=== PATIENT | male | born 1935 | race Caucasian/White ===

== ENCOUNTER 2018-08-19 01:35 | Inpatient (IN) | END 2018-08-30 15:48 | DRG 871 ==

== ENCOUNTER 2019-02-22 22:42 | Inpatient (IN) | payer MEDICARE, OTHER ==
[~2019-02-22] VITALS: Ht 177.8 cm; Wt 73.2 kg
[~2019-02-22 22:42] MED LIST: ACET-2047 ORAL; ALBU2.5V3 NEB; ASPI-903 ORAL; ATOR10TA65 ORAL; CARB1TAB34 ORAL; CHOL100062 ORAL; CITA10TA5 ORAL; DIVA125C16 ORAL; FERR220S13 ORAL; FINA5TAB4 ORAL; LACT1CAP33 ORAL; LACT1CAP52 PO; MULT-105 ORAL; OMEP20CA16 GTB; TAMS0.4C2 ORAL
--- NOTE | 2019-02-22 22:57 | CONS ---
Consultation Date/Type/Reason Admit Date/Time Date/Time of Note DATE: 02/22/19 TIME: 22:57 Past Medical History Home Meds Reported Medications Cranberry Ext/C/L. Sporogenes (Cranberry Tablet) 1 Each Tablet, 1 EACH G-TUBE DAILY PRN for UTI PPX, TAB 02/23/19 Diltiazem Hcl* (Cardizem*) 60 Mg Tablet, 60 MG GTB Q8, #90 TAB 02/23/19 Calcium Carbonate (Calcium Carbonate) 500 Mg/5 Ml Oral.susp, 500 MG GTB DAILY 02/23/19 Hydroxyzine Hcl* (Hydroxyzine Hcl*) 10 Mg Tablet, 10 MG GTB Q6H PRN for ITCHING, #30 TAB 02/23/19 Enoxaparin Sodium* (Lovenox*) 30 Mg/0.3 Ml Disp.syrin, 30 MG SQ DAILY for DVT PPX, SYR 02/23/19 Ipratropium-Albuterol (Ipratropium-Albuterol) 0.5-3 Mg/3 Ml Ampul.neb, 3 ML INHALATION Q6 for SOB, #30 VIAL 02/23/19 Clotrimazole-Betamethasone Diprop (Clotrimazole-Betamethasone Diprop) 15 Gm Cream.gm., 1 APPLIC TOP BID, TUB 02/23/19 Multivitamin with Minerals (Multivitamins with Minerals) 1 Each Tablet, 1 EACH GTB QAM for SUPPLEMENT, TAB 11/02/18 Ferrous Sulfate* (Ferrous Sulfate*) 220 Mg/5 Ml Solution, 220 MG GTB DAILY for ANEMIA, ML 11/02/18 Albuterol Sulfate* (Albuterol Sulfate* Neb) 0.083%-3 Ml Neb, 1.25 MG NEB Q4H PRN for SHORTNESS OF BREATH, #30 VIAL 11/02/18 Lactobacillus Acidophilus (Acidophilus Lactobacillus) 1 Each Capsule, 1 EACH GTB TID for GI PPX, CAP 11/02/18 Divalproex Sodium* (Depakote* Sprinkle) 125 Mg Cap.sprink, 125 MG GTB TID, #90 CAP 08/27/18 Carbidopa/Levodopa (Carbidopa-Levodopa 25-100 Tab) 1 Each Tablet, 1 EACH GTB for PARALYSIS AGITANS, TAB 08/27/18 Cholecalciferol* (Vitamin D3*) 1,000 Unit Tablet, 1000 UNIT GTB DAILY for SUPPLEMENT, TAB 08/27/18 Tamsulosin Hcl* (Tamsulosin Hcl*) 0.4 Mg Cap.er.24h, 0.4 MG GTB HS for HYPERTROPHY PROSTATE, CAP 08/27/18 Omeprazole* (Omeprazole*) 20 Mg Capsule.dr, 20 MG GTB QAM for GERD, #30 CAP 08/27/18 Atorvastatin Calcium (Atorvastatin Calcium) 10 Mg Tablet, 10 MG GTB QHS for HYPERCHOLESTEROLEMIA, #30 TAB 08/27/18 Aspirin* (Aspirin* Chew) 81 Mg Tab.chew, 81 MG GTB DAILY for CVA PPX, TAB.CHEW 08/27/18 Acetaminophen* (Acetaminophen*) 650 Mg Tablet, 650 MG GTB Q4 PRN for FEVER, #30 TAB 08/27/18 Finasteride* (Finasteride*) 5 Mg Tablet, 5 MG GTB DAILY for HYPERTROPHY PROSTATE, TAB 08/27/18 Citalopram Hydrobromide* (Citalopram Hydrobromide*) 10 Mg Tablet, 10 MG GTB QHS for DEPRESSIVE DISORDER, #30 TAB 08/27/18 Discontinued Reported Medications Lactobacillus Combo No.10 (Probiotic) 1 Each Capsule, 1 CAP PO BID, CAP 08/27/18 Allergies: Coded Allergies: Penicillins (Unverified Allergy, Unknown, 02/23/19) FELI MARCIAL MD February 22, 2019 22:57 ZOIE VERDUGO MD February 22, 2019 23:12
[2019-02-22] MEDS ORDERED: SODIUM CHLORIDE 0.9% 1L BAG IV* STA (23:22)
[2019-02-23] MEDS ORDERED: IPRA3AMP29 INHALATION (02:20)
[2019-02-23] MEDS ORDERED: CALC500O ORAL (02:20)
[2019-02-23] MEDS ORDERED: CLOT15CR6 TOP (02:20)
[2019-02-23] MEDS ORDERED: DILT60TA29 GTB (02:20)
[2019-02-23] MEDS ORDERED: ENOX30DI10 SQ (02:20)
[2019-02-23] MEDS ORDERED: CRAN1TAB6 G-TUBE (02:20)
[2019-02-23] MEDS ORDERED: HYDR-3029 GTB (02:20)
[2019-02-23] MEDS ORDERED: MEROPENEM 1 GM/50ML(PMX) 50 ML IVPB STA (02:22)
--- NOTE | 2019-02-23 03:35 | ERD ---
ER Documentation Chief Complaint Chief Complaint GERTRUDE from [place] HR,fever & cough HPI The patient is a 83-year-old male, presenting to the ER because of fever and cough. 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 Sporogenes (Cranberry Tablet) 1 Each Tablet, 1 EACH G-TUBE DAILY PRN for UTI PPX, TAB 02/23/19 Diltiazem Hcl* (Cardizem*) 60 Mg Tablet, 60 MG GTB Q8, #90 TAB 02/23/19 Calcium Carbonate (Calcium Carbonate) 500 Mg/5 Ml Oral.susp, 500 MG GTB DAILY 02/23/19 Hydroxyzine Hcl* (Hydroxyzine Hcl*) 10 Mg Tablet, 10 MG GTB Q6H PRN for ITCHING, #30 TAB 02/23/19 Enoxaparin Sodium* (Lovenox*) 30 Mg/0.3 Ml Disp.syrin, 30 MG SQ DAILY for DVT PPX, SYR 02/23/19 Ipratropium-Albuterol (Ipratropium-Albuterol) 0.5-3 Mg/3 Ml Ampul.neb, 3 ML INHALATION Q6 for SOB, #30 VIAL 02/23/19 Clotrimazole-Betamethasone Diprop (Clotrimazole-Betamethasone Diprop) 15 Gm Cream.gm., 1 APPLIC TOP BID, TUB 02/23/19 Multivitamin with Minerals (Multivitamins with Minerals) 1 Each Tablet, 1 EACH GTB QAM for SUPPLEMENT, TAB 11/02/18 Ferrous Sulfate* (Ferrous Sulfate*) 220 Mg/5 Ml Solution, 220 MG GTB DAILY for ANEMIA, ML 11/02/18 Albuterol Sulfate* (Albuterol Sulfate* Neb) 0.083%-3 Ml Neb, 1.25 MG NEB Q4H PRN for SHORTNESS OF BREATH, #30 VIAL 11/02/18 Lactobacillus Acidophilus (Acidophilus Lactobacillus) 1 Each Capsule, 1 EACH GTB TID for GI PPX, CAP 11/02/18 Divalproex Sodium* (Depakote* Sprinkle) 125 Mg Cap.sprink, 125 MG GTB TID, #90 CAP 08/27/18 Carbidopa/Levodopa (Carbidopa-Levodopa 25-100 Tab) 1 Each Tablet, 1 EACH GTB for PARALYSIS AGITANS, TAB 08/27/18 Cholecalciferol* (Vitamin D3*) 1,000 Unit Tablet, 1000 UNIT GTB DAILY for SUPPLEMENT, TAB 08/27/18 Tamsulosin Hcl* (Tamsulosin Hcl*) 0.4 Mg Cap.er.24h, 0.4 MG GTB HS for HYPERTROPHY PROSTATE, CAP 08/27/18 Omeprazole* (Omeprazole*) 20 Mg Capsule.dr, 20 MG GTB QAM for GERD, #30 CAP 08/27/18 Atorvastatin Calcium (Atorvastatin Calcium) 10 Mg Tablet, 10 MG GTB QHS for HYPERCHOLESTEROLEMIA, #30 TAB 08/27/18 Aspirin* (Aspirin* Chew) 81 Mg Tab.chew, 81 MG GTB DAILY for CVA PPX, TAB.CHEW 08/27/18 Acetaminophen* (Acetaminophen*) 650 Mg Tablet, 650 MG GTB Q4 PRN for FEVER, #30 TAB 08/27/18 Finasteride* (Finasteride*) 5 Mg Tablet, 5 MG GTB DAILY for HYPERTROPHY PROSTATE, TAB 08/27/18 Citalopram Hydrobromide* (Citalopram Hydrobromide*) 10 Mg Tablet, 10 MG GTB QHS for DEPRESSIVE DISORDER, #30 TAB 08/27/18 Discontinued Reported Medications Lactobacillus Combo No.10 (Probiotic) 1 Each Capsule, 1 CAP PO BID, CAP 08/27/18 Allergies Allergies: Coded Allergies: Penicillins (Unverified Allergy, Unknown, 02/23/19) PMhx/Soc History of Surgery: No (Cholecystectomy ) Anesthesia Reaction: No Hx Neurological Disorder: Yes (Dementia, Parkinson's disease, Stroke ) Hx Respiratory Disorders: Yes (Pneumonia, acute resp failure) Hx Cardiac Disorders: No Hx Psychiatric Problems: No (Confused, Parkinson's Dementia, delusional disorder) Hx Miscellaneous Medical Probl: Yes Hx Alcohol Use: No Hx Substance Use: No Hx Tobacco Use: No Smoking Status: Unknown if ever smoked Physical Exam Vitals Vital Signs Date Temp Pulse Resp B/P (MAP) Pulse Ox O2 O2 Flow FiO2 Time Delivery Rate 02/23/19 58 16 112/80 99 Nasal 2.0 01:29 (91) Cannula 02/23/19 Nasal 2 00:35 Cannula 02/22/19 62 20 111/46 99 Room Air 23:54 (67) 02/22/19 97.8 72 19 91/58 (69) 98 22:58 Physical Exam Const: No acute distress. Dehydrated Head: Atraumatic. Eyes: Normal Conjunctiva. ENT: Normal External Ears, Nose and Mouth. Neck: Full range of motion. No meningismus. Resp: Clear to auscultation bilaterally. Cardio: Regular rate and rhythm. Abd: Soft, non distended, normal bowel sounds, non tender. Skin: No petechiae or rashes. Back: No midline or flank tenderness. Ext: No cyanosis, or edema. Neur: Awake. No focal deficit Psych: Demented Result Diagram: 02/22/19 2340 02/22/19 2340 Results 24 hrs Laboratory Tests Test 02/22/19 23:40 02/22/19 23:41 02/23/19 00:11 White Blood Count 19.8 10^3/ul Red Blood Count 4.44 10^6/ul Hemoglobin 13.5 g/dl Hematocrit 40.7 % Mean Corpuscular Volume 91.7 fl Mean Corpuscular Hemoglobin 30.4 pg Mean Corpuscular 33.2 g/dl Hemoglobin Concent Red Cell Distribution Width 13.1 % Platelet Count 231 10^3/UL Mean Platelet Volume 9.7 fl Immature Granulocytes % 0.600 % Neutrophils % 85.2 % Lymphocytes % 7.8 % Monocytes % 5.2 % Eosinophils % 0.9 % Basophils % 0.3 % Nucleated Red Blood Cells % 0.0 /100WBC Immature Granulocytes # 0.110 10^3/ul Neutrophils # 16.9 10^3/ul Lymphocytes # 1.6 10^3/ul Monocytes # 1.0 10^3/ul Eosinophils # 0.2 10^3/ul Basophils # 0.1 10^3/ul Nucleated Red Blood Cells # 0.0 10^3/ul Prothrombin Time 13.2 Sec Prothrombin Time Ratio 1.0 INR International 0.99 Normalized Ratio Activated Partial Thromboplast 61.7 Sec Time Sodium Level 142 mmol/L Potassium Level 5.4 mmol/L Chloride Level 106 mmol/L Carbon Dioxide Level 29 mmol/L Anion Gap 7 Blood Urea Nitrogen 33 mg/dl Creatinine 1.07 mg/dl Est Glomerular Filtrat mL/min Rate mL/min Glucose Level 121 mg/dl Calcium Level 8.9 mg/dl Total Bilirubin 0.6 mg/dl Direct Bilirubin 0.00 mg/dl Indirect Bilirubin 0.6 mg/dl Aspartate Amino 29 IU/L Transf (AST/SGOT) Alanine 9 IU/L Aminotransferase (ALT/SGPT) Alkaline Phosphatase 71 IU/L Troponin I < 0.012 ng/ml Total Protein 7.6 g/dl Albumin 3.9 g/dl Globulin 3.70 g/dl Albumin/Globulin Ratio 1.05 Valproic Acid (Depakene) Level 19 ug/ml POC Venous Lactate 0.9 mmol/L Urine Color YELLOW Urine Clarity TURBID Urine pH 5.0 Urine Specific [place] 1.017 Urine Ketones TRACE mg/dL Urine Nitrite NEGATIVE mg/dL Urine Bilirubin NEGATIVE mg/dL Urine Urobilinogen NEGATIVE mg/dL Urine Leukocyte Esterase 3+ [place]/ul Urine Microscopic RBC 147 /HPF Urine Microscopic WBC > 182 /HPF Urine Amorphous Crystals FEW /HPF Urine Bacteria FEW /HPF Urine Hemoglobin 1+ mg/dL Urine Glucose NEGATIVE mg/dL Urine Total Protein 1+ mg/dl Current Medications Medications Dose Sig/Teresa Start Time Status Last (Trade) Ordered Route PRN Stop Time Admin Dose Reason Admin Sodium 2,090 ml BOLUS OVER 2 02/22/19 DC 02/22/19 Chloride HOURS STAT 23:22 23:50 (NS) IV* 02/22/19 23:23 50 ml @ ONCE STAT 02/23/19 DC 02/23/19 Meropenem/Sod 100 mls/hr IVPB 02:22 02:41 ium Chloride 02/23/19 02:51 Procedures/MDM [place] [id number] Radiology Main Line: [phone] DIAGNOSTIC IMAGING REPORT Patient: LILO DÍAZ : 1935 Age: 83 Sex: M MR #: [id number] DOS: 02/22/19 2320 Ordering MD: ZOIE VERDUGO MD Location: E/R Room/Bed: PROCEDURE: XR chest. CLINICAL INDICATION: Sepsis TECHNIQUE: Portable AP view of the chest was obtained. COMPARISON: 11/05/2018 FINDINGS: Lung volumes are small. Heart size is normal. Aorta is mild tortuous. There is no pneumothorax or pleural effusion. There is mild subsegmental bibasilar atelectasis. IMPRESSION: 1. Poor inspiration with mild bibasilar subsegmental atelectasis. RPTAT:HAJM Physician Negrita Date Time Electronically viewed and signed by Berenice Zepeda Physician on 02/23/2019 00:46 RM/ CC: ZOIE VERDUGO MD [id number] EKG: Read by emergency physician Rate/Rhythm: Normal Sinus Rhythm 63 beats/min QRS, ST, T-waves: No ST elevation, no T inversion, low voltage QRS Impression: Abnormal EKG MEDICAL MAKING DECISION: The patient is 83-year-old male, presenting with acute cystitis, acute dehydration, acute hyperkalemia most likely due to acute dehydration. He was treated with normal saline 30 mm/kg IV for acute dehydration, meropenem IV for acute cystitis The differential diagnoses considered include but are not limited to pneumonia, cystitis, pyelonephritis, aspiration pneumonia Departure Diagnosis: Primary Impression: UTI (urinary tract infection) Additional Impressions: Dehydration Hyperkalemia Anemia Condition: Stable Comments I discussed the findings with the patient. I discussed the patient with Dr Granda at 2:55am , who was made aware of the lab, the treatment, the patient condition. The patient is admitted to [facility] Disclaimer: Inadvertent spelling and grammatical errors are likely due to EHR/dictation software use and do not reflect on the overall quality of patient care. Also, please note that the electronic time recorded on this note does not necessarily reflect the actual time of the patient encounter. ZOIE VERDUGO MD February 23, 2019 03:35
[2019-02-23 08:00] VITALS: BP 97/46; PULSE 56; RESP 18
[2019-02-23 08:15] VITALS: BP 97/46; PULSE 56; RESP 18
[2019-02-23 09:44] VITALS: Ht 177.8 cm; Wt 73.2 kg
[2019-02-23] MEDS ORDERED: morphine 2 MG INJ IV PRN (10:30)
[2019-02-23] MEDS ORDERED: ONDANSETRON 4 MG INJ IV PRN (10:30)
--- NOTE | 2019-02-23 12:31 | HP ---
Date/Time of Note Date/Time of Note DATE: 02/23/19 TIME: 12:29 Assessment/Plan VTE Prophylaxis Pharmacological prophylaxis: LMWH Lines/Catheters IV Catheter Type (from Nrs): Peripheral IV Urinary Cath still in place: No Assessment/Plan Hospital Course 1) UTI - IV antibiotics - ID consult - monitor clinically 2) BPH - continue medicaitons 3) dementia - appears to be stable Result Diagram: 02/22/19 2340 02/22/19 2340 Results 24hrs Laboratory Tests Test 02/22/19 23:40 02/22/19 23:41 02/23/19 00:11 02/23/19 03:30 White Blood Count 19.8 #H Red Blood Count 4.44 L Hemoglobin 13.5 L Hematocrit 40.7 L Mean Corpuscular 91.7 Volume Mean Corpuscular 30.4 Hemoglobin Mean Corpuscular 33.2 Hemoglobin Concent Red Cell 13.1 Distribution Width Platelet Count 231 Mean Platelet Volume 9.7 Immature 0.600 H Granulocytes % Neutrophils % 85.2 H Lymphocytes % 7.8 L Monocytes % 5.2 Eosinophils % 0.9 Basophils % 0.3 Nucleated Red Blood 0.0 Cells % Immature 0.110 H Granulocytes # Neutrophils # 16.9 H Lymphocytes # 1.6 Monocytes # 1.0 H Eosinophils # 0.2 Basophils # 0.1 Nucleated Red Blood 0.0 Cells # Prothrombin Time 13.2 Prothrombin Time 1.0 Ratio INR International 0.99 Normalized Ratio Activated 61.7 H Partial Thromboplast Time Sodium Level 142 Potassium Level 5.4 H Chloride Level 106 Carbon Dioxide Level 29 Anion Gap 7 Blood Urea Nitrogen 33 H Creatinine 1.07 Est Glomerular Filtrat Rate mL/min Glucose Level 121 Calcium Level 8.9 Total Bilirubin 0.6 Direct Bilirubin 0.00 Indirect Bilirubin 0.6 Aspartate Amino 29 Transf (AST/SGOT) Alanine 9 L Aminotransferase (AL T/SGPT) Alkaline Phosphatase 71 Troponin I < 0.012 Total Protein 7.6 Albumin 3.9 Globulin 3.70 H Albumin/Globulin 1.05 Ratio Valproic Acid 19 L (Depakene) Level POC Venous Lactate 0.9 Urine Color YELLOW Urine Clarity TURBID A Urine pH 5.0 Urine Specific 1.017 [place] Urine Ketones TRACE A Urine Nitrite NEGATIVE Urine Bilirubin NEGATIVE Urine Urobilinogen NEGATIVE Urine Leukocyte 3+ H Esterase Urine Microscopic 147 H RBC Urine Microscopic > 182 H WBC Urine Amorphous FEW A Crystals Urine Bacteria FEW A Urine Hemoglobin 1+ H Urine Glucose NEGATIVE Urine Total Protein 1+ H Lactic Acid Level 1.0 HPI/ROS Admit Date/Time Admit Date/Time 02/23/19 Hx of Present Illness Patient with history of dementia, CVA, BPH, delusional disorder comes from [facility] with fever and cough. Patient was evaluated in the emergency room and found to have an urinary tract infeciton and so is admitted for treatment. PMH/Family/Social Past Medical History dementia BPH Medications Current Medications Morphine Sulfate (morphine) 2 mg Q4H PRN IV pain; Start 02/23/19 at 10:30 Ondansetron HCl (Zofran Inj) 4 mg Q6H PRN IV NAUSEA AND/OR VOMITING; Start 02/23/19 at 10:30 Meropenem/Sodium Chloride 50 ml @ 100 mls/hr Q8 IVPB ; Start 02/23/19 at 14:00 IV Flush (NS 10 ml) 10 ml Q8 IV ; Start 02/23/19 at 14:00 Coded Allergies: Penicillins (Unverified Allergy, Unknown, 02/23/19) Social History Smoking Status: Unknown if ever smoked Exam/Review of Systems Vital Signs Vitals Vital Signs Date Temp Pulse Resp B/P (MAP) Pulse Ox O2 O2 Flow FiO2 Time Delivery Rate 02/23/19 97.8 56 18 97/46 (63) 99 Room Air 08:15 02/23/19 3.0 03:38 Exam Constitutional: well developed Head: normocephalic, atraumatic Neck: supple Respiratory: diminished breath sounds Cardiovascular: regular rate and rhythm Gastrointestinal: soft, non-tender Extremities: normal pulses ERNST BARAKAT February 23, 2019 12:31
[2019-02-23] MEDS ORDERED: ACETAMINOPHEN 325 MG TAB PO PRN (13:00)
[2019-02-23] MEDS ORDERED: ALBUTEROL 0.083% (NEB) 2.5 MG/3 ML AMP NEB PRN (13:00)
[2019-02-23] MEDS: FERROUS SULFATE 60 MG/ML 5ML CUP PO SCH (13:28)
[2019-02-23] MEDS: CHOLECALCIFEROL 1,000 UNIT TAB PO SCH (13:28)
[2019-02-23] MEDS: FINASTERIDE 5 MG TAB PO SCH (13:28)
[2019-02-23] MEDS: DILTIAZEM 60 MG TAB GTB SCH ×2 (13:29→22:00)
[2019-02-23] MEDS: CALCIUM CARBONATE 1.25 GM TAB PO SCH (13:29)
[2019-02-23] MEDS: MEROPENEM 500MG/50 ML (PMX) 50 ML IVPB SCH ×2 (13:29→22:47)
[2019-02-23 13:30] VITALS: BP 119/46; PULSE 57; RESP 16
[2019-02-23] MEDS: ALBUTEROL/IPRATROPIUM (NEB) 3 ML AMP HHN SCH ×2 (13:45→20:17)
[2019-02-23] MEDS: DIVALPROEX SPRINKLE 125 MG CAP PO SCH ×2 (17:30→20:37)
--- NOTE | 2019-02-23 18:04 | CONS ---
Assessment/Plan Assessment/Plan Hospital Course (Demo Recall) -ANEMIA COMPLEX, MONITOR - LEUKOCYTOSIS REACTIVE, IMPROVED - fever, cough CXR, IV ATB , ID, CULTURES - HX urinary tract infection. IV ATB - BPH, continue Flomax and Proscar - Dysphagia. swallow evaluation by ST. - History of cerebrovascular accident. Continue aspirin - Dyslipidemia. Continue statin - Parkinsonism. Continue carbidopa - Dementia with agitation. Continue Depakote. - Depression. Continue Celexa. VK LE Consultation Date/Type/Reason Admit Date/Time February 23, 2019 at 08:00 Date of Consultation: February 22, 2019 Type of Consult HEMEONC Reason for Consultation LEUKOCYTOSIS ANEMIA Requesting Provider: JACOBO EATON MD Date/Time of Note DATE: 02/23/19 TIME: 18:03 Hx of Present Illness The patient is a 83-year-old male, presenting to the ER because of fever and cough. He is unable to provide any history, the history is obtained from therapy technician and EMS Past medical history: Anemia Parkinson disease, BPH, dyslipidemia, depression, dementia, history of CVA Past surgical history/social history/review of system: Unable to obtain due to his condition Medications Home Meds Reported Medications Cranberry Ext/C/L. Sporogenes (Cranberry Tablet) 1 Each Tablet, 1 EACH G-TUBE DAILY PRN for UTI PPX, TAB 02/23/19 Diltiazem Hcl* (Cardizem*) 60 Mg Tablet, 60 MG GTB Q8, #90 TAB 02/23/19 Calcium Carbonate (Calcium Carbonate) 500 Mg/5 Ml Oral.susp, 500 MG GTB DAILY 02/23/19 Hydroxyzine Hcl* (Hydroxyzine Hcl*) 10 Mg Tablet, 10 MG GTB Q6H PRN for ITCHING, #30 TAB 02/23/19 Enoxaparin Sodium* (Lovenox*) 30 Mg/0.3 Ml Disp.syrin, 30 MG SQ DAILY for DVT PPX, SYR 02/23/19 Ipratropium-Albuterol (Ipratropium-Albuterol) 0.5-3 Mg/3 Ml Ampul.neb, 3 ML INHALATION Q6 for SOB, #30 VIAL 02/23/19 Clotrimazole-Betamethasone Diprop (Clotrimazole-Betamethasone Diprop) 15 Gm Cream.gm., 1 APPLIC TOP BID, TUB 02/23/19 Multivitamin with Minerals (Multivitamins with Minerals) 1 Each Tablet, 1 EACH GTB QAM for SUPPLEMENT, TAB 11/02/18 Ferrous Sulfate* (Ferrous Sulfate*) 220 Mg/5 Ml Solution, 220 MG GTB DAILY for ANEMIA, ML 11/02/18 Albuterol Sulfate* (Albuterol Sulfate* Neb) 0.083%-3 Ml Neb, 1.25 MG NEB Q4H PRN for SHORTNESS OF BREATH, #30 VIAL 11/02/18 Lactobacillus Acidophilus (Acidophilus Lactobacillus) 1 Each Capsule, 1 EACH GTB TID for GI PPX, CAP 11/02/18 Divalproex Sodium* (Depakote* Sprinkle) 125 Mg Cap.sprink, 125 MG GTB TID, #90 CAP 08/27/18 Carbidopa/Levodopa (Carbidopa-Levodopa 25-100 Tab) 1 Each Tablet, 1 EACH GTB for PARALYSIS AGITANS, TAB 08/27/18 Cholecalciferol* (Vitamin D3*) 1,000 Unit Tablet, 1000 UNIT GTB DAILY for SUPPLEMENT, TAB 08/27/18 Tamsulosin Hcl* (Tamsulosin Hcl*) 0.4 Mg Cap.er.24h, 0.4 MG GTB HS for H YPERTROPHY PROSTATE, CAP 08/27/18 Omeprazole* (Omeprazole*) 20 Mg Capsule.dr, 20 MG GTB QAM for GERD, #30 CAP 08/27/18 Atorvastatin Calcium (Atorvastatin Calcium) 10 Mg Tablet, 10 MG GTB QHS for HYPERCHOLESTEROLEMIA, #30 TAB 08/27/18 Aspirin* (Aspirin* Chew) 81 Mg Tab.chew, 81 MG GTB DAILY for CVA PPX, TAB.CHEW 08/27/18 Acetaminophen* (Acetaminophen*) 650 Mg Tablet, 650 MG GTB Q4 PRN for FEVER, #30 TAB 08/27/18 Finasteride* (Finasteride*) 5 Mg Tablet, 5 MG GTB DAILY for HYPERTROPHY PRO STATE, TAB 08/27/18 Citalopram Hydrobromide* (Citalopram Hydrobromide*) 10 Mg Tablet, 10 MG GTB QHS for DEPRESSIVE DISORDER, #30 TAB 08/27/18 Discontinued Reported Medications Lactobacillus Combo No.10 (Probiotic) 1 Each Capsule, 1 CAP PO BID, CAP 08/27/18 Allergies Allergies: Coded Allergies: Penicillins (Unverified Allergy, Unknown, 02/23/19) PMhx/Soc History of Surgery: No (Cholecystectomy ) Anesthesia Reaction: No Hx Neurological Disorder: Yes (Dementia, Parkinson's disease, Stroke ) Hx Respiratory Disorders: Yes (Pneumonia, acute resp failure) Hx Cardiac Disorders: No Hx Psychiatric Problems: No (Confused, Parkinson's Dementia, delusional disorder) Hx Miscellaneous Medical Probl: Yes Hx Alcohol Use: No Hx Substance Use: No Hx Tobacco Use: No Smoking Status: Unknown if ever smoked Past Medical History Home Meds Reported Medications Cranberry Ext/C/L. Sporogenes (Cranberry Tablet) 1 Each Tablet, 1 EACH G-TUBE DAILY PRN for UTI PPX, TAB 02/23/19 Diltiazem Hcl* (Cardizem*) 60 Mg Tablet, 60 MG GTB Q8, #90 TAB 02/23/19 Calcium Carbonate (Calcium Carbonate) 500 Mg/5 Ml Oral.susp, 500 MG ORAL DAILY 02/23/19 Hydroxyzine Hcl* (Hydroxyzine Hcl*) 10 Mg Tablet, 10 MG GTB Q6H PRN for ITCHING, #30 TAB 02/23/19 Enoxaparin Sodium* (Lovenox*) 30 Mg/0.3 Ml Disp.syrin, 30 MG SQ DAILY for DVT PPX, SYR 02/23/19 Ipratropium-Albuterol (Ipratropium-Albuterol) 0.5-3 Mg/3 Ml Ampul.neb, 3 ML INHALATION Q6 for SOB, #30 VIAL 02/23/19 Clotrimazole-Betamethasone Diprop (Clotrimazole-Betamethasone Diprop) 15 Gm Cream.gm., 1 APPLIC TOP BID, TUB 02/23/19 Multivitamin with Minerals (Multivitamins with Minerals) 1 Each Tablet, 1 EACH ORAL QAM for SUPPLEMENT, TAB 11/02/18 Ferrous Sulfate* (Ferrous Sulfate*) 220 Mg/5 Ml Solution, 220 MG ORAL DAILY for ANEMIA, ML 11/02/18 Albuterol Sulfate* (Albuterol Sulfate* Neb) 0.083%-3 Ml Neb, 1.25 MG NEB Q4H PRN for SHORTNESS OF BREATH, #30 VIAL 11/02/18 Lactobacillus Acidophilus (Acidophilus Lactobacillus) 1 Each Capsule, 1 EACH ORAL TID for GI PPX, CAP 11/02/18 Divalproex Sodium* (Depakote* Sprinkle) 125 Mg Cap.sprink, 125 MG ORAL TID, #90 CAP 08/27/18 Carbidopa/Levodopa (Carbidopa-Levodopa 25-100 Tab) 1 Each Tablet, 1 EACH ORAL BID for PARALYSIS AGITANS, TAB 08/27/18 Cholecalciferol* (Vitamin D3*) 1,000 Unit Tablet, 1000 UNIT ORAL DAILY for SUPPLEMENT, TAB 08/27/18 Tamsulosin Hcl* (Tamsulosin Hcl*) 0.4 Mg Cap.er.24h, 0.4 MG ORAL HS for HYPERTROPHY PROSTATE, CAP 08/27/18 Omeprazole* (Omeprazole*) 20 Mg Capsule.dr, 20 MG GTB QAM for GERD, #30 CAP 08/27/18 Atorvastatin Calcium (Atorvastatin Calcium) 10 Mg Tablet, 10 MG ORAL QHS for HY PERCHOLESTEROLEMIA, #30 TAB 08/27/18 Aspirin* (Aspirin* Chew) 81 Mg Tab.chew, 81 MG ORAL DAILY for CVA PPX, TAB.CHEW 08/27/18 Acetaminophen* (Acetaminophen*) 650 Mg Tablet, 650 MG ORAL Q4 PRN for FEVER, #30 TAB 08/27/18 Finasteride* (Finasteride*) 5 Mg Tablet, 5 MG ORAL DAILY for HYPERTROPHY PROSTATE, TAB 08/27/18 Citalopram Hydrobromide* (Citalopram Hydrobromide*) 10 Mg Tablet, 10 MG ORAL QHS for DEPRESSIVE DISORDER, #30 TAB 08/27/18 Discontinued Reported Medications Lactobacillus Combo No.10 (Probiotic) 1 Each Capsule, 1 CAP PO BID, CAP 08/27/18 Medications Current Medications Morphine Sulfate (morphine) 2 mg Q4H PRN IV pain; Start 02/23/19 at 10:30 Ondansetron HCl (Zofran Inj) 4 mg Q6H PRN IV NAUSEA AND/OR VOMITING; Start 02/23/19 at 10:30 Meropenem/Sodium Chloride 50 ml @ 100 mls/hr Q8 IVPB Last administered on 02/23/19at 13:29; Admin Dose 100 MLS/HR; Start 02/23/19 at 14:00 IV Flush (NS 10 ml) 10 ml Q8 IV Last administered on 02/23/19 13:30; Admin Dose 10 ML; Start 02/23/19 at 14:00 Enoxaparin Sodium (Lovenox) 30 mg DAILY SC ; Start 02/24/19 at 09:00 Acetaminophen (Tylenol Tab) 650 mg Q4H PRN PO FEVER; Start 02/23/19 at 13:00 Albuterol (Proventil 0.083% (Neb)) 1.25 mg Q4H RESP THERAPY PRN NEB SHORTNESS OF BREATH; Start 02/23/19 at 13:00 Aspirin (Aspirin) 81 mg DAILY PO ; Start 02/24/19 at 09:00 Atorvastatin Calcium (Lipitor) 10 mg QHS PO ; Start 02/23/19 at 21:00 Calcium Carbonate (Oyster Shell Calcium) 1.25 gm DAILY PO Last administered on 02/23/19 13:29; Admin Dose 1.25 GM; Start 02/23/19 at 13:00 Carbidopa/Levodopa (Sinemet (25/ 100)) 1 tab BID PO ; Start 02/23/19 at 21:00 Cholecalciferol (Vitamin D) 1,000 unit DAILY PO Last administered on 02/23/19 13:28; Admin Dose 1,000 UNIT; Start 02/23/19 at 13:00 Citalopram Hydrobromide (Celexa) 10 mg QHS PO ; Start 02/23/19 at 21:00 Betamethasone/ Clotrimazole (Lotrisone Cr) 1 applic BID TOP ; Start 02/23/19 at 21:00 Diltiazem HCl (Cardizem) 60 mg Q8 GTB ; Start 02/23/19 at 14:00 Divalproex Sodium (Depakote Sprinkle) 125 mg TID PO Last administered on 02/23/19 17:30; Admin Dose 125 MG; Start 02/23/19 at 14:00 Ferrous Sulfate (Feosol Liquid Cup) 300 mg DAILY PO Last administered on 02/23/19 13:28; Admin Dose 300 MG; Start 02/23/19 at 13:00 Finasteride (Proscar) 5 mg DAILY PO Last administered on 02/23/19 13:28; Admin Dose 5 MG; Start 02/23/19 at 13:00 Hydroxyzine HCl (Atarax) 10 mg Q6H PRN GTB ITCHING; Start 02/23/19 at 13:00 Albuterol/ Ipratropium (Duoneb) 3 ml Q6H RESP THERAPY HHN Last administered on 02/23/19at 13:45; Admin Dose 3 ML; Start 02/23/19 at 14:00 Tamsulosin HCl (Flomax) 0.4 mg HS PO ; Start 02/23/19 at 21:00 Allergies: Coded Allergies: Penicillins (Unverified Allergy, Unknown, 02/23/19) Social History Smoking Status: Unknown if ever smoked Exam/Review of Systems Exam Vitals Vital Signs Date Temp Pulse Resp B/P (MAP) Pulse Ox O2 O2 Flow FiO2 Time Delivery Rate 02/23/19 98.0 57 16 119/46 94 Room Air 13:30 (70) 02/23/19 3.0 03:38 Exam Constitutional: alert, frail Head: normocephalic Neck: supple Respiratory: clear to auscultation Cardiovascular: nl pulses Gastrointestinal: soft, non-tender Extremities: normal pulses Neurological: confused Results Result Diagram: 02/22/19 2340 02/22/19 2340 Results 24hrs Laboratory Tests Test 02/22/19 23:40 02/22/19 23:41 02/23/19 00:11 02/23/19 03:30 White Blood Count 19.8 #H Red Blood Count 4.44 L Hemoglobin 13.5 L Hematocrit 40.7 L Mean Corpuscular 91.7 Volume Mean Corpuscular 30.4 Hemoglobin Mean Corpuscular 33.2 Hemoglobin Concent Red Cell 13.1 Distribution Width Platelet Count 231 Mean Platelet Volume 9.7 Immature 0.600 H Granulocytes % Neutrophils % 85.2 H Lymphocytes % 7.8 L Monocytes % 5.2 Eosinophils % 0.9 Basophils % 0.3 Nucleated Red Blood 0.0 Cells % Immature 0.110 H Granulocytes # Neutrophils # 16.9 H Lymphocytes # 1.6 Monocytes # 1.0 H Eosinophils # 0.2 Basophils # 0.1 Nucleated Red Blood 0.0 Cells # Prothrombin Time 13.2 Prothrombin Time 1.0 Ratio INR International 0.99 Normalized Ratio Activated 61.7 H Partial Thromboplast Time Sodium Level 142 Potassium Level 5.4 H Chloride Level 106 Carbon Dioxide Level 29 Anion Gap 7 Blood Urea Nitrogen 33 H Creatinine 1.07 Est Glomerular Filtrat Rate mL/min Glucose Level 121 Calcium Level 8.9 Total Bilirubin 0.6 Direct Bilirubin 0.00 Indirect Bilirubin 0.6 Aspartate Amino 29 Transf (AST/SGOT) Alanine 9 L Aminotransferase (AL T/SGPT) Alkaline Phosphatase 71 Troponin I < 0.012 Total Protein 7.6 Albumin 3.9 Globulin 3.70 H Albumin/Globulin 1.05 Ratio Valproic Acid 19 L (Depakene) Level POC Venous Lactate 0.9 Urine Color YELLOW Urine Clarity TURBID A Urine pH 5.0 Urine Specific 1.017 [place] Urine Ketones TRACE A Urine Nitrite NEGATIVE Urine Bilirubin NEGATIVE Urine Urobilinogen NEGATIVE Urine Leukocyte 3+ H Esterase Urine Microscopic 147 H RBC Urine Microscopic > 182 H WBC Urine Amorphous FEW A Crystals Urine Bacteria FEW A Urine Hemoglobin 1+ H Urine Glucose NEGATIVE Urine Total Protein 1+ H Lactic Acid Level 1.0 Medications Medication Current Medications Morphine Sulfate (morphine) 2 mg Q4H PRN IV pain; Start 02/23/19 at 10:30 Ondansetron HCl (Zofran Inj) 4 mg Q6H PRN IV NAUSEA AND/OR VOMITING; Start 02/23/19 at 10:30 Meropenem/Sodium Chloride 50 ml @ 100 mls/hr Q8 IVPB Last administered on 02/23/19at 13:29; Admin Dose 100 MLS/HR; Start 02/23/19 at 14:00 IV Flush (NS 10 ml) 10 ml Q8 IV Last administered on 02/23/19at 13:30; Admin Dose 10 ML; Start 02/23/19 at 14:00 Enoxaparin Sodium (Lovenox) 30 mg DAILY SC ; Start 02/24/19 at 09:00 Acetaminophen (Tylenol Tab) 650 mg Q4H PRN PO FEVER; Start 02/23/19 at 13:00 Albuterol (Proventil 0.083% (Neb)) 1.25 mg Q4H RESP THERAPY PRN NEB SHORTNESS OF BREATH; Start 02/23/19 at 13:00 Aspirin (Aspirin) 81 mg DAILY PO ; Start 02/24/19 at 09:00 Atorvastatin Calcium (Lipitor) 10 mg QHS PO ; Start 02/23/19 at 21:00 Calcium Carbonate (Oyster Shell Calcium) 1.25 gm DAILY PO Last administered on 02/23/19 13:29; Admin Dose 1.25 GM; Start 02/23/19 at 13:00 Carbidopa/Levodopa (Sinemet (25/ 100)) 1 tab BID PO ; Start 02/23/19 at 21:00 Cholecalciferol (Vitamin D) 1,000 unit DAILY PO Last administered on 02/23/19 13:28; Admin Dose 1,000 UNIT; Start 02/23/19 at 13:00 Citalopram Hydrobromide (Celexa) 10 mg QHS PO ; Start 02/23/19 at 21:00 Betamethasone/ Clotrimazole (Lotrisone Cr) 1 applic BID TOP ; Start 02/23/19 at 21:00 Diltiazem HCl (Cardizem) 60 mg Q8 GTB ; Start 02/23/19 at 14:00 Divalproex Sodium (Depakote Sprinkle) 125 mg TID PO Last administered on 02/23/19 17:30; Admin Dose 125 MG; Start 02/23/19 at 14:00 Ferrous Sulfate (Feosol Liquid Cup) 300 mg DAILY PO Last administered on 02/23/19 13:28; Admin Dose 300 MG; Start 02/23/19 at 13:00 Finasteride (Proscar) 5 mg DAILY PO Last administered on 02/23/19 13:28; Admin Dose 5 MG; Start 02/23/19 at 13:00 Hydroxyzine HCl (Atarax) 10 mg Q6H PRN GTB ITCHING; Start 02/23/19 at 13:00 Albuterol/ Ipratropium (Duoneb) 3 ml Q6H RESP THERAPY HHN Last administered on 02/23/19 13:45; Admin Dose 3 ML; Start 02/23/19 at 14:00 Tamsulosin HCl (Flomax) 0.4 mg HS PO ; Start 02/23/19 at 21:00 FELI MARCIAL MD February 23, 2019 18:04
[2019-02-23 19:34] VITALS: BP 91/43; PULSE 58; RESP 18
[2019-02-23] MEDS: BETAMETHASONE/CLOTRIMAZOLE 15 GM CR TOP SCH (20:38)
[2019-02-23] MEDS: CARBIDOPA/LEVODOPA (25/100) TAB PO SCH (20:38)
[2019-02-23] MEDS: TAMSULOSIN (SR) 0.4 MG CAP PO SCH (20:38)
[2019-02-23] MEDS: ATORVASTATIN 10 MG TAB PO SCH (20:38)
[2019-02-23] MEDS: CITALOPRAM 20 MG TAB PO SCH (20:38)
[2019-02-23 21:00] VITALS: BP 104/44; PULSE 56; RESP 18
[2019-02-23 22:00] VITALS: BP 103/53; PULSE 60; RESP 19
[2019-02-23] MEDS ORDERED: LORAZEPAM 2 MG INJ IV PRN (22:00)
[2019-02-23] MEDS ORDERED: PENDING SANTYL ORDER FOR WOUND CARE XX PRN (22:30)
[2019-02-24] MEDS: ALBUTEROL/IPRATROPIUM (NEB) 3 ML AMP HHN SCH ×4 (01:39→19:40)
[2019-02-24 02:00] VITALS: BP 101/50; PULSE 59; RESP 20
[2019-02-24] MEDS: MEROPENEM 500MG/50 ML (PMX) 50 ML IVPB SCH ×3 (05:33→20:37)
[2019-02-24] MEDS: DILTIAZEM 60 MG TAB GTB SCH ×3 (06:00→22:00)
[2019-02-24 07:45] VITALS: BP 92/64; PULSE 60; RESP 18
[2019-02-24] MEDS: CARBIDOPA/LEVODOPA (25/100) TAB PO SCH ×2 (08:41→20:36)
[2019-02-24] MEDS: FERROUS SULFATE 60 MG/ML 5ML CUP PO SCH (08:41)
[2019-02-24] MEDS: DIVALPROEX SPRINKLE 125 MG CAP PO SCH ×3 (08:41→20:34)
[2019-02-24] MEDS: CHOLECALCIFEROL 1,000 UNIT TAB PO SCH (08:41)
[2019-02-24] MEDS: CALCIUM CARBONATE 1.25 GM TAB PO SCH (08:41)
[2019-02-24] MEDS: BETAMETHASONE/CLOTRIMAZOLE 15 GM CR TOP SCH ×2 (08:41→20:38)
[2019-02-24] MEDS: FINASTERIDE 5 MG TAB PO SCH (08:41)
[2019-02-24] MEDS: ASPIRIN 81 MG TAB PO SCH (08:41)
[2019-02-24] MEDS: ENOXAPARIN 30 MG/0.3 ML SYG SC SCH (08:42)
--- NOTE | 2019-02-24 11:57 | RADRPT ---
Vent Rate: 63 bpm RR Interval: 0 msec AR Interval: 168 msec QRS Duration: 72 msec QT Interval: 434 msec QTC Interval: 444 msec P-R-T [place]: 74 - -21 - 34 degrees Normal sinus rhythm Low voltage QRS Borderline ECG Electronically Signed By: *[facility]
--- NOTE | 2019-02-24 12:31 | PN ---
Date/Time of Note Date/Time of Note DATE: 02/24/19 TIME: 12:30 Assessment/Plan VTE Prophylaxis Risk score (from [facility])>0 risk: 4 SCD applied (from [facility]): No SCD contraindicated: other Pharmacological prophylaxis: LMWH Lines/Catheters IV Catheter Type ([facility] [place] Urinary Cath still in place: No Assessment/Plan Hospital Course 1) UTI - IV antibiotics - ID consult - monitor clinically 2) BPH - continue medicaitons 3) dementia - appears to be stable Result Diagram: 02/24/19 0501 02/24/19 0501 Results 24hrs Laboratory Tests Test 02/24/19 05:01 White Blood Count 9.5 # Red Blood Count 3.77 L Hemoglobin 11.2 L Hematocrit 34.9 L Mean Corpuscular Volume 92.6 Mean Corpuscular Hemoglobin 29.7 Mean Corpuscular Hemoglobin Concent 32.1 Red Cell Distribution Width 13.2 Platelet Count 211 Mean Platelet Volume 9.8 Immature Granulocytes % 0.400 Neutrophils % 76.3 Lymphocytes % 12.6 L Monocytes % 6.2 Eosinophils % 4.1 Basophils % 0.4 Nucleated Red Blood Cells % 0.0 Immature Granulocytes # 0.040 H Neutrophils # 7.2 Lymphocytes # 1.2 Monocytes # 0.6 Eosinophils # 0.4 Basophils # 0.0 Nucleated Red Blood Cells # 0.0 Sodium Level 147 H Potassium Level 3.9 Chloride Level 112 H Carbon Dioxide Level 28 Anion Gap 7 Blood Urea Nitrogen 26 H Creatinine 0.97 Est Glomerular Filtrat Rate mL/min Glucose Level 92 Calcium Level 8.3 L Subjective 24 Hr Interval Summary Free Text/Dictation Patient is resting, comfortable but has sitter, apparently was agitated overnight Exam/Review of Systems Exam Vitals Vital Signs Date Temp Pulse Resp B/P (MAP) Pulse Ox O2 O2 Flow FiO2 Time Delivery Rate 02/24/19 60 18 98 21 08:10 02/24/19 98.4 92/64 (73) 07:45 02/23/19 Room Air 13:30 02/23/19 3.0 03:38 Intake and Output 02/23/19 02/23/19 02/24/19 1515:00 23:00 07:00 IntakeIntake Total 200 ml 50 ml 220 ml OutputOutput Total 1 ml BalanceBalance 199 ml 50 ml 220 ml Constitutional: well developed Head: normocephalic, atraumatic Neck: supple Respiratory: diminished breath sounds Cardiovascular: regular rate and rhythm Gastrointestinal: soft, non-tender Extremities: normal pulses Results Results 24hrs Laboratory Tests Test 02/24/19 05:01 White Blood Count 9.5 # Red Blood Count 3.77 L Hemoglobin 11.2 L Hematocrit 34.9 L Mean Corpuscular Volume 92.6 Mean Corpuscular Hemoglobin 29.7 Mean Corpuscular Hemoglobin Concent 32.1 Red Cell Distribution Width 13.2 Platelet Count 211 Mean Platelet Volume 9.8 Immature Granulocytes % 0.400 Neutrophils % 76.3 Lymphocytes % 12.6 L Monocytes % 6.2 Eosinophils % 4.1 Basophils % 0.4 Nucleated Red Blood Cells % 0.0 Immature Granulocytes # 0.040 H Neutrophils # 7.2 Lymphocytes # 1.2 Monocytes # 0.6 Eosinophils # 0.4 Basophils # 0.0 Nucleated Red Blood Cells # 0.0 Sodium Level 147 H Potassium Level 3.9 Chloride Level 112 H Carbon Dioxide Level 28 Anion Gap 7 Blood Urea Nitrogen 26 H Creatinine 0.97 Est Glomerular Filtrat Rate mL/min Glucose Level 92 Calcium Level 8.3 L Medications Medication Current Medications Morphine Sulfate (morphine) 2 mg Q4H PRN IV pain; Start 02/23/19 at 10:30 Ondansetron HCl (Zofran Inj) 4 mg Q6H PRN IV NAUSEA AND/OR VOMITING; Start 02/23/19 at 10:30 Meropenem/Sodium Chloride 50 ml @ 100 mls/hr Q8 IVPB Last administered on 02/24/19at 05:33; Admin Dose 100 MLS/HR; Start 02/23/19 at 14:00 IV Flush (NS 10 ml) 10 ml Q8 IV Last administered on 02/23/19at 13:30; Admin Dose 10 ML; Start 02/23/19 at 14:00 Enoxaparin Sodium (Lovenox) 30 mg DAILY SC Last administered on 02/24/19at 08:42; Admin Dose 30 MG; Start 02/24/19 at 09:00 Acetaminophen (Tylenol Tab) 650 mg Q4H PRN PO FEVER; Start 02/23/19 at 13:00 Albuterol (Proventil 0.083% (Neb)) 1.25 mg Q4H RESP THERAPY PRN NEB SHORTNESS OF BREATH; Start 02/23/19 at 13:00 Aspirin (Aspirin) 81 mg DAILY PO Last administered on 02/24/19 08:41; Admin Dose 81 MG; Start 02/24/19 at 09:00 Atorvastatin Calcium (Lipitor) 10 mg QHS PO Last administered on 02/23/19 20:38; Admin Dose 10 MG; Start 02/23/19 at 21:00 Calcium Carbonate (Oyster Shell Calcium) 1.25 gm DAILY PO Last administered on 02/24/19 08:41; Admin Dose 1.25 GM; Start 02/23/19 at 13:00 Carbidopa/Levodopa (Sinemet (25/ 100)) 1 tab BID PO Last administered on 02/24/19 08:41; Admin Dose 1 TAB; Start 02/23/19 at 21:00 Cholecalciferol (Vitamin D) 1,000 unit DAILY PO Last administered on 02/24/19 08:41; Admin Dose 1,000 UNIT; Start 02/23/19 at 13:00 Citalopram Hydrobromide (Celexa) 10 mg QHS PO Last administered on 02/23/19 20:38; Admin Dose 10 MG; Start 02/23/19 at 21:00 Betamethasone/ Clotrimazole (Lotrisone Cr) 1 applic BID TOP Last administered on 02/24/19 08:41; Admin Dose 1 APPLIC; Start 02/23/19 at 21:00 Diltiazem HCl (Cardizem) 60 mg Q8 GTB ; Start 02/23/19 at 14:00 Divalproex Sodium (Depakote Sprinkle) 125 mg TID PO Last administered on 02/24/19 08:41; Admin Dose 125 MG; Start 02/23/19 at 14:00 Ferrous Sulfate (Feosol Liquid Cup) 300 mg DAILY PO Last administered on 02/24/19 08:41; Admin Dose 300 MG; Start 02/23/19 at 13:00 Finasteride (Proscar) 5 mg DAILY PO Last administered on 02/24/19 08:41; Admin Dose 5 MG; Start 02/23/19 at 13:00 Hydroxyzine HCl (Atarax) 10 mg Q6H PRN GTB ITCHING; Start 02/23/19 at 13:00 Albuterol/ Ipratropium (Duoneb) 3 ml Q6H RESP THERAPY HHN Last administered on 02/24/19 08:10; Admin Dose 3 ML; Start 02/23/19 at 14:00 Tamsulosin HCl (Flomax) 0.4 mg HS PO Last administered on 02/23/19at 20:38; Admin Dose 0.4 MG; Start 02/23/19 at 21:00 Lorazepam (Ativan) 1 mg Q4H PRN IV ANXIETY Last administered on 02/23/19at 22:20; Admin Dose 1 MG; Start 02/23/19 at 22:00 [facility]isc[facility] This patient peck... PRN PRN XX WOUND CARE; Start 02/23/19 at 22:30 ERNST BARAKAT February 24, 2019 12:31
[2019-02-24 14:11] VITALS: BP 91/47; PULSE 68; RESP 19
[2019-02-24 19:14] VITALS: BP 114/60; PULSE 66; RESP 18
[2019-02-24] MEDS: TAMSULOSIN (SR) 0.4 MG CAP PO SCH (20:35)
[2019-02-24] MEDS: CITALOPRAM 20 MG TAB PO SCH (20:36)
[2019-02-24] MEDS: ATORVASTATIN 10 MG TAB PO SCH (20:38)
[2019-02-24] MEDS: hydrOXYzine HCL 10 MG TAB GTB PRN (20:42)
--- NOTE | 2019-02-24 22:57 | CONS ---
Assessment/Plan Assessment/Plan Hospital Course (Demo Recall) -ANEMIA COMPLEX, MONITOR - LEUKOCYTOSIS REACTIVE, IMPROVED - Enterococcus urinary tract infection. IV ATB - BPH, continue Flomax and Proscar - Dysphagia. swallow evaluation by ST. - History of cerebrovascular accident. Continue aspirin - Dyslipidemia. Continue statin - Parkinsonism. Continue carbidopa - Dementia with agitation. Continue Depakote. - Depression. Continue Celexa. Consultation Date/Type/Reason Admit Date/Time February 23, 2019 at 08:00 Initial Consult Date Date/Time of Note DATE: 02/24/19 TIME: 22:57 24 HR Interval Summary Free Text/Dictation NAD CONFUSED Exam/Review of Systems Exam Vitals Vital Signs Date Temp Pulse Resp B/P (MAP) Pulse Ox O2 O2 Flow FiO2 Time Delivery Rate 02/24/19 59 20 94 21 19:40 02/24/19 98.4 114/60 19:14 (78) 02/23/19 Room Air 13:30 02/23/19 3.0 03:38 Intake and Output 02/23/19 02/23/19 02/24/19 1515:00 23:00 07:00 IntakeIntake Total 200 ml 50 ml 220 ml OutputOutput Total 1 ml BalanceBalance 199 ml 50 ml 220 ml Exam Constitutional: alert, frail Head: normocephalic Neck: supple Respiratory: clear to auscultation Cardiovascular: nl pulses Gastrointestinal: soft, non-tender Extremities: normal pulses Neurological: confused Results Result Diagram: 02/24/19 0501 02/24/19 0501 Results 24hrs Laboratory Tests Test 02/24/19 05:01 White Blood Count 9.5 # Red Blood Count 3.77 L Hemoglobin 11.2 L Hematocrit 34.9 L Mean Corpuscular Volume 92.6 Mean Corpuscular Hemoglobin 29.7 Mean Corpuscular Hemoglobin Concent 32.1 Red Cell Distribution Width 13.2 Platelet Count 211 Mean Platelet Volume 9.8 Immature Granulocytes % 0.400 Neutrophils % 76.3 Lymphocytes % 12.6 L Monocytes % 6.2 Eosinophils % 4.1 Basophils % 0.4 Nucleated Red Blood Cells % 0.0 Immature Granulocytes # 0.040 H Neutrophils # 7.2 Lymphocytes # 1.2 Monocytes # 0.6 Eosinophils # 0.4 Basophils # 0.0 Nucleated Red Blood Cells # 0.0 Sodium Level 147 H Potassium Level 3.9 Chloride Level 112 H Carbon Dioxide Level 28 Anion Gap 7 Blood Urea Nitrogen 26 H Creatinine 0.97 Est Glomerular Filtrat Rate mL/min Glucose Level 92 Calcium Level 8.3 L Medications Medication Current Medications Morphine Sulfate (morphine) 2 mg Q4H PRN IV pain; Start 02/23/19 at 10:30 Ondansetron HCl (Zofran Inj) 4 mg Q6H PRN IV NAUSEA AND/OR VOMITING; Start 02/23/19 at 10:30 Meropenem/Sodium Chloride 50 ml @ 100 mls/hr Q8 IVPB Last administered on 02/24/19 20:37; Admin Dose 100 MLS/HR; Start 02/23/19 at 14:00 IV Flush (NS 10 ml) 10 ml Q8 IV Last administered on 02/24/19 22:29; Admin Dose 10 ML; Start 02/23/19 at 14:00 Enoxaparin Sodium (Lovenox) 30 mg DAILY SC Last administered on 02/24/19 08 :42; Admin Dose 30 MG; Start 02/24/19 at 09:00 Acetaminophen (Tylenol Tab) 650 mg Q4H PRN PO FEVER; Start 02/23/19 at 13:00 Albuterol (Proventil 0.083% (Neb)) 1.25 mg Q4H RESP THERAPY PRN NEB SHORTNESS OF BREATH; Start 02/23/19 at 13:00 Aspirin (Aspirin) 81 mg DAILY PO Last administered on 02/24/19 08:41; Admin Dose 81 MG; Start 02/24/19 at 09:00 Atorvastatin Calcium (Lipitor) 10 mg QHS PO Last administered on 02/24/19 20:38; Admin Dose 10 MG; Start 02/23/19 at 21:00 Calcium Carbonate (Oyster Shell Calcium) 1.25 gm DAILY PO Last administered on 02/24/19 08:41; Admin Dose 1.25 GM; Start 02/23/19 at 13:00 Carbidopa/Levodopa (Sinemet (25/ 100)) 1 tab BID PO Last administered on 02/24/19 20:36; Admin Dose 1 TAB; Start 02/23/19 at 21:00 Cholecalciferol (Vitamin D) 1,000 unit DAILY PO Last administered on 02/24/19 08:41; Admin Dose 1,000 UNIT; Start 02/23/19 at 13:00 Citalopram Hydrobromide (Celexa) 10 mg QHS PO Last administered on 02/24/19 20:36; Admin Dose 10 MG; Start 02/23/19 at 21:00 Betamethasone/ Clotrimazole (Lotrisone Cr) 1 applic BID TOP Last administered on 02/24/19 20:38; Admin Dose 1 APPLIC; Start 02/23/19 at 21:00 Diltiazem HCl (Cardizem) 60 mg Q8 GTB ; Start 02/23/19 at 14:00 Divalproex Sodium (Depakote Sprinkle) 125 mg TID PO Last administered on 20:34; Admin Dose 125 MG; Start 02/23/19 at 14:00 Ferrous Sulfate (Feosol Liquid Cup) 300 mg DAILY PO Last administered on 02/24/19 08:41; Admin Dose 300 MG; Start 02/23/19 at 13:00 Finasteride (Proscar) 5 mg DAILY PO Last administered on 02/24/19 08:41; Admin Dose 5 MG; Start 02/23/19 at 13:00 Hydroxyzine HCl (Atarax) 10 mg Q6H PRN GTB ITCHING Last administered on 02/24/19 20:42; Admin Dose 10 MG; Start 02/23/19 at 13:00 Albuterol/ Ipratropium (Duoneb) 3 ml Q6H RESP THERAPY HHN Last administered on 02/24/19 19:40; Admin Dose 3 ML; Start 02/23/19 at 14:00 Tamsulosin HCl (Flomax) 0.4 mg HS PO Last administered on 02/24/19 20:35; Admin Dose 0.4 MG; Start 02/23/19 at 21:00 Lorazepam (Ativan) 1 mg Q4H PRN IV ANXIETY Last administered on 02/23/19 22:20; Admin Dose 1 MG; Start 02/23/19 at 22:00 Miscellaneous Information (Pending Santyl Order For Wound Care) This patient peck... PRN PRN XX WOUND CARE; Start 02/23/19 at 22:30 FELI MARCIAL MD February 24, 2019 22:57
[2019-02-25] MEDS: ALBUTEROL/IPRATROPIUM (NEB) 3 ML AMP HHN SCH ×4 (01:22→19:47)
[2019-02-25 02:11] VITALS: BP 102/59; PULSE 57; RESP 18
[2019-02-25] MEDS: MEROPENEM 500MG/50 ML (PMX) 50 ML IVPB SCH ×3 (05:55→22:07)
[2019-02-25] MEDS: DILTIAZEM 60 MG TAB GTB SCH ×3 (05:58→21:57)
[2019-02-25] MEDS: ENOXAPARIN 30 MG/0.3 ML SYG SC SCH (08:54)
[2019-02-25] MEDS: CALCIUM CARBONATE 1.25 GM TAB PO SCH (08:55)
[2019-02-25] MEDS: FERROUS SULFATE 60 MG/ML 5ML CUP PO SCH (08:55)
[2019-02-25] MEDS: DIVALPROEX SPRINKLE 125 MG CAP PO SCH ×3 (08:55→21:52)
[2019-02-25] MEDS: FINASTERIDE 5 MG TAB PO SCH (08:55)
[2019-02-25] MEDS: CARBIDOPA/LEVODOPA (25/100) TAB PO SCH ×2 (08:55→21:51)
[2019-02-25] MEDS: ASPIRIN 81 MG TAB PO SCH (08:55)
[2019-02-25] MEDS: CHOLECALCIFEROL 1,000 UNIT TAB PO SCH (08:55)
[2019-02-25] MEDS: BETAMETHASONE/CLOTRIMAZOLE 15 GM CR TOP SCH ×2 (08:57→21:54)
[2019-02-25] MEDS: DOCUSATE SODIUM 10 MG/ML (10ML CUP) PO SCH ×2 (08:57→21:54)
[2019-02-25 09:09] VITALS: BP 111/57; PULSE 72; RESP 18
--- NOTE | 2019-02-25 18:08 | PN ---
Date/Time of Note Date/Time of Note DATE: 02/25/19 TIME: 18:08 Assessment/Plan VTE Prophylaxis Risk score (from Ns)>0 risk: 5 SCD applied (from Ns): Yes Pharmacological prophylaxis: LMWH Lines/Catheters IV Catheter Type (from Nrsg): Peripheral IV Urinary Cath still in place: No Assessment/Plan Hospital Course Patient is awake, confused, remains hemodynamically stable, will obtain swallow evaluation. Assessment/Plan - Enterococcus urinary tract infection. Continue antibiotics per ID. Dr. Saldivar is following in infection disease consultation. - BPH, continue Flomax and Proscar - Dysphagia. swallow evaluation by ST. - History of cerebrovascular accident. Continue aspirin - Dyslipidemia. Continue statin - Parkinsonism. Continue carbidopa - Dementia with agitation. Continue Depakote. - Depression. Continue Celexa. Further recommendations based on clinical course. Plan of care discussed with Dr. Rivera. Assessment/Plan Result Diagram: 02/24/19 0501 02/24/19 0501 Exam/Review of Systems Exam Vitals Vital Signs Date Temp Pulse Resp B/P (MAP) Pulse Ox O2 O2 Flow FiO2 Time Delivery Rate 02/25/19 68 16 96 21 13:24 02/25/19 98.0 111/57 Room Air 09:09 (75) 02/23/19 3.0 03:38 Intake and Output 02/24/19 02/24/19 02/25/19 1515:00 23:00 07:00 IntakeIntake Total 360 ml 340 ml 50 ml BalanceBalance 360 ml 340 ml 50 ml Constitutional: alert, frail Head: normocephalic Neck: supple Respiratory: clear to auscultation Cardiovascular: nl pulses Gastrointestinal: soft, non-tender Extremities: normal pulses Neurological: confused Medications Medication Current Medications Morphine Sulfate (morphine) 2 mg Q4H PRN IV pain; Start 02/23/19 at 10:30 Ondansetron HCl (Zofran Inj) 4 mg Q6H PRN IV NAUSEA AND/OR VOMITING; Start 02/23/19 at 10:30 Meropenem/Sodium Chloride 50 ml @ 100 mls/hr Q8 IVPB Last administered on 02/25/19at 14:08; Admin Dose 100 MLS/HR; Start 02/23/19 at 14:00 IV Flush (NS 10 ml) 10 ml Q8 IV Last administered on 02/25/19 14:05; Admin Dose 10 ML; Start 02/23/19 at 14:00 Enoxaparin Sodium (Lovenox) 30 mg DAILY SC Last administered on 02/25/19 08:54; Admin Dose 30 MG; Start 02/24/19 at 09:00 Acetaminophen (Tylenol Tab) 650 mg Q4H PRN PO FEVER; Start 02/23/19 at 13:00 Albuterol (Proventil 0.083% (Neb)) 1.25 mg Q4H RESP THERAPY PRN NEB SHORTNESS O F BREATH; Start 02/23/19 at 13:00 Aspirin (Aspirin) 81 mg DAILY PO Last administered on 02/25/19 08:55; Admin Dose 81 MG; Start 02/24/19 at 09:00 Atorvastatin Calcium (Lipitor) 10 mg QHS PO Last administered on 02/24/19 20:38; Admin Dose 10 MG; Start 02/23/19 at 21:00 Calcium Carbonate (Oyster Shell Calcium) 1.25 gm DAILY PO Last administered on 02/25/19 08:55; Admin Dose 1.25 GM; Start 02/23/19 at 13:00 Carbidopa/Levodopa (Sinemet (25/ 100)) 1 tab BID PO Last administered on 02/25/19 08:55; Admin Dose 1 TAB; Start 02/23/19 at 21:00 Cholecalciferol (Vitamin D) 1,000 unit DAILY PO Last administered on 02/25/19 08:55; Admin Dose 1,000 UNIT; Start 02/23/19 at 13:00 Citalopram Hydrobromide (Celexa) 10 mg QHS PO Last administered on 02/24/19 20:36; Admin Dose 10 MG; Start 02/23/19 at 21:00 Betamethasone/ Clotrimazole (Lotrisone Cr) 1 applic BID TOP Last administered on 02/25/19 08:57; Admin Dose 1 APPLIC; Start 02/23/19 at 21:00 Diltiazem HCl (Cardizem) 60 mg Q8 GTB Last administered on 02/25/19 14:07; Admin Dose 60 MG; Start 02/23/19 at 14:00 Divalproex Sodium (Depakote Sprinkle) 125 mg TID PO Last administered on 02/25/19 14:05; Admin Dose 125 MG; Start 02/23/19 at 14:00 Ferrous Sulfate (Feosol Liquid Cup) 300 mg DAILY PO Last administered on 02/25/19 08:55; Admin Dose 300 MG; Start 02/23/19 at 13:00 Finasteride (Proscar) 5 mg DAILY PO Last administered on 02/25/19 08:55; Admin Dose 5 MG; Start 02/23/19 at 13:00 Hydroxyzine HCl (Atarax) 10 mg Q6H PRN GTB ITCHING Last administered on 02/24/19 20:42; Admin Dose 10 MG; Start 02/23/19 at 13:00 Albuterol/ Ipratropium (Duoneb) 3 ml Q6H RESP THERAPY HHN Last administered on 02/25/19 13:22; Admin Dose 3 ML; Start 02/23/19 at 14:00 Tamsulosin HCl (Flomax) 0.4 mg HS PO Last administered on 02/24/19 20:35; Admin Dose 0.4 MG; Start 02/23/19 at 21:00 Lorazepam (Ativan) 1 mg Q4H PRN IV ANXIETY Last administered on 02/23/19 22:20; Admin Dose 1 MG; Start 02/23/19 at 22:00 Miscellaneous Information (Pending [facility] Order For Wound Care) This patient peck... PRN PRN XX WOUND CARE; Start 02/23/19 at 22:30 Docusate Sodium (Colace Liquid Cup) 100 mg BID PO Last administered on 02/25/19 08:57; Admin Dose 100 MG; Start 02/25/19 at 09:00 ROLANDO SANFORD February 25, 2019 18:08
[2019-02-25 20:00] VITALS: BP 125/58; PULSE 64; RESP 18
[2019-02-25] MEDS: ATORVASTATIN 10 MG TAB PO SCH (21:52)
[2019-02-25] MEDS: CITALOPRAM 20 MG TAB PO SCH (21:52)
[2019-02-25] MEDS: TAMSULOSIN (SR) 0.4 MG CAP PO SCH (21:52)
--- NOTE | 2019-02-25 23:21 | CONS ---
Assessment/Plan Assessment/Plan Hospital Course (Demo Recall) -ANEMIA COMPLEX, MONITOR - LEUKOCYTOSIS REACTIVE, IMPROVED - Enterococcus urinary tract infection. Dr. Saldivar- infection disease consultation. - BPH, continue Flomax and Proscar - Dysphagia. swallow evaluation by ST. - History of cerebrovascular accident. Continue aspirin - Dyslipidemia. Continue statin - Parkinsonism. Continue carbidopa - Dementia with agitation. Continue Depakote. - Depression. Continue Celexa. Consultation Date/Type/Reason Admit Date/Time February 23, 2019 at 08:00 Initial Consult Date Date/Time of Note DATE: 02/25/19 TIME: 23:21 24 HR Interval Summary Free Text/Dictation ALL NOTED COUNT IMPROVED Exam/Review of Systems Exam Vitals Vital Signs Date Temp Pulse Resp B/P (MAP) Pulse Ox O2 O2 Flow FiO2 Time Delivery Rate 02/25/19 98.6 64 18 125/58 97 20:00 (80) 02/25/19 21 13:24 02/25/19 Room Air 09:09 02/23/19 3.0 03:38 Intake and Output 02/24/19 02/24/19 02/25/19 1515:00 23:00 07:00 IntakeIntake Total 360 ml 340 ml 50 ml BalanceBalance 360 ml 340 ml 50 ml Exam Constitutional: alert, frail Head: normocephalic Neck: supple Respiratory: clear to auscultation Cardiovascular: nl pulses Gastrointestinal: soft, non-tender Extremities: normal pulses Neurological: confused Results Result Diagram: 02/24/19 0501 02/24/19 0501 Medications Medication Current Medications Morphine Sulfate (morphine) 2 mg Q4H PRN IV pain; Start 02/23/19 at 10:30 Ondansetron HCl (Zofran Inj) 4 mg Q6H PRN IV NAUSEA AND/OR VOMITING; Start 02/23/19 at 10:30 Meropenem/Sodium Chloride 50 ml @ 100 mls/hr Q8 IVPB Last administered on 02/25/19at 22:07; Admin Dose 100 MLS/HR; Start 02/23/19 at 14:00 IV Flush (NS 10 ml) 10 ml Q8 IV Last administered on 02/25/19at 14:05; Admin Dose 10 ML; Start 02/23/19 at 14:00 Enoxaparin Sodium (Lovenox) 30 mg DAILY SC Last administered on 02/25/19 08:54; Admin Dose 30 MG; Start 02/24/19 at 09:00 Acetaminophen (Tylenol Tab) 650 mg Q4H PRN PO FEVER; Start 02/23/19 at 13:00 Albuterol (Proventil 0.083% (Neb)) 1.25 mg Q4H RESP THERAPY PRN NEB SHORTNESS OF BREATH; Start 02/23/19 at 13:00 Aspirin (Aspirin) 81 mg DAILY PO Last administered on 02/25/19 08:55; Admin Dose 81 MG; Start 02/24/19 at 09:00 Atorvastatin Calcium (Lipitor) 10 mg QHS PO Last administered on 02/25/19 21:52; Admin Dose 10 MG; Start 02/23/19 at 21:00 Calcium Carbonate (Oyster Shell Calcium) 1.25 gm DAILY PO Last administered on 02/25/19 08:55; Admin Dose 1.25 GM; Start 02/23/19 at 13:00 Carbidopa/Levodopa (Sinemet (25/ 100)) 1 tab BID PO Last administered on 02/25/19 21:51; Admin Dose 1 TAB; Start 02/23/19 at 21:00 Cholecalciferol (Vitamin D) 1,000 unit DAILY PO Last administered on 02/25/19 08:55; Admin Dose 1,000 UNIT; Start 02/23/19 at 13:00 Citalopram Hydrobromide (Celexa) 10 mg QHS PO Last administered on 02/25/19 21:52; Admin Dose 10 MG; Start 02/23/19 at 21:00 Betamethasone/ Clotrimazole (Lotrisone Cr) 1 applic BID TOP Last administered on 02/25/19 21:54; Admin Dose 1 APPLIC; Start 02/23/19 at 21:00 Diltiazem HCl (Cardizem) 60 mg Q8 GTB Last administered on 02/25/19 21:57; Admin Dose 60 MG; Start 02/23/19 at 14:00 Divalproex Sodium (Depakote Sprinkle) 125 mg TID PO Last administered on 02/25/19 21:52; Admin Dose 125 MG; Start 02/23/19 at 14:00 Ferrous Sulfate (Feosol Liquid Cup) 300 mg DAILY PO Last administered on 02/25/19 08:55; Admin Dose 300 MG; Start 02/23/19 at 13:00 Finasteride (Proscar) 5 mg DAILY PO Last administered on 02/25/19 08:55; Admin Dose 5 MG; Start 02/23/19 at 13:00 Hydroxyzine HCl (Atarax) 10 mg Q6H PRN GTB ITCHING Last administered on 02/24/19 20:42; Admin Dose 10 MG; Start 02/23/19 at 13:00 Albuterol/ Ipratropium (Duoneb) 3 ml Q6H RESP THERAPY HHN Last administered on 02/25/19 19:47; Admin Dose 3 ML; Start 02/23/19 at 14:00 Tamsulosin HCl (Flomax) 0.4 mg HS PO Last administered on 02/25/19 21:52; Admin Dose 0.4 MG; Start 02/23/19 at 21:00 Lorazepam (Ativan) 1 mg Q4H PRN IV ANXIETY Last administered on 02/23/19 22:20; Admin Dose 1 MG; Start 02/23/19 at 22:00 Miscellaneous Information (Pending [facility] Order For Wound Care) This patient peck... PRN PRN XX WOUND CARE; Start 02/23/19 at 22:30 Docusate Sodium (Colace Liquid Cup) 100 mg BID PO Last administered on 02/25/19 21:54; Admin Dose 100 MG; Start 02/25/19 at 09:00 FELI MARCIAL MD February 25, 2019 23:21
[2019-02-26] MEDS: hydrOXYzine HCL 10 MG TAB GTB PRN (01:00)
[2019-02-26] MEDS: ALBUTEROL/IPRATROPIUM (NEB) 3 ML AMP HHN SCH ×4 (02:00→21:20)
[2019-02-26] MEDS: MEROPENEM 500MG/50 ML (PMX) 50 ML IVPB SCH ×3 (05:40→23:24)
[2019-02-26] MEDS: DILTIAZEM 60 MG TAB GTB SCH ×3 (06:14→21:28)
[2019-02-26] MEDS: ENOXAPARIN 30 MG/0.3 ML SYG SC SCH (08:41)
[2019-02-26] MEDS: DOCUSATE SODIUM 10 MG/ML (10ML CUP) PO SCH ×2 (08:42→21:13)
[2019-02-26] MEDS: FERROUS SULFATE 60 MG/ML 5ML CUP PO SCH (08:42)
[2019-02-26] MEDS: CHOLECALCIFEROL 1,000 UNIT TAB PO SCH (08:42)
[2019-02-26] MEDS: FINASTERIDE 5 MG TAB PO SCH (08:42)
[2019-02-26] MEDS: CARBIDOPA/LEVODOPA (25/100) TAB PO SCH ×2 (08:42→21:13)
[2019-02-26] MEDS: DIVALPROEX SPRINKLE 125 MG CAP PO SCH ×3 (08:42→21:13)
[2019-02-26] MEDS: ASPIRIN 81 MG TAB PO SCH (08:42)
[2019-02-26] MEDS: CALCIUM CARBONATE 1.25 GM TAB PO SCH (08:42)
[2019-02-26] MEDS: BETAMETHASONE/CLOTRIMAZOLE 15 GM CR TOP SCH ×2 (08:42→21:30)
[2019-02-26 14:00] VITALS: BP 122/67; PULSE 67; RESP 18
[2019-02-26] MEDS ORDERED: VANCOMYCIN IV PER PHARMACY XX SCH (15:30)
--- NOTE | 2019-02-26 16:28 | CONS ---
DATE OF ADMISSION: 02/23/2019 DATE OF CONSULTATION: 02/26/2019 TYPE OF CONSULTATION: Infectious disease. REQUESTING PHYSICIAN: Mayda Brennan MD and Elle Chao NP Thank you for this consultation. HISTORY OF PRESENT ILLNESS: This is a chronically ill-appearing 83-year-old man, well known to our service from previous admission. 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 Urine culture grew Enterococcus species. Blood cultures had been negative. VITAL SIGNS: The patient had been afebrile since admission. Today's vitals: Temperature 98, pulse 67, respirations 18, blood pressure 122/67, saturation 95 on room air. LABORATORY DATA: WBC on admission 19.8 with neutrophils 85.2. No labs today. BUN 33, creatinine 1.07 on admission. Normal bilirubin and LFT. DIAGNOSTICS: Chest x-ray on admission revealed poor inspiration with bibasilar subsegmental atelectasis. ANTIMICROBIALS: The patient is on meropenem. ALLERGIES: HE IS ALLERGIC TO PENICILLIN. PAST MEDICAL HISTORY: Also significant for CVA. SOCIAL HISTORY: The patient came from [facility]. REVIEW OF SYSTEMS: As per history of present illness. The patient is demented, unable to provide information. PHYSICAL EXAMINATION: GENERAL: This is a chronically ill-appearing, wasted elderly man who is awake, confused, in no distress. HEENT: Head is atraumatic, normocephalic. Sclerae are anicteric. Buccal mucosa is dry. NECK: Supple. CHEST: Rise symmetrical. Breath sounds diminished to bases. HEART: S1, S2. ABDOMEN: Soft. Bowel tones are present. EXTREMITIES: With trace edema. DIAGNOSTIC IMPRESSION: This is an 83-year-old man with numerous medical problems admitted with urinary tract infection with urine culture grew Enterococcus. The patient is on meropenem. We are going to start him also on IV vancomycin as Merrem usually does not cover Enterococcus and he is allergic to PCN. We follow repeat chest x-ray in a.m. and labs and adjust antibiotics as needed. Continue anti-aspiration precautions. Discussed with Dr. Sanchez who is covering Dr. Ceja. Dictated By: HERMINIO WILLAMS EDITORIAL SPECIALIST for JAMESON CEJA MD NI/EUGENIA Conf#: [id number] DID#: [id number] CC: JACOBO EATON MD;*EndCC* MTDD
[2019-02-26] MEDS ORDERED: VANCOMYCIN HCL 1.5 GM in SOD CHLORIDE 0.9% 250 ML IVPB SCH (18:30)
--- NOTE | 2019-02-26 19:17 | PN ---
Date/Time of Note Date/Time of Note DATE: 02/26/19 TIME: 19:15 Assessment/Plan VTE Prophylaxis Risk score (from Ns)>0 risk: 5 SCD applied (from Nsg): Yes Pharmacological prophylaxis: LMWH Lines/Catheters IV Catheter Type (from Nrsg): Saline Lock Urinary Cath still in place: No Assessment/Plan Hospital Course Patient is awake, confused tolerate p.o. diet when being fed,most of his meals, remains afebrile. Assessment/Plan - Enterococcus urinary tract infection. Continue antibiotics per ID. Dr. Saldivar is following in infection disease consultation. - BPH, continue Flomax and Proscar - Dysphagia. swallow evaluation by ST. - History of cerebrovascular accident. Continue aspirin - Dyslipidemia. Continue statin - Parkinsonism. Continue carbidopa - Dementia with agitation. Continue Depakote. - Depression. Continue Celexa. Further recommendations based on clinical course. Plan of care discussed with Dr. Rivera. Result Diagram: 02/24/19 0501 02/24/19 0501 Exam/Review of Systems Exam Vitals Vital Signs Date Temp Pulse Resp B/P (MAP) Pulse Ox O2 O2 Flow FiO2 Time Delivery Rate 02/26/19 98.0 67 18 122/67 95 Room Air 14:00 (85) 02/26/19 21 13:30 02/23/19 3.0 03:38 Intake and Output 02/25/19 02/25/19 02/26/19 1515:00 23:00 07:00 IntakeIntake Total 410 ml 50 ml 50 ml BalanceBalance 410 ml 50 ml 50 ml Exam Constitutional: alert, frail Head: normocephalic Neck: supple Respiratory: clear to auscultation Cardiovascular: nl pulses Gastrointestinal: soft, non-tender Extremities: normal pulses Neurological: confused Medications Medication Current Medications Morphine Sulfate (morphine) 2 mg Q4H PRN IV pain; Start 02/23/19 at 10:30 Ondansetron HCl (Zofran Inj) 4 mg Q6H PRN IV NAUSEA AND/OR VOMITING; Start 02/23/19 at 10:30 Meropenem/Sodium Chloride 50 ml @ 100 mls/hr Q8 IVPB Last administered on 02/26/19at 13:47; Admin Dose 100 MLS/HR; Start 02/23/19 at 14:00 IV Flush (NS 10 ml) 10 ml Q8 IV Last administered on 02/26/19 13:47; Admin Dose 10 ML; Start 02/23/19 at 14:00 Enoxaparin Sodium (Lovenox) 30 mg DAILY SC Last administered on 02/26/19 08:41; Admin Dose 30 MG; Start 02/24/19 at 09:00 Acetaminophen (Tylenol Tab) 650 mg Q4H PRN PO FEVER; Start 02/23/19 at 13:00 Albuterol (Proventil 0.083% (Neb)) 1.25 mg Q4H RESP THERAPY PRN NEB SHORTNESS OF BREATH; Start 02/23/19 at 13:00 Aspirin (Aspirin) 81 mg DAILY PO Last administered on 02/26/19 08:42; Admin Dose 81 MG; Start 02/24/19 at 09:00 Atorvastatin Calcium (Lipitor) 10 mg QHS PO Last administered on 02/25/19 21:52; Admin Dose 10 MG; Start 02/23/19 at 21:00 Calcium Carbonate (Oyster Shell Calcium) 1.25 gm DAILY PO Last administered on 02/26/19 08:42; Admin Dose 1.25 GM; Start 02/23/19 at 13:00 Carbidopa/Levodopa (Sinemet (25/ 100)) 1 tab BID PO Last administered on 02/26/19 08:42; Admin Dose 1 TAB; Start 02/23/19 at 21:00 Cholecalciferol (Vitamin D) 1,000 unit DAILY PO Last administered on 02/26/19 08:42; Admin Dose 1,000 UNIT; Start 02/23/19 at 13:00 Citalopram Hydrobromide (Celexa) 10 mg QHS PO Last administered on 02/25/19 21:52; Admin Dose 10 MG; Start 02/23/19 at 21:00 Betamethasone/ Clotrimazole (Lotrisone Cr) 1 applic BID TOP Last administered on 02/26/19 08:42; Admin Dose 1 APPLIC; Start 02/23/19 at 21:00 Diltiazem HCl (Cardizem) 60 mg Q8 GTB Last administered on 02/26/19 13:47; Admin Dose 60 MG; Start 02/23/19 at 14:00 Divalproex Sodium (Depakote Sprinkle) 125 mg TID PO Last administered on 02/26/19 13:47; Admin Dose 125 MG; Start 02/23/19 at 14:00 Ferrous Sulfate (Feosol Liquid Cup) 300 mg DAILY PO Last administered on 02/26/19 08:42; Admin Dose 300 MG; Start 02/23/19 at 13:00 Finasteride (Proscar) 5 mg DAILY PO Last administered on 02/26/19 08:42; Admin Dose 5 MG; Start 02/23/19 at 13:00 Hydroxyzine HCl (Atarax) 10 mg Q6H PRN GTB ITCHING Last administered on 01:00; Admin Dose 10 MG; Start 02/23/19 at 13:00 Albuterol/ Ipratropium (Duoneb) 3 ml Q6H RESP THERAPY HHN Last administered on 02/26/19 13:46; Admin Dose 3 ML; Start 02/23/19 at 14:00 Tamsulosin HCl (Flomax) 0.4 mg HS PO Last administered on 02/25/19 21:52; Admin Dose 0.4 MG; Start 02/23/19 at 21:00 Lorazepam (Ativan) 1 mg Q4H PRN IV ANXIETY Last administered on 02/23/19 22:20; Admin Dose 1 MG; Start 02/23/19 at 22:00 Miscellaneous Information (Pending [facility] Order For Wound Care) This patient peck... PRN PRN XX WOUND CARE; Start 02/23/19 at 22:30 Docusate Sodium (Colace Liquid Cup) 100 mg BID PO Last administered on 02/26/19 08:42; Admin Dose 100 MG; Start 02/25/19 at 09:00 Vancomycin HCl (Vanco Iv Per Pharmacy) VANCOMYCIN PER PHARMACY PER PROTOCOL XX ; Start 02/26/19 at 15:30 Vancomycin HCl 1.5 gm/Sodium Chloride 250 ml @ 83.333 mls/ hr ONCE IVPB ; Start 02/26/19 at 18:30; Stop 02/27/19 at 03:00 Vancomycin HCl 250 ml @ 125 mls/hr Q24H IVPB ; Start 02/27/19 at 20:00 ROLANDO SANFORD February 26, 2019 19:17
[2019-02-26 20:00] VITALS: BP 113/55; PULSE 75; RESP 18
[2019-02-26] MEDS: ATORVASTATIN 10 MG TAB PO SCH (21:13)
[2019-02-26] MEDS: TAMSULOSIN (SR) 0.4 MG CAP PO SCH (21:14)
[2019-02-26] MEDS: CITALOPRAM 20 MG TAB PO SCH (21:26)
--- NOTE | 2019-02-26 22:40 | CONS ---
Assessment/Plan Assessment/Plan Hospital Course (Demo Recall) -ANEMIA COMPLEX, MONITOR - LEUKOCYTOSIS REACTIVE, IMPROVED - Enterococcus urinary tract infection. Continue antibiotics per ID. Dr. Saldivar is following in infection disease consultation. - BPH, continue Flomax and Proscar - Dysphagia. swallow evaluation by ST. - History of cerebrovascular accident. Continue aspirin - Dyslipidemia. Continue statin - Parkinsonism. Continue carbidopa - Dementia with agitation. Continue Depakote. - Depression. Continue Celexa. Consultation Date/Type/Reason Admit Date/Time February 23, 2019 at 08:00 Initial Consult Date Type of Consult HEMEONC Reason for Consultation ANEMIA LEUKOCYTOSIS Requesting Provider: JACOBO EATON MD Date/Time of Note DATE: 02/26/19 TIME: 22:37 24 HR Interval Summary Free Text/Dictation ALL NOTED NO BLEEDING NO HEMOLYSIS Exam/Review of Systems Exam Vitals Vital Signs Date Temp Pulse Resp B/P (MAP) Pulse Ox O2 O2 Flow FiO2 Time Delivery Rate 02/26/19 97.3 75 18 113/55 95 20:00 (74) 02/26/19 Room Air 14:00 02/26/19 21 13:30 02/23/19 3.0 03:38 Intake and Output 02/25/19 02/25/19 02/26/19 1515:00 23:00 07:00 IntakeIntake Total 410 ml 50 ml 50 ml BalanceBalance 410 ml 50 ml 50 ml Exam Constitutional: alert, frail Head: normocephalic Neck: supple Respiratory: clear to auscultation Cardiovascular: nl pulses Gastrointestinal: soft, non-tender Extremities: normal pulses Neurological: confused Results Result Diagram: 02/24/19 0501 02/24/19 0501 Medications Medication Current Medications Morphine Sulfate (morphine) 2 mg Q4H PRN IV pain; Start 02/23/19 at 10:30 Ondansetron HCl (Zofran Inj) 4 mg Q6H PRN IV NAUSEA AND/OR VOMITING; Start 02/23/19 at 10:30 Meropenem/Sodium Chloride 50 ml @ 100 mls/hr Q8 IVPB Last administered on 02/07 10/27at 13:47; Admin Dose 100 MLS/HR; Start 02/23/19 at 14:00 IV Flush (NS 10 ml) 10 ml Q8 IV Last administered on 02/26/19at 13:47; Admin Dose 10 ML; Start 02/23/19 at 14:00 Enoxaparin Sodium (Lovenox) 30 mg DAILY SC Last administered on 02/26/19 08:41; Admin Dose 30 MG; Start 02/24/19 at 09:00 Acetaminophen (Tylenol Tab) 650 mg Q4H PRN PO FEVER; Start 02/23/19 at 13:00 Albuterol (Proventil 0.083% (Neb)) 1.25 mg Q4H RESP THERAPY PRN NEB SHORTNESS OF BREATH; Start 02/23/19 at 13:00 Aspirin (Aspirin) 81 mg DAILY PO Last administered on 02/26/19 08:42; Admin Dose 81 MG; Start 02/24/19 at 09:00 Atorvastatin Calcium (Lipitor) 10 mg QHS PO Last administered on 02/26/19 21:13; Admin Dose 10 MG; Start 02/23/19 at 21:00 Calcium Carbonate (Oyster Shell Calcium) 1.25 gm DAILY PO Last administered on 02/26/19 08:42; Admin Dose 1.25 GM; Start 02/23/19 at 13:00 Carbidopa/Levodopa (Sinemet (25/ 100)) 1 tab BID PO Last administered on 02/26/19 21:13; Admin Dose 1 TAB; Start 02/23/19 at 21:00 Cholecalciferol (Vitamin D) 1,000 unit DAILY PO Last administered on 02/26/19 08:42; Admin Dose 1,000 UNIT; Start 02/23/19 at 13:00 Citalopram Hydrobromide (Celexa) 10 mg QHS PO Last administered on 02/26/19 21:26; Admin Dose 10 MG; Start 02/23/19 at 21:00 Betamethasone/ Clotrimazole (Lotrisone Cr) 1 applic BID TOP Last administered on 02/26/19 21:30; Admin Dose 1 APPLIC; Start 02/23/19 at 21:00 Diltiazem HCl (Cardizem) 60 mg Q8 GTB Last administered on 02/26/19 21:28; Admin Dose 60 MG; Start 02/23/19 at 14:00 Divalproex Sodium (Depakote Sprinkle) 125 mg TID PO Last administered on 02/26/19 21:13; Admin Dose 125 MG; Start 02/23/19 at 14:00 Ferrous Sulfate (Feosol Liquid Cup) 300 mg DAILY PO Last administered on 02/26/19 08:42; Admin Dose 300 MG; Start 02/23/19 at 13:00 Finasteride (Proscar) 5 mg DAILY PO Last administered on 02/26/19 08:42; Admin Dose 5 MG; Start 02/23/19 at 13:00 Hydroxyzine HCl (Atarax) 10 mg Q6H PRN GTB ITCHING Last administered on 02/26/19 01:00; Admin Dose 10 MG; Start 02/23/19 at 13:00 Albuterol/ Ipratropium (Duoneb) 3 ml Q6H RESP THERAPY HHN Last administered on 02/26/19 13:46; Admin Dose 3 ML; Start 02/23/19 at 14:00 Tamsulosin HCl (Flomax) 0.4 mg HS PO Last administered on 02/26/19 21:14; Admin Dose 0.4 MG; Start 02/23/19 at 21:00 Lorazepam (Ativan) 1 mg Q4H PRN IV ANXIETY Last administered on 02/23/19 22:20; Admin Dose 1 MG; Start 02/23/19 at 22:00 Miscellaneous Information (Pending [facility] Order For Wound Care) This patient peck... PRN PRN XX WOUND CARE; Start 02/23/19 at 22:30 Docusate Sodium (Colace Liquid Cup) 100 mg BID PO Last administered on 02/26/19 21:13; Admin Dose 100 MG; Start 02/25/19 at 09:00 Vancomycin HCl (Vanco Iv Per Pharmacy) VANCOMYCIN PER PHARMACY PER PROTOCOL XX ; Start 02/26/19 at 15:30 Vancomycin HCl 1.5 gm/Sodium Chloride 250 ml @ 83.333 mls/ hr ONCE IVPB Last administered on 02/26/19 19:46; Admin Dose 83.333 MLS/HR; Start 02/26/19 at 18:30; Stop 02/27/19 at 03:00 Vancomycin HCl 250 ml @ 125 mls/hr Q24H IVPB ; Start 02/27/19 at 20:00 FELI MARCIAL MD February 26, 2019 22:40
[2019-02-27] MEDS: ALBUTEROL/IPRATROPIUM (NEB) 3 ML AMP HHN SCH ×4 (01:28→19:46)
[2019-02-27 02:00] VITALS: BP 120/58; PULSE 69; RESP 18
[2019-02-27] MEDS: MEROPENEM 500MG/50 ML (PMX) 50 ML IVPB SCH ×2 (05:51→14:36)
[2019-02-27] MEDS: DILTIAZEM 60 MG TAB GTB SCH ×3 (06:10→22:09)
[2019-02-27] MEDS ORDERED: VANCOMYCIN 1 GM 250 ML IVPB SCH (06:30)
[2019-02-27 07:15] VITALS: BP 146/64; PULSE 59; RESP 16
[2019-02-27] MEDS: DIVALPROEX SPRINKLE 125 MG CAP PO SCH ×3 (09:04→20:44)
[2019-02-27] MEDS: FINASTERIDE 5 MG TAB PO SCH (09:04)
[2019-02-27] MEDS: FERROUS SULFATE 60 MG/ML 5ML CUP PO SCH (09:04)
[2019-02-27] MEDS: BETAMETHASONE/CLOTRIMAZOLE 15 GM CR TOP SCH ×2 (09:04→21:00)
[2019-02-27] MEDS: ASPIRIN 81 MG TAB PO SCH (09:04)
[2019-02-27] MEDS: CALCIUM CARBONATE 1.25 GM TAB PO SCH (09:04)
[2019-02-27] MEDS: DOCUSATE SODIUM 10 MG/ML (10ML CUP) PO SCH ×2 (09:04→20:44)
[2019-02-27] MEDS: CHOLECALCIFEROL 1,000 UNIT TAB PO SCH (09:04)
[2019-02-27] MEDS: CARBIDOPA/LEVODOPA (25/100) TAB PO SCH ×2 (09:04→20:44)
[2019-02-27] MEDS: ENOXAPARIN 30 MG/0.3 ML SYG SC SCH (09:05)
[2019-02-27 14:28] VITALS: BP 133/61; PULSE 84; RESP 18
--- NOTE | 2019-02-27 15:21 | CONS ---
Assessment/Plan Assessment/Plan Hospital Course (Demo Recall) Patient is lethargic in no distress no fevers overnight WBC 9.7 platelets 244 neutrophils 76.6 BUN 19 creatinine 0.92 Chest x-ray this morning revealed no definite interval change. PHYSICAL EXAMINATION: GENERAL: This is a chronically ill-appearing, wasted elderly man who is awake, confused, in no distress. HEENT: Head is atraumatic, normocephalic. Sclerae are anicteric. Buccal mucosa is dry. NECK: Supple. CHEST: Rise symmetrical. Breath sounds diminished to bases. HEART: S1, S2. ABDOMEN: Soft. Bowel tones are present. EXTREMITIES: With trace edema. Assessment: 1. Status post sepsis on admission 2. Enterococcal UTI 3. Dementia 4. History of CVA 5. BPH Plan: Patient is stable we will discontinue meropenem, continue vancomycin for couple more days, continue aspiration precautions Consultation Date/Type/Reason Admit Date/Time February 23, 2019 at 08:00 Initial Consult Date 02/22/19 Type of Consult id Requesting Provider: JACOBO EATON MD Date/Time of Note DATE: 02/27/19 TIME: 15:18 Exam/Review of Systems Exam Vitals Vital Signs Date Temp Pulse Resp B/P (MAP) Pulse Ox O2 O2 Flow FiO2 Time Delivery Rate 02/27/19 97.8 84 18 133/61 91 Room Air 14:28 (85) 02/27/19 21 13:47 Intake and Output 02/26/19 02/26/19 02/27/19 1515:00 23:00 07:00 IntakeIntake Total 50 ml 850 ml 150 ml BalanceBalance 50 ml 850 ml 150 ml Results Result Diagram: 02/27/19 0710 02/27/19 0710 Results 24hrs Laboratory Tests Test 02/27/19 07:10 White Blood Count 9.7 Red Blood Count 4.30 L Hemoglobin 12.8 L Hematocrit 38.8 L Mean Corpuscular Volume 90.2 Mean Corpuscular Hemoglobin 29.8 Mean Corpuscular Hemoglobin Concent 33.0 Red Cell Distribution Width 13.0 Platelet Count 244 Mean Platelet Volume 9.1 Immature Granulocytes % 0.300 Neutrophils % 76.6 Lymphocytes % 11.3 L Monocytes % 6.2 Eosinophils % 4.9 Basophils % 0.7 Nucleated Red Blood Cells % 0.0 Immature Granulocytes # 0.030 Neutrophils # 7.4 Lymphocytes # 1.1 Monocytes # 0.6 Eosinophils # 0.5 Basophils # 0.1 Nucleated Red Blood Cells # 0.0 Sodium Level 143 Potassium Level 4.0 Chloride Level 110 Carbon Dioxide Level 26 Anion Gap 7 Blood Urea Nitrogen 19 Creatinine 0.92 Est Glomerular Filtrat Rate mL/min Glucose Level 96 Calcium Level 8.5 Medications Medication Current Medications Morphine Sulfate (morphine) 2 mg Q4H PRN IV pain; Start 02/23/19 at 10:30 Ondansetron HCl (Zofran Inj) 4 mg Q6H PRN IV NAUSEA AND/OR VOMITING; Start 02/23/19 at 10:30 Meropenem/Sodium Chloride 50 ml @ 100 mls/hr Q8 IVPB Last administered on 02/27/19 14:36; Admin Dose 100 MLS/HR; Start 02/23/19 at 14:00 IV Flush (NS 10 ml) 10 ml Q8 IV Last administered on 02/27/19 14:36; Admin Dose 10 ML; Start 02/23/19 at 14:00 Enoxaparin Sodium (Lovenox) 30 mg DAILY SC Last administered on 02/27/19 09:05; Admin Dose 30 MG; Start 02/24/19 at 09:00 Acetaminophen (Tylenol Tab) 650 mg Q4H PRN PO FEVER; Start 02/23/19 at 13:00 Albuterol (Proventil 0.083% (Neb)) 1.25 mg Q4H RESP THERAPY PRN NEB SHORTNESS OF BREATH; Start 02/23/19 at 13:00 Aspirin (Aspirin) 81 mg DAILY PO Last administered on 02/27/19 09:04; Admin Dose 81 MG; Start 02/24/19 at 09:00 Atorvastatin Calcium (Lipitor) 10 mg QHS PO Last administered on 02/26/19 21:13; Admin Dose 10 MG; Start 02/23/19 at 21:00 Calcium Carbonate (Oyster Shell Calcium) 1.25 gm DAILY PO Last administered on 02/27/19 09:04; Admin Dose 1.25 GM; Start 02/23/19 at 13:00 Carbidopa/Levodopa (Sinemet (25/ 100)) 1 tab BID PO Last administered on 02/27/19 09:04; Admin Dose 1 TAB; Start 02/23/19 at 21:00 Cholecalciferol (Vitamin D) 1,000 unit DAILY PO Last administered on 02/27/19 09:04; Admin Dose 1,000 UNIT; Start 02/23/19 at 13:00 Citalopram Hydrobromide (Celexa) 10 mg QHS PO Last administered on 02/26/19 21:26; Admin Dose 10 MG; Start 02/23/19 at 21:00 Betamethasone/ Clotrimazole (Lotrisone Cr) 1 applic BID TOP Last administered on 02/27/19 09:04; Admin Dose 1 APPLIC; Start 02/23/19 at 21:00 Diltiazem HCl (Cardizem) 60 mg Q8 GTB Last administered on 02/27/19 14:36; Admin Dose 60 MG; Start 02/23/19 at 14:00 Divalproex Sodium (Depakote Sprinkle) 125 mg TID PO Last administered on 02/27/19 12:54; Admin Dose 125 MG; Start 02/23/19 at 14:00 Ferrous Sulfate (Feosol Liquid Cup) 300 mg DAILY PO Last administered on 02/27/19 09:04; Admin Dose 300 MG; Start 02/23/19 at 13:00 Finasteride (Proscar) 5 mg DAILY PO Last administered on 02/27/19 09:04; Admin Dose 5 MG; Start 02/23/19 at 13:00 Hydroxyzine HCl (Atarax) 10 mg Q6H PRN GTB ITCHING Last administered on 02/26/19 01:00; Admin Dose 10 MG; Start 02/23/19 at 13:00 Albuterol/ Ipratropium (Duoneb) 3 ml Q6H RESP THERAPY HHN Last administered on 02/27/19 13:46; Admin Dose 3 ML; Start 02/23/19 at 14:00 Tamsulosin HCl (Flomax) 0.4 mg HS PO Last administered on 02/26/19 21:14; Admin Dose 0.4 MG; Start 02/23/19 at 21:00 Lorazepam (Ativan) 1 mg Q4H PRN IV ANXIETY Last administered on 02/23/19 22:20; Admin Dose 1 MG; Start 02/23/19 at 22:00 Miscellaneous Information (Pending [facility]) This patient peck... PRN PRN XX WOUND CARE; Start 02/23/19 at 22:30 Docusate Sodium (Colace Liquid Cup) 100 mg BID PO Last administered on 02/27/19at 09:04; Admin Dose 100 MG; Start 02/25/19 at 09:00 Vancomycin HCl (Vanco Iv Per Pharmacy) VANCOMYCIN PER PHARMACY PER PROTOCOL XX ; Start 02/26/19 at 15:30 Vancomycin HCl 250 ml @ 125 mls/hr Q24H IVPB ; Start 02/27/19 at 20:00 HERMINIO WILLAMS NP February 27, 2019 15:21
--- NOTE | 2019-02-27 16:57 | PN ---
Date/Time of Note Date/Time of Note DATE: 02/27/19 TIME: 16:56 Assessment/Plan VTE Prophylaxis Risk score (from Ns)>0 risk: 3 [place] [facility] [place] contraindicated: patient refusal Pharmacological prophylaxis: LMWH Lines/Catheters [facility] Urinary Cath still in place: No Assessment/Plan Hospital Course Patient continues on vancomycin for enterococcus UTI. Occasional cough, chest x-ray noted no infiltrates. Patient is confused however remains hemodynamically stable, continue current care. Assessment/Plan - Enterococcus urinary tract infection. Continue antibiotics per ID. Dr. Saldivar is following in infection disease consultation. - BPH, continue Flomax and Proscar - Dysphagia. swallow evaluation by ST. - History of cerebrovascular accident. Continue aspirin - Dyslipidemia. Continue statin - Parkinsonism. Continue carbidopa - Dementia with agitation. Continue Depakote. - Depression. Continue Celexa. Further recommendations based on clinical course. Plan of care discussed with Dr. Rivera. Result Diagram: 02/27/19 0710 02/27/19 0710 Results 24hrs Laboratory Tests Test 02/27/19 07:10 White Blood Count 9.7 Red Blood Count 4.30 L Hemoglobin 12.8 L Hematocrit 38.8 L Mean Corpuscular Volume 90.2 Mean Corpuscular Hemoglobin 29.8 Mean Corpuscular Hemoglobin Concent 33.0 Red Cell Distribution Width 13.0 Platelet Count 244 Mean Platelet Volume 9.1 Immature Granulocytes % 0.300 Neutrophils % 76.6 Lymphocytes % 11.3 L Monocytes % 6.2 Eosinophils % 4.9 Basophils % 0.7 Nucleated Red Blood Cells % 0.0 Immature Granulocytes # 0.030 Neutrophils # 7.4 Lymphocytes # 1.1 Monocytes # 0.6 Eosinophils # 0.5 Basophils # 0.1 Nucleated Red Blood Cells # 0.0 Sodium Level 143 Potassium Level 4.0 Chloride Level 110 Carbon Dioxide Level 26 Anion Gap 7 Blood Urea Nitrogen 19 Creatinine 0.92 Est Glomerular Filtrat Rate mL/min Glucose Level 96 Calcium Level 8.5 Exam/Review of Systems Exam Vitals Vital Signs Date Temp Pulse Resp B/P (MAP) Pulse Ox O2 O2 Flow FiO2 Time Delivery Rate 02/27/19 97.8 84 18 133/61 91 Room Air 14:28 (85) 02/27/19 21 13:47 Intake and Output 02/26/19 02/26/19 02/27/19 1515:00 23:00 07:00 IntakeIntake Total 50 ml 850 ml 150 ml BalanceBalance 50 ml 850 ml 150 ml Exam Constitutional: alert, frail Respiratory: clear to auscultation Cardiovascular: nl pulses Gastrointestinal: soft, non-tender Extremities: normal pulses Neurological: confused Results Results 24hrs Laboratory Tests Test 02/27/19 07:10 White Blood Count 9.7 Red Blood Count 4.30 L Hemoglobin 12.8 L Hematocrit 38.8 L Mean Corpuscular Volume 90.2 Mean Corpuscular Hemoglobin 29.8 Mean Corpuscular Hemoglobin Concent 33.0 Red Cell Distribution Width 13.0 Platelet Count 244 Mean Platelet Volume 9.1 Immature Granulocytes % 0.300 Neutrophils % 76.6 Lymphocytes % 11.3 L Monocytes % 6.2 Eosinophils % 4.9 Basophils % 0.7 Nucleated Red Blood Cells % 0.0 Immature Granulocytes # 0.030 Neutrophils # 7.4 Lymphocytes # 1.1 Monocytes # 0.6 Eosinophils # 0.5 Basophils # 0.1 Nucleated Red Blood Cells # 0.0 Sodium Level 143 Potassium Level 4.0 Chloride Level 110 Carbon Dioxide Level 26 Anion Gap 7 Blood Urea Nitrogen 19 Creatinine 0.92 Est Glomerular Filtrat Rate mL/min Glucose Level 96 Calcium Level 8.5 Medications Medication Current Medications Morphine Sulfate (morphine) 2 mg Q4H PRN IV pain; Start 02/23/19 at 10:30 Ondansetron HCl (Zofran Inj) 4 mg Q6H PRN IV NAUSEA AND/OR VOMITING; Start 02/23/19 at 10:30 IV Flush (NS 10 ml) 10 ml Q8 IV Last administered on 02/27/19at 14:36; Admin Dose 10 ML; Start 02/23/19 at 14:00 Enoxaparin Sodium (Lovenox) 30 mg DAILY SC Last administered on 02/27/19at 09:05; Admin Dose 30 MG; Start 02/24/19 at 09:00 Acetaminophen (Tylenol Tab) 650 mg Q4H PRN PO FEVER; Start 02/23/19 at 13:00 Albuterol (Proventil 0.083% (Neb)) 1.25 mg Q4H RESP THERAPY PRN NEB SHORTNESS OF BREATH; Start 02/23/19 at 13:00 Aspirin (Aspirin) 81 mg DAILY PO Last administered on 02/27/19 09:04; Admin Dose 81 MG; Start 02/24/19 at 09:00 Atorvastatin Calcium (Lipitor) 10 mg QHS PO Last administered on 02/26/19 21:13; Admin Dose 10 MG; Start 02/23/19 at 21:00 Calcium Carbonate (Oyster Shell Calcium) 1.25 gm DAILY PO Last administered on 02/27/19 09:04; Admin Dose 1.25 GM; Start 02/23/19 at 13:00 Carbidopa/Levodopa (Sinemet (25/ 100)) 1 tab BID PO Last administered on 02/27/19 09:04; Admin Dose 1 TAB; Start 02/23/19 at 21:00 Cholecalciferol (Vitamin D) 1,000 unit DAILY PO Last administered on 02/27/19 09:04; Admin Dose 1,000 UNIT; Start 02/23/19 at 13:00 Citalopram Hydrobromide (Celexa) 10 mg QHS PO Last administered on 02/26/19 21:26; Admin Dose 10 MG; Start 02/23/19 at 21:00 Betamethasone/ Clotrimazole (Lotrisone Cr) 1 applic BID TOP Last administered on 02/27/19 09:04; Admin Dose 1 APPLIC; Start 02/23/19 at 21:00 Diltiazem HCl (Cardizem) 60 mg Q8 GTB Last administered on 02/27/19 14:36; Admin Dose 60 MG; Start 02/23/19 at 14:00 Divalproex Sodium (Depakote Sprinkle) 125 mg TID PO Last administered on 02/27/19 12:54; Admin Dose 125 MG; Start 02/23/19 at 14:00 Ferrous Sulfate (Feosol Liquid Cup) 300 mg DAILY PO Last administered on 02/27/19 09:04; Admin Dose 300 MG; Start 02/23/19 at 13:00 Finasteride (Proscar) 5 mg DAILY PO Last administered on 02/27/19 09:04; Admin Dose 5 MG; Start 02/23/19 at 13:00 Hydroxyzine HCl (Atarax) 10 mg Q6H PRN GTB ITCHING Last administered on 02/26/19 01:00; Admin Dose 10 MG; Start 02/23/19 at 13:00 Albuterol/ Ipratropium (Duoneb) 3 ml Q6H RESP THERAPY HHN Last administered on 02/27/19at 13:46; Admin Dose 3 ML; Start 02/23/19 at 14:00 Tamsulosin HCl (Flomax) 0.4 mg HS PO Last administered on 02/26/19at 21:14; Admin Dose 0.4 MG; Start 02/23/19 at 21:00 Lorazepam (Ativan) 1 mg Q4H PRN IV ANXIETY Last administered on 02/23/19at 22:20; Admin Dose 1 MG; Start 02/23/19 at 22:00 Miscellaneous Information (Pending [facility] Order For Wound Care) This patient peck... PRN PRN XX WOUND CARE; Start 02/23/19 at 22:30 Docusate Sodium (Colace Liquid Cup) 100 mg BID PO Last administered on 02/27/19at 09:04; Admin Dose 100 MG; Start 02/25/19 at 09:00 Vancomycin HCl (Vanco Iv Per Pharmacy) VANCOMYCIN PER PHARMACY PER PROTOCOL XX ; Start 02/26/19 at 15:30 Vancomycin HCl 250 ml @ 125 mls/hr Q24H IVPB ; Start 02/27/19 at 20:00 ROLANDO SANFORD February 27, 2019 16:57
[2019-02-27 20:00] VITALS: BP 145/86; PULSE 73; RESP 18
[2019-02-27] MEDS: VANCOMYCIN 1 GM 250 ML IVPB SCH (20:27)
[2019-02-27] MEDS: CITALOPRAM 20 MG TAB PO SCH (20:44)
[2019-02-27] MEDS: ATORVASTATIN 10 MG TAB PO SCH (20:44)
[2019-02-27] MEDS: TAMSULOSIN (SR) 0.4 MG CAP PO SCH (20:44)
--- NOTE | 2019-02-27 22:05 | CONS ---
Assessment/Plan Assessment/Plan Hospital Course (Demo Recall) -ANEMIA COMPLEX, MONITOR - LEUKOCYTOSIS REACTIVE, IMPROVED - fever, cough CXR, IV ATB , ID, MONITOR CULTURES - HX urinary tract infection. IV ATB - BPH, continue Flomax and Proscar - Dysphagia. swallow evaluation by ST. - History of cerebrovascular accident. Continue aspirin - Dyslipidemia. Continue statin - Parkinsonism. Continue carbidopa - Dementia with agitation. Continue Depakote. - Depression. Continue Celexa. Consultation Date/Type/Reason Admit Date/Time February 23, 2019 at 08:00 Initial Consult Date Type of Consult [id number] Requesting Provider: JACOBO EATON MD Date/Time of Note DATE: 02/27/19 TIME: 22:04 24 HR Interval Summary Free Text/Dictation ALL NOTED MORE ALERT D/W IM Exam/Review of Systems Exam Vitals Vital Signs Date Temp Pulse Resp B/P (MAP) Pulse Ox O2 O2 Flow FiO2 Time Delivery Rate 02/27/19 97.8 73 18 145/86 95 20:00 (105) 02/27/19 21 19:46 02/27/19 Room Air 16:00 Intake and Output 02/26/19 02/26/19 02/27/19 1515:00 23:00 07:00 IntakeIntake Total 50 ml 850 ml 150 ml BalanceBalance 50 ml 850 ml 150 ml Exam Constitutional: alert, frail Head: normocephalic Neck: supple Respiratory: clear to auscultation Cardiovascular: nl pulses Gastrointestinal: soft, non-tender Extremities: normal pulses Neurological: confused Results Result Diagram: 02/27/19 0710 02/27/19 0710 Results 24hrs Laboratory Tests Test 02/27/19 07:10 White Blood Count 9.7 Red Blood Count 4.30 L Hemoglobin 12.8 L Hematocrit 38.8 L Mean Corpuscular Volume 90.2 Mean Corpuscular Hemoglobin 29.8 Mean Corpuscular Hemoglobin Concent 33.0 Red Cell Distribution Width 13.0 Platelet Count 244 Mean Platelet Volume 9.1 Immature Granulocytes % 0.300 Neutrophils % 76.6 Lymphocytes % 11.3 L Monocytes % 6.2 Eosinophils % 4.9 Basophils % 0.7 Nucleated Red Blood Cells % 0.0 Immature Granulocytes # 0.030 Neutrophils # 7.4 Lymphocytes # 1.1 Monocytes # 0.6 Eosinophils # 0.5 Basophils # 0.1 Nucleated Red Blood Cells # 0.0 Sodium Level 143 Potassium Level 4.0 Chloride Level 110 Carbon Dioxide Level 26 Anion Gap 7 Blood Urea Nitrogen 19 Creatinine 0.92 Est Glomerular Filtrat Rate mL/min Glucose Level 96 Calcium Level 8.5 Medications Medication Current Medications Morphine Sulfate (morphine) 2 mg Q4H PRN IV pain; Start 02/23/19 at 10:30 Ondansetron HCl (Zofran Inj) 4 mg Q6H PRN IV NAUSEA AND/OR VOMITING; Start 02/23/19 at 10:30 IV Flush (NS 10 ml) 10 ml Q8 IV Last administered on 02/27/19 14:36; Admin Dose 10 ML; Start 02/23/19 at 14:00 Enoxaparin Sodium (Lovenox) 30 mg DAILY SC Last administered on 02/27/19 09:05; Admin Dose 30 MG; Start 02/24/19 at 09:00 Acetaminophen (Tylenol Tab) 650 mg Q4H PRN PO FEVER; Start 02/23/19 at 13:00 Albuterol (Proventil 0.083% (Neb)) 1.25 mg Q4H RESP THERAPY PRN NEB SHORTNESS OF BREATH; Start 02/23/19 at 13:00 Aspirin (Aspirin) 81 mg DAILY PO Last administered on 02/27/19 09:04; Admin Dose 81 MG; Start 02/24/19 at 09:00 Atorvastatin Calcium (Lipitor) 10 mg QHS PO Last administered on 02/27/19 20:44; Admin Dose 10 MG; Start 02/23/19 at 21:00 Calcium Carbonate (Oyster Shell Calcium) 1.25 gm DAILY PO Last administered on 02/27/19 09:04; Admin Dose 1.25 GM; Start 02/23/19 at 13:00 Carbidopa/Levodopa (Sinemet (25/ 100)) 1 tab BID PO Last administered on 02/27/19 20:44; Admin Dose 1 TAB; Start 02/23/19 at 21:00 Cholecalciferol (Vitamin D) 1,000 unit DAILY PO Last administered on 02/27/19 09:04; Admin Dose 1,000 UNIT; Start 02/23/19 at 13:00 Citalopram Hydrobromide (Celexa) 10 mg QHS PO Last administered on 02/27/19 20:44; Admin Dose 10 MG; Start 02/23/19 at 21:00 Betamethasone/ Clotrimazole (Lotrisone Cr) 1 applic BID TOP Last administered on 02/27/19 09:04; Admin Dose 1 APPLIC; Start 02/23/19 at 21:00 Diltiazem HCl (Cardizem) 60 mg Q8 GTB Last administered on 02/27/19 14:36; Admin Dose 60 MG; Start 02/23/19 at 14:00 Divalproex Sodium (Depakote Sprinkle) 125 mg TID PO Last administered on 02/27/19 20:44; Admin Dose 125 MG; Start 02/23/19 at 14:00 Ferrous Sulfate (Feosol Liquid Cup) 300 mg DAILY PO Last administered on 02/27/19 09:04; Admin Dose 300 MG; Start 02/23/19 at 13:00 Finasteride (Proscar) 5 mg DAILY PO Last administered on 02/27/19 09:04; Admin Dose 5 MG; Start 02/23/19 at 13:00 Hydroxyzine HCl (Atarax) 10 mg Q6H PRN GTB ITCHING Last administered on 02/26/19 01:00; Admin Dose 10 MG; Start 02/23/19 at 13:00 Albuterol/ Ipratropium (Duoneb) 3 ml Q6H RESP THERAPY HHN Last administered on 02/27/19 19:46; Admin Dose 3 ML; Start 02/23/19 at 14:00 Tamsulosin HCl (Flomax) 0.4 mg HS PO Last administered on 02/27/19 20:44; Admin Dose 0.4 MG; Start 02/23/19 at 21:00 Lorazepam (Ativan) 1 mg Q4H PRN IV ANXIETY Last administered on 02/23/19 22:20; Admin Dose 1 MG; Start 02/23/19 at 22:00 Miscellaneous Information (Pending [facility] Order For Wound Care) This patient peck... PRN PRN XX WOUND CARE; Start 02/23/19 at 22:30 Docusate Sodium (Colace Liquid Cup) 100 mg BID PO Last administered on 02/27/19 20:44; Admin Dose 100 MG; Start 02/25/19 at 09:00 Vancomycin HCl (Vanco Iv Per Pharmacy) VANCOMYCIN PER PHARMACY PER PROTOCOL XX ; Start 02/26/19 at 15:30 Vancomycin HCl 250 ml @ 125 mls/hr Q24H IVPB Last administered on 02/27/19at 20:27; Admin Dose 125 MLS/HR; Start 02/27/19 at 20:00 FELI MARCIAL MD February 27, 2019 22:05
[2019-02-28] MEDS: ALBUTEROL/IPRATROPIUM (NEB) 3 ML AMP HHN SCH ×3 (01:20→14:00)
[2019-02-28 01:52] VITALS: BP 120/57; PULSE 66; RESP 18
[2019-02-28] MEDS: DILTIAZEM 60 MG TAB GTB SCH ×3 (06:00→21:33)
[2019-02-28 08:00] VITALS: BP 128/58; PULSE 60; RESP 17
[2019-02-28] MEDS: CHOLECALCIFEROL 1,000 UNIT TAB PO SCH (09:13)
[2019-02-28] MEDS: DIVALPROEX SPRINKLE 125 MG CAP PO SCH ×3 (09:13→20:21)
[2019-02-28] MEDS: CARBIDOPA/LEVODOPA (25/100) TAB PO SCH ×2 (09:14→20:21)
[2019-02-28] MEDS: DOCUSATE SODIUM 10 MG/ML (10ML CUP) PO SCH ×2 (09:14→20:21)
[2019-02-28] MEDS: CALCIUM CARBONATE 1.25 GM TAB PO SCH (09:14)
[2019-02-28] MEDS: FINASTERIDE 5 MG TAB PO SCH (09:14)
[2019-02-28] MEDS: FERROUS SULFATE 60 MG/ML 5ML CUP PO SCH (09:14)
[2019-02-28] MEDS: ASPIRIN 81 MG TAB PO SCH (09:15)
[2019-02-28] MEDS: ENOXAPARIN 30 MG/0.3 ML SYG SC SCH (09:16)
[2019-02-28 14:00] VITALS: BP 123/57; PULSE 62; RESP 18
--- NOTE | 2019-02-28 16:15 | CONS ---
Assessment/Plan Assessment/Plan Hospital Course (Demo Recall) No acute events overnight, patient is sleeping, looks comfortable, no fevers Antimicrobials: Vancomycin PHYSICAL EXAMINATION: GENERAL: This is a chronically ill-appearing, wasted elderly man who is awake, confused, in no distress. HEENT: Head is atraumatic, normocephalic. Sclerae are anicteric. Buccal mucosa is dry. NECK: Supple. CHEST: Rise symmetrical. Breath sounds diminished to bases. HEART: S1, S2. ABDOMEN: Soft. Bowel tones are present. EXTREMITIES: With trace edema. Assessment: 1. Status post sepsis on admission 2. Enterococcal UTI 3. Dementia 4. History of CVA 5. BPH Plan: Remains unchanged, stable, continue vancomycin for couple more days, continue aspiration precautions Consultation Date/Type/Reason Admit Date/Time February 23, 2019 at 08:00 Initial Consult Date 02/22/19 Type of Consult id Requesting Provider: JACOBO EATON MD Date/Time of Note DATE: 02/28/19 TIME: 16:14 Exam/Review of Systems Exam Vitals Vital Signs Date Temp Pulse Resp B/P (MAP) Pulse Ox O2 O2 Flow FiO2 Time Delivery Rate 02/28/19 97.7 62 18 123/57 94 Room Air 14:00 (79) 02/28/19 21 08:54 Intake and Output 02/27/19 02/27/19 02/28/19 1515:00 23:00 07:00 IntakeIntake Total 120 ml 450 ml 200 ml BalanceBalance 120 ml 450 ml 200 ml Results Result Diagram: 02/27/19 0710 02/27/19 0710 Medications Medication Current Medications Morphine Sulfate (morphine) 2 mg Q4H PRN IV pain; Start 02/23/19 at 10:30 Ondansetron HCl (Zofran Inj) 4 mg Q6H PRN IV NAUSEA AND/OR VOMITING; Start 02/06 05/27 at 10:30 IV Flush (NS 10 ml) 10 ml Q8 IV Last administered on 02/27/19at 22:09; Admin Dose 10 ML; Start 02/23/19 at 14:00 Enoxaparin Sodium (Lovenox) 30 mg DAILY SC Last administered on 02/28/19at 09:16; Admin Dose 30 MG; Start 02/24/19 at 09:00 Acetaminophen (Tylenol Tab) 650 mg Q4H PRN PO FEVER; Start 02/23/19 at 13:00 Albuterol (Proventil 0.083% (Neb)) 1.25 mg Q4H RESP THERAPY PRN NEB SHORTNESS OF BREATH; Start 02/23/19 at 13:00 Aspirin (Aspirin) 81 mg DAILY PO Last administered on 02/28/19 09:15; Admin Dose 81 MG; Start 02/24/19 at 09:00 Atorvastatin Calcium (Lipitor) 10 mg QHS PO Last administered on 02/27/19 20:44; Admin Dose 10 MG; Start 02/23/19 at 21:00 Calcium Carbonate (Oyster Shell Calcium) 1.25 gm DAILY PO Last administered on 02/28/19 09:14; Admin Dose 1.25 GM; Start 02/23/19 at 13:00 Carbidopa/Levodopa (Sinemet (25/ 100)) 1 tab BID PO Last administered on 02/07 09:14; Admin Dose 1 TAB; Start 02/23/19 at 21:00 Cholecalciferol (Vitamin D) 1,000 unit DAILY PO Last administered on 02/28/19 09:13; Admin Dose 1,000 UNIT; Start 02/23/19 at 13:00 Citalopram Hydrobromide (Celexa) 10 mg QHS PO Last administered on 02/27/19 20:44; Admin Dose 10 MG; Start 02/23/19 at 21:00 Betamethasone/ Clotrimazole (Lotrisone Cr) 1 applic BID TOP Last administered on 02/27/19 09:04; Admin Dose 1 APPLIC; Start 02/23/19 at 21:00 Diltiazem HCl (Cardizem) 60 mg Q8 GTB Last administered on 02/28/19 13:45; Admin Dose 60 MG; Start 02/23/19 at 14:00 Divalproex Sodium (Depakote Sprinkle) 125 mg TID PO Last administered on 02/28/19 13:45; Admin Dose 125 MG; Start 02/23/19 at 14:00 Ferrous Sulfate (Feosol Liquid Cup) 300 mg DAILY PO Last administered on 02/28/19 09:14; Admin Dose 300 MG; Start 02/23/19 at 13:00 Finasteride (Proscar) 5 mg DAILY PO Last administered on 02/28/19 09:14; Admin Dose 5 MG; Start 02/23/19 at 13:00 Hydroxyzine HCl (Atarax) 10 mg Q6H PRN GTB ITCHING Last administered on 02/26/19 01:00; Admin Dose 10 MG; Start 02/23/19 at 13:00 Albuterol/ Ipratropium (Duoneb) 3 ml Q6H RESP THERAPY HHN Last administered on 02/28/19 08:53; Admin Dose 3 ML; Start 02/23/19 at 14:00 Tamsulosin HCl (Flomax) 0.4 mg HS PO Last administered on 02/27/19 20:44; Admin Dose 0.4 MG; Start 02/23/19 at 21:00 Lorazepam (Ativan) 1 mg Q4H PRN IV ANXIETY Last administered on 02/23/19 22:20; Admin Dose 1 MG; Start 02/23/19 at 22:00 Miscellaneous Information (Pending [facility] Order For Wound Care) This patient peck... PRN PRN XX WOUND CARE; Start 02/23/19 at 22:30 Docusate Sodium (Colace Liquid Cup) 100 mg BID PO Last administered on 02/28/19 09:14; Admin Dose 100 MG; Start 02/25/19 at 09:00 Vancomycin HCl (Vanco Iv Per Pharmacy) VANCOMYCIN PER PHARMACY PER PROTOCOL XX ; Start 02/26/19 at 15:30 Vancomycin HCl 250 ml @ 125 mls/hr Q24H IVPB Last administered on 02/27/19 20:27; Admin Dose 125 MLS/HR; Start 02/27/19 at 20:00 HERMINIO WILLAMS NP February 28, 2019 16:15
[2019-02-28] MEDS: BETAMETHASONE/CLOTRIMAZOLE 15 GM CR TOP SCH ×2 (16:40→20:22)
--- NOTE | 2019-02-28 17:24 | PN ---
Date/Time of Note Date/Time of Note DATE: 02/28/19 TIME: 17:22 Assessment/Plan VTE Prophylaxis Risk score (from Ns)>0 risk: 8 SCD applied (from [facility]): No SCD contraindicated: patient refusal Pharmacological prophylaxis: LMWH Lines/Catheters IV Catheter Type (from [facility]): [place] [facility] Urinary Cath still in place: No Assessment/Plan Hospital Course Patient continues on vancomycin for enterococcus UTI. D/monty IV, refusing IV, talked to pt, agreed to starting IV. Assessment/Plan - Enterococcus urinary tract infection. Continue antibiotics per ID. Dr. Saldivar is following in infection disease consultation. - BPH, continue Flomax and Proscar - Dysphagia, s/p swallow eval, continue PO diet. - History of cerebrovascular accident. Continue aspirin - Dyslipidemia. Continue statin - Parkinsonism. Continue carbidopa - Dementia with agitation. Continue Depakote. - Depression. Continue Celexa. Further recommendations based on clinical course. Plan of care discussed with Dr. Rivera. Result Diagram: 02/27/19 0710 02/27/19 0710 Exam/Review of Systems Exam Vitals Vital Signs Date Temp Pulse Resp B/P (MAP) Pulse Ox O2 O2 Flow FiO2 Time Delivery Rate 02/28/19 97.7 62 18 123/57 94 Room Air 14:00 (79) 02/28/19 21 08:54 Intake and Output 02/27/19 02/27/19 02/28/19 1515:00 23:00 07:00 IntakeIntake Total 120 ml 450 ml 200 ml BalanceBalance 120 ml 450 ml 200 ml Exam Constitutional: alert, frail Respiratory: clear to auscultation Cardiovascular: nl pulses Gastrointestinal: soft, non-tender Extremities: normal pulses Neurological: confused Medications Medication Current Medications Morphine Sulfate (morphine) 2 mg Q4H PRN IV pain; Start 02/23/19 at 10:30 Ondansetron HCl (Zofran Inj) 4 mg Q6H PRN IV NAUSEA AND/OR VOMITING; Start at 10:30 IV Flush (NS 10 ml) 10 ml Q8 IV Last administered on 02/27/19at 22:09; Admin Dose 10 ML; Start 02/23/19 at 14:00 Enoxaparin Sodium (Lovenox) 30 mg DAILY SC Last administered on 02/28/19at 09:16; Admin Dose 30 MG; Start 02/24/19 at 09:00 Acetaminophen (Tylenol Tab) 650 mg Q4H PRN PO FEVER; Start 02/23/19 at 13:00 Albuterol (Proventil 0.083% (Neb)) 1.25 mg Q4H RESP THERAPY PRN NEB SHORTNESS OF BREATH; Start 02/23/19 at 13:00 Aspirin (Aspirin) 81 mg DAILY PO Last administered on 02/28/19 09:15; Admin Dose 81 MG; Start 02/24/19 at 09:00 Atorvastatin Calcium (Lipitor) 10 mg QHS PO Last administered on 02/27/19 20:44; Admin Dose 10 MG; Start 02/23/19 at 21:00 Calcium Carbonate (Oyster Shell Calcium) 1.25 gm DAILY PO Last administered on 02/28/19 09:14; Admin Dose 1.25 GM; Start 02/23/19 at 13:00 Carbidopa/Levodopa (Sinemet (25/ 100)) 1 tab BID PO Last administered on 09:14; Admin Dose 1 TAB; Start 02/23/19 at 21:00 Cholecalciferol (Vitamin D) 1,000 unit DAILY PO Last administered on 02/28/19 09:13; Admin Dose 1,000 UNIT; Start 02/23/19 at 13:00 Citalopram Hydrobromide (Celexa) 10 mg QHS PO Last administered on 02/27/19 20:44; Admin Dose 10 MG; Start 02/23/19 at 21:00 Betamethasone/ Clotrimazole (Lotrisone Cr) 1 applic BID TOP Last administered on 02/28/19 16:40; Admin Dose 1 APPLIC; Start 02/23/19 at 21:00 Diltiazem HCl (Cardizem) 60 mg Q8 GTB Last administered on 02/28/19 13:45; Admin Dose 60 MG; Start 02/23/19 at 14:00 Divalproex Sodium (Depakote Sprinkle) 125 mg TID PO Last administered on 02/28/19 13:45; Admin Dose 125 MG; Start 02/23/19 at 14:00 Ferrous Sulfate (Feosol Liquid Cup) 300 mg DAILY PO Last administered on 02/28/19 09:14; Admin Dose 300 MG; Start 02/23/19 at 13:00 Finasteride (Proscar) 5 mg DAILY PO Last administered on 02/28/19 09:14; Admin Dose 5 MG; Start 02/23/19 at 13:00 Hydroxyzine HCl (Atarax) 10 mg Q6H PRN GTB ITCHING Last administered on 02/26/19 01:00; Admin Dose 10 MG; Start 02/23/19 at 13:00 Albuterol/ Ipratropium (Duoneb) 3 ml Q6H RESP THERAPY HHN Last administered on 02/28/19 08:53; Admin Dose 3 ML; Start 02/23/19 at 14:00 Tamsulosin HCl (Flomax) 0.4 mg HS PO Last administered on 02/27/19 20:44; Admin Dose 0.4 MG; Start 02/23/19 at 21:00 Lorazepam (Ativan) 1 mg Q4H PRN IV ANXIETY Last administered on 02/23/19 22:20; Admin Dose 1 MG; Start 02/23/19 at 22:00 Miscellaneous Information (Pending [facility] Order For Wound Care) This patient peck... PRN PRN XX WOUND CARE; Start 02/23/19 at 22:30 Docusate Sodium (Colace Liquid Cup) 100 mg BID PO Last administered on 02/28/19 09:14; Admin Dose 100 MG; Start 02/25/19 at 09:00 Vancomycin HCl (Vanco Iv Per Pharmacy) VANCOMYCIN PER PHARMACY PER PROTOCOL XX ; Start 02/26/19 at 15:30 Vancomycin HCl 250 ml @ 125 mls/hr Q24H IVPB Last administered on 02/27/19 20:27; Admin Dose 125 MLS/HR; Start 02/27/19 at 20:00 ROLANDO SANFORD February 28, 2019 17:24
[2019-02-28 20:00] VITALS: BP 140/78; PULSE 62; RESP 18
[2019-02-28] MEDS: VANCOMYCIN 1 GM 250 ML IVPB SCH (20:20)
[2019-02-28] MEDS: CITALOPRAM 20 MG TAB PO SCH (20:21)
[2019-02-28] MEDS: TAMSULOSIN (SR) 0.4 MG CAP PO SCH (20:21)
[2019-02-28] MEDS: ATORVASTATIN 10 MG TAB PO SCH (20:21)
[2019-02-28 21:32] VITALS: BP 114/55; PULSE 60
--- NOTE | 2019-02-28 23:05 | CONS ---
Assessment/Plan Assessment/Plan Hospital Course (Demo Recall) -ANEMIA COMPLEX, MONITOR - LEUKOCYTOSIS REACTIVE, IMPROVED - fever, cough CXR, IV ATB , ID, MONITOR CULTURES - HX urinary tract infection. IV ATB - BPH, continue Flomax and Proscar - Dysphagia. swallow evaluation by ST. - History of cerebrovascular accident. Continue aspirin - Dyslipidemia. Continue statin - Parkinsonism. Continue carbidopa - Dementia with agitation. Continue Depakote. - Depression. Continue Celexa. Consultation Date/Type/Reason Admit Date/Time February 23, 2019 at 08:00 Initial Consult Date Type of Consult HEMEON Requesting Provider: JACOBO EATON MD Date/Time of Note DATE: 02/28/19 TIME: 23:04 24 HR Interval Summary Free Text/Dictation all noted nad no bleeding Exam/Review of Systems Exam Vitals Vital Signs Date Temp Pulse Resp B/P (MAP) Pulse Ox O2 O2 Flow FiO2 Time Delivery Rate 02/28/19 60 114/55 21:32 (74) 02/28/19 97.4 18 91 Room Air 20:00 02/28/19 21 08:54 Intake and Output 02/27/19 02/27/19 02/28/19 1515:00 23:00 07:00 IntakeIntake Total 120 ml 450 ml 200 ml BalanceBalance 120 ml 450 ml 200 ml Exam Constitutional: alert, frail Head: normocephalic Neck: supple Respiratory: clear to auscultation Cardiovascular: nl pulses Gastrointestinal: soft, non-tender Extremities: normal pulses Neurological: confused Results Result Diagram: 02/27/19 0710 02/27/19 0710 Medications Medication Current Medications Morphine Sulfate (morphine) 2 mg Q4H PRN IV pain; Start 02/23/19 at 10:30 Ondansetron HCl (Zofran Inj) 4 mg Q6H PRN IV NAUSEA AND/OR VOMITING; Start 02/23/19 at 10:30 IV Flush (NS 10 ml) 10 ml Q8 IV Last administered on 02/27/19at 22:09; Admin Dose 10 ML; Start 02/23/19 at 14:00 Enoxaparin Sodium (Lovenox) 30 mg DAILY SC Last administered on 02/28/19at 09:16; Admin Dose 30 MG; Start 02/24/19 at 09:00 Acetaminophen (Tylenol Tab) 650 mg Q4H PRN PO FEVER; Start 02/23/19 at 13:00 Albuterol (Proventil 0.083% (Neb)) 1.25 mg Q4H RESP THERAPY PRN NEB SHORTNESS OF BREATH; Start 02/23/19 at 13:00 Aspirin (Aspirin) 81 mg DAILY PO Last administered on 02/28/19 09:15; Admin Dose 81 MG; Start 02/24/19 at 09:00 Atorvastatin Calcium (Lipitor) 10 mg QHS PO Last administered on 02/28/19 20:21; Admin Dose 10 MG; Start 02/23/19 at 21:00 Calcium Carbonate (Oyster Shell Calcium) 1.25 gm DAILY PO Last administered on 02/28/19 09:14; Admin Dose 1.25 GM; Start 02/23/19 at 13:00 Carbidopa/Levodopa (Sinemet (25/ 100)) 1 tab BID PO Last administered on 02/28/19 20:21; Admin Dose 1 TAB; Start 02/23/19 at 21:00 Cholecalciferol (Vitamin D) 1,000 unit DAILY PO Last administered on 02/28/19 09:13; Admin Dose 1,000 UNIT; Start 02/23/19 at 13:00 Citalopram Hydrobromide (Celexa) 10 mg QHS PO Last administered on 02/28/19 20:21; Admin Dose 10 MG; Start 02/23/19 at 21:00 Betamethasone/ Clotrimazole (Lotrisone Cr) 1 applic BID TOP Last administered on 02/28/19 20:22; Admin Dose 1 APPLIC; Start 02/23/19 at 21:00 Diltiazem HCl (Cardizem) 60 mg Q8 GTB Last administered on 02/28/19 21:33; Admin Dose 60 MG; Start 02/23/19 at 14:00 Divalproex Sodium (Depakote Sprinkle) 125 mg TID PO Last administered on 02/28/19 20:21; Admin Dose 125 MG; Start 02/23/19 at 14:00 Ferrous Sulfate (Feosol Liquid Cup) 300 mg DAILY PO Last administered on 02/28/19 09:14; Admin Dose 300 MG; Start 02/23/19 at 13:00 Finasteride (Proscar) 5 mg DAILY PO Last administered on 02/28/19 09:14; Admin Dose 5 MG; Start 02/23/19 at 13:00 Hydroxyzine HCl (Atarax) 10 mg Q6H PRN GTB ITCHING Last administered on 02/26/19 01:00; Admin Dose 10 MG; Start 02/23/19 at 13:00 Albuterol/ Ipratropium (Duoneb) 3 ml Q6H RESP THERAPY HHN Last administered on 02/28/19 08:53; Admin Dose 3 ML; Start 02/23/19 at 14:00 Tamsulosin HCl (Flomax) 0.4 mg HS PO Last administered on 02/28/19 20:21; A dmin Dose 0.4 MG; Start 02/23/19 at 21:00 Lorazepam (Ativan) 1 mg Q4H PRN IV ANXIETY Last administered on 02/23/19 22:20; Admin Dose 1 MG; Start 02/23/19 at 22:00 Miscellaneous Information (Pending [facility] Order For Wound Care) This patient peck... PRN PRN XX WOUND CARE; Start 02/23/19 at 22:30 Docusate Sodium (Colace Liquid Cup) 100 mg BID PO Last administered on 02/28/19 20:21; Admin Dose 100 MG; Start 02/25/19 at 09:00 Vancomycin HCl (Vanco Iv Per Pharmacy) VANCOMYCIN PER PHARMACY PER PROTOCOL XX ; Start 02/26/19 at 15:30 Vancomycin HCl 250 ml @ 125 mls/hr Q24H IVPB Last administered on 02/28/19 20:20; Admin Dose 125 MLS/HR; Start 02/27/19 at 20:00 FELI MARCIAL MD February 28, 2019 23:05
[2019-03-01 02:00] VITALS: BP 107/69; PULSE 65; RESP 18
[2019-03-01] MEDS: DILTIAZEM 60 MG TAB GTB SCH ×3 (06:06→22:23)
[2019-03-01 08:00] VITALS: PULSE 65
[2019-03-01] MEDS: DIVALPROEX SPRINKLE 125 MG CAP PO SCH ×3 (08:47→20:25)
[2019-03-01] MEDS: CALCIUM CARBONATE 1.25 GM TAB PO SCH (08:47)
[2019-03-01] MEDS: FINASTERIDE 5 MG TAB PO SCH (08:47)
[2019-03-01] MEDS: CARBIDOPA/LEVODOPA (25/100) TAB PO SCH ×2 (08:47→20:25)
[2019-03-01] MEDS: FERROUS SULFATE 60 MG/ML 5ML CUP PO SCH (08:47)
[2019-03-01] MEDS: DOCUSATE SODIUM 10 MG/ML (10ML CUP) PO SCH ×2 (08:47→20:25)
[2019-03-01] MEDS: ENOXAPARIN 30 MG/0.3 ML SYG SC SCH (08:48)
[2019-03-01] MEDS: BETAMETHASONE/CLOTRIMAZOLE 15 GM CR TOP SCH ×2 (08:48→20:29)
[2019-03-01] MEDS: ASPIRIN 81 MG TAB PO SCH (08:48)
[2019-03-01] MEDS: CHOLECALCIFEROL 1,000 UNIT TAB PO SCH (08:48)
[2019-03-01] MEDS: ALBUTEROL/IPRATROPIUM (NEB) 3 ML AMP HHN SCH ×3 (08:50→19:40)
--- NOTE | 2019-03-01 13:28 | PN ---
DATE: 03/01/2019 SUBJECTIVE: Follow up on UTI, dementia, dysphagia, history of CVA, depression. The patient is breat rakan comfortably on room air. No reported fever or chills. No reported chest congestion. No report ed bleeding from any site. No reported vomiting. PHYSICAL EXAMINATION: GENERAL: Revealed the patient to be awake, confused. VITAL SIGNS: Temperature 97.8, pulse 69, respiration 18, blood pressure 107/69, O2 saturation 97% on room air. HEENT: No eye discharge or redness. Nose and ears are normal. Oropharynx is grossly negative. NECK: No mass. CHEST: Fairly clear. CARDIOVASCULAR: S1, S2 normal. No murmur. ABDOMEN: Soft, nondistended, nontender. Bowel sounds plus. EXTREMITIES: No leg edema. NEUROLOGIC: The patient is awake, however, confused. IMPRESSION: 1. Enterococcus urinary tract infection. Continue IV vancomycin as per pharmacy. The patient is be ing seen by Dr. Saldivar. Continue on Lovenox for deep venous thrombosis prophylaxis. 2. Cerebrovascular accident. Continue aspirin. 3. Hypertension. Continue Cardizem. 4. Dementia with behavioral disturbance. Continue Depakote. 5. Dyslipidemia. Continue statin. 6. Parkinson's. Continue Sinemet. DISPOSITION: Discontinue in 1 to 2 days after completion of IV vancomycin if there are no other acut e issues. Dictated By: JACOBO EATON MD AB/NTS Conf#: [id number] DID#: [id number] CC: ERNST BARAKAT MD;*EndCC*
[2019-03-01 14:08] VITALS: BP 115/63; PULSE 69; RESP 16
--- NOTE | 2019-03-01 15:01 | CONS ---
Assessment/Plan Assessment/Plan Hospital Course (Demo Recall) No acute events overnight, patient is sleeping no fevers Antimicrobials: Vancomycin PHYSICAL EXAMINATION: GENERAL: This is a chronically ill-appearing, wasted elderly man who is awake, confused, in no distress. HEENT: Head is atraumatic, normocephalic. Sclerae are anicteric. Buccal muco sa is dry. NECK: Supple. CHEST: Rise symmetrical. Breath sounds diminished to bases. HEART: S1, S2. ABDOMEN: Soft. Bowel tones are present. EXTREMITIES: With trace edema. Assessment: 1. Status post sepsis on admission 2. Enterococcal UTI 3. Dementia 4. History of CVA 5. BPH Plan: Remains unchanged, dc vancomycin, continue aspiration precautions Consultation Date/Type/Reason Admit Date/Time February 23, 2019 at 08:00 Initial Consult Date 02/22/19 Type of Consult id Requesting Provider: JACOBO EATON MD Date/Time of Note DATE: 03/01/19 TIME: 15:00 Exam/Review of Systems Exam Vitals Vital Signs Date Temp Pulse Resp B/P (MAP) Pulse Ox O2 O2 Flow FiO2 Time Delivery Rate 03/01/19 97.6 69 16 115/63 94 Room Air 14:08 (80) 03/01/19 21 13:15 Intake and Output 02/28/19 02/28/19 03/01/19 1515:00 23:00 07:00 IntakeIntake Total 400 ml 200 ml 200 ml BalanceBalance 400 ml 200 ml 200 ml Results Result Diagram: 02/27/19 0710 02/27/19 0710 Medications Medication Current Medications Morphine Sulfate (morphine) 2 mg Q4H PRN IV pain; Start 02/23/19 at 10:30 Ondansetron HCl (Zofran Inj) 4 mg Q6H PRN IV NAUSEA AND/OR VOMITING; Start 02/23/19 at 10:30 IV Flush (NS 10 ml) 10 ml Q8 IV Last administered on 03/01/19at 06:04; Admin Dose 10 ML; Start 02/23/19 at 14:00 Enoxaparin Sodium (Lovenox) 30 mg DAILY SC Last administered on 03/01/19at 08:48; Admin Dose 30 MG; Start 02/24/19 at 09:00 Acetaminophen (Tylenol Tab) 650 mg Q4H PRN PO FEVER; Start 02/23/19 at 13:00 Albuterol (Proventil 0.083% (Neb)) 1.25 mg Q4H RESP THERAPY PRN NEB SHORTNESS OF BREATH; Start 02/23/19 at 13:00 Aspirin (Aspirin) 81 mg DAILY PO Last administered on 03/01/19 08:48; Admin Dose 81 MG; Start 02/24/19 at 09:00 Atorvastatin Calcium (Lipitor) 10 mg QHS PO Last administered on 02/28/19 20:21; Admin Dose 10 MG; Start 02/23/19 at 21:00 Calcium Carbonate (Oyster Shell Calcium) 1.25 gm DAILY PO Last administered on 03/01/19 08:47; Admin Dose 1.25 GM; Start 02/23/19 at 13:00 Carbidopa/Levodopa (Sinemet (25/ 100)) 1 tab BID PO Last administered on 03/01/19 08:47; Admin Dose 1 TAB; Start 02/23/19 at 21:00 Cholecalciferol (Vitamin D) 1,000 unit DAILY PO Last administered on 03/01/19 08:48; Admin Dose 1,000 UNIT; Start 02/23/19 at 13:00 Citalopram Hydrobromide (Celexa) 10 mg QHS PO Last administered on 02/28/19 20:21; Admin Dose 10 MG; Start 02/23/19 at 21:00 Betamethasone/ Clotrimazole (Lotrisone Cr) 1 applic BID TOP Last administered on 03/01/19 08:48; Admin Dose 1 APPLIC; Start 02/23/19 at 21:00 Diltiazem HCl (Cardizem) 60 mg Q8 GTB Last administered on 03/01/19 13:00; Admin Dose 60 MG; Start 02/23/19 at 14:00 Divalproex Sodium (Depakote Sprinkle) 125 mg TID PO Last administered on 12:44; Admin Dose 125 MG; Start 02/23/19 at 14:00 Ferrous Sulfate (Feosol Liquid Cup) 300 mg DAILY PO Last administered on 03/01/19 08:47; Admin Dose 300 MG; Start 02/23/19 at 13:00 Finasteride (Proscar) 5 mg DAILY PO Last administered on 03/01/19 08:47; Admin Dose 5 MG; Start 02/23/19 at 13:00 Hydroxyzine HCl (Atarax) 10 mg Q6H PRN GTB ITCHING Last administered on 02/26/19 01:00; Admin Dose 10 MG; Start 02/23/19 at 13:00 Albuterol/ Ipratropium (Duoneb) 3 ml Q6H RESP THERAPY HHN Last administered on 03/01/19 13:15; Admin Dose 3 ML; Start 02/23/19 at 14:00 Tamsulosin HCl (Flomax) 0.4 mg HS PO Last administered on 02/28/19 20:21; Admin Dose 0.4 MG; Start 02/23/19 at 21:00 Lorazepam (Ativan) 1 mg Q4H PRN IV ANXIETY Last administered on 02/23/19 22:20; Admin Dose 1 MG; Start 02/23/19 at 22:00 Miscellaneous Information (Pending [facility] Order For Wound Care) This patient h a... PRN PRN XX WOUND CARE; Start 02/23/19 at 22:30 Docusate Sodium (Colace Liquid Cup) 100 mg BID PO Last administered on 03/01/19 08:47; Admin Dose 100 MG; Start 02/25/19 at 09:00 Vancomycin HCl (Vanco Iv Per Pharmacy) VANCOMYCIN PER PHARMACY PER PROTOCOL XX ; Start 02/26/19 at 15:30 Vancomycin HCl 250 ml @ 125 mls/hr Q24H IVPB Last administered on 02/28/19 20:20; Admin Dose 125 MLS/HR; Start 02/27/19 at 20:00 Miscellaneous Information (*Rx Drug Level Order Reminder*) VANCOMYCN TROUGH AT 1900 1900 ONCE XX ; Start 03/01/19 at 19:00; Stop 03/01/19 at 19:01 HERMINIO WILLAMS NP March 01, 2019 15:01
--- NOTE | 2019-03-01 19:07 | CONS ---
Assessment/Plan Assessment/Plan Hospital Course (Demo Recall) -ANEMIA COMPLEX, MONITOR - LEUKOCYTOSIS REACTIVE, IMPROVED - fever, cough CXR, IV ATB , ID, MONITOR CULTURES - HX urinary tract infection. IV ATB - BPH, continue Flomax and Proscar - Dysphagia. swallow evaluation by ST. - History of cerebrovascular accident. Continue aspirin - Dyslipidemia. Continue statin - Parkinsonism. Continue carbidopa - Dementia with agitation. Continue Depakote. - Depression. Continue Celexa. Consultation Date/Type/Reason Admit Date/Time February 23, 2019 at 08:00 Initial Consult Date Type of Consult HEMEON Requesting Provider: JACOBO EATON MD Date/Time of Note DATE: 03/01/19 TIME: 19:06 24 HR Interval Summary Free Text/Dictation ALL NOTED NAD NO BLEEDING Exam/Review of Systems Exam Vitals Vital Signs Date Temp Pulse Resp B/P (MAP) Pulse Ox O2 O2 Flow FiO2 Time Delivery Rate 03/01/19 97.6 69 16 115/63 94 Room Air 14:08 (80) 03/01/19 21 13:15 Intake and Output 02/28/19 02/28/19 03/01/19 1515:00 23:00 07:00 IntakeIntake Total 400 ml 200 ml 200 ml BalanceBalance 400 ml 200 ml 200 ml Exam Constitutional: alert, frail Head: normocephalic Neck: supple Respiratory: clear to auscultation Cardiovascular: nl pulses Gastrointestinal: soft, non-tender Extremities: normal pulses Neurological: confused Results Result Diagram: 02/27/19 0710 02/27/19 0710 Medications Medication Current Medications Morphine Sulfate (morphine) 2 mg Q4H PRN IV pain; Start 02/23/19 at 10:30 Ondansetron HCl (Zofran Inj) 4 mg Q6H PRN IV NAUSEA AND/OR VOMITING; Start 02/23/19 at 10:30 IV Flush (NS 10 ml) 10 ml Q8 IV Last administered on 03/01/19at 15:33; Admin Dose 10 ML; Start 02/23/19 at 14:00 Enoxaparin Sodium (Lovenox) 30 mg DAILY SC Last administered on 03/01/19at 08:48; Admin Dose 30 MG; Start 02/24/19 at 09:00 Acetaminophen (Tylenol Tab) 650 mg Q4H PRN PO FEVER; Start 02/23/19 at 13:00 Albuterol (Proventil 0.083% (Neb)) 1.25 mg Q4H RESP THERAPY PRN NEB SHORTNESS OF BREATH; Start 02/23/19 at 13:00 Aspirin (Aspirin) 81 mg DAILY PO Last administered on 03/01/19 08:48; Admin Dose 81 MG; Start 02/24/19 at 09:00 Atorvastatin Calcium (Lipitor) 10 mg QHS PO Last administered on 02/28/19 20: 21; Admin Dose 10 MG; Start 02/23/19 at 21:00 Calcium Carbonate (Oyster Shell Calcium) 1.25 gm DAILY PO Last administered on 03/01/19 08:47; Admin Dose 1.25 GM; Start 02/23/19 at 13:00 Carbidopa/Levodopa (Sinemet (25/ 100)) 1 tab BID PO Last administered on 03/01/19 08:47; Admin Dose 1 TAB; Start 02/23/19 at 21:00 Cholecalciferol (Vitamin D) 1,000 unit DAILY PO Last administered on 03/01/19 08:48; Admin Dose 1,000 UNIT; Start 02/23/19 at 13:00 Citalopram Hydrobromide (Celexa) 10 mg QHS PO Last administered on 02/28/19 20:21; Admin Dose 10 MG; Start 02/23/19 at 21:00 Betamethasone/ Clotrimazole (Lotrisone Cr) 1 applic BID TOP Last administered on 03/01/19 08:48; Admin Dose 1 APPLIC; Start 02/23/19 at 21:00 Diltiazem HCl (Cardizem) 60 mg Q8 GTB Last administered on 03/01/19 13:00; Admin Dose 60 MG; Start 02/23/19 at 14:00 Divalproex Sodium (Depakote Sprinkle) 125 mg TID PO Last administered on 03/01/19 12:44; Admin Dose 125 MG; Start 02/23/19 at 14:00 Ferrous Sulfate (Feosol Liquid Cup) 300 mg DAILY PO Last administered on 03/01/19 08:47; Admin Dose 300 MG; Start 02/23/19 at 13:00 Finasteride (Proscar) 5 mg DAILY PO Last administered on 03/01/19 08:47; Admin Dose 5 MG; Start 02/23/19 at 13:00 Hydroxyzine HCl (Atarax) 10 mg Q6H PRN GTB ITCHING Last administered on 02/26/19 01:00; Admin Dose 10 MG; Start 02/23/19 at 13:00 Albuterol/ Ipratropium (Duoneb) 3 ml Q6H RESP THERAPY HHN Last administered on 03/01/19 13:15; Admin Dose 3 ML; Start 02/23/19 at 14:00 Tamsulosin HCl (Flomax) 0.4 mg HS PO Last administered on 02/28/19 20:21; Admin Dose 0.4 MG; Start 02/23/19 at 21:00 Lorazepam (Ativan) 1 mg Q4H PRN IV ANXIETY Last administered on 02/23/19 22:20; Admin Dose 1 MG; Start 02/23/19 at 22:00 Miscellaneous Information (Pending [facility]) This patient peck... PRN PRN XX WOUND CARE; Start 02/23/19 at 22:30 Docusate Sodium (Colace Liquid Cup) 100 mg BID PO Last administered on 03/01/19 08:47; Admin Dose 100 MG; Start 02/25/19 at 09:00 FELI MARCIAL MD March 01, 2019 19:07
[2019-03-01 20:00] VITALS: BP 151/95; PULSE 62; RESP 18
[2019-03-01] MEDS: ATORVASTATIN 10 MG TAB PO SCH (20:25)
[2019-03-01] MEDS: TAMSULOSIN (SR) 0.4 MG CAP PO SCH (20:25)
[2019-03-01] MEDS: CITALOPRAM 20 MG TAB PO SCH (20:26)
[2019-03-02] MEDS: ALBUTEROL/IPRATROPIUM (NEB) 3 ML AMP HHN SCH ×4 (01:14→20:13)
[2019-03-02 02:00] VITALS: BP 132/60; PULSE 62; RESP 17
[2019-03-02] MEDS: DILTIAZEM 60 MG TAB GTB SCH ×3 (05:22→23:02)
[2019-03-02 07:40] VITALS: BP 111/54; PULSE 63; RESP 18
[2019-03-02] MEDS: ENOXAPARIN 30 MG/0.3 ML SYG SC SCH (08:57)
[2019-03-02] MEDS: DOCUSATE SODIUM 10 MG/ML (10ML CUP) PO SCH ×2 (08:58→20:50)
[2019-03-02] MEDS: FERROUS SULFATE 60 MG/ML 5ML CUP PO SCH (08:58)
[2019-03-02] MEDS: CALCIUM CARBONATE 1.25 GM TAB PO SCH (08:59)
[2019-03-02] MEDS: DIVALPROEX SPRINKLE 125 MG CAP PO SCH ×3 (08:59→20:53)
[2019-03-02] MEDS: ASPIRIN 81 MG TAB PO SCH (08:59)
[2019-03-02] MEDS: CHOLECALCIFEROL 1,000 UNIT TAB PO SCH (08:59)
[2019-03-02] MEDS: FINASTERIDE 5 MG TAB PO SCH (08:59)
[2019-03-02] MEDS: CARBIDOPA/LEVODOPA (25/100) TAB PO SCH ×2 (09:02→20:50)
[2019-03-02] MEDS: BETAMETHASONE/CLOTRIMAZOLE 15 GM CR TOP SCH ×2 (09:09→20:54)
--- NOTE | 2019-03-02 14:06 | CONS ---
Assessment/Plan Assessment/Plan Hospital Course (Demo Recall) ID PROGRESS NOTE CURRENT ABX: DAY #=>OFF ABX DAY #1 s/p Vanco IV completed 03/01/19 02/27/19 0710 03/02/19 0620 24H INTERVAL SUMMARY * Awake, calm, in process of bed bath, incontinent urine, no fevers, VSS, NAD * Patient has completed ABX for Enterococcal UTI yesterday was last day -- today stable off ABX 24H IMAGING * 02/27/19 CXR: No definite interval change. Shallow lung volumes with persistent bibasilar opacities favoring subsegmental atelectasis. Calcified aortic atherosclerosis. MICRO/OTHER * 03/05/19 BCX (-) * 02/23/19 Urine Cx (+) URINE CULTURE Final Organism 1 ENTEROCOCCUS SPECIES COLONY COUNT >100,000 CFU/ml ENT SPS M.I.C. RX --------- --- AMPICILLIN <=2 S CIPROFLOXACIN 1 S LEVOFLOXACIN 1 S NITROFURANTOIN <=16 S PENICILLIN-G 2 S VANCOMYCIN <=0.5 S PHYSICAL EXAMINATION: GENERAL: VSS, NAD, HEENT: AT, NC, NECK: WNL CHEST: Equal chest rise bilaterally without dyspnea on observation ABD: Soft, ND EXTREMITIES: Warm, dry SKIN: No rash, no diaphoresis ID ASSESSMENT 83 yo M admit with: 1. Status post sepsis on admission 2. Enterococcal UTI == completed course of ABX 3. Dementia 4. History of CVA 5. BPH (?)MRSA Nares ABX ALLERGIES: NKDA INVASIVES: PIV CURRENT ABX: DAY # =>OFF ABX DAY #1 s/p Vanco IV completed 03/01/19 ID RECOMMENDATIONS/PLAN: 1. Stable day #1 OFF ABX 2. Continue to monitor OFF ABX -- may DC off ABX as long as he remains asym ptomatic for recurrent UTI . Consultation Date/Type/Reason Admit Date/Time February 23, 2019 at 08:00 Initial Consult Date 02/22/19 Requesting Provider: JACOBO EATON MD Date/Time of Note DATE: 03/02/19 TIME: 14:06 Exam/Review of Systems Exam Vitals Vital Signs Date Temp Pulse Resp B/P (MAP) Pulse Ox O2 O2 Flow FiO2 Time Delivery Rate 03/02/19 79 20 95 21 08:51 03/02/19 97.8 111/54 07:40 (73) 03/02/19 Room Air 02:00 Intake and Output 03/01/19 03/01/19 03/02/19 1515:00 23:00 07:00 IntakeIntake Total 270 ml 120 ml BalanceBalance 270 ml 120 ml Results Result Diagram: 02/27/19 0710 03/02/19 0620 Results 24hrs Laboratory Tests Test 03/02/19 06:20 Blood Urea Nitrogen 23 H Creatinine 0.96 Medications Medication Current Medications Morphine Sulfate (morphine) 2 mg Q4H PRN IV pain; Start 02/23/19 at 10:30 Ondansetron HCl (Zofran Inj) 4 mg Q6H PRN IV NAUSEA AND/OR VOMITING; Start 02/23/19 at 10:30 IV Flush (NS 10 ml) 10 ml Q8 IV Last administered on 03/02/19 05:22; Admin Dose 10 ML; Start 02/23/19 at 14:00 Enoxaparin Sodium (Lovenox) 30 mg DAILY SC Last administered on 03/02/19 08:57; Admin Dose 30 MG; Start 02/24/19 at 09:00 Acetaminophen (Tylenol Tab) 650 mg Q4H PRN PO FEVER; Start 02/23/19 at 13:00 Albuterol (Proventil 0.083% (Neb)) 1.25 mg Q4H RESP THERAPY PRN NEB SHORTNESS OF BREATH; Start 02/23/19 at 13:00 Aspirin (Aspirin) 81 mg DAILY PO Last administered on 03/02/19 08:59; Admin Dose 81 MG; Start 02/24/19 at 09:00 Atorvastatin Calcium (Lipitor) 10 mg QHS PO Last administered on 03/01/19 20:25; Admin Dose 10 MG; Start 02/23/19 at 21:00 Calcium Carbonate (Oyster Shell Calcium) 1.25 gm DAILY PO Last administered on 03/02/19 08:59; Admin Dose 1.25 GM; Start 02/23/19 at 13:00 Carbidopa/Levodopa (Sinemet (25/ 100)) 1 tab BID PO Last administered on 03/02/19 09:02; Admin Dose 1 TAB; Start 02/23/19 at 21:00 Cholecalciferol (Vitamin D) 1,000 unit DAILY PO Last administered on 03/02/19 08:59; Admin Dose 1,000 UNIT; Start 02/23/19 at 13:00 Citalopram Hydrobromide (Celexa) 10 mg QHS PO Last administered on 03/01/19 20:26; Admin Dose 10 MG; Start 02/23/19 at 21:00 Betamethasone/ Clotrimazole (Lotrisone Cr) 1 applic BID TOP Last administered on 03/02/19 09:09; Admin Dose 1 APPLIC; Start 02/23/19 at 21:00 Diltiazem HCl (Cardizem) 60 mg Q8 GTB Last administered on 03/02/19 08:59; Admin Dose 60 MG; Start 02/23/19 at 14:00 Divalproex Sodium (Depakote Sprinkle) 125 mg TID PO Last administered on 03/02/19 12:39; Admin Dose 125 MG; Start 02/23/19 at 14:00 Ferrous Sulfate (Feosol Liquid Cup) 300 mg DAILY PO Last administered on 03/02/19 08:58; Admin Dose 300 MG; Start 02/23/19 at 13:00 Finasteride (Proscar) 5 mg DAILY PO Last administered on 03/02/19 08:59; Admin Dose 5 MG; Start 02/23/19 at 13:00 Hydroxyzine HCl (Atarax) 10 mg Q6H PRN GTB ITCHING Last administered on 02/26/19 01:00; Admin Dose 10 MG; Start 02/23/19 at 13:00 Albuterol/ Ipratropium (Duoneb) 3 ml Q6H RESP THERAPY HHN Last administered on 03/02/19 08:49; Admin Dose 3 ML; Start 02/23/19 at 14:00 Tamsulosin HCl (Flomax) 0.4 mg HS PO Last administered on 03/01/19 20:25; Admin Dose 0.4 MG; Start 02/23/19 at 21:00 Lorazepam (Ativan) 1 mg Q4H PRN IV ANXIETY Last administered on 02/23/19 22:20; Admin Dose 1 MG; Start 02/23/19 at 22:00 Miscellaneous Information (Pending [facility]yl Order For Wound Care) This patient peck... PRN PRN XX WOUND CARE; Start 02/23/19 at 22:30 Docusate Sodium (Colace Liquid Cup) 100 mg BID PO Last administered on 03/02/19at 08:58; Admin Dose 100 MG; Start 02/25/19 at 09:00 MITUL MCALLISTER NP March 02, 2019 14:06
[2019-03-02 14:14] VITALS: BP 114/56; PULSE 63; RESP 18
[2019-03-02 20:00] VITALS: BP 109/55; PULSE 66; RESP 18
--- NOTE | 2019-03-02 20:32 | PN ---
Date/Time of Note Date/Time of Note DATE: 03/02/19 TIME: 20:31 Assessment/Plan VTE Prophylaxis [place] [facility] [place]: 7 [place]CD applied [place] [facility] [place] No SCD contraindicated: other Pharmacological prophylaxis: other Pharm contraindication: other Lines/Catheters [facility] Saline Lock Urinary Cath still in place: No Assessment/Plan Assessment/Plan 1. Enterococcus urinary tract infection. Continue IV vancomycin as per jewel mcdermott. The patient is being seen by Dr. Saldivar. Continue on Lovenox for deep venous thrombosis prophylaxis. 2. Cerebrovascular accident. Continue aspirin. 3. Hypertension. Continue Cardizem. 4. Dementia with behavioral disturbance. Continue Depakote. 5. Dyslipidemia. Continue statin. 6. Parkinson's. Continue Sinemet. Result Diagram: 02/27/19 0710 03/02/19 0620 Results 24hrs Laboratory Tests Test 03/02/19 06:20 Blood Urea Nitrogen 23 H Creatinine 0.96 Subjective 24 Hr Interval Summary Free Text/Dictation afebrile nad VSS no eents reported overnight Subjective hx not possible: pt non-verbal Constitutional: requiring O2 Exam/Review of Systems Exam Vitals Vital Signs Date Temp Pulse Resp B/P (MAP) Pulse Ox O2 O2 Flow FiO2 Time Delivery Rate 03/02/19 18 20:13 03/02/19 97.6 63 114/56 97 Room Air 14:14 (75) 03/02/19 21 14:12 Intake and Output 03/01/19 03/01/19 03/02/19 1515:00 23:00 07:00 IntakeIntake Total 270 ml 120 ml BalanceBalance 270 ml 120 ml Constitutional: well developed, non-verbal, frail Psych: nl mood/affect Eyes: nl lids, nl sclera ENMT: nl external ears & nose Neck: supple Respiratory: clear to auscultation Cardiovascular: nl pulses, other (s1s2) Gastrointestinal: soft Musculoskeletal: joint tenderness, muscle weakness, range of motion Neurological: confused Results Results 24hrs Laboratory Tests Test 03/02/19 06:20 Blood Urea Nitrogen 23 H Creatinine 0.96 Medications Medication Current Medications Morphine Sulfate (morphine) 2 mg Q4H PRN IV pain; Start 02/23/19 at 10:30 Ondansetron HCl (Zofran Inj) 4 mg Q6H PRN IV NAUSEA AND/OR VOMITING; Start 02/23/19 at 10:30 IV Flush (NS 10 ml) 10 ml Q8 IV Last administered on 03/02/19 18:08; Admin Dos e 10 ML; Start 02/23/19 at 14:00 Enoxaparin Sodium (Lovenox) 30 mg DAILY SC Last administered on 03/02/19 08:57; Admin Dose 30 MG; Start 02/24/19 at 09:00 Acetaminophen (Tylenol Tab) 650 mg Q4H PRN PO FEVER; Start 02/23/19 at 13:00 Albuterol (Proventil 0.083% (Neb)) 1.25 mg Q4H RESP THERAPY PRN NEB SHORTNESS OF BREATH; Start 02/23/19 at 13:00 Aspirin (Aspirin) 81 mg DAILY PO Last administered on 03/02/19 08:59; Admin Dose 81 MG; Start 02/24/19 at 09:00 Atorvastatin Calcium (Lipitor) 10 mg QHS PO Last administered on 03/01/19 20:25; Admin Dose 10 MG; Start 02/23/19 at 21:00 Calcium Carbonate (Oyster Shell Calcium) 1.25 gm DAILY PO Last administered on 03/02/19 08:59; Admin Dose 1.25 GM; Start 02/23/19 at 13:00 Carbidopa/Levodopa (Sinemet (25/ 100)) 1 tab BID PO Last administered on 03/02/19 09:02; Admin Dose 1 TAB; Start 02/23/19 at 21:00 Cholecalciferol (Vitamin D) 1,000 unit DAILY PO Last administered on 03/02/19 08:59; Admin Dose 1,000 UNIT; Start 02/23/19 at 13:00 Citalopram Hydrobromide (Celexa) 10 mg QHS PO Last administered on 03/01/19 20:26; Admin Dose 10 MG; Start 02/23/19 at 21:00 Betamethasone/ Clotrimazole (Lotrisone Cr) 1 applic BID TOP Last administered on 03/02/19 09:09; Admin Dose 1 APPLIC; Start 02/23/19 at 21:00 Diltiazem HCl (Cardizem) 60 mg Q8 GTB Last administered on 5/25/19at 08:59; Admin Dose 60 MG; Start 02/23/19 at 14:00 Divalproex Sodium (Depakote Sprinkle) 125 mg TID PO Last administered on 03/02/19 12:39; Admin Dose 125 MG; Start 02/23/19 at 14:00 Ferrous Sulfate (Feosol Liquid Cup) 300 mg DAILY PO Last administered on 9at 08:58; Admin Dose 300 MG; Start 02/23/19 at 13:00 Finasteride (Proscar) 5 mg DAILY PO Last administered on 03/02/19 08:59; Admin Dose 5 MG; Start 02/23/19 at 13:00 Hydroxyzine HCl (Atarax) 10 mg Q6H PRN GTB ITCHING Last administered on 02/26/19 01:00; Admin Dose 10 MG; Start 02/23/19 at 13:00 Albuterol/ Ipratropium (Duoneb) 3 ml Q6H RESP THERAPY HHN Last administered on 03/02/19 20:13; Admin Dose 3 ML; Start 02/23/19 at 14:00 Tamsulosin HCl (Flomax) 0.4 mg HS PO Last administered on 03/01/19 20:25; Admin Dose 0.4 MG; Start 02/23/19 at 21:00 Lorazepam (Ativan) 1 mg Q4H PRN IV ANXIETY Last administered on 02/23/19 22:20; Admin Dose 1 MG; Start 02/23/19 at 22:00 Miscellaneous Information (Pending [facility] Order For Wound Care) This patient peck... PRN PRN XX WOUND CARE; Start 02/23/19 at 22:30 Docusate Sodium (Colace Liquid Cup) 100 mg BID PO Last administered on 03/02/19 08:58; Admin Dose 100 MG; Start 02/25/19 at 09:00 ABIMBOLA MCKINNEY March 02, 2019 20:32
[2019-03-02] MEDS: ATORVASTATIN 10 MG TAB PO SCH (20:50)
[2019-03-02] MEDS: TAMSULOSIN (SR) 0.4 MG CAP PO SCH (20:50)
[2019-03-02] MEDS: CITALOPRAM 20 MG TAB PO SCH (20:51)
--- NOTE | 2019-03-02 22:55 | CONS ---
Assessment/Plan Assessment/Plan Hospital Course (Demo Recall) -ANEMIA COMPLEX, MONITOR - LEUKOCYTOSIS REACTIVE, IMPROVED - fever, cough CXR, IV ATB , ID, MONITOR CULTURES - HX urinary tract infection. IV ATB - BPH, continue Flomax and Proscar - Dysphagia. swallow evaluation by ST. - History of cerebrovascular accident. Continue aspirin - Dyslipidemia. Continue statin - Parkinsonism. Continue carbidopa - Dementia with agitation. Continue Depakote. - Depression. Continue Celexa. Consultation Date/Type/Reason Admit Date/Time February 23, 2019 at 08:00 Initial Consult Date Type of Consult HEMEON Requesting Provider: JACOBO EATON MD Date/Time of Note DATE: 03/02/19 TIME: 22:54 24 HR Interval Summary Free Text/Dictation nad no bleeding Exam/Review of Systems Exam Vitals Vital Signs Date Temp Pulse Resp B/P (MAP) Pulse Ox O2 O2 Flow FiO2 Time Delivery Rate 03/02/19 18 20:13 03/02/19 97.4 66 109/55 92 20:00 (73) 03/02/19 Room Air 14:14 03/02/19 21 14:12 Intake and Output 03/01/19 03/01/19 03/02/19 1515:00 23:00 07:00 IntakeIntake Total 270 ml 120 ml BalanceBalance 270 ml 120 ml Exam Constitutional: alert, frail Head: normocephalic Neck: supple Respiratory: clear to auscultation Cardiovascular: nl pulses Gastrointestinal: soft, non-tender Extremities: normal pulses Neurological: confused Results Result Diagram: 02/27/19 0710 03/02/19 0620 Results 24hrs Laboratory Tests Test 03/02/19 06:20 Blood Urea Nitrogen 23 H Creatinine 0.96 Medications Medication Current Medications Morphine Sulfate (morphine) 2 mg Q4H PRN IV pain; Start 02/23/19 at 10:30 Ondansetron HCl (Zofran Inj) 4 mg Q6H PRN IV NAUSEA AND/OR VOMITING; Start 02/23/19 at 10:30 IV Flush (NS 10 ml) 10 ml Q8 IV Last administered on 03/02/19at 20:54; Admin Dose 10 ML; Start 02/23/19 at 14:00 Enoxaparin Sodium (Lovenox) 30 mg DAILY SC Last administered on 5/25/19at 08:57; Admin Dose 30 MG; Start 02/24/19 at 09:00 Acetaminophen (Tylenol Tab) 650 mg Q4H PRN PO FEVER; Start 02/23/19 at 13:00 Albuterol (Proventil 0.083% (Neb)) 1.25 mg Q4H RESP THERAPY PRN NEB SHORTNESS OF BREATH; Start 02/23/19 at 13:00 Aspirin (Aspirin) 81 mg DAILY PO Last administered on 03/02/19 08:59; Admin Dose 81 MG; Start 02/24/19 at 09:00 Atorvastatin Calcium (Lipitor) 10 mg QHS PO Last administered on 03/02/19 20:50; Admin Dose 10 MG; Start 02/23/19 at 21:00 Calcium Carbonate (Oyster Shell Calcium) 1.25 gm DAILY PO Last administered on 03/02/19 08:59; Admin Dose 1.25 GM; Start 02/23/19 at 13:00 Carbidopa/Levodopa (Sinemet (25/ 100)) 1 tab BID PO Last administered on 03/02/19 20:50; Admin Dose 1 TAB; Start 02/23/19 at 21:00 Cholecalciferol (Vitamin D) 1,000 unit DAILY PO Last administered on 03/02/19 08:59; Admin Dose 1,000 UNIT; Start 02/23/19 at 13:00 Citalopram Hydrobromide (Celexa) 10 mg QHS PO Last administered on 03/02/19 20:51; Admin Dose 10 MG; Start 02/23/19 at 21:00 Betamethasone/ Clotrimazole (Lotrisone Cr) 1 applic BID TOP Last administered on 03/02/19 20:54; Admin Dose 1 APPLIC; Start 02/23/19 at 21:00 Diltiazem HCl (Cardizem) 60 mg Q8 GTB Last administered on 03/02/19 08:59; Admin Dose 60 MG; Start 02/23/19 at 14:00 Divalproex Sodium (Depakote Sprinkle) 125 mg TID PO Last administered on 03/02/19 20:53; Admin Dose 125 MG; Start 02/23/19 at 14:00 Ferrous Sulfate (Feosol Liquid Cup) 300 mg DAILY PO Last administered on 03/02/19 08:58; Admin Dose 300 MG; Start 02/23/19 at 13:00 Finasteride (Proscar) 5 mg DAILY PO Last administered on 03/02/19 08:59; Admin Dose 5 MG; Start 02/23/19 at 13:00 Hydroxyzine HCl (Atarax) 10 mg Q6H PRN GTB ITCHING Last administered on 02/26/19 01:00; Admin Dose 10 MG; Start 02/23/19 at 13:00 Albuterol/ Ipratropium (Duoneb) 3 ml Q6H RESP THERAPY HHN Last administered on 03/02/19 20:13; Admin Dose 3 ML; Start 02/23/19 at 14:00 Tamsulosin HCl (Flomax) 0.4 mg HS PO Last administered on 03/02/19 20:50; Admin Dose 0.4 MG; Start 02/23/19 at 21:00 Lorazepam (Ativan) 1 mg Q4H PRN IV ANXIETY Last administered on 02/23/19 22:20; Admin Dose 1 MG; Start 02/23/19 at 22:00 Miscellaneous Information (Pending Santyl Order For Wound Care) This patient peck... PRN PRN XX WOUND CARE; Start 02/23/19 at 22:30 Docusate Sodium (Colace Liquid Cup) 100 mg BID PO Last administered on 03/02/19 20:50; Admin Dose 100 MG; Start 02/25/19 at 09:00 FELI MARCIAL MD March 02, 2019 22:55
[2019-03-03] MEDS: ALBUTEROL/IPRATROPIUM (NEB) 3 ML AMP HHN SCH ×4 (02:00→20:17)
[2019-03-03 02:20] VITALS: BP 123/53; PULSE 68; RESP 17
[2019-03-03 06:18] VITALS: BP 139/64; PULSE 61
[2019-03-03] MEDS: DILTIAZEM 60 MG TAB GTB SCH ×3 (06:21→21:31)
--- NOTE | 2019-03-03 07:41 | PN ---
Date/Time of Note Date/Time of Note DATE: 03/03/19 TIME: 07:41 Assessment/Plan VTE Prophylaxis [place] [facility] [place]: 7 [place] [facility] [place] No SCD contraindicated: other Pharmacological prophylaxis: other Pharm contraindication: other Lines/Catheters IV Catheter Type (from [facility]): Saline Lock Urinary Cath still in place: No Assessment/Plan Assessment/Plan 1. Enterococcus urinary tract infection. Continue IV vancomycin as per jewel mcdermott. The patient is being seen by Dr. Saldivar. Continue on Lovenox for deep venous thrombosis prophylaxis. 2. Cerebrovascular accident. Continue aspirin. 3. Hypertension. Continue Cardizem. 4. Dementia with behavioral disturbance. Continue Depakote. 5. Dyslipidemia. Continue statin. 6. Parkinson's. Continue Sinemet. Result Diagram: Result Diagram: 02/27/19 0710 03/02/19 0620 Subjective 24 Hr Interval Summary Free Text/Dictation nad afebrile no new events reported overnight Subjective hx not possible: pt non-verbal Constitutional: requiring O2 Exam/Review of Systems Exam Vitals Vital Signs Date Temp Pulse Resp B/P (MAP) Pulse Ox O2 O2 Flow FiO2 Time Delivery Rate 03/03/19 61 139/64 06:18 (89) 03/03/19 97.6 17 93 02:20 03/02/19 Room Air 14:14 03/02/19 14:12 Intake and Output 03/02/19 03/02/19 03/03/19 1515:00 23:00 07:00 IntakeIntake Total 400 ml 150 ml BalanceBalance 400 ml 150 ml Constitutional: non-verbal, frail Medications Medication Current Medications Morphine Sulfate (morphine) 2 mg Q4H PRN IV pain; Start 02/23/19 at 10:30 Ondansetron HCl (Zofran Inj) 4 mg Q6H PRN IV NAUSEA AND/OR VOMITING; Start 02/23/19 at 10:30 IV Flush (NS 10 ml) 10 ml Q8 IV Last administered on 03/03/19at 06:21; Admin Dose 10 ML; Start 02/23/19 at 14:00 Enoxaparin Sodium (Lovenox) 30 mg DAILY SC Last administered on 03/02/19at 08:57; Admin Dose 30 MG; Start 02/24/19 at 09:00 Acetaminophen (Tylenol Tab) 650 mg Q4H PRN PO FEVER; Start 02/23/19 at 13:00 Albuterol (Proventil 0.083% (Neb)) 1.25 mg Q4H RESP THERAPY PRN NEB SHORTNESS OF BREATH; Start 02/23/19 at 13:00 Aspirin (Aspirin) 81 mg DAILY PO Last administered on 03/02/19 08:59; Admin Dose 81 MG; Start 02/24/19 at 09:00 Atorvastatin Calcium (Lipitor) 10 mg QHS PO Last administered on 03/02/19 20:50; Admin Dose 10 MG; Start 02/23/19 at 21:00 Calcium Carbonate (Oyster Shell Calcium) 1.25 gm DAILY PO Last administered on 03/02/19 08:59; Admin Dose 1.25 GM; Start 02/23/19 at 13:00 Carbidopa/Levodopa (Sinemet (25/ 100)) 1 tab BID PO Last administered on 03/02/19 20:50; Admin Dose 1 TAB; Start 02/23/19 at 21:00 Cholecalciferol (Vitamin D) 1,000 unit DAILY PO Last administered on 03/02/19 08:59; Admin Dose 1,000 UNIT; Start 02/23/19 at 13:00 Citalopram Hydrobromide (Celexa) 10 mg QHS PO Last administered on 03/02/19 20:51; Admin Dose 10 MG; Start 02/23/19 at 21:00 Betamethasone/ Clotrimazole (Lotrisone Cr) 1 applic BID TOP Last administered on 03/02/19 20:54; Admin Dose 1 APPLIC; Start 02/23/19 at 21:00 Diltiazem HCl (Cardizem) 60 mg Q8 GTB Last administered on 03/03/19 06:21; Admin Dose 60 MG; Start 02/23/19 at 14:00 Divalproex Sodium (Depakote Sprinkle) 125 mg TID PO Last administered on 03/02 20:53; Admin Dose 125 MG; Start 02/23/19 at 14:00 Ferrous Sulfate (Feosol Liquid Cup) 300 mg DAILY PO Last administered on 03/02/19 08:58; Admin Dose 300 MG; Start 02/23/19 at 13:00 Finasteride (Proscar) 5 mg DAILY PO Last administered on 03/02/19 08:59; Admin Dose 5 MG; Start 02/23/19 at 13:00 Hydroxyzine HCl (Atarax) 10 mg Q6H PRN GTB ITCHING Last administered on 02/26/19 01:00; Admin Dose 10 MG; Start 02/23/19 at 13:00 Albuterol/ Ipratropium (Duoneb) 3 ml Q6H RESP THERAPY HHN Last administered on 03/02/19 20:13; Admin Dose 3 ML; Start 02/23/19 at 14:00 Tamsulosin HCl (Flomax) 0.4 mg HS PO Last administered on 03/02/19 20:50; Admin Dose 0.4 MG; Start 02/23/19 at 21:00 Lorazepam (Ativan) 1 mg Q4H PRN IV ANXIETY Last administered on 02/23/19 22:20; Admin Dose 1 MG; Start 02/23/19 at 22:00 [facility] This patient peck... PRN PRN XX WOUND CARE; Start 02/23/19 at 22:30 Docusate Sodium (Colace Liquid Cup) 100 mg BID PO Last administered on 03/02/19 20:50; Admin Dose 100 MG; Start 02/25/19 at 09:00 ABIMBOLA MCKINNEY March 03, 2019 07:41
[2019-03-03 07:45] VITALS: BP 103/61; PULSE 60; RESP 18
[2019-03-03] MEDS: FERROUS SULFATE 60 MG/ML 5ML CUP PO SCH (09:43)
[2019-03-03] MEDS: DOCUSATE SODIUM 10 MG/ML (10ML CUP) PO SCH ×2 (09:43→21:27)
[2019-03-03] MEDS: CALCIUM CARBONATE 1.25 GM TAB PO SCH (09:43)
[2019-03-03] MEDS: CHOLECALCIFEROL 1,000 UNIT TAB PO SCH (09:44)
[2019-03-03] MEDS: DIVALPROEX SPRINKLE 125 MG CAP PO SCH ×3 (09:44→21:25)
[2019-03-03] MEDS: ASPIRIN 81 MG TAB PO SCH (09:44)
[2019-03-03] MEDS: FINASTERIDE 5 MG TAB PO SCH (09:44)
[2019-03-03] MEDS: ENOXAPARIN 30 MG/0.3 ML SYG SC SCH (09:44)
[2019-03-03] MEDS: CARBIDOPA/LEVODOPA (25/100) TAB PO SCH ×2 (09:44→21:26)
[2019-03-03] MEDS: BETAMETHASONE/CLOTRIMAZOLE 15 GM CR TOP SCH ×2 (09:45→21:29)
[2019-03-03 14:30] VITALS: BP 123/68; PULSE 54; RESP 16
--- NOTE | 2019-03-03 18:44 | CONS ---
Assessment/Plan Assessment/Plan Hospital Course (Demo Recall) ID PROGRESS NOTE CURRENT ABX: DAY #=>OFF ABX DAY #2 s/p Vanco IV completed 03/01/19 24H INTERVAL SUMMARY * Patient is stable 48H OFF ABX -- Awake, calm, no fevers, VSS, NAD * Patient has completed ABX for Enterococcal UTI IMAGING * 02/27/19 CXR: No definite interval change. Shallow lung volumes with persistent bibasilar opacities favoring subsegmental atelectasis. Calcified aortic atherosclerosis. MICRO/OTHER * 03/05/19 BCX (-) * 02/23/19 Urine Cx (+) URINE CULTURE Final Organism 1 ENTEROCOCCUS SPECIES COLONY COUNT >100,000 CFU/ml ENT SPS M.I.C. RX --------- --- AMPICILLIN <=2 S CIPROFLOXACIN 1 S LEVOFLOXACIN 1 S NITROFURANTOIN <=16 S PENICILLIN-G 2 S VANCOMYCIN <=0.5 S PHYSICAL EXAMINATION: GENERAL: VSS, NAD, HEENT: AT, NC, NECK: WNL CHEST: Equal chest rise bilaterally without dyspnea on observation ABD: Soft, ND EXTREMITIES: Warm, dry SKIN: No rash, no diaphoresis ID ASSESSMENT 83 yo M admit with: 1. Status post sepsis on admission 2. Enterococcal UTI == completed course of ABX 3. Dementia 4. History of CVA 5. BPH (?)MRSA Nares ABX ALLERGIES: NKDA INVASIVES: PIV CURRENT ABX: DAY # =>OFF ABX DAY #1 s/p Vanco IV completed 03/01/19 ID RECOMMENDATIONS/PLAN: 1. Stable 48H OFF ABX 2. May DC off ABX as long as he remains asymptomatic for recurrent UTI . Consultation Date/Type/Reason Admit Date/Time February 23, 2019 at 08:00 Initial Consult Date 02/22/19 Requesting Provider: JACOBO EATON MD Date/Time of Note DATE: 03/03/19 TIME: 18:43 Exam/Review of Systems Exam Vitals Vital Signs Date Temp Pulse Resp B/P (MAP) Pulse Ox O2 O2 Flow FiO2 Time Delivery Rate 03/03/19 97.4 54 16 123/68 93 Room Air 14:30 (86) 03/03/19 21 12:56 Intake and Output 03/02/19 03/02/19 03/03/19 1414:59 22:59 06:59 IntakeIntake Total 400 ml 150 ml BalanceBalance 400 ml 150 ml Results Result Diagram: 02/27/19 0710 03/02/19 0620 Medications Medication Current Medications Morphine Sulfate (morphine) 2 mg Q4H PRN IV pain; Start 02/23/19 at 10:30 Ondansetron HCl (Zofran Inj) 4 mg Q6H PRN IV NAUSEA AND/OR VOMITING; Start 02/23/19 at 10:30 IV Flush (NS 10 ml) 10 ml Q8 IV Last administered on 03/03/19 15:38; Admin Dose 10 ML; Start 02/23/19 at 14:00 Enoxaparin Sodium (Lovenox) 30 mg DAILY SC Last administered on 03/03/19 09:44; Admin Dose 30 MG; Start 02/24/19 at 09:00 Acetaminophen (Tylenol Tab) 650 mg Q4H PRN PO FEVER; Start 02/23/19 at 13:00 Albuterol (Proventil 0.083% (Neb)) 1.25 mg Q4H RESP THERAPY PRN NEB SHORTNESS OF BREATH; Start 02/23/19 at 13:00 Aspirin (Aspirin) 81 mg DAILY PO Last administered on 03/03/19 09:44; Admin Dose 81 MG; Start 02/24/19 at 09:00 Atorvastatin Calcium (Lipitor) 10 mg QHS PO Last administered on 03/02/19 20:50; Admin Dose 10 MG; Start 02/23/19 at 21:00 Calcium Carbonate (Oyster Shell Calcium) 1.25 gm DAILY PO Last administered on 03/03/19 09:43; Admin Dose 1.25 GM; Start 02/23/19 at 13:00 Carbidopa/Levodopa (Sinemet (25/ 100)) 1 tab BID PO Last administered on 03/03/19 09:44; Admin Dose 1 TAB; Start 02/23/19 at 21:00 Cholecalciferol (Vitamin D) 1,000 unit DAILY PO Last administered on 03/03/19 09:44; Admin Dose 1,000 UNIT; Start 02/23/19 at 13:00 Citalopram Hydrobromide (Celexa) 10 mg QHS PO Last administered on 03/02/19 20:51; Admin Dose 10 MG; Start 02/23/19 at 21:00 Betamethasone/ Clotrimazole (Lotrisone Cr) 1 applic BID TOP Last administered on 03/03/19 09:45; Admin Dose 1 APPLIC; Start 02/23/19 at 21:00 Diltiazem HCl (Cardizem) 60 mg Q8 GTB Last administered on 03/03/19 09:43; Admin Dose 60 MG; Start 02/23/19 at 14:00 Divalproex Sodium (Depakote Sprinkle) 125 mg TID PO Last administered on 03/03/19 12:38; Admin Dose 125 MG; Start 02/23/19 at 14:00 Ferrous Sulfate (Feosol Liquid Cup) 300 mg DAILY PO Last administered on 03/03/19 09:43; Admin Dose 300 MG; Start 02/23/19 at 13:00 Finasteride (Proscar) 5 mg DAILY PO Last administered on 03/03/19 09:44; Admin Dose 5 MG; Start 02/23/19 at 13:00 Hydroxyzine HCl (Atarax) 10 mg Q6H PRN GTB ITCHING Last administered on 02/26/19 01:00; Admin Dose 10 MG; Start 02/23/19 at 13:00 Albuterol/ Ipratropium (Duoneb) 3 ml Q6H RESP THERAPY HHN Last administered on 03/03/19 12:55; Admin Dose 3 ML; Start 02/23/19 at 14:00 Tamsulosin HCl (Flomax) 0.4 mg HS PO Last administered on 03/02/19 20:50; Admin Dose 0.4 MG; Start 02/23/19 at 21:00 Lorazepam (Ativan) 1 mg Q4H PRN IV ANXIETY Last administered on 02/23/19 22 :20; Admin Dose 1 MG; Start 02/23/19 at 22:00 Miscellaneous Information (Pending [facility] Order For Wound Care) This patient peck... PRN PRN XX WOUND CARE; Start 02/23/19 at 22:30 Docusate Sodium (Colace Liquid Cup) 100 mg BID PO Last administered on 03/03/19 09:43; Admin Dose 100 MG; Start 02/25/19 at 09:00 MITUL MCALLISTER NP March 03, 2019 18:44
[2019-03-03 20:00] VITALS: BP 139/91; PULSE 64; RESP 18
[2019-03-03] MEDS: ATORVASTATIN 10 MG TAB PO SCH (21:26)
[2019-03-03] MEDS: TAMSULOSIN (SR) 0.4 MG CAP PO SCH (21:26)
[2019-03-03] MEDS: CITALOPRAM 20 MG TAB PO SCH (21:28)
--- NOTE | 2019-03-03 22:04 | CONS ---
Assessment/Plan Assessment/Plan Hospital Course (Demo Recall) -ANEMIA COMPLEX, MONITOR - LEUKOCYTOSIS REACTIVE, IMPROVED - fever, cough CXR, IV ATB , ID, MONITOR CULTURES - HX urinary tract infection. POST IV ATB - BPH, continue Flomax and Proscar - Dysphagia. swallow evaluation by ST. - History of cerebrovascular accident. Continue aspirin - Dyslipidemia. Continue statin - Parkinsonism. Continue carbidopa - Dementia with agitation. Continue Depakote. - Depression. Continue Celexa. DC PLAN PER PRIMARY Consultation Date/Type/Reason Admit Date/Time February 23, 2019 at 08:00 Initial Consult Date Type of Consult HEMEON Requesting Provider: JACOBO EATON MD Date/Time of Note DATE: 03/03/19 TIME: 22:03 24 HR Interval Summary Free Text/Dictation ALL NOTED NAD COMPLETED IV ATB Exam/Review of Systems Exam Vitals Vital Signs Date Temp Pulse Resp B/P (MAP) Pulse Ox O2 O2 Flow FiO2 Time Delivery Rate 03/03/19 72 20 95 21 20:17 03/03/19 98.0 139/91 20:00 (107) 03/03/19 Room Air 14:30 Intake and Output 03/02/19 03/02/19 03/03/19 1414:59 22:59 06:59 IntakeIntake Total 400 ml 150 ml BalanceBalance 400 ml 150 ml Exam Constitutional: alert, frail Head: normocephalic Neck: supple Respiratory: clear to auscultation Cardiovascular: nl pulses Gastrointestinal: soft, non-tender Extremities: normal pulses Neurological: confused Results Result Diagram: 02/27/19 0710 03/02/19 0620 Medications Medication Current Medications Morphine Sulfate (morphine) 2 mg Q4H PRN IV pain; Start 02/23/19 at 10:30 Ondansetron HCl (Zofran Inj) 4 mg Q6H PRN IV NAUSEA AND/OR VOMITING; Start 02/23/19 at 10:30 IV Flush (NS 10 ml) 10 ml Q8 IV Last administered on 03/03/19at 15:38; Admin Dose 10 ML; Start 02/23/19 at 14:00 Enoxaparin Sodium (Lovenox) 30 mg DAILY SC Last administered on 03/03/19at 09:44; Admin Dose 30 MG; Start 02/24/19 at 09:00 Acetaminophen (Tylenol Tab) 650 mg Q4H PRN PO FEVER; Start 02/23/19 at 13:00 Albuterol (Proventil 0.083% (Neb)) 1.25 mg Q4H RESP THERAPY PRN NEB SHORTNESS OF BREATH; Start 02/23/19 at 13:00 Aspirin (Aspirin) 81 mg DAILY PO Last administered on 03/03/19 09:44; Admin Dose 81 MG; Start 02/24/19 at 09:00 Atorvastatin Calcium (Lipitor) 10 mg QHS PO Last administered on 03/03/19 21:26; Admin Dose 10 MG; Start 02/23/19 at 21:00 Calcium Carbonate (Oyster Shell Calcium) 1.25 gm DAILY PO Last administered on 03/03/19 09:43; Admin Dose 1.25 GM; Start 02/23/19 at 13:00 Carbidopa/Levodopa (Sinemet (25/ 100)) 1 tab BID PO Last administered on 03/03/19 21:26; Admin Dose 1 TAB; Start 02/23/19 at 21:00 Cholecalciferol (Vitamin D) 1,000 unit DAILY PO Last administered on 03/03/19 09:44; Admin Dose 1,000 UNIT; Start 02/23/19 at 13:00 Citalopram Hydrobromide (Celexa) 10 mg QHS PO Last administered on 03/03/19 21:28; Admin Dose 10 MG; Start 02/23/19 at 21:00 Betamethasone/ Clotrimazole (Lotrisone Cr) 1 applic BID TOP Last administered on 03/03/19 21:29; Admin Dose 1 APPLIC; Start 02/23/19 at 21:00 Diltiazem HCl (Cardizem) 60 mg Q8 GTB Last administered on 03/03/19 21:31; Admin Dose 60 MG; Start 02/23/19 at 14:00 Divalproex Sodium (Depakote Sprinkle) 125 mg TID PO Last administered on 03/03/19 21:25; Admin Dose 125 MG; Start 02/23/19 at 14:00 Ferrous Sulfate (Feosol Liquid Cup) 300 mg DAILY PO Last administered on 09:43; Admin Dose 300 MG; Start 02/23/19 at 13:00 Finasteride (Proscar) 5 mg DAILY PO Last administered on 03/03/19 09:44; Admin Dose 5 MG; Start 02/23/19 at 13:00 Hydroxyzine HCl (Atarax) 10 mg Q6H PRN GTB ITCHING Last administered on 02/26/19 01:00; Admin Dose 10 MG; Start 02/23/19 at 13:00 Albuterol/ Ipratropium (Duoneb) 3 ml Q6H RESP THERAPY HHN Last administered on 03/03/19 20:17; Admin Dose 3 ML; Start 02/23/19 at 14:00 Tamsulosin HCl (Flomax) 0.4 mg HS PO Last administered on 03/03/19 21:26; Admin Dose 0.4 MG; Start 02/23/19 at 21:00 Lorazepam (Ativan) 1 mg Q4H PRN IV ANXIETY Last administered on 02/23/19 22:20; Admin Dose 1 MG; Start 02/23/19 at 22:00 [facility] This patient peck... PRN PRN XX WOUND CARE; Start 02/23/19 at 22:30 Docusate Sodium (Colace Liquid Cup) 100 mg BID PO Last administered on 03/03/19 21:27; Admin Dose 100 MG; Start 02/25/19 at 09:00 FELI MARCIAL MD March 03, 2019 22:04
[2019-03-04] MEDS: ALBUTEROL/IPRATROPIUM (NEB) 3 ML AMP HHN SCH ×3 (01:43→13:34)
[2019-03-04 02:00] VITALS: BP 134/68; PULSE 60; RESP 18
[2019-03-04] MEDS: DILTIAZEM 60 MG TAB GTB SCH (06:14)
[2019-03-04 08:00] VITALS: BP 109/47; PULSE 66; RESP 17
[2019-03-04] MEDS: FINASTERIDE 5 MG TAB PO SCH (09:10)
[2019-03-04] MEDS: CARBIDOPA/LEVODOPA (25/100) TAB PO SCH (09:10)
[2019-03-04] MEDS: CALCIUM CARBONATE 1.25 GM TAB PO SCH (09:10)
[2019-03-04] MEDS: FERROUS SULFATE 60 MG/ML 5ML CUP PO SCH (09:10)
[2019-03-04] MEDS: ASPIRIN 81 MG TAB PO SCH (09:10)
[2019-03-04] MEDS: DIVALPROEX SPRINKLE 125 MG CAP PO SCH ×2 (09:10→12:31)
[2019-03-04] MEDS: CHOLECALCIFEROL 1,000 UNIT TAB PO SCH (09:10)
[2019-03-04] MEDS: DOCUSATE SODIUM 10 MG/ML (10ML CUP) PO SCH (09:11)
[2019-03-04] MEDS: ENOXAPARIN 30 MG/0.3 ML SYG SC SCH (09:11)
[2019-03-04] MEDS: BETAMETHASONE/CLOTRIMAZOLE 15 GM CR TOP SCH (09:11)
[2019-03-04] MEDS ORDERED: hydrOXYzine HCL 10 MG TAB PO PRN (13:00)
[2019-03-04 14:00] VITALS: BP 137/71; PULSE 71; RESP 18
[2019-03-04] MEDS ORDERED: DILTIAZEM 60 MG TAB PO SCH (14:00)
--- NOTE | 2019-03-04 16:55 | CONS ---
Assessment/Plan Assessment/Plan Hospital Course (Demo Recall) ID PROGRESS NOTE CURRENT ABX: DAY #=>OFF ABX DAY #3 s/p Vanco IV completed 03/01/19 24H INTERVAL SUMMARY * Patient is stable 72H OFF ABX -- CLINICALLY STABLE -- NO NEW ISSUES/NO COMPLAINTS * Awake, calm, no fevers, VSS, NAD * Patient has completed ABX for Enterococcal UTI IMAGING * 02/27/19 CXR: No definite interval change. Shallow lung volumes with persistent bibasilar opacities favoring subsegmental atelectasis. Calcified aortic atherosclerosis. MICRO/OTHER * 03/05/19 BCX (-) * 02/23/19 Urine Cx (+) URINE CULTURE Final Organism 1 ENTEROCOCCUS SPECIES COLONY COUNT >100,000 CFU/ml ENT SPS M.I.C. RX --------- --- AMPICILLIN <=2 S CIPROFLOXACIN 1 S LEVOFLOXACIN 1 S NITROFURANTOIN <=16 S PENICILLIN-G 2 S VANCOMYCIN <=0.5 S PHYSICAL EXAMINATION: GENERAL: VSS, NAD, HEENT: AT, NC, NECK: WNL CHEST: Equal chest rise bilaterally without dyspnea on observation ABD: Soft, ND EXTREMITIES: Warm, dry SKIN: No rash, no diaphoresis ID ASSESSMENT 83 yo M admit with: 1. Status post sepsis on admission 2. Enterococcal UTI == completed course of ABX 3. Dementia 4. History of CVA 5. BPH (?)MRSA Nares ABX ALLERGIES: NKDA INVASIVES: PIV CURRENT ABX: DAY # =>OFF ABX DAY #3 s/p Vanco IV completed 03/01/19 ID RECOMMENDATIONS/PLAN: 1. Stable 72H OFF ABX 2. May DC off ABX as long as he remains asymptomatic for recurrent UTI . Consultation Date/Type/Reason Admit Date/Time February 23, 2019 at 08:00 Initial Consult Date 02/22/19 Requesting Provider: JACOBO EATON MD Date/Time of Note DATE: 03/04/19 TIME: 16:54 Exam/Review of Systems Exam Vitals Vital Signs Date Temp Pulse Resp B/P (MAP) Pulse Ox O2 O2 Flow FiO2 Time Delivery Rate 03/04/19 97.8 71 18 137/71 95 Room Air 14:00 (93) 03/04/19 21 13:34 Intake and Output 03/03/19 03/03/19 03/04/19 1515:00 23:00 07:00 IntakeIntake Total 350 ml 200 ml BalanceBalance 350 ml 200 ml Results Result Diagram: 03/02/19 0620 Medications Medication Current Medications Morphine Sulfate (morphine) 2 mg Q4H PRN IV pain; Start 02/23/19 at 10:30 Ondansetron HCl (Zofran Inj) 4 mg Q6H PRN IV NAUSEA AND/OR VOMITING; Start 02/23/19 at 10:30 IV Flush (NS 10 ml) 10 ml Q8 IV Last administered on 03/04/19 14:06; Admin Dose 10 ML; Start 02/23/19 at 14:00 Enoxaparin Sodium (Lovenox) 30 mg DAILY SC Last administered on 03/04/19 09:11; Admin Dose 30 MG; Start 02/24/19 at 09:00 Acetaminophen (Tylenol Tab) 650 mg Q4H PRN PO FEVER; Start 02/23/19 at 13:00 Albuterol (Proventil 0.083% (Neb)) 1.25 mg Q4H RESP THERAPY PRN NEB SHORTNESS OF BREATH; Start 02/23/19 at 13:00 Aspirin (Aspirin) 81 mg DAILY PO Last administered on 03/04/19 09:10; Admin Dose 81 MG; Start 02/24/19 at 09:00 Atorvastatin Calcium (Lipitor) 10 mg QHS PO Last administered on 03/03/19 21:26; Admin Dose 10 MG; Start 02/23/19 at 21:00 Calcium Carbonate (Oyster Shell Calcium) 1.25 gm DAILY PO Last administered on 03/04/19 09:10; Admin Dose 1.25 GM; Start 02/23/19 at 13:00 Carbidopa/Levodopa (Sinemet (25/ 100)) 1 tab BID PO Last administered on 03/04/19 09:10; Admin Dose 1 TAB; Start 02/23/19 at 21:00 Cholecalciferol (Vitamin D) 1,000 unit DAILY PO Last administered on 03/04/19 09:10; Admin Dose 1,000 UNIT; Start 02/23/19 at 13:00 Citalopram Hydrobromide (Celexa) 10 mg QHS PO Last administered on 03/03/19 21:28; Admin Dose 10 MG; Start 02/23/19 at 21:00 Betamethasone/ Clotrimazole (Lotrisone Cr) 1 applic BID TOP Last administered on 03/04/19 09:11; Admin Dose 1 APPLIC; Start 02/23/19 at 21:00 Divalproex Sodium (Depakote Sprinkle) 125 mg TID PO Last administered on 03/04/19 12:31; Admin Dose 125 MG; Start 02/23/19 at 14:00 Ferrous Sulfate (Feosol Liquid Cup) 300 mg DAILY PO Last administered on 09:10; Admin Dose 300 MG; Start 02/23/19 at 13:00 Finasteride (Proscar) 5 mg DAILY PO Last administered on 03/04/19 09:10; Admin Dose 5 MG; Start 02/23/19 at 13:00 Albuterol/ Ipratropium (Duoneb) 3 ml Q6H RESP THERAPY HHN Last administered on 03/04/19 13:34; Admin Dose 3 ML; Start 02/23/19 at 14:00 Tamsulosin HCl (Flomax) 0.4 mg HS PO Last administered on 03/03/19 21:26; Admin Dose 0.4 MG; Start 02/23/19 at 21:00 Lorazepam (Ativan) 1 mg Q4H PRN IV ANXIETY Last administered on 02/23/19 22:20; Admin Dose 1 MG; Start 02/23/19 at 22:00 Miscellaneous Information (Pending [facility] Order For Wound Care) This patient peck... PRN PRN XX WOUND CARE; Start 02/23/19 at 22:30 Docusate Sodium (Colace Liquid Cup) 100 mg BID PO Last administered on 03/04/19 09:11; Admin Dose 100 MG; Start 02/25/19 at 09:00 Diltiazem HCl (Cardizem) 60 mg Q8 PO Last administered on 03/04/19 14:14; Admin Dose 60 MG; Start 03/04/19 at 14:00 Hydroxyzine HCl (Atarax) 10 mg Q6H PRN PO ITCHING Last administered on 03/04/19 16:26; Admin Dose 10 MG; Start 5/27/19 at 13:00 MITUL MCALLISTER NP March 04, 2019 16:55
[2019-03-04 20:12] VITALS: BP 128/60; PULSE 68; RESP 18
--- NOTE | 2019-03-04 23:33 | CONS ---
Assessment/Plan Assessment/Plan Hospital Course (Demo Recall) -ANEMIA COMPLEX, MONITOR - LEUKOCYTOSIS REACTIVE, IMPROVED - fever, cough CXR, IV ATB , ID, MONITOR CULTURES - HX urinary tract infection. POST IV ATB - BPH, continue Flomax and Proscar - Dysphagia. swallow evaluation by ST. - History of cerebrovascular accident. Continue aspirin - Dyslipidemia. Continue statin - Parkinsonism. Continue carbidopa - Dementia with agitation. Continue Depakote. - Depression. Continue Celexa. DC PLAN PER PRIMARY Consultation Date/Type/Reason Admit Date/Time February 23, 2019 at 08:00 Initial Consult Date Type of Consult HEMEONC Requesting Provider: JACOBO EATON MD Date/Time of Note DATE: 03/04/19 TIME: 23:33 Exam/Review of Systems Exam Vitals Vital Signs Date Temp Pulse Resp B/P (MAP) Pulse Ox O2 O2 Flow FiO2 Time Delivery Rate 03/04/19 97.7 68 18 128/60 97 20:12 (82) 03/04/19 Room Air 14:00 03/04/19 21 13:34 Intake and Output 03/03/19 03/03/19 03/04/19 1515:00 23:00 07:00 IntakeIntake Total 350 ml 200 ml BalanceBalance 350 ml 200 ml Results Result Diagram: 03/02/19 0620 FELI MARCIAL MD March 04, 2019 23:33
--- NOTE | 2019-03-06 00:43 | DS ---
Date/Time of Note Date/Time of Note DATE: 03/06/19 TIME: 00:41 Discharge Summary Admission/Discharge Info Admit Date/Time February 23, 2019 at 08:00 Discharge Date/Time March 04, 2019 at 20:35 Patient Condition: Stable Hx of Present Illness Patient with history of dementia, CVA, BPH, delusional disorder comes from SNF with fever and cough. Patient was evaluated in the emergency room and found to have an urinary tract infeciton and so is admitted for treatment. Hospital Course - Enterococcus urinary tract infection. Completed treatment with vancomycin. Dr. Saldivar is following in infection disease consultation. - BPH, continue Flomax and Proscar - Dysphagia, s/p swallow eval, continue PO diet. - History of cerebrovascular accident. Continue aspirin - Dyslipidemia. Continue statin - Parkinsonism. Continue carbidopa - Dementia with agitation. Continue Depakote. - Depression. Continue Celexa. Plan of care discussed with Dr. Rivera. Home Meds Reported Medications Cranberry Ext/C/L. Sporogenes (Cranberry Tablet) 1 Each Tablet, 1 EACH G-TUBE DAILY PRN for UTI PPX, TAB 02/23/19 Diltiazem Hcl* (Cardizem*) 60 Mg Tablet, 60 MG GTB Q8, #90 TAB 02/23/19 Calcium Carbonate (Calcium Carbonate) 500 Mg/5 Ml Oral.susp, 500 MG ORAL DAILY 02/23/19 Hydroxyzine Hcl* (Hydroxyzine Hcl*) 10 Mg Tablet, 10 MG GTB Q6H PRN for ITCHING, #30 TAB 02/23/19 Enoxaparin Sodium* (Lovenox*) 30 Mg/0.3 Ml Disp.syrin, 30 MG SQ DAILY for DVT PPX, SYR 02/23/19 Ipratropium-Albuterol (Ipratropium-Albuterol) 0.5-3 Mg/3 Ml Ampul.neb, 3 ML INHALATION Q6 for SOB, #30 VIAL 02/23/19 Clotrimazole-Betamethasone Diprop (Clotrimazole-Betamethasone Diprop) 15 Gm Cream.gm., 1 APPLIC TOP BID, TUB 02/23/19 Multivitamin with Minerals (Multivitamins with Minerals) 1 Each Tablet, 1 EACH ORAL QAM for SUPPLEMENT, TAB 11/02/18 Ferrous Sulfate* (Ferrous Sulfate*) 220 Mg/5 Ml Solution, 220 MG ORAL DAILY for ANEMIA, ML 11/02/18 Albuterol Sulfate* (Albuterol Sulfate* Neb) 0.083%-3 Ml Neb, 1.25 MG NEB Q4H PRN for SHORTNESS OF BREATH, #30 VIAL 11/02/18 Lactobacillus Acidophilus (Acidophilus Lactobacillus) 1 Each Capsule, 1 EACH ORAL TID for GI PPX, CAP 11/02/18 Divalproex Sodium* (Depakote* Sprinkle) 125 Mg Cap.sprink, 125 MG ORAL TID, #90 CAP 08/27/18 Carbidopa/Levodopa (Carbidopa-Levodopa 25-100 Tab) 1 Each Tablet, 1 EACH ORAL BID for PARALYSIS AGITANS, TAB 08/27/18 Cholecalciferol* (Vitamin D3*) 1,000 Unit Tablet, 1000 UNIT ORAL DAILY for SUPPLEMENT, TAB 08/27/18 Tamsulosin Hcl* (Tamsulosin Hcl*) 0.4 Mg Cap.er.24h, 0.4 MG ORAL HS for HYPERTROPHY PROSTATE, CAP 08/27/18 Omeprazole* (Omeprazole*) 20 Mg Capsule.dr, 20 MG GTB QAM for GERD, #30 CAP 08/27/18 Atorvastatin Calcium (Atorvastatin Calcium) 10 Mg Tablet, 10 MG ORAL QHS for HYPERCHOLESTEROLEMIA, #30 TAB 08/27/18 Aspirin* (Aspirin* Chew) 81 Mg Tab.chew, 81 MG ORAL DAILY for CVA PPX, TAB.CHEW 08/27/18 Acetaminophen* (Acetaminophen*) 650 Mg Tablet, 650 MG ORAL Q4 PRN for FEVER, #30 TAB 08/27/18 Finasteride* (Finasteride*) 5 Mg Tablet, 5 MG ORAL DAILY for HYPERTROPHY PROSTATE, TAB 08/27/18 Citalopram Hydrobromide* (Citalopram Hydrobromide*) 10 Mg Tablet, 10 MG ORAL QHS for DEPRESSIVE DISORDER, #30 TAB 08/27/18 Follow-up Plan BMP in 1 week. Primary Care Provider Mayda Brennan MD Time spent on discharge: > 30 minutes ROLANDO SANFORD March 06, 2019 00:43
== END 2019-03-04 20:35 | DRG 872 ==
LOC: E/R 22:42 → PP2 02-23 03:04 → EDBEDREQ 02-23 03:45 → OBSVTOIN 02-23 08:00 → PP2 02-27 12:20
PROVIDERS: ADMIT Internal Medicine; ATTEND Internal Medicine
DX: A41.9 Sepsis, unspecified organism (principal); N39.0 Urinary tract infection, site not specified; F02.81 Dementia in other diseases classified elsewhere, unspecified severity, with behavioral disturbance; N40.0 Benign prostatic hyperplasia without lower urinary tract symptoms; E78.5 Hyperlipidemia, unspecified; G20 Parkinson's disease; E86.0 Dehydration; E87.5 Hyperkalemia; R13.10 Dysphagia, unspecified; B95.2 Enterococcus as the cause of diseases classified elsewhere; F32.9 Major depressive disorder, single episode, unspecified; Z86.73 Personal history of transient ischemic attack (TIA), and cerebral infarction without residual deficits; Z79.82 Long term (current) use of aspirin; Z88.0 Allergy status to penicillin; Z90.49 Acquired absence of other specified parts of digestive tract
CPT/HCPCS: 36415; 71045; 80048; 80053; 80164; 81001; 82565; 83605; 84484; 84520; 85025; 85610; 85730; 87045; 87081; 87086; 92610; 93005; 94640; 94664; 96374; G0378; J1650; J2060; J2185; J3370; J7030; J7050

== ENCOUNTER 2019-04-12 16:10 | Inpatient (IN) | payer MEDICARE, OTHER ==
[~2019-04-12] VITALS: Ht 172.7 cm; Wt 70.8 kg
[~2019-04-12 16:10] MED LIST changes: +CALC500O ORAL; +CLOT15CR6 TOP; +CRAN1TAB6 G-TUBE; +DILT60TA29 GTB; +ENOX30DI10 SQ; +HYDR-3029 GTB; +IPRA3AMP29 INHALATION; -LACT1CAP52 PO
--- NOTE | 2019-04-12 16:45 | ERD ---
ER Documentation Chief Complaint Chief Complaint sent by dr rodriguez for evaluated of sacral abscess for past few days. HPI This is an 83-year-old man with multiple medical conditions, bedbound state, [facility] sacral [facility] x3 days. HPI was limited as patient is nonverbal but supplemented by reviewing past medical records, reviewing jail records, and speaking to EMS. Patient has had no fevers, no vomiting, no complaints of chest pain or shortness of breath. ROS All systems reviewed and are negative except as per history of present illness. Medications Home Meds Reported Medications Cephalexin* (Cephalexin*) 500 Mg Capsule, 500 MG PO Q8, #21 CAP START DATE 04/11 END DATE 04/18 START DATE 04/13 END DATE 04/2004/12/19 Ivermectin* (Stromectol*) 3 Mg Tab, 12 MG PO ONCE, TAB START DATE 04/20 AND END DATE 04/2104/12/19 Hydroxyzine Hcl* (Hydroxyzine Hcl*) 10 Mg Tablet, 10 MG PO Q6H PRN for ITCHING, #30 TAB 04/12/19 Finasteride* (Finasteride*) 5 Mg Tablet, 5 MG PO DAILY, TAB 04/12/19 [Ferrous Sulfat] No Conflict Check, 5 MG PO QAM 5MG/20ML LIQUID-QAM 04/12/19 Enoxaparin Sodium* (Enoxaparin Sodium*) 30 Mg/0.3 Ml Syringe, 30 MG SC DAILY, SYR 04/12/19 Diltiazem Hcl* (Cardizem SR*) 60 Mg Capsr, 60 MG PO Q8H, #60 CAP 04/12/19 Divalproex Sodium* (Depakote*) 125 Mg Tablet.dr, 125 MG PO TID, #90 TAB 04/12/19 Cranberry Ext/C/L. Sporogenes (Cranberry Tablet) 1 Each Tablet, 1 EACH PO QAM, TAB 04/12/19 Citalopram Hydrobromide* (Citalopram Hydrobromide*) 10 Mg Tablet, 10 MG PO DAILY, #30 TAB 04/12/19 Cholecalciferol* (Vitamin D3*) 1,000 Unit Tablet, 1000 UNIT PO DAILY, TAB 04/12/19 Carbidopa/Levodopa (Carbidopa-Levodopa 25-100 Tab) 1 Each Tablet, 1 EACH PO BID, TAB 04/12/19 Calcium Carbonate (Calcium Carbonate) 500 Mg Tab.chew, 500 MG PO QAM, TAB.CHEW 04/12/19 Atorvastatin Calcium (Atorvastatin Calcium) 10 Mg Tablet, 10 MG PO QHS, #30 TAB 04/12/19 Albuterol Sulfate* (Albuterol Sulfate* Neb) 0.083%-3 Ml Neb, 1.25 MG NEB Q4H PRN for WHEEZING AND SOB, #30 VIAL 04/12/19 Acetaminophen* (Acetaminophen*) 650 Mg Tablet, 650 MG PO Q4H PRN for FEVER>100F, #30 TAB 04/12/19 Discontinued Reported Medications Cranberry Ext/C/L. Sporogenes (Cranberry Tablet) 1 Each Tablet, 1 EACH G-TUBE DAILY PRN for UTI PPX, TAB 02/23/19 Diltiazem Hcl* (Cardizem*) 60 Mg Tablet, 60 MG GTB Q8, #90 TAB 02/23/19 Calcium Carbonate (Calcium Carbonate) 500 Mg/5 Ml Oral.susp, 500 MG ORAL DAILY 02/23/19 Hydroxyzine Hcl* (Hydroxyzine Hcl*) 10 Mg Tablet, 10 MG GTB Q6H PRN for ITCHING, #30 TAB 02/23/19 Enoxaparin Sodium* (Lovenox*) 30 Mg/0.3 Ml Disp.syrin, 30 MG SQ DAILY for DVT PPX, SYR 02/23/19 Ipratropium-Albuterol (Ipratropium-Albuterol) 0.5-3 Mg/3 Ml Ampul.neb, 3 ML INHALATION Q6 for SOB, #30 VIAL 02/23/19 Clotrimazole-Betamethasone Diprop (Clotrimazole-Betamethasone Diprop) 15 Gm Cream.gm., 1 APPLIC TOP BID, TUB 02/23/19 Multivitamin with Minerals (Multivitamins with Minerals) 1 Each Tablet, 1 EACH ORAL QAM for SUPPLEMENT, TAB 11/02/18 Ferrous Sulfate* (Ferrous Sulfate*) 220 Mg/5 Ml Solution, 220 MG ORAL DAILY for ANEMIA, ML 11/02/18 Albuterol Sulfate* (Albuterol Sulfate* Neb) 0.083%-3 Ml Neb, 1.25 MG NEB Q4H PRN for SHORTNESS OF BREATH, #30 VIAL 11/02/18 Lactobacillus Acidophilus (Acidophilus Lactobacillus) 1 Each Capsule, 1 EACH ORAL TID for GI PPX, CAP 11/02/18 Divalproex Sodium* (Depakote* Sprinkle) 125 Mg Cap.sprink, 125 MG ORAL TID, #90 CAP 08/27/18 Carbidopa/Levodopa (Carbidopa-Levodopa 25-100 Tab) 1 Each Tablet, 1 EACH ORAL BID for PARALYSIS AGITANS, TAB 08/27/18 Cholecalciferol* (Vitamin D3*) 1,000 Unit Tablet, 1000 UNIT ORAL DAILY for SUPPLEMENT, TAB 08/27/18 Tamsulosin Hcl* (Tamsulosin Hcl*) 0.4 Mg Cap.er.24h, 0.4 MG ORAL HS for HYPERTROPHY PROSTATE, CAP 08/27/18 Omeprazole* (Omeprazole*) 20 Mg Capsule.dr, 20 MG GTB QAM for GERD, #30 CAP 08/27/18 Atorvastatin Calcium (Atorvastatin Calcium) 10 Mg Tablet, 10 MG ORAL QHS for HYPERCHOLESTEROLEMIA, #30 TAB 08/27/18 Aspirin* (Aspirin* Chew) 81 Mg Tab.chew, 81 MG ORAL DAILY for CVA PPX, TAB.CHEW 08/27/18 Acetaminophen* (Acetaminophen*) 650 Mg Tablet, 650 MG ORAL Q4 PRN for FEVER, #30 TAB 08/27/18 Finasteride* (Finasteride*) 5 Mg Tablet, 5 MG ORAL DAILY for HYPERTROPHY PROSTATE, TAB 08/27/18 Citalopram Hydrobromide* (Citalopram Hydrobromide*) 10 Mg Tablet, 10 MG ORAL QHS for DEPRESSIVE DISORDER, #30 TAB 08/27/18 Allergies Allergies: Coded Allergies: Penicillins (Unverified Allergy, Unknown, 04/12/19) PMhx/Soc Dementia, CVA, BPH, dysphagia, dyslipidemia, parkinsonism, depression, history of UTIs History of Surgery: No (Cholecystectomy ) Hx Neurological Disorder: Yes (CVA, Dementia, Parkinson's, Dementia) Hx Respiratory Disorders: Yes (Respiratory failure, Pneumonitis) Hx Cardiac Disorders: Yes (Heart Failure) Hx Psychiatric Problems: Yes (Depression, Delusion) Hx Miscellaneous Medical Probl: No Hx Substance Use: No FmHx Family History: No diabetes Physical Exam Vitals Vital Signs Date Temp Pulse Resp B/P (MAP) Pulse Ox O2 O2 Flow FiO2 Time Delivery Rate 04/12/19 100.6 17:26 04/12/19 98.5 77 20 148/87 95 16:29 (107) Physical Exam Const: Elderly, debilitated man, appears dehydrated, febrile Resp: Clear to auscultation bilaterally Cardio: Regular rate and rhythm, no murmurs Abd: Soft, non tender, non distended. No masses, no guarding Skin: Patient has a large erythematous tender lumbosacral back abscess with surrounding erythema and cellulitis, fluctuance center. Erythema does not extend to the lower sacrum buttocks or perineum. Back: there is no midline spinal tenderness or deformity, there is severe lumbosacral back abscess and cellulitis Ext: No cyanosis, or edema, calves symmetrical Neur: Eyes open, patient responsive to painful stimuli, paresis of the lower extremities, contractures Result Diagram: 04/12/19 1655 04/12/19 1655 Results 24 hrs Laboratory Tests Test 04/12/19 16:55 04/12/19 16:56 04/12/19 17:16 White Blood Count 17.9 10^3/ul Red Blood Count 3.86 10^6/ul Hemoglobin 11.7 g/dl Hematocrit 36.3 % Mean Corpuscular Volume 94.0 fl Mean Corpuscular Hemoglobin 30.3 pg Mean Corpuscular 32.2 g/dl Hemoglobin Concent Red Cell Distribution Width 14.2 % Platelet Count 341 10^3/UL Mean Platelet Volume 10.7 fl Immature Granulocytes % 0.800 % Neutrophils % 83.7 % Lymphocytes % 7.0 % Monocytes % 6.6 % Eosinophils % 1.5 % Basophils % 0.4 % Nucleated Red Blood Cells % 0.0 /100WBC Immature Granulocytes # 0.150 10^3/ul Neutrophils # 15.0 10^3/ul Lymphocytes # 1.3 10^3/ul Monocytes # 1.2 10^3/ul Eosinophils # 0.3 10^3/ul Basophils # 0.1 10^3/ul Nucleated Red Blood Cells # 0.0 10^3/ul Prothrombin Time 13.6 Sec Prothrombin Time Ratio 1.1 INR International 1.03 Normalized Ratio Activated Partial Thromboplast 69.6 Sec Time Sodium Level 147 mmol/L Potassium Level 4.7 mmol/L Chloride Level 112 mmol/L Carbon Dioxide Level 26 mmol/L Anion Gap 9 Blood Urea Nitrogen 43 mg/dl Creatinine 1.34 mg/dl Est Glomerular Filtrat mL/min Rate mL/min Glucose Level 117 mg/dl Calcium Level 8.3 mg/dl Total Bilirubin 0.3 mg/dl Direct Bilirubin 0.00 mg/dl Indirect Bilirubin 0.3 mg/dl Aspartate Amino Transf (AST/SGOT) 59 IU/L Alanine 56 IU/L Aminotransferase (ALT/SGPT) Alkaline Phosphatase 97 IU/L Troponin I < 0.012 ng/ml Total Protein 8.2 g/dl Albumin 3.4 g/dl Globulin 4.80 g/dl Albumin/Globulin Ratio 0.70 Lipase 27 U/L POC Venous Lactate 3.1 mmol/L Urine Color JEFFERY Urine Clarity TURBID Urine pH 6.0 Urine Specific [place] 1.013 Urine Ketones NEGATIVE mg/dL Urine Nitrite POSITIVE mg/dL Urine Bilirubin NEGATIVE mg/dL Urine Urobilinogen NEGATIVE mg/dL Urine Leukocyte Esterase 3+ Ramsey/ul Urine Microscopic RBC 10 /HPF Urine Microscopic WBC > 182 /HPF Urine Bacteria FEW /HPF Urine Mucus FEW /HPF Urine Hemoglobin 1+ mg/dL Urine Glucose NEGATIVE mg/dL Urine Total Protein 2+ mg/dl Current Medications Medications Dose Sig/Teresa Start Time Status Last (Trade) Ordered Route PRN Stop Time Admin Dose Reason Admin Cefepime HCl 50 ml @ ONCE ONCE 04/12/19 DC 04/12/19 100 mls/hr IVPB 17:00 04/12/19 17:26 17:29 Vancomycin 250 ml @ ONCE ONCE 04/12/19 HCl 125 mls/hr IVPB 17:00 04/12/19 18:59 Lactated 1,000 ml @ Q1H STAT 04/12/19 DC 04/12/19 Ringer's 1,000 mls/hr IV 16:47 04/12/19 17:07 17:46 650 mg ONCE ONCE 04/12/19 DC 04/12/19 Acetaminophen ID 17:00 04/12/19 17:26 (Tylenol 17:01 Supp) Morphine 4 mg ONCE STAT 04/12/19 DC 04/12/19 Sulfate IV 16:50 04/12/19 17:07 (morphine) 16:51 Ondansetron 4 mg ONCE STAT 04/12/19 DC 04/12/19 HCl (Zofran IV 16:50 04/12/19 17:07 Inj) 16:51 Sodium 3,000 ml BOLUS OVER 2 04/12/19 DC Chloride HOURS STAT 17:13 04/12/19 (NS) IV* 17:14 Procedures/MDM IV line was established patient was placed on equipment monitor phototypesetting rhythm strip revealed a sinus rhythm at about 60 bpm with upright P and T waves. Patient was febrile, blood and urine cultures have been ordered results are pending I will follow-up, Gonzales catheter was placed. I administered 3 L normal saline IV, acetaminophen per rectum for fever, cefepime 1 g IV, vancomycin 1 g IV, morphine 4 mg IV, Zofran 4 mg IV One AP view of the chest performed, read by me reveals no acute infiltrates, normal mediastinum, sharp costophrenic and cardiac borders, no air under the d iaphragm. Otherwise unremarkable chest x-ray. EKG performed, read by me revealed a normal sinus rhythm at 64 bpm, left axis deviation, narrow QRS complex, no concerning ST elevations or depressions noted CBC reveals leukocytosis at 18, electrolytes revealed dehydration with a BUN/creatinine 43/1.3, liver function test normal, troponin negative, lactic acid elevated at 3.1, urine analysis was positive for infection. Patient's infectious symptoms have not stabilized and the patient is at risk of rapid decompensation. The patient will be admitted for careful hydration, antibiotic therapy, and infectious source control. SEVERE SEPSIS CRITERIA: Infectious source: skin and soft tissue of the lumbosacral back End organ damage indicated by: SEPSIS MANAGEMENT Time of recognition of sepsis: Upon arrival. Time of recognition of severe sepsis: No severe sepsis at this time. Time of recognition of septic shock: No septic shock at this time. 3 HOUR BUNDLE Blood cultures x 2 before broad-spectrum antibiotics: Yes 30 ml/kg NS bolus completed Initial lactate 3.1 Repeat lactate pending SEPTIC SHOCK ASSESSMENT: No lactic acid > 4.0 No persistent hypotension (SBP < 90 or 40 mmHg drop, MAP < 65) despite 30 mL/kg IV fluid bolus VOLUME REASSESSMENT FOR SEPTIC SHOCK: Reevaluation Time: 1730 Temp 99 F, BP 116/76, pulse 60 bpm, oxygen saturation 100%, respiratory rate 18 breaths/min Heart regular rate & rhythm Lungs no crackles Skin warm & dry with erythema to the lumbosacral back and fluctuant center Cap Refill less than 2 seconds Peripheral pulses radially present PERSISTENT HYPOTENSION TREATMENT: Comfort care no Central line not Required Vasopressor started not required I considered further perfusion assessment with CVP measurement, SCVO2, bedside ultrasound volume assessment, passive leg raise, trial of further fluid bolus. And proceeded with 30 ml/kg fluid bolus of NSS, broad spectrum antibiotics, and admission. CRITICAL CARE: Critical care time 45 minutes, this was time separate from other billable procedures. Emergent fluid management while maintaining close respiratory support. Provision of immediate and broad-spectrum antibiotic therapy. Simultaneous assessment for possible sources in order to direct targeted therapy. Consideration for invasive and chemical support to prevent cardiopulmonary collapse. Critical care time is independent of procedures performed. Accepting Care Team: Current data and ongoing care discussed. Time: Time of admission Primary Provider: Consulting: Infectious disease Outstanding Data: none Departure Diagnosis: Primary Impression: Sepsis Sepsis type: sepsis due to unspecified organism Qualified Codes: A41.9 - Sepsis, unspecified organism Additional Impressions: Back abscess Cellulitis of back Acute dehydration Functional quadriplegia Acute UTI Condition: Serious JAMAAL ROME MD Apr 12, 2019 16:45
[2019-04-12] MEDS ORDERED: LACTATED RINGER'S 1,000 ML IV STA (16:47)
[2019-04-12] MEDS ORDERED: ONDANSETRON 4 MG INJ IV STA (16:50)
[2019-04-12] MEDS ORDERED: morphine 4 MG/ML VIAL IV STA (16:50)
[2019-04-12] MEDS ORDERED: CEFEPIME 1GM/50 ML (PMX) 50 ML IVPB ONE (17:00)
[2019-04-12] MEDS ORDERED: ACETAMINOPHEN 650 MG SUPP PR ONE (17:00)
[2019-04-12] MEDS ORDERED: ACET-2047 PO (17:00)
[2019-04-12] MEDS ORDERED: ATOR10TA65 PO (17:00)
[2019-04-12] MEDS ORDERED: VANCOMYCIN 1 GM (PMX) 250 ML IVPB ONE (17:00)
[2019-04-12] MEDS ORDERED: ALBU2.5V3 NEB (17:00)
[2019-04-12] MEDS ORDERED: CALC-459 PO (17:01)
[2019-04-12] MEDS ORDERED: CARB1TAB34 PO (17:02)
[2019-04-12] MEDS ORDERED: CHOL100062 PO (17:03)
[2019-04-12] MEDS ORDERED: CITA10TA5 PO (17:03)
[2019-04-12] MEDS ORDERED: DIVA125T PO (17:04)
[2019-04-12] MEDS ORDERED: CRAN1TAB6 PO (17:04)
[2019-04-12] MEDS ORDERED: CARSR60 PO (17:05)
[2019-04-12] MEDS ORDERED: ENOX30DI2 SC (17:05)
[2019-04-12] MEDS ORDERED: FINA5TAB4 PO (17:09)
[2019-04-12] MEDS ORDERED: FERROUS SULFAT PO (17:09)
[2019-04-12] MEDS ORDERED: HYDR-3029 PO (17:10)
[2019-04-12] MEDS ORDERED: IVER3TAB2 PO (17:11)
[2019-04-12] MEDS ORDERED: SODIUM CHLORIDE 0.9% 1L BAG IV* STA (17:13)
[2019-04-12] MEDS ORDERED: CEPH500C PO (17:15)
[2019-04-13] VITALS (7 sets, daily range): BP systolic 89–119; BP diastolic 46–56; PULSE 58–77; RESP 18–20; Ht 172.7 cm; Wt 70.8 kg
[2019-04-13] MEDS ORDERED: ACETAMINOPHEN 325 MG TAB PO PRN ×2 (00:30→17:30)
[2019-04-13] MEDS ORDERED: morphine 2 MG INJ IV PRN (00:30)
[2019-04-13] MEDS ORDERED: VANCOMYCIN IV PER PHARMACY XX SCH (00:30)
[2019-04-13] MEDS: DEXTROSE 5%-0.45% NACL 1,000 ML IV SCH ×2 (01:08→13:04)
[2019-04-13] MEDS: MEROPENEM 1 GM/50ML(PMX) 50 ML IVPB SCH ×3 (05:10→21:25)
[2019-04-13] MEDS: ENOXAPARIN 30 MG/0.3 ML SYG SC SCH (09:19)
[2019-04-13] MEDS: VANCOMYCIN HCL 1.25 GM in SOD CHLORIDE 0.9% 250 ML IVPB SCH (15:16)
--- NOTE | 2019-04-13 17:22 | CONS ---
Assessment/Plan Assessment/Plan Hospital Course (Demo Recall) ID PRELIMINARY SHORT NOTE=> 83 yo M known to Dr. Saldivar's ID team from prior a dmissions CURRENT ABX: DAY # 2=>Vanco IV + Merrem 04/13/1910 04/13/19509 HPI: * 83 yo M w/Parkinson's, Dementia w/psychosis, Hx CVA, dysphagia, Hx of ASP PNA, Arthrosclerosis, Heart Failure, GERD, CHAPARRITA, BPH, neurogenic bladder, bedbound status at SNF - sent to [facility] ED 04/12/19 for evaluation and management of sacral abscess associated w/fevers. (+)GNR UTI 04/12/19 IMAGING * 04/12/19 CXR: No evidence of acute cardiopulmonary process, allowing for low lung volumes and bibasilar atelectasis.Improved aeration in the left basilar lung.No evidence of free intraperitoneal air. MICRO/OTHER * * 04/519 Urine Cx (+) URINE CULTURE Preliminary Organism 1 GRAM NEGATIVE MIKE COLONY COUNT >100,000 CFU/ml PHYSICAL EXAMINATION: GENERAL: Awake, alert, calm, cooperative, VSS, NAD, HEENT: AT, NC, anicteric NECK: Supple, no JVD appreciated CHEST: Equal chest rise bilaterally without dyspnea on observation Lungs diminished, dry cough noted x1 ABD: Soft, ND, NT : FC in place MSK: Generalized weakness, no joint edema EXTREMITIES: Warm, dry, no edema SKIN: No rash, no diaphoresis, see photos == large unstageable sacral ulcer w/fluctuance -- surrounding bilateral buttock edema/cellulitis Neuro: Eyes open & tracking, non-verbal, KOOTENAI speaks Serbian, Psych: Mood is calm and cooperative ID ASSESSMENT 83 yo M PMHx Parkinson's/CVA/Dementia w/Psychosis, bedbound @ SNF admit with: 1. Sepsis on admission w/fevers, leukocytosis, lactic acidosis -> due to #2 & #3 2. GNR UTI * Complicated UTI w/urinary retention due to BPH & neurogenic bladder 3. Large sacral decub w/abscess and surrounding bilateral edema 4. Atherosclerosis 5. Hx of heart failure NOS - euvolemic 6. Hx of PNA -> lungs clear 7. GERD 8. Hx of CHAPARRITA - avoid renal toxic ABX (?)MRSA Nares ABX ALLERGIES: PNA INVASIVES: PIV CURRENT ABX: DAY # 2=>Vanco IV + Merrem ID RECOMMENDATIONS/PLAN: 1. Continue current ABX 2. Await micro 3. Surgical consult for abscess/wound debridement 4. ASP Precautions * Thank you - Please refer to Dr. Saldivar's full note dictation pending. . Consultation Date/Type/Reason Admit Date/Time Apr 12, 2019 at 17:21 Initial Consult Date Date/Time of Note DATE: 04/13/19 TIME: 17:03 Exam/Review of Systems Exam Vitals Vital Signs Date Temp Pulse Resp B/P (MAP) Pulse Ox O2 O2 Flow FiO2 Time Delivery Rate 04/13/19 98.0 58 20 91/52 (65) 91 15:20 04/12/19 Nasal 2.0 23:20 Cannula Intake and Output 04/12/19 04/12/19 04/13/19 1515:00 23:00 07:00 IntakeIntake Total 3950 ml OutputOutput Total 500 ml BalanceBalance 3950 ml -500 ml Results Result Diagram: 04/13/19 0510 04/13/19 0510 Results 24hrs Laboratory Tests Test 04/12/19 17:16 04/12/19 19:21 04/12/19 22:05 04/13/19 05:10 Urine Color JEFFERY Urine Clarity TURBID A Urine pH 6.0 Urine Specific Marshall 1.013 Urine Ketones NEGATIVE Urine Nitrite POSITIVE A Urine Bilirubin NEGATIVE Urine Urobilinogen NEGATIVE Urine Leukocyte Esterase 3+ H Urine Microscopic RBC 10 H Urine Microscopic WBC > 182 H Urine Bacteria FEW A Urine Mucus FEW A Urine Hemoglobin 1+ H Urine Glucose NEGATIVE Urine Total Protein 2+ H Lactic Acid Level 1.3 0.7 White Blood Count 17.1 H Red Blood Count 3.34 L Hemoglobin 10.2 L Hematocrit 31.5 L Mean Corpuscular Volume 94.3 Mean Corpuscular 30.5 Hemoglobin Mean Corpuscular 32.4 Hemoglobin Concent Red Cell Distribution 14.3 Width Platelet Count 307 Mean Platelet Volume 10.1 Immature Granulocytes % 0.800 H Neutrophils % 84.2 H Lymphocytes % 6.2 L Monocytes % 5.9 Eosinophils % 2.5 Basophils % 0.4 Nucleated Red Blood 0.0 Cells % Immature Granulocytes # 0.140 H Neutrophils # 14.4 H Lymphocytes # 1.1 Monocytes # 1.0 H Eosinophils # 0.4 Basophils # 0.1 Nucleated Red Blood 0.0 Cells # Sodium Level 147 H Potassium Level 4.5 Chloride Level 115 H Carbon Dioxide Level 28 Anion Gap 4 L Blood Urea Nitrogen 34 H Creatinine 1.07 Est Glomerular Filtrat Rate mL/min Glucose Level 101 Calcium Level 8.2 L Medications Medication Current Medications Dextrose/Sodium Chloride 1,000 ml @ 75 mls/hr [id number] IV Last administered on 04/13/19at 13:04; Admin Dose 75 MLS/HR; Start 04/13/19 at 00:30 Acetaminophen (Tylenol Tab) 650 mg Q6H PRN PO MILD PAIN(1-3)OR ELEVATED TEMP; Start 04/13/19 at 00:30 Vancomycin HCl (Vanco Iv Per Pharmacy) VANCOMYCIN PER PHARMACY PER PROTOCOL XX ; Start 04/13/19 at 00:30 Meropenem/Sodium Chloride 50 ml @ 100 mls/hr Q8 IVPB Last administered on 04/13/19at 13:50; Admin Dose 100 MLS/HR; Start 04/13/19 at 06:00 Enoxaparin Sodium (Lovenox) 30 mg DAILY SC Last administered on 04/13/19at 09:19; Admin Dose 30 MG; Start 04/13/19 at 09:00 Morphine Sulfate (morphine) 2 mg Q4H PRN IV SEVERE PAIN LEVEL 7-10; Start 04/13/19 at 00:30 Vancomycin HCl 1.25 gm/Sodium Chloride 250 ml @ 83.333 mls/ hr Q24H IVPB Last administered on 04/13/19at 15:16; Admin Dose 83.333 MLS/HR; Start 04/13/19 at 15:00 Miscellaneous Information (*Rx Drug Level Order Reminder*) VANCO TR LEVEL PRIOR... 1400 ONCE XX ; Start 04/15/19 at 14:00; Stop 04/15/19 at 14:01 MITUL MCALLISTER NP Apr 13, 2019 17:14
--- NOTE | 2019-04-13 17:23 | HP ---
Date/Time of Note Date/Time of Note DATE: 04/13/19 TIME: 17:03 Assessment/Plan VTE Prophylaxis Risk score (from [facility] [place], [place])>0 risk: 6 SCD applied (from [facility] [place], [place]): Yes SCD contraindicated: other Pharmacological prophylaxis: other Pharm contraindication: other Lines/Catheters IV Catheter Type (from [facility]): Peripheral IV Urinary Cath still in place: Yes Reason Cath still needed: urinary retention Assessment/Plan Assessment/Plan Sepsis - id consult- informed - admit to tele - see admission orders - am CBC; BMP Back abscess Cellulitis of back Acute UTI Acute dehydration - IVF Functional quadriplegia Allergic to Penicillins Dementia, CVA, BPH, dysphagia, dyslipidemia, parkinsonism, depression Heart Failure Depression, Delusion Result Diagram: 04/13/19 0510 04/13/19 0510 Results 24hrs Laboratory Tests Test 04/12/19 17:16 04/12/19 19:21 04/12/19 22:05 04/13/19 05:10 Urine Color JEFFERY Urine Clarity TURBID A Urine pH 6.0 Urine Specific [place] 1.013 Urine Ketones NEGATIVE Urine Nitrite POSITIVE A Urine Bilirubin NEGATIVE Urine Urobilinogen NEGATIVE Urine Leukocyte Esterase 3+ H Urine Microscopic RBC 10 H Urine Microscopic WBC > 182 H Urine Bacteria FEW A Urine Mucus FEW A Urine Hemoglobin 1+ H Urine Glucose NEGATIVE Urine Total Protein 2+ H Lactic Acid Level 1.3 0.7 White Blood Count 17.1 H Red Blood Count 3.34 L Hemoglobin 10.2 L Hematocrit 31.5 L Mean Corpuscular Volume 94.3 Mean Corpuscular 30.5 Hemoglobin Mean Corpuscular 32.4 Hemoglobin Concent Red Cell Distribution 14.3 Width Platelet Count 307 Mean Platelet Volume 10.1 Immature Granulocytes % 0.800 H Neutrophils % 84.2 H Lymphocytes % 6.2 L Monocytes % 5.9 Eosinophils % 2.5 Basophils % 0.4 Nucleated Red Blood 0.0 Cells % Immature Granulocytes # 0.140 H Neutrophils # 14.4 H Lymphocytes # 1.1 Monocytes # 1.0 H Eosinophils # 0.4 Basophils # 0.1 Nucleated Red Blood 0.0 Cells # Sodium Level 147 H Potassium Level 4.5 Chloride Level 115 H Carbon Dioxide Level 28 Anion Gap 4 L Blood Urea Nitrogen 34 H Creatinine 1.07 Est Glomerular Filtrat Rate mL/min Glucose Level 101 Calcium Level 8.2 L HPI/ROS Admit Date/Time Admit Date/Time Apr 12, 2019 at 17:21 Hx of Present Illness HPI This is an 83-year-old man with multiple medical conditions, bedbound state, brought in by EMS from alf for sacral abscess x3 days. HPI was limited as patient is nonverbal but supplemented by reviewing past medical records, reviewing alf records, and speaking to EMS. Patient has had no fevers, no vomiting, no complaints of chest pain or shortness of breath. ROS All systems reviewed and are negative except as per history of present illness. Allergies Allergies: Coded Allergies: Penicillins (Unverified Allergy, Unknown, 04/12/19) PMhx/Soc Dementia, CVA, BPH, dysphagia, dyslipidemia, parkinsonism, depression, history of UTIs History of Surgery: No (Cholecystectomy ) Hx Neurological Disorder: Yes (CVA, Dementia, Parkinson's, Dementia) Hx Respiratory Disorders: Yes (Respiratory failure, Pneumonitis) Hx Cardiac Disorders: Yes (Heart Failure) Hx Psychiatric Problems: Yes (Depression, Delusion) Hx Miscellaneous Medical Probl: No Hx Substance Use: No FmHx Family History: No diabetes PMH/Family/Social Past Medical History Medications Current Medications Dextrose/Sodium Chloride 1,000 ml @ 75 mls/hr [id number] IV Last administered on 04/13/19at 13:04; Admin Dose 75 MLS/HR; Start 04/13/19 at 00:30 Acetaminophen (Tylenol Tab) 650 mg Q6H PRN PO MILD PAIN(1-3)OR ELEVATED TEMP; Start 04/13/19 at 00:30 Vancomycin HCl (Vanco Iv Per Pharmacy) VANCOMYCIN PER PHARMACY PER PROTOCOL XX ; Start 04/13/19 at 00:30 Meropenem/Sodium Chloride 50 ml @ 100 mls/hr Q8 IVPB Last administered on 04/13/19at 13:50; Admin Dose 100 MLS/HR; Start 04/13/19 at 06:00 Enoxaparin Sodium (Lovenox) 30 mg DAILY SC Last administered on 04/13/19at 09:19; Admin Dose 30 MG; Start 04/13/19 at 09:00 Morphine Sulfate (morphine) 2 mg Q4H PRN IV SEVERE PAIN LEVEL 7-10; Start 04/13/19 at 00:30 Vancomycin HCl 1.25 gm/Sodium Chloride 250 ml @ 83.333 mls/ hr Q24H IVPB Last administered on 04/13/19at 15:16; Admin Dose 83.333 MLS/HR; Start 04/13/19 at 15:00 Miscellaneous Information (*Rx Drug Level Order Reminder*) VANCO TR LEVEL PRIOR... 1400 ONCE XX ; Start 04/15/19 at 14:00; Stop 04/15/19 at 14:01 Coded Allergies: Penicillins (Unverified Allergy, Unknown, 04/12/19) Social History Smoking Status: Unknown if ever smoked Exam/Review of Systems Vital Signs Vitals Vital Signs Date Temp Pulse Resp B/P (MAP) Pulse Ox O2 O2 Flow FiO2 Time Delivery Rate 04/13/19 98.0 58 20 91/52 (65) 91 15:20 04/12/19 Nasal 2.0 23:20 Cannula Intake and Output 04/12/19 04/12/19 04/13/19 1515:00 23:00 07:00 IntakeIntake Total 3950 ml OutputOutput Total 500 ml BalanceBalance 3950 ml -500 ml Exam Constitutional: alert, well developed Psych: nl mood/affect Eyes: nl lids, nl sclera ENMT: nl external ears & nose Neck: non-tender Respiratory: clear to auscultation Cardiovascular: nl pulses, other Gastrointestinal: soft, non-tender Musculoskeletal: muscle weakness Extremities: normal pulses Neurological: confused Skin: other (Patient has a large erythematous tender lumbosacral back abscess with surrounding erythema and cellulitis, fluctuance center. Erythema does not extend to the lower sacrum buttocks or perineum.) ABIMBOLA MCKINNEY Apr 13, 2019 17:13
[2019-04-13] MEDS ORDERED: ENOXAPARIN 30 MG/0.3 ML SYG SC SCH (17:30)
[2019-04-13] MEDS ORDERED: hydrOXYzine HCL 10 MG TAB PO PRN (17:30)
[2019-04-13] MEDS ORDERED: ALBUTEROL 0.083% (NEB) 2.5 MG/3 ML AMP NEB PRN (17:30)
[2019-04-13] MEDS ORDERED: DILTIAZEM (SR) 60 MG CAP PO SCH ×2 (17:30→21:30)
[2019-04-13] MEDS: ATORVASTATIN 10 MG TAB PO SCH ×2 (21:00→21:24)
[2019-04-13] MEDS ORDERED: DIVALPROEX (EC) 125 MG TAB PO SCH (21:00)
[2019-04-13] MEDS: CARBIDOPA/LEVODOPA (25/100) TAB PO SCH ×2 (21:00→21:25)
[2019-04-13] MEDS: FAMOTIDINE 20 MG INJ IV SCH (21:24)
[2019-04-14] VITALS (7 sets, daily range): BP systolic 94–131; BP diastolic 44–75; PULSE 53–97; RESP 18–20
[2019-04-14] MEDS: VALPROATE INJ 250 MG in SOD CHLORIDE 0.9% 50 ML IVPB SCH ×4 (00:35→20:50)
[2019-04-14] MEDS: DIPHENHYDRAMINE 50 MG INJ IV PRN (01:32)
[2019-04-14] MEDS: DEXTROSE 5%-0.45% NACL 1,000 ML IV SCH ×2 (03:10→16:28)
[2019-04-14] MEDS: MEROPENEM 1 GM/50ML(PMX) 50 ML IVPB SCH ×3 (05:02→20:50)
[2019-04-14] MEDS ORDERED: PANTOPRAZOLE 40 MG INJ IV SCH (06:00)
[2019-04-14] MEDS: FAMOTIDINE 20 MG INJ IV SCH ×2 (08:36→20:49)
[2019-04-14] MEDS: CITALOPRAM 20 MG TAB PO SCH (09:00)
[2019-04-14] MEDS: FINASTERIDE 5 MG TAB PO SCH (09:00)
[2019-04-14] MEDS ORDERED: CA CARBONATE (250 MG/ML) 5ML CUP PO ONE (09:00)
[2019-04-14] MEDS: CHOLECALCIFEROL 1,000 UNIT TAB PO SCH (09:00)
[2019-04-14] MEDS: CALCIUM CARBONATE 1.25 GM TAB PO SCH (09:00)
[2019-04-14] MEDS: CARBIDOPA/LEVODOPA (25/100) TAB PO SCH ×2 (09:00→20:48)
[2019-04-14] MEDS: FERROUS SULFATE (EC) 325 MG TAB PO SCH (09:00)
[2019-04-14] MEDS: ENOXAPARIN 30 MG/0.3 ML SYG SC SCH (10:40)
--- NOTE | 2019-04-14 10:58 | PN ---
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 Back abscess Cellulitis of back Acute UTI Acute dehydration - IVF Functional quadriplegia Allergic to Penicillins Dementia, CVA, BPH, dysphagia, dyslipidemia, parkinsonism, depression Heart Failure Depression, Delusion Result Diagram: 04/14/1917 04/14/19 0517 Results 24hrs Laboratory Tests Test 04/14/19 05:17 White Blood Count 17.2 H Red Blood Count 3.49 L Hemoglobin 10.4 L Hematocrit 32.4 L Mean Corpuscular Volume 92.8 Mean Corpuscular Hemoglobin 29.8 Mean Corpuscular Hemoglobin Concent 32.1 Red Cell Distribution Width 14.4 Platelet Count 322 Mean Platelet Volume 9.8 Immature Granulocytes % 1.200 H Neutrophils % 85.1 H Lymphocytes % 6.3 L Monocytes % 4.9 Eosinophils % 2.2 Basophils % 0.3 Nucleated Red Blood Cells % 0.0 Immature Granulocytes # 0.200 H Neutrophils # 14.6 H Lymphocytes # 1.1 Monocytes # 0.9 Eosinophils # 0.4 Basophils # 0.1 Nucleated Red Blood Cells # 0.0 Sodium Level 149 H Potassium Level 4.3 Chloride Level 115 H Carbon Dioxide Level 29 Anion Gap 5 Blood Urea Nitrogen 31 H Creatinine 1.10 Est Glomerular Filtrat Rate mL/min Glucose Level 99 Calcium Level 8.3 L B-Type Natriuretic Peptide 6640 H Subjective 24 Hr Interval Summary Free Text/Dictation Pending ST evaluation. Constitutional: requiring O2 Exam/Review of Systems Exam Vitals Vital Signs Date Temp Pulse Resp B/P (MAP) Pulse Ox O2 O2 Flow FiO2 Time Delivery Rate 04/14/19 97.6 72 20 102/54 91 07:36 (70) 04/14/19 Room Air 04:04 04/13/19 21 19:15 04/12/19 2.0 23:20 Intake and Output 04/13/19 04/13/1919 1515:00 23:00 07:00 IntakeIntake Total 102.5 ml OutputOutput Total 650 ml 500 ml BalanceBalance -650 ml -397.5 ml Constitutional: alert, well developed Psych: nl mood/affect Head: atraumatic Eyes: nl lids ENMT: nl external ears & nose Neck: non-tender Respiratory: clear to auscultation Cardiovascular: nl pulses, other (S1S1) Gastrointestinal: soft, non-tender Extremities: normal pulses Neurological: confused Lymph: nontender Results Results 24hrs Laboratory Tests Test 04/14/19 05:17 White Blood Count 17.2 H Red Blood Count 3.49 L Hemoglobin 10.4 L Hematocrit 32.4 L Mean Corpuscular Volume 92.8 Mean Corpuscular Hemoglobin 29.8 Mean Corpuscular Hemoglobin Concent 32.1 Red Cell Distribution Width 14.4 Platelet Count 322 Mean Platelet Volume 9.8 Immature Granulocytes % 1.200 H Neutrophils % 85.1 H Lymphocytes % 6.3 L Monocytes % 4.9 Eosinophils % 2.2 Basophils % 0.3 Nucleated Red Blood Cells % 0.0 Immature Granulocytes # 0.200 H Neutrophils # 14.6 H Lymphocytes # 1.1 Monocytes # 0.9 Eosinophils # 0.4 Basophils # 0.1 Nucleated Red Blood Cells # 0.0 Sodium Level 149 H Potassium Level 4.3 Chloride Level 115 H Carbon Dioxide Level 29 Anion Gap 5 Blood Urea Nitrogen 31 H Creatinine 1.10 Est Glomerular Filtrat Rate mL/min Glucose Level 99 Calcium Level 8.3 L B-Type Natriuretic Peptide 6640 H Medications Medication Current Medications Dextrose/Sodium Chloride 1,000 ml @ 75 mls/hr [id number] IV Last administered on 04/13/19at 13:04; Admin Dose 75 MLS/HR; Start 04/13/19 at 00:30 Acetaminophen (Tylenol Tab) 650 mg Q6H PRN PO MILD PAIN(1-3)OR ELEVATED TEMP; Start 04/13/19 at 00:30 Vancomycin HCl (Vanco Iv Per Pharmacy) VANCOMYCIN PER PHARMACY PER PROTOCOL XX ; Start 04/13/19 at 00:30 Meropenem/Sodium Chloride 50 ml @ 100 mls/hr Q8 IVPB Last administered on 04/14/19at 05:02; Admin Dose 100 MLS/HR; Start 04/13/19 at 06:00 Enoxaparin Sodium (Lovenox) 30 mg DAILY SC Last administered on 04/14/19at 10:40; Admin Dose 30 MG; Start 04/13/19 at 09:00 Morphine Sulfate (morphine) 2 mg Q4H PRN IV SEVERE PAIN LEVEL 7-10; Start 04/13/19 at 00:30 Vancomycin HCl 1.25 gm/Sodium Chloride 250 ml @ 83.333 mls/ hr Q24H IVPB Last administered on 04/13/19at 15:16; Admin Dose 83.333 MLS/HR; Start 04/13/19 at 15:00 Miscellaneous Information (*Rx Drug Level Order Reminder*) VANCO TR LEVEL PRIOR... 1400 ONCE XX ; Start 04/15/19 at 14:00; Stop 04/15/19 at 14:01 Acetaminophen (Tylenol Tab) 650 mg Q4H PRN PO FEVER>100F; Start 04/13/19 at 17:30 Albuterol (Proventil 0.083% (Neb)) 1.25 mg Q4H PRN NEB WHEEZING AND SOB; Start 04/13/19 at 17:30 Atorvastatin Calcium (Lipitor) 10 mg QHS PO ; Start 04/13/19 at 21:00 Carbidopa/Levodopa (Sinemet (25/ 100)) 1 tab BID PO ; Start 04/13/19 at 21:00 Cholecalciferol (Vitamin D) 1,000 unit DAILY PO ; Start 04/14/19 at 09:00 Citalopram Hydrobromide (Celexa) 10 mg DAILY PO ; Start 04/14/19 at 09:00 Finasteride (Proscar) 5 mg DAILY PO ; Start 04/14/19 at 09:00 Hydroxyzine HCl (Atarax) 10 mg Q6H PRN PO ITCHING; Start 04/13/19 at 17:30 Ferrous Sulfate (Ferrous Sulfate (Ec)) 325 mg DAILY PO ; Start 04/14/19 at 09:00 Famotidine (Pepcid Iv) 20 mg BID IV Last administered on 04/14/19at 08:36; Admin Dose 20 MG; Start 04/13/19 at 21:00 Diltiazem HCl (Cardizem Sr) 60 mg Q8H PO ; Start 04/13/19 at 21:30; Status Hold Calcium Carbonate (Oyster Shell Calcium) 1.25 gm DAILY PO ; Start 04/14/19 at 09:00 Valproate Sodium 250 mg/Sodium Chloride 52.5 ml @ 55 mls/hr Q8 IVPB Last administered on 04/14/19at 06:22; Admin Dose 55 MLS/HR; Start 04/13/19 at 22:00 Diphenhydramine HCl (Benadryl) 25 mg Q8 PRN IV ITCHING Last administered on 04/14/19at 01:32; Admin Dose 25 MG; Start 04/14/19 at 01:30 Lorazepam (Ativan) 0.5 mg Q6H PRN IV ANXIETY; Start 04/14/19 at 01:30 Mupirocin (Bactroban) 1 applic BID TOP ; Start 04/14/19 at 09:00; Stop 04/20/19 at 21:01 ABIMBOLA MCKINNEY Apr 14, 2019 10:58
[2019-04-14] MEDS: MUPIROCIN 2% 22 GM OINT TOP SCH ×2 (11:09→20:50)
[2019-04-14] MEDS: VANCOMYCIN HCL 1.25 GM in SOD CHLORIDE 0.9% 250 ML IVPB SCH (17:43)
[2019-04-14] MEDS: ATORVASTATIN 10 MG TAB PO SCH (20:48)
--- NOTE | 2019-04-14 22:23 | CONS ---
Assessment/Plan Assessment/Plan Hospital Course (Demo Recall) -ANEMIA COMPLEX, MONITOR - LEUKOCYTOSIS REACTIVE, monitor - fever, cough CXR, IV ATB , ID, CULTURES - Sepsis on admission w/fevers, leukocytosis, lactic acidosis Large sacral decub w/abscess and surrounding bilateral edema - HX urinary tract infection. IV ATB Complicated UTI w/urinary retention due to BPH & neurogenic bladder -Hx of PNA -GERD -Hx of CHAPARRITA - BPH, continue Flomax and Proscar - Dysphagia. swallow evaluation by ST. - History of cerebrovascular accident. Continue aspirin - Dyslipidemia. Continue statin - Parkinsonism. Continue carbidopa - Dementia with agitation. Continue Depakote. - Depression. Continue Celexa. Consultation Date/Type/Reason Admit Date/Time Apr 12, 2019 at 17:21 Date of Consultation: Apr 12, 2019 Type of Consult hemeonc Reason for Consultation anemia Requesting Provider: JACOBO EATON MD Date/Time of Note DATE: 04/14/19 TIME: 22:23 Hx of Present Illness This is an 83-year-old man with multiple medical conditions, bedbound state, brought in by EMS from snf for sacral abscess x3 days. HPI was limited as patient is nonverbal but supplemented by reviewing past medical records, reviewing snf records, and speaking to EMS. Patient has had no fevers, no vomiting, no complaints of chest pain or shortness of breath. He also has anemia and had a hx leukocytosis ROS All systems reviewed and are negative except as per history of present illness. Past Medical History Home Meds Reported Medications Cephalexin* (Cephalexin*) 500 Mg Capsule, 500 MG PO Q8, #21 CAP START DATE 04/11 END DATE 04/18 START DATE 04/13 END DATE 04/2004/12/19 Ivermectin* (Stromectol*) 3 Mg Tab, 12 MG PO ONCE, TAB START DATE 04/20 AND END DATE 04/2104/12/19 Hydroxyzine Hcl* (Hydroxyzine Hcl*) 10 Mg Tablet, 10 MG PO Q6H PRN for ITCHING, #30 TAB 04/12/19 Finasteride* (Finasteride*) 5 Mg Tablet, 5 MG PO DAILY, TAB 04/12/19 [Ferrous Sulfat] No Conflict Check, 5 MG PO QAM 5MG/20ML LIQUID-QAM 04/12/19 Enoxaparin Sodium* (Enoxaparin Sodium*) 30 Mg/0.3 Ml Syringe, 30 MG SC DAILY, SYR 04/12/19 Diltiazem Hcl* (Cardizem SR*) 60 Mg Capsr, 60 MG PO Q8H, #60 CAP 04/12/19 Divalproex Sodium* (Depakote*) 125 Mg Tablet.dr, 125 MG PO TID, #90 TAB 04/12/19 Cranberry Ext/C/L. Sporogenes (Cranberry Tablet) 1 Each Tablet, 1 EACH PO QAM, TAB 04/12/19 Citalopram Hydrobromide* (Citalopram Hydrobromide*) 10 Mg Tablet, 10 MG PO DAILY, #30 TAB 04/12/19 Cholecalciferol* (Vitamin D3*) 1,000 Unit Tablet, 1000 UNIT PO DAILY, TAB 04/12/19 Carbidopa/Levodopa (Carbidopa-Levodopa 25-100 Tab) 1 Each Tablet, 1 EACH PO BID, TAB 04/12/19 Calcium Carbonate (Calcium Carbonate) 500 Mg Tab.chew, 500 MG PO QAM, TAB.CHEW 04/12/19 Atorvastatin Calcium (Atorvastatin Calcium) 10 Mg Tablet, 10 MG PO QHS, #30 TAB 04/12/19 Albuterol Sulfate* (Albuterol Sulfate* Neb) 0.083%-3 Ml Neb, 1.25 MG NEB Q4H PRN for WHEEZING AND SOB, #30 VIAL 04/12/19 Acetaminophen* (Acetaminophen*) 650 Mg Tablet, 650 MG PO Q4H PRN for FEVER>100F, #30 TAB 04/12/19 Medications Current Medications Dextrose/Sodium Chloride 1,000 ml @ 75 mls/hr [id number] IV Last administered on 04/14/19at 16:28; Admin Dose 75 MLS/HR; Start 04/13/19 at 00:30 Acetaminophen (Tylenol Tab) 650 mg Q6H PRN PO MILD PAIN(1-3)OR ELEVATED TEMP; Start 04/13/19 at 00:30 Vancomycin HCl (Vanco Iv Per Pharmacy) VANCOMYCIN PER PHARMACY PER PROTOCOL XX ; Start 04/13/19 at 00:30 Meropenem/Sodium Chloride 50 ml @ 100 mls/hr Q8 IVPB Last administered on 04/14/19at 20:50; Admin Dose 100 MLS/HR; Start 04/13/19 at 06:00 Enoxaparin Sodium (Lovenox) 30 mg DAILY SC Last administered on 04/14/19at 10:40; Admin Dose 30 MG; Start 04/13/19 at 09:00 Morphine Sulfate (morphine) 2 mg Q4H PRN IV SEVERE PAIN LEVEL 7-10; Start 04/13 at 00:30 Vancomycin HCl 1.25 gm/Sodium Chloride 250 ml @ 83.333 mls/ hr Q24H IVPB Last administered on 04/14/19at 17:43; Admin Dose 83.333 MLS/HR; Start 04/13/19 at 15:00 Miscellaneous Information (*Rx Drug Level Order Reminder*) VANCO TR LEVEL PRIOR... 1400 ONCE XX ; Start 04/15/19 at 14:00; Stop 04/15/19 at 14:01 Acetaminophen (Tylenol Tab) 650 mg Q4H PRN PO FEVER>100F; Start 04/13/19 at 17:30 Albuterol (Proventil 0.083% (Neb)) 1.25 mg Q4H PRN NEB WHEEZING AND SOB; Start 04/13/19 at 17:30 Atorvastatin Calcium (Lipitor) 10 mg QHS PO ; Start 04/13/19 at 21:00 Carbidopa/Levodopa (Sinemet (25/ 100)) 1 tab BID PO ; Start 04/13/19 at 21:00 Cholecalciferol (Vitamin D) 1,000 unit DAILY PO ; Start 04/14/19 at 09:00 Citalopram Hydrobromide (Celexa) 10 mg DAILY PO ; Start 04/14/19 at 09:00 Finasteride (Proscar) 5 mg DAILY PO ; Start 04/14/19 at 09:00 Hydroxyzine HCl (Atarax) 10 mg Q6H PRN PO ITCHING; Start 04/13/19 at 17:30 Ferrous Sulfate (Ferrous Sulfate (Ec)) 325 mg DAILY PO ; Start 04/14/19 at 09:00 Famotidine (Pepcid Iv) 20 mg BID IV Last administered on 04/14/19at 20:49; Admin Dose 20 MG; Start 04/13/19 at 21:00 Diltiazem HCl (Cardizem Sr) 60 mg Q8H PO ; Start 04/13/19 at 21:30; Status Hold Calcium Carbonate (Oyster Shell Calcium) 1.25 gm DAILY PO ; Start 04/14/19 at 09:00 Valproate Sodium 250 mg/Sodium Chloride 52.5 ml @ 55 mls/hr Q8 IVPB Last administered on 04/14/19at 20:50; Admin Dose 55 MLS/HR; Start 04/13/19 at 22:00 Diphenhydramine HCl (Benadryl) 25 mg Q8 PRN IV ITCHING Last administered on 04/14/19at 01:32; Admin Dose 25 MG; Start 04/14/19 at 01:30 Lorazepam (Ativan) 0.5 mg Q6H PRN IV ANXIETY; Start 04/14/19 at 01:30 Mupirocin (Bactroban) 1 applic BID TOP Last administered on 04/14/19at 20:50; Admin Dose 1 APPLIC; Start 04/14/19 at 09:00; Stop 04/20/19 at 21:01 Allergies: Coded Allergies: Penicillins (Unverified Allergy, Unknown, 04/12/19) procaine (Verified Allergy, Unknown, 04/15/19) Social History Smoking Status: Unknown if ever smoked Exam/Review of Systems Exam Vitals Vital Signs Date Temp Pulse Resp B/P (MAP) Pulse Ox O2 O2 Flow FiO2 Time Delivery Rate 04/14/19 98.0 57 20 131/60 97 Room Air 19:59 (83) 04/14/19 21 19:48 04/14/19 2.0 19:41 Intake and Output 04/13/19 04/13/19 04/14/19 1515:00 23:00 07:00 IntakeIntake Total 102.5 ml OutputOutput Total 650 ml 500 ml BalanceBalance -650 ml -397.5 ml Exam GENERAL: Awake, alert, calm, cooperative, VSS, NAD, HEENT: AT, NC, anicteric NECK: Supple, no JVD appreciated CHEST: Equal chest rise bilaterally without dyspnea on observation Lungs diminished, dry cough noted x1 ABD: Soft, ND, NT : FC in place MSK: Generalized weakness, no joint edema EXTREMITIES: Warm, dry, no edema SKIN: No rash, no diaphoresis, see photos == large unstageable sacral ulcer w/fluctuance -- surrounding bilateral buttock edema/cellulitis Neuro: Eyes open & tracking, non-verbal, [place] speaks Portuguese, Psych: Mood is calm and cooperative Results Result Diagram: 04/14/19 0517 04/14/19 0517 Results 24hrs Laboratory Tests Test 04/14/19 05:17 White Blood Count 17.2 H Red Blood Count 3.49 L Hemoglobin 10.4 L Hematocrit 32.4 L Mean Corpuscular Volume 92.8 Mean Corpuscular Hemoglobin 29.8 Mean Corpuscular Hemoglobin Concent 32.1 Red Cell Distribution Width 14.4 Platelet Count 322 Mean Platelet Volume 9.8 Immature Granulocytes % 1.200 H Neutrophils % 85.1 H Lymphocytes % 6.3 L Monocytes % 4.9 Eosinophils % 2.2 Basophils % 0.3 Nucleated Red Blood Cells % 0.0 Immature Granulocytes # 0.200 H Neutrophils # 14.6 H Lymphocytes # 1.1 Monocytes # 0.9 Eosinophils # 0.4 Basophils # 0.1 Nucleated Red Blood Cells # 0.0 Sodium Level 149 H Potassium Level 4.3 Chloride Level 115 H Carbon Dioxide Level 29 Anion Gap 5 Blood Urea Nitrogen 31 H Creatinine 1.10 Est Glomerular Filtrat Rate mL/min Glucose Level 99 Calcium Level 8.3 L B-Type Natriuretic Peptide 6640 H Medications Medication Current Medications Dextrose/Sodium Chloride 1,000 ml @ 75 mls/hr [id number] IV Last administered on 04/14/19at 16:28; Admin Dose 75 MLS/HR; Start 04/13/19 at 00:30 Acetaminophen (Tylenol Tab) 650 mg Q6H PRN PO MILD PAIN(1-3)OR ELEVATED TEMP; Start 04/13/19 at 00:30 Vancomycin HCl (Vanco Iv Per Pharmacy) VANCOMYCIN PER PHARMACY PER PROTOCOL XX ; Start 04/13/19 at 00:30 Meropenem/Sodium Chloride 50 ml @ 100 mls/hr Q8 IVPB Last administered on 04/14/19at 20:50; Admin Dose 100 MLS/HR; Start 04/13/19 at 06:00 Enoxaparin Sodium (Lovenox) 30 mg DAILY SC Last administered on 04/14/19at 10:40; Admin Dose 30 MG; Start 04/13/19 at 09:00 Morphine Sulfate (morphine) 2 mg Q4H PRN IV SEVERE PAIN LEVEL 7-10; Start 04/13/19 at 00:30 Vancomycin HCl 1.25 gm/Sodium Chloride 250 ml @ 83.333 mls/ hr Q24H IVPB Last administered on 04/14/19at 17:43; Admin Dose 83.333 MLS/HR; Start 04/13/19 at 15:00 Miscellaneous Information (*Rx Drug Level Order Reminder*) VANCO TR LEVEL PRIOR... 1400 ONCE XX ; Start 04/15/19 at 14:00; Stop 04/15/19 at 14:01 Acetaminophen (Tylenol Tab) 650 mg Q4H PRN PO FEVER>100F; Start 04/13/19 at 17:30 Albuterol (Proventil 0.083% (Neb)) 1.25 mg Q4H PRN NEB WHEEZING AND SOB; Start 04/13/19 at 17:30 Atorvastatin Calcium (Lipitor) 10 mg QHS PO ; Start 04/13/19 at 21:00 Carbidopa/Levodopa (Sinemet (25/ 100)) 1 tab BID PO ; Start 04/13/19 at 21:00 Cholecalciferol (Vitamin D) 1,000 unit DAILY PO ; Start 04/14/19 at 09:00 Citalopram Hydrobromide (Celexa) 10 mg DAILY PO ; Start 04/14/19 at 09:00 Finasteride (Proscar) 5 mg DAILY PO ; Start 04/14/19 at 09:00 Hydroxyzine HCl (Atarax) 10 mg Q6H PRN PO ITCHING; Start 04/13/19 at 17:30 Ferrous Sulfate (Ferrous Sulfate (Ec)) 325 mg DAILY PO ; Start 04/14/19 at 09:00 Famotidine (Pepcid Iv) 20 mg BID IV Last administered on 04/14/19at 20:49; Admin Dose 20 MG; Start 04/13/19 at 21:00 Diltiazem HCl (Cardizem Sr) 60 mg Q8H PO ; Start 04/13/19 at 21:30; Status Hold Calcium Carbonate (Oyster Shell Calcium) 1.25 gm DAILY PO ; Start 04/14/19 at 09:00 Valproate Sodium 250 mg/Sodium Chloride 52.5 ml @ 55 mls/hr Q8 IVPB Last administered on 04/14/19at 20:50; Admin Dose 55 MLS/HR; Start 04/13/19 at 22:00 Diphenhydramine HCl (Benadryl) 25 mg Q8 PRN IV ITCHING Last administered on 04/14/19at 01:32; Admin Dose 25 MG; Start 04/14/19 at 01:30 Lorazepam (Ativan) 0.5 mg Q6H PRN IV ANXIETY; Start 04/14/19 at 01:30 Mupirocin (Bactroban) 1 applic BID TOP Last administered on 04/14/19at 20:50; Admin Dose 1 APPLIC; Start 04/14/19 at 09:00; Stop 04/20/19 at 21:01 FELI MARCIAL MD Apr 14, 2019 22:23
--- NOTE | 2019-04-14 22:24 | CONS ---
Assessment/Plan Assessment/Plan Hospital Course (Demo Recall) -ANEMIA COMPLEX, MONITOR - LEUKOCYTOSIS REACTIVE, monitor - fever, cough CXR, IV ATB , ID, CULTURES - Sepsis on admission w/fevers, leukocytosis, lactic acidosis Large sacral decub w/abscess and surrounding bilateral edema surg eval - HX urinary tract infection. IV ATB Complicated UTI w/urinary retention due to BPH & neurogenic bladder -Hx of PNA -GERD -Hx of CHAPARRITA - BPH, continue Flomax and Proscar - Dysphagia. swallow evaluation by ST. - History of cerebrovascular accident. Continue aspirin - Dyslipidemia. Continue statin - Parkinsonism. Continue carbidopa - Dementia with agitation. Continue Depakote. - Depression. Continue Celexa. Consultation Date/Type/Reason Admit Date/Time Apr 12, 2019 at 17:21 Initial Consult Date Date/Time of Note DATE: 04/14/19 TIME: 22:23 24 HR Interval Summary Free Text/Dictation all noted NAD NO BLEEDING Exam/Review of Systems Exam Vitals Vital Signs Date Temp Pulse Resp B/P (MAP) Pulse Ox O2 O2 Flow FiO2 Time Delivery Rate 04/14/19 98.0 57 20 131/60 97 Room Air 19:59 (83) 04/14/19 21 19:48 04/14/19 2.0 19:41 Intake and Output 04/13/19 04/13/19 04/14/19 1515:00 23:00 07:00 IntakeIntake Total 102.5 ml OutputOutput Total 650 ml 500 ml BalanceBalance -650 ml -397.5 ml Exam GENERAL: Awake, alert, calm, cooperative, VSS, NAD, HEENT: AT, NC, anicteric NECK: Supple, no JVD appreciated CHEST: Equal chest rise bilaterally without dyspnea on observation Lungs diminished, dry cough noted x1 ABD: Soft, ND, NT : FC in place MSK: Generalized weakness, no joint edema EXTREMITIES: Warm, dry, no edema SKIN: No rash, no diaphoresis, see photos == large unstageable sacral ulcer w/fluctuance -- surrounding bilateral buttock edema/cellulitis Neuro: Eyes open & tracking, non-verbal, [place] speaks [place]ian, Psych: Mood is calm and cooperative Results Result Diagram: 04/14/19 0517 04/14/19 0517 Results 24hrs Laboratory Tests Test 04/14/19 05:17 White Blood Count 17.2 H Red Blood Count 3.49 L Hemoglobin 10.4 L Hematocrit 32.4 L Mean Corpuscular Volume 92.8 Mean Corpuscular Hemoglobin 29.8 Mean Corpuscular Hemoglobin Concent 32.1 Red Cell Distribution Width 14.4 Platelet Count 322 Mean Platelet Volume 9.8 Immature Granulocytes % 1.200 H Neutrophils % 85.1 H Lymphocytes % 6.3 L Monocytes % 4.9 Eosinophils % 2.2 Basophils % 0.3 Nucleated Red Blood Cells % 0.0 Immature Granulocytes # 0.200 H Neutrophils # 14.6 H Lymphocytes # 1.1 Monocytes # 0.9 Eosinophils # 0.4 Basophils # 0.1 Nucleated Red Blood Cells # 0.0 Sodium Level 149 H Potassium Level 4.3 Chloride Level 115 H Carbon Dioxide Level 29 Anion Gap 5 Blood Urea Nitrogen 31 H Creatinine 1.10 Est Glomerular Filtrat Rate mL/min Glucose Level 99 Calcium Level 8.3 L B-Type Natriuretic Peptide 6640 H Medications Medication Current Medications Dextrose/Sodium Chloride 1,000 ml @ 75 mls/hr [id number] IV Last administered on 04/14/19at 16:28; Admin Dose 75 MLS/HR; Start 04/13/19 at 00:30 Acetaminophen (Tylenol Tab) 650 mg Q6H PRN PO MILD PAIN(1-3)OR ELEVATED TEMP; Start 04/13/19 at 00:30 Vancomycin HCl (Vanco Iv Per Pharmacy) VANCOMYCIN PER PHARMACY PER PROTOCOL XX ; Start 04/13/19 at 00:30 Meropenem/Sodium Chloride 50 ml @ 100 mls/hr Q8 IVPB Last administered on 04/14/19at 20:50; Admin Dose 100 MLS/HR; Start 04/13/19 at 06:00 Enoxaparin Sodium (Lovenox) 30 mg DAILY SC Last administered on 04/14/19at 10:40; Admin Dose 30 MG; Start 04/13/19 at 09:00 Morphine Sulfate (morphine) 2 mg Q4H PRN IV SEVERE PAIN LEVEL 7-10; Start 04/13/19 at 00:30 Vancomycin HCl 1.25 gm/Sodium Chloride 250 ml @ 83.333 mls/ hr Q24H IVPB Last administered on 04/14/19at 17:43; Admin Dose 83.333 MLS/HR; Start 04/13/19 at 15:00 Miscellaneous Information (*Rx Drug Level Order Reminder*) VANCO TR LEVEL PRIOR... 1400 ONCE XX ; Start 04/15/19 at 14:00; Stop 04/15/19 at 14:01 Acetaminophen (Tylenol Tab) 650 mg Q4H PRN PO FEVER>100F; Start 04/13/19 at 17:30 Albuterol (Proventil 0.083% (Neb)) 1.25 mg Q4H PRN NEB WHEEZING AND SOB; Start 04/13/19 at 17:30 Atorvastatin Calcium (Lipitor) 10 mg QHS PO ; Start 04/13/19 at 21:00 Carbidopa/Levodopa (Sinemet (25/ 100)) 1 tab BID PO ; Start 04/13/19 at 21:00 Cholecalciferol (Vitamin D) 1,000 unit DAILY PO ; Start 04/14/19 at 09:00 Citalopram Hydrobromide (Celexa) 10 mg DAILY PO ; Start 04/14/19 at 09:00 Finasteride (Proscar) 5 mg DAILY PO ; Start 04/14/19 at 09:00 Hydroxyzine HCl (Atarax) 10 mg Q6H PRN PO ITCHING; Start 04/13/19 at 17:30 Ferrous Sulfate (Ferrous Sulfate (Ec)) 325 mg DAILY PO ; Start 04/14/19 at 09:00 Famotidine (Pepcid Iv) 20 mg BID IV Last administered on 04/14/19at 20:49; Admin Dose 20 MG; Start 04/13/19 at 21:00 Diltiazem HCl (Cardizem Sr) 60 mg Q8H PO ; Start 04/13/19 at 21:30; Status Hold Calcium Carbonate (Oyster Shell Calcium) 1.25 gm DAILY PO ; Start 04/14/19 at 09:00 Valproate Sodium 250 mg/Sodium Chloride 52.5 ml @ 55 mls/hr Q8 IVPB Last administered on 04/14/19at 20:50; Admin Dose 55 MLS/HR; Start 04/13/19 at 22:00 Diphenhydramine HCl (Benadryl) 25 mg Q8 PRN IV ITCHING Last administered on 04/14/19at 01:32; Admin Dose 25 MG; Start 04/14/19 at 01:30 Lorazepam (Ativan) 0.5 mg Q6H PRN IV ANXIETY; Start 04/14/19 at 01:30 Mupirocin (Bactroban) 1 applic BID TOP Last administered on 04/14/19at 20:50; Admin Dose 1 APPLIC; Start 04/14/19 at 09:00; Stop 04/20/19 at 21:01 FELI MARCIAL MD Apr 14, 2019 22:23
[2019-04-15] VITALS (8 sets, daily range): BP systolic 119–139; BP diastolic 58–95; PULSE 58–104; RESP 20–44
[2019-04-15] MEDS: VALPROATE INJ 250 MG in SOD CHLORIDE 0.9% 50 ML IVPB SCH ×3 (05:31→20:39)
[2019-04-15] MEDS: DEXTROSE 5%-0.45% NACL 1,000 ML IV SCH ×2 (05:31→19:10)
[2019-04-15] MEDS: MEROPENEM 1 GM/50ML(PMX) 50 ML IVPB SCH ×3 (05:32→22:03)
[2019-04-15] MEDS ORDERED: LIDOCAINE 1% (MPF) 5 ML VIAL SC ONE ×2 (08:00→12:00)
[2019-04-15] MEDS: FAMOTIDINE 20 MG INJ IV SCH ×2 (08:13→20:39)
[2019-04-15] MEDS: FINASTERIDE 5 MG TAB PO SCH ×2 (08:14→09:25)
[2019-04-15] MEDS: CALCIUM CARBONATE 1.25 GM TAB PO SCH ×2 (08:14→09:24)
[2019-04-15] MEDS: CITALOPRAM 20 MG TAB PO SCH ×2 (08:14→09:24)
[2019-04-15] MEDS: FERROUS SULFATE (EC) 325 MG TAB PO SCH ×2 (08:14→09:24)
[2019-04-15] MEDS: CHOLECALCIFEROL 1,000 UNIT TAB PO SCH ×2 (08:14→09:24)
[2019-04-15] MEDS: CARBIDOPA/LEVODOPA (25/100) TAB PO SCH ×3 (08:14→20:39)
[2019-04-15] MEDS: MUPIROCIN 2% 22 GM OINT TOP SCH ×2 (08:57→20:40)
[2019-04-15] MEDS: ENOXAPARIN 30 MG/0.3 ML SYG SC SCH (09:05)
--- NOTE | 2019-04-15 11:54 | PN ---
Date/Time of Note Date/Time of Note DATE: 04/15/19 TIME: 11:48 Assessment/Plan VTE Prophylaxis Risk score (from Ns)>0 risk: 7 SCD applied (from Ns): Yes Pharmacological prophylaxis: LMWH Lines/Catheters IV Catheter Type (from Nrs): Peripheral IV Central line still needed: Yes Urinary Cath still in place: Yes Reason Cath still needed: urinary retention Assessment/Plan Hospital Course Patient passed swallow evaluate and will be restarted on pured diet, poor IV access, will obtain PICC line for IV fluids and antibiotics. Patient is cur rently on vancomycin and meropenem plan of care discussed with RN. Assessment/Plan - Sepsis secondary to E. coli UTI and Staphylococcus bacteremia. Change antibiotics per ID. Dr. Saldivar is following in infection disease consultation. - E. coli UTI - MRSA of nares - Sacral wound with possible abscess. Dr. Patel is asked to see patient in general surgery consultation. - Dysphagia, s/p swallow eval, continue PO diet. - BPH, continue Flomax and Proscar - History of cerebrovascular accident. Continue aspirin - Dyslipidemia. Continue statin - Parkinsonism. Continue Sinemet. - Dementia with agitation. Continue Depakote. - Depression. Continue Celexa. Further recommendations based on clinical course. Plan of care discussed with Dr. Rivera. Result Diagram: 04/14/1951604/14/19516 Exam/Review of Systems Exam Vitals Vital Signs Date Temp Pulse Resp B/P (MAP) Pulse Ox O2 O2 Flow FiO2 Time Delivery Rate 04/15/19 98.0 59 20 119/59 90 11:20 (79) 04/15/19 Nasal 2.0 08:00 Cannula 04/14/19 21 19:48 Intake and Output 04/14/19 04/14/19 04/15/19 1515:00 23:00 07:00 IntakeIntake Total 52.5 ml 350 ml OutputOutput Total 450 ml 1550 ml BalanceBalance 52.5 ml -100 ml -1550 ml Constitutional: alert, frail Neck: supple Respiratory: diminished breath sounds Cardiovascular: regular rate and rhythm Gastrointestinal: soft, non-tender Extremities: normal pulses Neurological: confused Skin: other (Sacral wound ) Medications Medication Current Medications Dextrose/Sodium Chloride 1,000 ml @ 75 mls/hr [id number] IV Last administered on 04/14/19at 16:28; Admin Dose 75 MLS/HR; Start 04/13/19 at 00:30 Acetaminophen (Tylenol Tab) 650 mg Q6H PRN PO MILD PAIN(1-3)OR ELEVATED TEMP; Start 04/13/19 at 00:30 Vancomycin HCl (Vanco Iv Per Pharmacy) VANCOMYCIN PER PHARMACY PER PROTOCOL XX ; Start 04/13/19 at 00:30 Meropenem/Sodium Chloride 50 ml @ 100 mls/hr Q8 IVPB Last administered on 04/14/19at 20:50; Admin Dose 100 MLS/HR; Start 04/13/19 at 06:00 Enoxaparin Sodium (Lovenox) 30 mg DAILY SC Last administered on 04/15/19 09:05; Admin Dose 30 MG; Start 04/13/19 at 09:00 Morphine Sulfate (morphine) 2 mg Q4H PRN IV SEVERE PAIN LEVEL 7-10; Start 04/13/19 at 00:30 Vancomycin HCl 1.25 gm/Sodium Chloride 250 ml @ 83.333 mls/ hr Q24H IVPB Last administered on 04/14/19at 17:43; Admin Dose 83.333 MLS/HR; Start 04/13/19 at 15:00 Miscellaneous Information (*Rx Drug Level Order Reminder*) VANCO TR LEVEL PRIOR... 1400 ONCE XX ; Start 04/15/19 at 14:00; Stop 04/15/19 at 14:01 Acetaminophen (Tylenol Tab) 650 mg Q4H PRN PO FEVER>100F; Start 04/13/19 at 17:30 Albuterol (Proventil 0.083% (Neb)) 1.25 mg Q4H PRN NEB WHEEZING AND SOB; Start 04/13/19 at 17:30 Atorvastatin Calcium (Lipitor) 10 mg QHS PO ; Start 04/13/19 at 21:00 Carbidopa/Levodopa (Sinemet (25/ 100)) 1 tab BID PO Last administered on 04/15/19 09:24; Admin Dose 1 TAB; Start 04/13/19 at 21:00 Cholecalciferol (Vitamin D) 1,000 unit DAILY PO Last administered on 04/15/19 09:24; Admin Dose 1,000 UNIT; Start 04/14/19 at 09:00 Citalopram Hydrobromide (Celexa) 10 mg DAILY PO Last administered on 04/15/19 09:24; Admin Dose 10 MG; Start 04/14/19 at 09:00 Finasteride (Proscar) 5 mg DAILY PO Last administered on 04/15/19 09:25; Admin Dose 5 MG; Start 04/14/19 at 09:00 Hydroxyzine HCl (Atarax) 10 mg Q6H PRN PO ITCHING; Start 04/13/19 at 17:30 Ferrous Sulfate (Ferrous Sulfate (Ec)) 325 mg DAILY PO Last administered on 04/15/19 09:24; Admin Dose 325 MG; Start 04/14/19 at 09:00 Famotidine (Pepcid Iv) 20 mg BID IV Last administered on 04/14/19 20:49; Admin Dose 20 MG; Start 04/13/19 at 21:00 Diltiazem HCl (Cardizem Sr) 60 mg Q8H PO ; Start 04/13/19 at 21:30; Status Hold Calcium Carbonate (Oyster Shell Calcium) 1.25 gm DAILY PO Last administered on 04/15/19 09:24; Admin Dose 1.25 GM; Start 04/14/19 at 09:00 Valproate Sodium 250 mg/Sodium Chloride 52.5 ml @ 55 mls/hr Q8 IVPB Last administered on 04/14/19 20:50; Admin Dose 55 MLS/HR; Start 04/13/19 at 22:00 Diphenhydramine HCl (Benadryl) 25 mg Q8 PRN IV ITCHING Last administered on 04/14/19 01:32; Admin Dose 25 MG; Start 04/14/19 at 01:30 Lorazepam (Ativan) 0.5 mg Q6H PRN IV ANXIETY; Start 04/14/19 at 01:30 Mupirocin (Bactroban) 1 applic BID TOP Last administered on 04/15/19 08:57; Admin Dose 1 APPLIC; Start 04/14/19 at 09:00; Stop 04/20/19 at 21:01 ROLANDO SANFORD Apr 15, 2019 11:54
--- NOTE | 2019-04-15 12:56 | CONS ---
Assessment/Plan Assessment/Plan Hospital Course (Demo Recall) 1. Sacral deep tissue injury with colitis and possible abscess -IV antibiotics -Gentle IV fluids -OR for incision drainage and debridement, will obtain consent from family 2. CVA history, bedbound, functional quadriplegia -Medical optimization -Offloading -Nutritional optimization 3. CHF history -Cardiac optimization with judicious fluid management 4. Anemia, stable -Monitor Thank you very much for consulting me in this patient's care, Consultation Date/Type/Reason Admit Date/Time Apr 12, 2019 at 17:21 Date of Consultation: Apr 15, 2019 Type of Consult General surgical Reason for Consultation Sacral deep tissue injury with probable abscess and cellulitis Leukocytosis Requesting Provider: ROLANDO SANFORD Date/Time of Note DATE: 04/15/19 TIME: 12:47 Hx of Present Illness Bill Colvin is an 83-year-old man with multiple comorbidities, bedbound state, brought in by EMS from retirement for sacral possible abscess x3 days. Patient was admitted on the fifth however consult is placed today for surgical evaluation. Patient is unable to give information and most of the information is obtained from chart and staff. There is no current fevers or chills. No cough. No seizure. No blood per mouth or rectum. No noted vomiting. Patient is having bowel function. 12 point review of system negative unless otherwise addressed in chart Past Medical History Sacral deep tissue injury with colitis and possible abscess Dementia, CVA, CHF BPH, Dysphagia, Dyslipidemia, Parkinsonism, Depression, Delusions UTIs History of respiratory failure History of pneumonitis Hypernatremia Home Meds Reported Medications Cephalexin* (Cephalexin*) 500 Mg Capsule, 500 MG PO Q8, #21 CAP START DATE 04/11 END DATE 04/18 START DATE 04/13 END DATE 04/2004/12/19 Ivermectin* (Stromectol*) 3 Mg Tab, 12 MG PO ONCE, TAB START DATE 04/20 AND END DATE 04/2104/12/19 Hydroxyzine Hcl* (Hydroxyzine Hcl*) 10 Mg Tablet, 10 MG PO Q6H PRN for ITCHING, #30 TAB 04/12/19 Finasteride* (Finasteride*) 5 Mg Tablet, 5 MG PO DAILY, TAB 04/12/19 [Ferrous Sulfat] No Conflict Check, 5 MG PO QAM 5MG/20ML LIQUID-QAM 04/12/19 Enoxaparin Sodium* (Enoxaparin Sodium*) 30 Mg/0.3 Ml Syringe, 30 MG SC DAILY, SYR 04/12/19 Diltiazem Hcl* (Cardizem SR*) 60 Mg Capsr, 60 MG PO Q8H, #60 CAP 04/12/19 Divalproex Sodium* (Depakote*) 125 Mg Tablet.dr, 125 MG PO TID, #90 TAB 04/12/19 Cranberry Ext/C/L. Sporogenes (Cranberry Tablet) 1 Each Tablet, 1 EACH PO QAM, TAB 04/12/19 Citalopram Hydrobromide* (Citalopram Hydrobromide*) 10 Mg Tablet, 10 MG PO DAILY, #30 TAB 04/12/19 Cholecalciferol* (Vitamin D3*) 1,000 Unit Tablet, 1000 UNIT PO DAILY, TAB 04/12/19 Carbidopa/Levodopa (Carbidopa-Levodopa 25-100 Tab) 1 Each Tablet, 1 EACH PO BID, TAB 04/12/19 Calcium Carbonate (Calcium Carbonate) 500 Mg Tab.chew, 500 MG PO QAM, TAB.CHEW 04/12/19 Atorvastatin Calcium (Atorvastatin Calcium) 10 Mg Tablet, 10 MG PO QHS, #30 TAB 04/12/19 Albuterol Sulfate* (Albuterol Sulfate* Neb) 0.083%-3 Ml Neb, 1.25 MG NEB Q4H PRN for WHEEZING AND SOB, #30 VIAL 04/12/19 Acetaminophen* (Acetaminophen*) 650 Mg Tablet, 650 MG PO Q4H PRN for FEVER>100F, #30 TAB 04/12/19 Discontinued Reported Medications Cranberry Ext/C/L. Sporogenes (Cranberry Tablet) 1 Each Tablet, 1 EACH G-TUBE DAILY PRN for UTI PPX, TAB 02/23/19 Diltiazem Hcl* (Cardizem*) 60 Mg Tablet, 60 MG GTB Q8, #90 TAB 02/23/19 Calcium Carbonate (Calcium Carbonate) 500 Mg/5 Ml Oral.susp, 500 MG ORAL DAILY 02/23/19 Hydroxyzine Hcl* (Hydroxyzine Hcl*) 10 Mg Tablet, 10 MG GTB Q6H PRN for ITCHING, #30 TAB 02/23/19 Enoxaparin Sodium* (Lovenox*) 30 Mg/0.3 Ml Disp.syrin, 30 MG SQ DAILY for DVT PPX, SYR 02/23/19 Ipratropium-Albuterol (Ipratropium-Albuterol) 0.5-3 Mg/3 Ml Ampul.neb, 3 ML INHALATION Q6 for SOB, #30 VIAL 02/23/19 Clotrimazole-Betamethasone Diprop (Clotrimazole-Betamethasone Diprop) 15 Gm Cream.gm., 1 APPLIC TOP BID, TUB 02/23/19 Multivitamin with Minerals (Multivitamins with Minerals) 1 Each Tablet, 1 EACH ORAL QAM for SUPPLEMENT, TAB 11/02/18 Ferrous Sulfate* (Ferrous Sulfate*) 220 Mg/5 Ml Solution, 220 MG ORAL DAILY for ANEMIA, ML 11/02/18 Albuterol Sulfate* (Albuterol Sulfate* Neb) 0.083%-3 Ml Neb, 1.25 MG NEB Q4H PRN for SHORTNESS OF BREATH, #30 VIAL 11/02/18 Lactobacillus Acidophilus (Acidophilus Lactobacillus) 1 Each Capsule, 1 EACH ORAL TID for GI PPX, CAP 11/02/18 Divalproex Sodium* (Depakote* Sprinkle) 125 Mg Cap.sprink, 125 MG ORAL TID, #90 CAP 08/27/18 Carbidopa/Levodopa (Carbidopa-Levodopa 25-100 Tab) 1 Each Tablet, 1 EACH ORAL BID for PARALYSIS AGITANS, TAB 08/27/18 Cholecalciferol* (Vitamin D3*) 1,000 Unit Tablet, 1000 UNIT ORAL DAILY for SUP PLEMENT, TAB 08/27/18 Tamsulosin Hcl* (Tamsulosin Hcl*) 0.4 Mg Cap.er.24h, 0.4 MG ORAL HS for HYPERTROPHY PROSTATE, CAP 08/27/18 Omeprazole* (Omeprazole*) 20 Mg Capsule.dr, 20 MG GTB QAM for GERD, #30 CAP 08/27/18 Atorvastatin Calcium (Atorvastatin Calcium) 10 Mg Tablet, 10 MG ORAL QHS for HYPERCHOLESTEROLEMIA, #30 TAB 08/27/18 Aspirin* (Aspirin* Chew) 81 Mg Tab.chew, 81 MG ORAL DAILY for CVA PPX, TAB.CHEW 08/27/18 Acetaminophen* (Acetaminophen*) 650 Mg Tablet, 650 MG ORAL Q4 PRN for FEVER, #30 TAB 08/27/18 Finasteride* (Finasteride*) 5 Mg Tablet, 5 MG ORAL DAILY for HYPERTROPHY PROSTATE, TAB 08/27/18 Citalopram Hydrobromide* (Citalopram Hydrobromide*) 10 Mg Tablet, 10 MG ORAL QHS for DEPRESSIVE DISORDER, #30 TAB 08/27/18 Medications Current Medications Dextrose/Sodium Chloride 1,000 ml @ 75 mls/hr [id number] IV Last administered on 04/14/19at 16:28; Admin Dose 75 MLS/HR; Start 04/13/19 at 00:30 Acetaminophen (Tylenol Tab) 650 mg Q6H PRN PO MILD PAIN(1-3)OR ELEVATED TEMP; Start 04/13/19 at 00:30 Vancomycin HCl (Vanco Iv Per Pharmacy) VANCOMYCIN PER PHARMACY PER PROTOCOL XX ; Start 04/13/19 at 00:30 Meropenem/Sodium Chloride 50 ml @ 100 mls/hr Q8 IVPB Last administered on 04/14/19at 20:50; Admin Dose 100 MLS/HR; Start 04/13/19 at 06:00 Enoxaparin Sodium (Lovenox) 30 mg DAILY SC Last administered on 04/15/19at 09:05; Admin Dose 30 MG; Start 04/13/19 at 09:00 Morphine Sulfate (morphine) 2 mg Q4H PRN IV SEVERE PAIN LEVEL 7-10; Start 04/13/19 at 00:30 Vancomycin HCl 1.25 gm/Sodium Chloride 250 ml @ 83.333 mls/ hr Q24H IVPB Last administered on 04/14/19at 17:43; Admin Dose 83.333 MLS/HR; Start 04/13/19 at 15:00 Miscellaneous Information (*Rx Drug Level Order Reminder*) VANCO TR LEVEL PRIO R... 1400 ONCE XX ; Start 04/15/19 at 14:00; Stop 04/15/19 at 14:01 Acetaminophen (Tylenol Tab) 650 mg Q4H PRN PO FEVER>100F; Start 04/13/19 at 17:30 Albuterol (Proventil 0.083% (Neb)) 1.25 mg Q4H PRN NEB WHEEZING AND SOB; Start 04/13/19 at 17:30 Atorvastatin Calcium (Lipitor) 10 mg QHS PO ; Start 04/13/19 at 21:00 Carbidopa/Levodopa (Sinemet (25/ 100)) 1 tab BID PO Last administered on 04/15/19 09:24; Admin Dose 1 TAB; Start 04/13/19 at 21:00 Cholecalciferol (Vitamin D) 1,000 unit DAILY PO Last administered on 04/15/19 09:24; Admin Dose 1,000 UNIT; Start 04/14/19 at 09:00 Citalopram Hydrobromide (Celexa) 10 mg DAILY PO Last administered on 04/15/19 09:24; Admin Dose 10 MG; Start 04/14/19 at 09:00 Finasteride (Proscar) 5 mg DAILY PO Last administered on 04/15/19 09:25; Admin Dose 5 MG; Start 04/14/19 at 09:00 Hydroxyzine HCl (Atarax) 10 mg Q6H PRN PO ITCHING; Start 04/13/19 at 17:30 Ferrous Sulfate (Ferrous Sulfate (Ec)) 325 mg DAILY PO Last administered on 04/15/19 09:24; Admin Dose 325 MG; Start 04/14/19 at 09:00 Famotidine (Pepcid Iv) 20 mg BID IV Last administered on 04/14/19 20:49; Admin Dose 20 MG; Start 04/13/19 at 21:00 Diltiazem HCl (Cardizem Sr) 60 mg Q8H PO ; Start 04/13/19 at 21:30; Status Hold Calcium Carbonate (Oyster Shell Calcium) 1.25 gm DAILY PO Last administered on 04/15/19 09:24; Admin Dose 1.25 GM; Start 04/14/19 at 09:00 Valproate Sodium 250 mg/Sodium Chloride 52.5 ml @ 55 mls/hr Q8 IVPB Last administered on 04/14/19 20:50; Admin Dose 55 MLS/HR; Start 04/13/19 at 22:00 Diphenhydramine HCl (Benadryl) 25 mg Q8 PRN IV ITCHING Last administered on 04/14/19 01:32; Admin Dose 25 MG; Start 04/14/19 at 01:30 Lorazepam (Ativan) 0.5 mg Q6H PRN IV ANXIETY; Start 04/14/19 at 01:30 Mupirocin (Bactroban) 1 applic BID TOP Last administered on 04/15/19at 08:57; Admin Dose 1 APPLIC; Start 04/14/19 at 09:00; Stop 04/20/19 at 21:01 Allergies: Coded Allergies: Penicillins (Unverified Allergy, Unknown, 04/12/19) Past Surgical History Cholecystectomy Family History Significant Family History: no pertinent family hx Social History No current alcohol drugs or tobacco Smoking Status: Unknown if ever smoked Exam/Review of Systems Exam Vitals Vital Signs Date Temp Pulse Resp B/P (MAP) Pulse Ox O2 O2 Flow FiO2 Time Delivery Rate 04/15/19 98.0 59 20 119/59 90 11:20 (79) 04/15/19 Nasal 2.0 08:00 Cannula 04/14/19 19:48 Intake and Output 04/14/19 04/14/19 04/15/19 1515:00 23:00 07:00 IntakeIntake Total 52.5 ml 350 ml OutputOutput Total 450 ml 1550 ml BalanceBalance 52.5 ml -100 ml -1550 ml Constitutional: No oriented Psych: anxiety, confusion Head: normocephalic, atraumatic Eyes: nl conjunctiva, EOMI, PERRL; No icteric ENMT: nl external ears & nose, mucosa pink and moist Neck: supple, non-tender, jvd (Minimal) Respiratory: normal air movement; No congested cough, No labored breathing, No wheezing Cardiovascular: regular rate and rhythm; No edema Gastrointestinal: soft, non-tender; No distended, No rebound or guarding Genitourinary - Male: No nl scrotum (Wound) Musculoskeletal: No nl extremities to inspection, No nl gait and stance, No joint tenderness Extremities: normal pulses; No calf tenderness, No edema Neurological: No nl mental status, No nl speech, No nl strength Skin: rash or lesions (Sacral blanching erythema with fluctuance and necrosis); No diaphoresis Lymph: nl lymph nodes Results Result Diagram: 04/14/1951604/14/19 05 Medications Medication Current Medications Dextrose/Sodium Chloride 1,000 ml @ 75 mls/hr [id number] IV Last administered on 04/14/19at 16:28; Admin Dose 75 MLS/HR; Start 04/13/19 at 00:30 Acetaminophen (Tylenol Tab) 650 mg Q6H PRN PO MILD PAIN(1-3)OR ELEVATED TEMP; Start 04/13/19 at 00:30 Vancomycin HCl (Vanco Iv Per Pharmacy) VANCOMYCIN PER PHARMACY PER PROTOCOL XX ; Start 04/13/19 at 00:30 Meropenem/Sodium Chloride 50 ml @ 100 mls/hr Q8 IVPB Last administered on 04/14/19at 20:50; Admin Dose 100 MLS/HR; Start 04/13/19 at 06:00 Enoxaparin Sodium (Lovenox) 30 mg DAILY SC Last administered on 04/15/19 09:05; Admin Dose 30 MG; Start 04/13/19 at 09:00 Morphine Sulfate (morphine) 2 mg Q4H PRN IV SEVERE PAIN LEVEL 7-10; Start 04/13/19 at 00:30 Vancomycin HCl 1.25 gm/Sodium Chloride 250 ml @ 83.333 mls/ hr Q24H IVPB Last administered on 04/14/19at 17:43; Admin Dose 83.333 MLS/HR; Start 04/13/19 at 15:00 Miscellaneous Information (*Rx Drug Level Order Reminder*) VANCO TR LEVEL PRIOR... 1400 ONCE XX ; Start 04/15/19 at 14:00; Stop 04/15/19 at 14:01 Acetaminophen (Tylenol Tab) 650 mg Q4H PRN PO FEVER>100F; Start 04/13/19 at 17:30 Albuterol (Proventil 0.083% (Neb)) 1.25 mg Q4H PRN NEB WHEEZING AND SOB; Start 04/13/19 at 17:30 Atorvastatin Calcium (Lipitor) 10 mg QHS PO ; Start 04/13/19 at 21:00 Carbidopa/Levodopa (Sinemet (25/ 100)) 1 tab BID PO Last administered on 04/15/19 09:24; Admin Dose 1 TAB; Start 04/13/19 at 21:00 Cholecalciferol (Vitamin D) 1,000 unit DAILY PO Last administered on 04/15/19 09:24; Admin Dose 1,000 UNIT; Start 04/14/19 at 09:00 Citalopram Hydrobromide (Celexa) 10 mg DAILY PO Last administered on 04/15/19 09:24; Admin Dose 10 MG; Start 04/14/19 at 09:00 Finasteride (Proscar) 5 mg DAILY PO Last administered on 04/15/19 09:25; Admin Dose 5 MG; Start 04/14/19 at 09:00 Hydroxyzine HCl (Atarax) 10 mg Q6H PRN PO ITCHING; Start 04/13/19 at 17:30 Ferrous Sulfate (Ferrous Sulfate (Ec)) 325 mg DAILY PO Last administered on 04/15/19 09:24; Admin Dose 325 MG; Start 04/14/19 at 09:00 Famotidine (Pepcid Iv) 20 mg BID IV Last administered on 04/14/19 20:49; Admin Dose 20 MG; Start 04/13/19 at 21:00 Diltiazem HCl (Cardizem Sr) 60 mg Q8H PO ; Start 04/13/19 at 21:30; Status Hold Calcium Carbonate (Oyster Shell Calcium) 1.25 gm DAILY PO Last administered on 04/15/19 09:24; Admin Dose 1.25 GM; Start 04/14/19 at 09:00 Valproate Sodium 250 mg/Sodium Chloride 52.5 ml @ 55 mls/hr Q8 IVPB Last administered on 04/14/19 20:50; Admin Dose 55 MLS/HR; Start 04/13/19 at 22:00 Diphenhydramine HCl (Benadryl) 25 mg Q8 PRN IV ITCHING Last administered on 04/14/19 01:32; Admin Dose 25 MG; Start 04/14/19 at 01:30 Lorazepam (Ativan) 0.5 mg Q6H PRN IV ANXIETY; Start 04/14/19 at 01:30 Mupirocin (Bactroban) 1 applic BID TOP Last administered on 04/15/19 08:57; Admin Dose 1 APPLIC; Start 04/14/19 at 09:00; Stop 04/20/19 at 21:01 FELIX DE LOS SANTOS MD Apr 15, 2019 12:56
--- NOTE | 2019-04-15 17:56 | PREAC ---
Date/Time of Note Date/Time of Note DATE: 04/15/19 TIME: 17:55 Anesthesia Eval and Record Evaluation Time Pre-Procedure Interview DATE: 04/15/19 TIME: 17:55 Age 83 Sex male NPO: 8 hrs Preoperative diagnosis sacral decubitus ulcer Planned procedure I&D sacrum Past Medical History Past Medical History: Includes Cardio: Dyslipidemia, CAD, CHF Neuro: CVA Musculoskeletal: Osteoarthritis Renal: CHAPARRITA, CKD GI: GERD Heme: Anemia Psych: Depression Surgery & Anesthesia Issues No known issue Meds Anticoagulation: No Beta Matthew within 24 hr: No Reason Beta Matthew not given: Pt. not on B-Matthew Reported Medications Cephalexin* (Cephalexin*) 500 Mg Capsule, 500 MG PO Q8, #21 CAP START DATE 04/11 END DATE 04/18 START DATE 04/13 END DATE 04/2004/12/19 Ivermectin* (Stromectol*) 3 Mg Tab, 12 MG PO ONCE, TAB START DATE 04/20 AND END DATE 04/2104/12/19 Hydroxyzine Hcl* (Hydroxyzine Hcl*) 10 Mg Tablet, 10 MG PO Q6H PRN for ITCHING, #30 TAB 04/12/19 Finasteride* (Finasteride*) 5 Mg Tablet, 5 MG PO DAILY, TAB 04/12/19 [Ferrous Sulfat] No Conflict Check, 5 MG PO QAM 5MG/20ML LIQUID-QAM 04/12/19 Enoxaparin Sodium* (Enoxaparin Sodium*) 30 Mg/0.3 Ml Syringe, 30 MG SC DAILY, SYR 04/12/19 Diltiazem Hcl* (Cardizem SR*) 60 Mg Capsr, 60 MG PO Q8H, #60 CAP 04/12/19 Divalproex Sodium* (Depakote*) 125 Mg Tablet.dr, 125 MG PO TID, #90 TAB 04/12/19 Cranberry Ext/C/L. Sporogenes (Cranberry Tablet) 1 Each Tablet, 1 EACH PO QAM, TAB 04/12/19 Citalopram Hydrobromide* (Citalopram Hydrobromide*) 10 Mg Tablet, 10 MG PO DAILY, #30 TAB 04/12/19 Cholecalciferol* (Vitamin D3*) 1,000 Unit Tablet, 1000 UNIT PO DAILY, TAB 04/12/19 Carbidopa/Levodopa (Carbidopa-Levodopa 25-100 Tab) 1 Each Tablet, 1 EACH PO BID, TAB 04/12/19 Calcium Carbonate (Calcium Carbonate) 500 Mg Tab.chew, 500 MG PO QAM, TAB.CHEW 04/12/19 Atorvastatin Calcium (Atorvastatin Calcium) 10 Mg Tablet, 10 MG PO QHS, #30 TAB 04/12/19 Albuterol Sulfate* (Albuterol Sulfate* Neb) 0.083%-3 Ml Neb, 1.25 MG NEB Q4H PRN for WHEEZING AND SOB, #30 VIAL 04/12/19 Acetaminophen* (Acetaminophen*) 650 Mg Tablet, 650 MG PO Q4H PRN for FEVER>100F, #30 TAB 04/12/19 Discontinued Reported Medications Cranberry Ext/C/L. Sporogenes (Cranberry Tablet) 1 Each Tablet, 1 EACH G-TUBE DAILY PRN for UTI PPX, TAB 02/23/19 Diltiazem Hcl* (Cardizem*) 60 Mg Tablet, 60 MG GTB Q8, #90 TAB 02/23/19 Calcium Carbonate (Calcium Carbonate) 500 Mg/5 Ml Oral.susp, 500 MG ORAL DAILY 02/23/19 Hydroxyzine Hcl* (Hydroxyzine Hcl*) 10 Mg Tablet, 10 MG GTB Q6H PRN for ITCHING, #30 TAB 02/23/19 Enoxaparin Sodium* (Lovenox*) 30 Mg/0.3 Ml Disp.syrin, 30 MG SQ DAILY for DVT PPX, SYR 02/23/19 Ipratropium-Albuterol (Ipratropium-Albuterol) 0.5-3 Mg/3 Ml Ampul.neb, 3 ML INHALATION Q6 for SOB, #30 VIAL 02/23/19 Clotrimazole-Betamethasone Diprop (Clotrimazole-Betamethasone Diprop) 15 Gm Cream.gm., 1 APPLIC TOP BID, TUB 02/23/19 Multivitamin with Minerals (Multivitamins with Minerals) 1 Each Tablet, 1 EACH ORAL QAM for SUPPLEMENT, TAB 11/02/18 Ferrous Sulfate* (Ferrous Sulfate*) 220 Mg/5 Ml Solution, 220 MG ORAL DAILY for ANEMIA, ML 11/02/18 Albuterol Sulfate* (Albuterol Sulfate* Neb) 0.083%-3 Ml Neb, 1.25 MG NEB Q4H PRN for SHORTNESS OF BREATH, #30 VIAL 11/02/18 Lactobacillus Acidophilus (Acidophilus Lactobacillus) 1 Each Capsule, 1 EACH ORAL TID for GI PPX, CAP 11/02/18 Divalproex Sodium* (Depakote* Sprinkle) 125 Mg Cap.sprink, 125 MG ORAL TID, #90 CAP 08/27/18 Carbidopa/Levodopa (Carbidopa-Levodopa 25-100 Tab) 1 Each Tablet, 1 EACH ORAL BID for PARALYSIS AGITANS, TAB 08/27/18 Cholecalciferol* (Vitamin D3*) 1,000 Unit Tablet, 1000 UNIT ORAL DAILY for SUPPLEMENT, TAB 08/27/18 Tamsulosin Hcl* (Tamsulosin Hcl*) 0.4 Mg Cap.er.24h, 0.4 MG ORAL HS for HYPERTROPHY PROSTATE, CAP 08/27/18 Omeprazole* (Omeprazole*) 20 Mg Capsule.dr, 20 MG GTB QAM for GERD, #30 CAP 08/27/18 Atorvastatin Calcium (Atorvastatin Calcium) 10 Mg Tablet, 10 MG ORAL QHS for HYPERCHOLESTEROLEMIA, #30 TAB 08/27/18 Aspirin* (Aspirin* Chew) 81 Mg Tab.chew, 81 MG ORAL DAILY for CVA PPX, TAB.CHEW 08/27/18 Acetaminophen* (Acetaminophen*) 650 Mg Tablet, 650 MG ORAL Q4 PRN for FEVER, #30 TAB 08/27/18 Finasteride* (Finasteride*) 5 Mg Tablet, 5 MG ORAL DAILY for HYPERTROPHY PROSTATE, TAB 08/27/18 Citalopram Hydrobromide* (Citalopram Hydrobromide*) 10 Mg Tablet, 10 MG ORAL QHS for DEPRESSIVE DISORDER, #30 TAB 08/27/18 Current Medications Dextrose/Sodium Chloride 1,000 ml @ 75 mls/hr [id number] IV Last administered on 04/14/19at 16:28; Admin Dose 75 MLS/HR; Start 04/13/19 at 00:30 Acetaminophen (Tylenol Tab) 650 mg Q6H PRN PO MILD PAIN(1-3)OR ELEVATED TEMP; Start 04/13/19 at 00:30 Vancomycin HCl (Vanco Iv Per Pharmacy) VANCOMYCIN PER PHARMACY PER PROTOCOL XX ; Start 04/13/19 at 00:30 Meropenem/Sodium Chloride 50 ml @ 100 mls/hr Q8 IVPB Last administered on 04/15/19 13:51; Admin Dose 100 MLS/HR; Start 04/13/19 at 06:00 Enoxaparin Sodium (Lovenox) 30 mg DAILY SC Last administered on 04/15/19 09:05; Admin Dose 30 MG; Start 04/13/19 at 09:00 Morphine Sulfate (morphine) 2 mg Q4H PRN IV SEVERE PAIN LEVEL 7-10; Start 04/13/19 at 00:30 Acetaminophen (Tylenol Tab) 650 mg Q4H PRN PO FEVER>100F; Start 04/13/19 at 17:30 Albuterol (Proventil 0.083% (Neb)) 1.25 mg Q4H PRN NEB WHEEZING AND SOB; Start 04/13/19 at 17:30 Atorvastatin Calcium (Lipitor) 10 mg QHS PO ; Start 04/13/19 at 21:00 Carbidopa/Levodopa (Sinemet (25/ 100)) 1 tab BID PO Last administered on 04/15/19 09:24; Admin Dose 1 TAB; Start 04/13/19 at 21:00 Cholecalciferol (Vitamin D) 1,000 unit DAILY PO Last administered on 04/15/19 09:24; Admin Dose 1,000 UNIT; Start 04/14/19 at 09:00 Citalopram Hydrobromide (Celexa) 10 mg DAILY PO Last administered on 04/15/19 09:24; Admin Dose 10 MG; Start 04/14/19 at 09:00 Finasteride (Proscar) 5 mg DAILY PO Last administered on 04/15/19 09:25; Admin Dose 5 MG; Start 04/14/19 at 09:00 Hydroxyzine HCl (Atarax) 10 mg Q6H PRN PO ITCHING; Start 04/13/19 at 17:30 Ferrous Sulfate (Ferrous Sulfate (Ec)) 325 mg DAILY PO Last administered on 04/15/19 09:24; Admin Dose 325 MG; Start 04/14/19 at 09:00 Famotidine (Pepcid Iv) 20 mg BID IV Last administered on 04/14/19at 20:49; Admin Dose 20 MG; Start 04/13/19 at 21:00 Diltiazem HCl (Cardizem Sr) 60 mg Q8H PO ; Start 04/13/19 at 21:30; Status Hold Calcium Carbonate (Oyster Shell Calcium) 1.25 gm DAILY PO Last administered on 04/15/19at 09:24; Admin Dose 1.25 GM; Start 04/14/19 at 09:00 Valproate Sodium 250 mg/Sodium Chloride 52.5 ml @ 55 mls/hr Q8 IVPB Last administered on 04/15/19at 16:42; Admin Dose 55 MLS/HR; Start 04/13/19 at 22:00 Diphenhydramine HCl (Benadryl) 25 mg Q8 PRN IV ITCHING Last administered on 04/14/19at 01:32; Admin Dose 25 MG; Start 04/14/19 at 01:30 Lorazepam (Ativan) 0.5 mg Q6H PRN IV ANXIETY; Start 04/14/19 at 01:30 Mupirocin (Bactroban) 1 applic BID TOP Last administered on 04/15/19at 08:57; Admin Dose 1 APPLIC; Start 04/14/19 at 09:00; Stop 04/20/19 at 21:01 Meds reviewed: Yes Allergies Coded Allergies: Penicillins (Unverified Allergy, Unknown, 04/12/19) procaine (Verified Allergy, Unknown, 04/15/19) Allergies Reviewed: Yes Labs/Studies Labs Reviewed: Reviewed by anesthesiologist Result Diagram: 04/14/1951604/14/19516 test: N/A Studies: ECG Pre-procedure Exam Last vitals Vital Signs Date Temp Pulse Resp B/P (MAP) Pulse Ox O2 O2 Flow FiO2 Time Delivery Rate 04/15/19 97.8 58 20 119/58 94 15:49 (78) 04/15/19 Nasal 2.0 08:00 Cannula 04/14/19 21 19:48 Airway: Adequate mouth opening, Adequate thyromental dist Mallampati: Mallampati II Teeth: Normal Lung: Normal Heart: Normal ASA Physical Status ASA physical status: 3 Emergency: None Planned Anesthetic General/MAC: Mask, MAC Pre-operative Attestations Prior to commencing anesthesia and surgery, the patient was re-evaluated, there was verification of: *The patient's identity *The results of appropriate recent lab work and preoperative vital signs *The above evaluation not changing prior to induction *Anesthetic plan, risk benefits, alternative and complications discussed with patient/family; questions answered; patient/family understands, accepts and wishes to proceed. JACIEL MERINO Apr 15, 2019 17:56
[2019-04-15] MEDS ORDERED: PROPOFOL 20 ML ONE (18:26)
[2019-04-15] MEDS ORDERED: CLINDAMYCIN 600 MG/D5W (PMX) 50 ML IVPB ONE (18:26)
[2019-04-15] MEDS ORDERED: LIDOCAINE 2% (SDV) 5 ML INJ ONE (18:26)
--- NOTE | 2019-04-15 18:31 | OPR ---
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 Excisional debridement of skin subcu muscle fascia of the sacrum, 10 x 6.5 cm 2. Incision and drainage of sacral abscess down into the muscle and fascia, 10 x 6.5 cm Surgeon Felix De Los Santos MD Re Recording Mixer None Anesthesia Type: MAC Anesthesiologist: JACIEL MERINO Estimated Blood Loss: 10 - 50 ml's Transfusion none Specimen Culture Tissue Grafts/Implants none Tubes/Drains Kerlix with Betadine packing Complications none Pt Condition Post Procedure: stable Disposition: PACU Indications Consult note. Risks include but are not limited to bleeding, infection, abscess, seroma, leak, damage to surrounding structures, chronic pain, need for re-operations or further surgeries, [place], stroke, PE, DVT, pneumonia, organ failures, or even . This was discussed with son and he agrees to proceed. Procedure Description Patient was brought in on his own bed to the OR. Placed in lateral decubitus position. All pressure points were well-padded. Patient is already on antibiotics. Anesthesia was instituted. Timeout was performed. He was prepped and draped in usual sterile fashion. Using electrocautery abscess was entered and large amount of pus was drained. Culture was sent. Using electrocautery again, skin, subcutaneous, and muscle/fascia were excised down to healthier tissue. Hemostasis was obtained. Wound was irrigated and packed with Betadine soaked Kerlix. Dry dressing was applied. Patient was taken back to recovery room in stable condition. All counts were correct at the end of the operation 2. FELIX DE LOS SANTOS MD Apr 15, 2019 18:31
[2019-04-15] MEDS: ATORVASTATIN 10 MG TAB PO SCH (20:39)
[2019-04-15] MEDS: VANCOMYCIN HCL 1.5 GM in SOD CHLORIDE 0.9% 250 ML IVPB SCH (20:46)
--- NOTE | 2019-04-15 23:33 | CONS ---
Assessment/Plan Assessment/Plan Hospital Course (Demo Recall) -ANEMIA COMPLEX MONITOR -LEUKOCYTOSIS REACTIVE MONITOR ON ATB - Sepsis - E. 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 - Dysphagia, swallow eval - BPH, continue Flomax and Proscar - History of cerebrovascular accident. Continue aspirin - Dyslipidemia. Continue statin - Parkinsonism. Continue Sinemet. - Dementia with agitation. Continue Depakote. - Depression. Continue Celexa. Consultation Date/Type/Reason Admit Date/Time Apr 12, 2019 at 17:21 Initial Consult Date Requesting Provider: ROLANDO SANFORD Date/Time of Note DATE: 04/15/19 TIME: 23:33 24 HR Interval Summary Free Text/Dictation all noted NAD Exam/Review of Systems Exam Vitals Vital Signs Date Temp Pulse Resp B/P (MAP) Pulse Ox O2 O2 Flow FiO2 Time Delivery Rate 04/15/19 97.4 61 20 131/95 100 Room Air 20:03 (107) 04/15/19 8.0 18:36 04/14/19 21 19:48 Intake and Output 04/14/19 04/14/19 04/15/19 1515:00 23:00 07:00 IntakeIntake Total 52.5 ml 350 ml OutputOutput Total 450 ml 1550 ml BalanceBalance 52.5 ml -100 ml -1550 ml Exam GENERAL: Awake, alert, calm, cooperative, VSS, NAD, HEENT: AT, NC, anicteric NECK: Supple, no JVD appreciated CHEST: Equal chest rise bilaterally without dyspnea on observation Lungs diminished, dry cough noted x1 ABD: Soft, ND, NT : FC in place MSK: Generalized weakness, no joint edema EXTREMITIES: Warm, dry, no edema SKIN: No rash, no diaphoresis, see photos == large unstageable sacral ulcer w/fluctuance -- surrounding bilateral buttock edema/cellulitis Neuro: Eyes open & tracking, non-verbal, REDD[place] speaks [place], Psych: Mood is calm and cooperative Results Result Diagram: 04/14/1951604/14/19 0517 Results 24hrs Laboratory Tests Test 04/15/19 16:42 Vancomycin Level Trough 5.5 L Medications Medication Current Medications Dextrose/Sodium Chloride 1,000 ml @ 75 mls/hr [id number] IV Last administered on 04/14/19at 16:28; Admin Dose 75 MLS/HR; Start 04/13/19 at 00:30 Acetaminophen (Tylenol Tab) 650 mg Q6H PRN PO MILD PAIN(1-3)OR ELEVATED TEMP; Start 04/13/19 at 00:30 Vancomycin HCl (Vanco Iv Per Pharmacy) VANCOMYCIN PER PHARMACY PER PROTOCOL XX ; Start 04/13/19 at 00:30 Meropenem/Sodium Chloride 50 ml @ 100 mls/hr Q8 IVPB Last administered on 04/15/19 22:03; Admin Dose 100 MLS/HR; Start 04/13/19 at 06:00 Enoxaparin Sodium (Lovenox) 30 mg DAILY SC Last administered on 04/15/19 09:05; Admin Dose 30 MG; Start 04/13/19 at 09:00 Morphine Sulfate (morphine) 2 mg Q4H PRN IV SEVERE PAIN LEVEL 7-10 Last admini stered on 04/15/19 22:08; Admin Dose 2 MG; Start 04/13/19 at 00:30 Acetaminophen (Tylenol Tab) 650 mg Q4H PRN PO FEVER>100F; Start 04/13/19 at 17:30 Albuterol (Proventil 0.083% (Neb)) 1.25 mg Q4H PRN NEB WHEEZING AND SOB; Start 04/13/19 at 17:30 Atorvastatin Calcium (Lipitor) 10 mg QHS PO Last administered on 04/15/19 20:39; Admin Dose 10 MG; Start 04/13/19 at 21:00 Carbidopa/Levodopa (Sinemet (25/ 100)) 1 tab BID PO Last administered on 04/15/19 20:39; Admin Dose 1 TAB; Start 04/13/19 at 21:00 Cholecalciferol (Vitamin D) 1,000 unit DAILY PO Last administered on 04/15/19 09:24; Admin Dose 1,000 UNIT; Start 04/14/19 at 09:00 Citalopram Hydrobromide (Celexa) 10 mg DAILY PO Last administered on 04/15/19 09:24; Admin Dose 10 MG; Start 04/14/19 at 09:00 Finasteride (Proscar) 5 mg DAILY PO Last administered on 04/15/19 09:25; Admin Dose 5 MG; Start 04/14/19 at 09:00 Hydroxyzine HCl (Atarax) 10 mg Q6H PRN PO ITCHING; Start 04/13/19 at 17:30 Ferrous Sulfate (Ferrous Sulfate (Ec)) 325 mg DAILY PO Last administered on 04/15/19 09:24; Admin Dose 325 MG; Start 04/14/19 at 09:00 Famotidine (Pepcid Iv) 20 mg BID IV Last administered on 04/15/19 20:39; Admin Dose 20 MG; Start 04/13/19 at 21:00 Diltiazem HCl (Cardizem Sr) 60 mg Q8H PO ; Start 04/13/19 at 21:30; Status Hold Calcium Carbonate (Oyster Shell Calcium) 1.25 gm DAILY PO Last administered on 04/15/19 09:24; Admin Dose 1.25 GM; Start 04/14/19 at 09:00 Valproate Sodium 250 mg/Sodium Chloride 52.5 ml @ 55 mls/hr Q8 IVPB Last administered on 04/15/19 20:39; Admin Dose 55 MLS/HR; Start 04/13/19 at 22:00 Diphenhydramine HCl (Benadryl) 25 mg Q8 PRN IV ITCHING Last administered on 04/14/19 01:32; Admin Dose 25 MG; Start 04/14/19 at 01:30 Lorazepam (Ativan) 0.5 mg Q6H PRN IV ANXIETY; Start 04/14/19 at 01:30 Mupirocin (Bactroban) 1 applic BID TOP Last administered on 04/15/19 20:40; Admin Dose 1 APPLIC; Start 04/14/19 at 09:00; Stop 04/20/19 at 21:01 Vancomycin HCl 1.5 gm/Sodium Chloride 250 ml @ 83.333 mls/ hr Q24H IVPB Last administered on 04/15/19 20:46; Admin Dose 83.333 MLS/HR; Start 04/15/19 at 21:00 FELI MARCIAL MD Apr 15, 2019 23:33
[2019-04-16] VITALS (7 sets, daily range): BP systolic 97–127; BP diastolic 53–86; PULSE 54–65; RESP 18–20
[2019-04-16] MEDS: VALPROATE INJ 250 MG in SOD CHLORIDE 0.9% 50 ML IVPB SCH ×3 (05:53→23:58)
[2019-04-16] MEDS: MEROPENEM 1 GM/50ML(PMX) 50 ML IVPB SCH ×3 (05:53→22:44)
[2019-04-16] MEDS: FERROUS SULFATE (EC) 325 MG TAB PO SCH (09:03)
[2019-04-16] MEDS: CALCIUM CARBONATE 1.25 GM TAB PO SCH (09:03)
[2019-04-16] MEDS: CHOLECALCIFEROL 1,000 UNIT TAB PO SCH (09:03)
[2019-04-16] MEDS: DAKINS 0.0125%(1/40) 473 ML SOLUTION TP SCH (09:03)
[2019-04-16] MEDS: FINASTERIDE 5 MG TAB PO SCH (09:03)
[2019-04-16] MEDS: FAMOTIDINE 20 MG INJ IV SCH ×2 (09:03→21:36)
[2019-04-16] MEDS: CITALOPRAM 20 MG TAB PO SCH (09:03)
[2019-04-16] MEDS: CARBIDOPA/LEVODOPA (25/100) TAB PO SCH ×2 (09:03→21:37)
[2019-04-16] MEDS: MUPIROCIN 2% 22 GM OINT TOP SCH ×2 (09:04→21:46)
[2019-04-16] MEDS: ENOXAPARIN 30 MG/0.3 ML SYG SC SCH (10:11)
--- NOTE | 2019-04-16 10:52 | PN ---
Date/Time of Note Date/Time of Note DATE: 04/16/19 TIME: 10:49 Assessment/Plan Lines/Catheters IV Catheter Type (from Nrs): PICC Line Gonzales in Place (from Nrs): Yes Assessment/Plan Chief Complaint/Hosp Course 1. Stage IV sacral pressure ulcer with necrosis of skin, subcutaneous, muscle, fascia with abscess and cellulitis status post excisional debridement of sacral wound -IV antibiotics per sensitivities -Gentle IV fluids - further debridement PRN -local care -frequent turning and off-loading -low air loss mattress -vitamin c -short term zinc -optimize nutrition 2. CVA history, bedbound, functional quadriplegia -Medical optimization -Offloading -Nutritional optimization 3. CHF history -Cardiac optimization with judicious fluid management 4. Anemia, stable -Monitor 5. Leukocytosis: Improved -As above Thank you. Patient seen and examined in collaboration with Dr. Pasquale Patel. Subjective 24 Hr Interval Summary Status post debridement of sacral wound yesterday. Nonverbal indicators of pain not present. Appears comfortable. No bleeding from sacral wound noted. No fevers, congested cough, labored breathing, vomiting, diarrhea, seizure, rash. Exam/Review of Systems Vital Signs Vitals Vital Signs Date Temp Pulse Resp B/P (MAP) Pulse Ox O2 O2 Flow FiO2 Time Delivery Rate 04/16/19 97.6 65 20 125/60 96 07:26 (81) 04/16/19 Room Air 04:00 04/15/19 8.0 18:36 04/14/19 21 19:48 Intake and Output 04/15/19 04/15/19 04/16/19 1515:00 23:00 07:00 IntakeIntake Total 750 ml 902.5 ml OutputOutput Total 402 ml 650 ml BalanceBalance 750 ml 500.5 ml -650 ml Exam Free Text/Dictation Constitutional: No oriented Psych: anxiety, confusion Head: normocephalic, atraumatic Eyes: nl conjunctiva, EOMI, PERRL; No icteric ENMT: nl external ears & nose, mucosa pink and moist Neck: supple, non-tender, jvd (Minimal) Respiratory: normal air movement; No congested cough, No labored breathing, No wheezing Cardiovascular: regular rate and rhythm; No edema Gastrointestinal: soft, non-tender; No distended, No rebound or guarding Genitourinary - Male: No nl scrotum (Wound) Musculoskeletal: No nl extremities to inspection, No nl gait and stance, No joint tenderness Extremities: normal pulses; No calf tenderness, No edema Neurological: No nl mental status, No nl speech, No nl strength Skin: rash or lesions (Sacral: Packed, no bleeding); No diaphoresis Lymph: nl lymph nodes Results Result Diagram: 04/16/19 0528 04/16/19 0528 CHARLI CHAVIS NP Apr 16, 2019 10:52
--- NOTE | 2019-04-16 14:20 | PAC ---
Date/Time of Note Date/Time of Note DATE: 04/16/19 TIME: 14:20 Post-Anesthesia Notes Post-Anesthesia Note Last documented vital signs Vital Signs Date Temp Pulse Resp B/P (MAP) Pulse Ox O2 O2 Flow FiO2 Time Delivery Rate 04/16/19 98.0 57 20 127/81 96 11:05 (96) 04/16/19 Room Air 04:00 04/15/19 8.0 18:36 04/14/19 21 19:48 Activity: WNL Respiratory function: WNL Cardiovascular function: WNL Mental status: Baseline Pain reasonably controlled: Yes Hydration appropriate: Yes Nausea/Vomiting absent: Yes JACIEL MERINO Apr 16, 2019 14:20
--- NOTE | 2019-04-16 16:09 | PN ---
Date/Time of Note Date/Time of Note DATE: 04/16/19 TIME: 16:09 Assessment/Plan VTE Prophylaxis Risk score (from Ns)>0 risk: 7 SCD applied (from [facility] [place]): Yes Pharmacological prophylaxis: LMWH Lines/Catheters IV C[facility]ter Type (from [facility]): PICC Line Central line still needed: Yes Urinary Cath still in place: Yes Reason Cath still needed: urinary retention Assessment/Plan Hospital Course Patient status post I&D of the sacral wound yesterday, remains hemodynamically stable tolerates p.o. diet discussed with RN. Assessment/Plan - Sepsis secondary to E. coli UTI and Staphylococcus bacteremia. Continue antibiotics per ID. Dr. Saldivar is following in infection disease consultation. - E. 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 Status post I&D. Dr. Patel is following in general surgery consultation. Continue current wound care. - Dysphagia, s/p swallow eval, continue PO diet. - BPH, continue Flomax and Proscar - History of cerebrovascular accident. Continue aspirin - Dyslipidemia. Continue statin - Parkinsonism. Continue Sinemet. - Dementia with agitation. Continue Depakote. - Depression. Continue Celexa. Further recommendations based on clinical course. Plan of care discussed with Dr. Rivera. Result Diagram: 04/16/1928 04/16/19527 Results 24hrs Laboratory Tests Test 04/15/19 16:42 04/16/19 05:28 Vancomycin Level Trough 5.5 L White Blood Count 14.0 H Red Blood Count 3.37 L Hemoglobin 10.0 L Hematocrit 31.1 L Mean Corpuscular Volume 92.3 Mean Corpuscular Hemoglobin 29.7 Mean Corpuscular Hemoglobin Concent 32.2 Red Cell Distribution Width 13.9 Platelet Count 377 Mean Platelet Volume 9.9 Immature Granulocytes % 1.200 H Neutrophils % 80.4 H Lymphocytes % 10.0 L Monocytes % 5.1 Eosinophils % 3.0 Basophils % 0.3 Nucleated Red Blood Cells % 0.0 Immature Granulocytes # 0.170 H Neutrophils # 11.3 H Lymphocytes # 1.4 Monocytes # 0.7 Eosinophils # 0.4 Basophils # 0.0 Nucleated Red Blood Cells # 0.0 Sodium Level 143 Potassium Level 4.0 Chloride Level 112 H Carbon Dioxide Level 27 Anion Gap 4 L Blood Urea Nitrogen 30 H Creatinine 1.08 Est Glomerular Filtrat Rate mL/min Glucose Level 104 Calcium Level 7.8 L Exam/Review of Systems Exam Vitals Vital Signs Date Temp Pulse Resp B/P (MAP) Pulse Ox O2 O2 Flow FiO2 Time Delivery Rate 04/16/19 98.0 65 20 113/55 96 15:17 (74) 04/16/19 Room Air 04:00 04/15/19 8.0 18:36 04/14/19 21 19:48 Intake and Output 04/15/19 04/15/19 04/16/19 1515:00 23:00 07:00 IntakeIntake Total 750 ml 902.5 ml OutputOutput Total 402 ml 650 ml BalanceBalance 750 ml 500.5 ml -650 ml Exam Constitutional: alert, frail Neck: supple Respiratory: diminished breath sounds Cardiovascular: regular rate and rhythm Gastrointestinal: soft, non-tender Extremities: normal pulses Neurological: confused Skin: other (Sacral wound ) Results Results 24hrs Laboratory Tests Test 04/15/19 16:42 04/16/19 05:28 Vancomycin Level Trough 5.5 L White Blood Count 14.0 H Red Blood Count 3.37 L Hemoglobin 10.0 L Hematocrit 31.1 L Mean Corpuscular Volume 92.3 Mean Corpuscular Hemoglobin 29.7 Mean Corpuscular Hemoglobin Concent 32.2 Red Cell Distribution Width 13.9 Platelet Count 377 Mean Platelet Volume 9.9 Immature Granulocytes % 1.200 H Neutrophils % 80.4 H Lymphocytes % 10.0 L Monocytes % 5.1 Eosinophils % 3.0 Basophils % 0.3 Nucleated Red Blood Cells % 0.0 Immature Granulocytes # 0.170 H Neutrophils # 11.3 H Lymphocytes # 1.4 Monocytes # 0.7 Eosinophils # 0.4 Basophils # 0.0 Nucleated Red Blood Cells # 0.0 Sodium Level 143 Potassium Level 4.0 Chloride Level 112 H Carbon Dioxide Level 27 Anion Gap 4 L Blood Urea Nitrogen 30 H Creatinine 1.08 Est Glomerular Filtrat Rate mL/min Glucose Level 104 Calcium Level 7.8 L Medications Medication Current Medications Acetaminophen (Tylenol Tab) 650 mg Q6H PRN PO MILD PAIN(1-3)OR ELEVATED TEMP; Start 04/13/19 at 00:30 Vancomycin HCl (Vanco Iv Per Pharmacy) VANCOMYCIN PER PHARMACY PER PROTOCOL XX ; Start 04/13/19 at 00:30 Meropenem/Sodium Chloride 50 ml @ 100 mls/hr Q8 IVPB Last administered on 04/16/19 15:09; Admin Dose 100 MLS/HR; Start 04/13/19 at 06:00 Enoxaparin Sodium (Lovenox) 30 mg DAILY SC Last administered on 04/16/19 10:11; Admin Dose 30 MG; Start 04/13/19 at 09:00 Morphine Sulfate (morphine) 2 mg Q4H PRN IV SEVERE PAIN LEVEL 7-10 Last administered on 04/15/19 22:08; Admin Dose 2 MG; Start 04/13/19 at 00:30 Acetaminophen (Tylenol Tab) 650 mg Q4H PRN PO FEVER>100F; Start 04/13/19 at 17:30 Albuterol (Proventil 0.083% (Neb)) 1.25 mg Q4H PRN NEB WHEEZING AND SOB; Start 04/13/19 at 17:30 Atorvastatin Calcium (Lipitor) 10 mg QHS PO Last administered on 04/15/19 20:39; Admin Dose 10 MG; Start 04/13/19 at 21:00 Carbidopa/Levodopa (Sinemet (25/ 100)) 1 tab BID PO Last administered on 04/16/19 09:03; Admin Dose 1 TAB; Start 04/13/19 at 21:00 Cholecalciferol (Vitamin D) 1,000 unit DAILY PO Last administered on 04/16/19 09:03; Admin Dose 1,000 UNIT; Start 04/14/19 at 09:00 Citalopram Hydrobromide (Celexa) 10 mg DAILY PO Last administered on 04/16/19 09:03; Admin Dose 10 MG; Start 04/14/19 at 09:00 Finasteride (Proscar) 5 mg DAILY PO Last administered on 04/16/19 09:03; Admin Dose 5 MG; Start 04/14/19 at 09:00 Hydroxyzine HCl (Atarax) 10 mg Q6H PRN PO ITCHING; Start 04/13/19 at 17:30 Ferrous Sulfate (Ferrous Sulfate (Ec)) 325 mg DAILY PO Last administered on 04/16/19 09:03; Admin Dose 325 MG; Start 04/14/19 at 09:00 Famotidine (Pepcid Iv) 20 mg BID IV Last administered on 04/16/19 09:03; Admin Dose 20 MG; Start 04/13/19 at 21:00 Diltiazem HCl (Cardizem Sr) 60 mg Q8H PO ; Start 04/13/19 at 21:30; Status Hold Calcium Carbonate (Oyster Shell Calcium) 1.25 gm DAILY PO Last administered on 04/16/19 09:03; Admin Dose 1.25 GM; Start 04/14/19 at 09:00 Valproate Sodium 250 mg/Sodium Chloride 52.5 ml @ 55 mls/hr Q8 IVPB Last administered on 04/16/19 15:09; Admin Dose 55 MLS/HR; Start 04/13/19 at 22:00 Diphenhydramine HCl (Benadryl) 25 mg Q8 PRN IV ITCHING Last administered on 04/14/19 01:32; Admin Dose 25 MG; Start 04/14/19 at 01:30 Lorazepam (Ativan) 0.5 mg Q6H PRN IV ANXIETY; Start 04/14/19 at 01:30 Mupirocin (Bactroban) 1 applic BID TOP Last administered on 04/16/19 09:04; Admin Dose 1 APPLIC; Start 04/14/19 at 09:00; Stop 04/20/19 at 21:01 Vancomycin HCl 1.5 gm/Sodium Chloride 250 ml @ 83.333 mls/ hr Q24H IVPB Last administered on 04/15/19 20:46; Admin Dose 83.333 MLS/HR; Start 04/15/19 at 21:00 Sodium Hypochlorite (Dakins Diluted ()) 1 applic DAILY TP Last administered on 04/16/19 09:03; Admin Dose 1 APPLIC; Start 04/16/19 at 09:00 ROLANDO SANFORD Apr 16, 2019 16:09
--- NOTE | 2019-04-16 17:22 | CONS ---
Assessment/Plan Assessment/Plan Hospital Course (Demo Recall) Patient is noncommunicative in no distress afebrile, WBC 14 platelets 377 neutrophils 80.4 BUN 30 creatinine 1.08 Microbiology: Blood culture on admission grew MRSA urine culture grew E. coli n devonte swab was positive for MRSA sacral wound culture growing staph aureus Antimicrobials: Patient is on IV vancomycin Allergies: Penicillin PHYSICAL EXAMINATION: GENERAL: This is a chronically ill-appearing, wasted elderly man who is in no distress. HEENT: Head is atraumatic, normocephalic. Sclerae are anicteric. Buccal mucosa is dry. NECK: Supple. CHEST: Rise symmetrical. Breath sounds diminished to bases. HEART: S1, S2. ABDOMEN: Soft. Bowel tones are present. EXTREMITIES: With trace edema. Assessment: 1. Sepsis with MRSA bacteremia on admission 2. Sacral wound with abscess and cellulitis, status post I&D 04/15/19 3. MRSA nares colonization 4. UTI 5. Dementia Plan: Continue vancomycin, add cefepime, await for final cultures, follow surgical recommendations Consultation Date/Type/Reason Admit Date/Time Apr 12, 2019 at 17:21 Initial Consult Date 04/15/19 Type of Consult id Requesting Provider: ROLANDO SANFORD Date/Time of Note DATE: 04/16/19 TIME: 17:20 Exam/Review of Systems Exam Vitals Vital Signs Date Temp Pulse Resp B/P (MAP) Pulse Ox O2 O2 Flow FiO2 Time Delivery Rate 04/16/19 98.0 65 20 113/55 96 15:17 (74) 04/16/19 Room Air 04:00 04/15/19 8.0 18:36 04/14/19 21 19:48 Intake and Output 04/15/19 04/15/19 04/16/19 1515:00 23:00 07:00 IntakeIntake Total 750 ml 902.5 ml OutputOutput Total 402 ml 650 ml BalanceBalance 750 ml 500.5 ml -650 ml Results Result Diagram: 04/16/19 0528 04/16/19 0528 Results 24hrs Laboratory Tests Test 04/16/19 05:28 White Blood Count 14.0 H Red Blood Count 3.37 L Hemoglobin 10.0 L Hematocrit 31.1 L Mean Corpuscular Volume 92.3 Mean Corpuscular Hemoglobin 29.7 Mean Corpuscular Hemoglobin Concent 32.2 Red Cell Distribution Width 13.9 Platelet Count 377 Mean Platelet Volume 9.9 Immature Granulocytes % 1.200 H Neutrophils % 80.4 H Lymphocytes % 10.0 L Monocytes % 5.1 Eosinophils % 3.0 Basophils % 0.3 Nucleated Red Blood Cells % 0.0 Immature Granulocytes # 0.170 H Neutrophils # 11.3 H Lymphocytes # 1.4 Monocytes # 0.7 Eosinophils # 0.4 Basophils # 0.0 Nucleated Red Blood Cells # 0.0 Sodium Level 143 Potassium Level 4.0 Chloride Level 112 H Carbon Dioxide Level 27 Anion Gap 4 L Blood Urea Nitrogen 30 H Creatinine 1.08 Est Glomerular Filtrat Rate mL/min Glucose Level 104 Calcium Level 7.8 L Medications Medication Current Medications Acetaminophen (Tylenol Tab) 650 mg Q6H PRN PO MILD PAIN(1-3)OR ELEVATED TEMP; Start 04/13/19 at 00:30 Vancomycin HCl (Vanco Iv Per Pharmacy) VANCOMYCIN PER PHARMACY PER PROTOCOL XX ; Start 04/13/19 at 00:30 Meropenem/Sodium Chloride 50 ml @ 100 mls/hr Q8 IVPB Last administered on 04/16/19 15:09; Admin Dose 100 MLS/HR; Start 04/13/19 at 06:00 Enoxaparin Sodium (Lovenox) 30 mg DAILY SC Last administered on 04/16/19 10:11; Admin Dose 30 MG; Start 04/13/19 at 09:00 Morphine Sulfate (morphine) 2 mg Q4H PRN IV SEVERE PAIN LEVEL 7-10 Last administered on 04/15/19 22:08; Admin Dose 2 MG; Start 04/13/19 at 00:30 Acetaminophen (Tylenol Tab) 650 mg Q4H PRN PO FEVER>100F; Start 04/13/19 at 17:30 Albuterol (Proventil 0.083% (Neb)) 1.25 mg Q4H PRN NEB WHEEZING AND SOB; Start 04/13/19 at 17:30 Atorvastatin Calcium (Lipitor) 10 mg QHS PO Last administered on 04/15/19at 20:39; Admin Dose 10 MG; Start 04/13/19 at 21:00 Carbidopa/Levodopa (Sinemet (25/ 100)) 1 tab BID PO Last administered on 04/16/19 09:03; Admin Dose 1 TAB; Start 04/13/19 at 21:00 Cholecalciferol (Vitamin D) 1,000 unit DAILY PO Last administered on 04/16/19 09:03; Admin Dose 1,000 UNIT; Start 04/14/19 at 09:00 Citalopram Hydrobromide (Celexa) 10 mg DAILY PO Last administered on 04/16/19 09:03; Admin Dose 10 MG; Start 04/14/19 at 09:00 Finasteride (Proscar) 5 mg DAILY PO Last administered on 04/16/19 09:03; Admin Dose 5 MG; Start 04/14/19 at 09:00 Hydroxyzine HCl (Atarax) 10 mg Q6H PRN PO ITCHING; Start 04/13/19 at 17:30 Ferrous Sulfate (Ferrous Sulfate (Ec)) 325 mg DAILY PO Last administered on 04/16/19 09:03; Admin Dose 325 MG; Start 04/14/19 at 09:00 Famotidine (Pepcid Iv) 20 mg BID IV Last administered on 04/16/19 09:03; Admin Dose 20 MG; Start 04/13/19 at 21:00 Diltiazem HCl (Cardizem Sr) 60 mg Q8H PO ; Start 04/13/19 at 21:30; Status Hold Calcium Carbonate (Oyster Shell Calcium) 1.25 gm DAILY PO Last administered on 04/16/19 09:03; Admin Dose 1.25 GM; Start 04/14/19 at 09:00 Valproate Sodium 250 mg/Sodium Chloride 52.5 ml @ 55 mls/hr Q8 IVPB Last administered on 04/16/19 15:09; Admin Dose 55 MLS/HR; Start 04/13/19 at 22:00 Diphenhydramine HCl (Benadryl) 25 mg Q8 PRN IV ITCHING Last administered on 04/14/19 01:32; Admin Dose 25 MG; Start 04/14/19 at 01:30 Lorazepam (Ativan) 0.5 mg Q6H PRN IV ANXIETY; Start 04/14/19 at 01:30 Mupirocin (Bactroban) 1 applic BID TOP Last administered on 04/16/19 09:04; Admin Dose 1 APPLIC; Start 04/14/19 at 09:00; Stop 04/20/19 at 21:01 Vancomycin HCl 1.5 gm/Sodium Chloride 250 ml @ 83.333 mls/ hr Q24H IVPB Last administered on 04/15/19at 20:46; Admin Dose 83.333 MLS/HR; Start 04/15/19 at 21:00 Sodium Hypochlorite (Dakins Diluted (40)) 1 applic DAILY TP Last administered on 04/16/19at 09:03; Admin Dose 1 APPLIC; Start 04/16/19 at 09:00 HERMINIO WILLAMS NP Apr 16, 2019 17:22
[2019-04-16] MEDS: CEFEPIME 1GM/50 ML (PMX) 50 ML IVPB SCH (21:36)
[2019-04-16] MEDS: ATORVASTATIN 10 MG TAB PO SCH (21:37)
[2019-04-16] MEDS: RIFAMPIN 300 MG CAP PO SCH (21:40)
--- NOTE | 2019-04-16 22:34 | CONS ---
Assessment/Plan Assessment/Plan Hospital Course (Demo Recall) -ANEMIA COMPLEX MONITOR -LEUKOCYTOSIS REACTIVE MONITOR ON ATB - Sepsis - E. 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 - Dysphagia, swallow eval - BPH, continue Flomax and Proscar - History of cerebrovascular accident. Continue aspirin - Dyslipidemia. Continue statin - Parkinsonism. Continue Sinemet. - Dementia with agitation. Continue Depakote. - Depression. Continue Celexa. Consultation Date/Type/Reason Admit Date/Time Apr 12, 2019 at 17:21 Initial Consult Date Requesting Provider: ROLANDO SANFORD Date/Time of Note DATE: 04/16/19 TIME: 22:34 24 HR Interval Summary Free Text/Dictation NAD NO BLEEDING Exam/Review of Systems Exam Vitals Vital Signs Date Temp Pulse Resp B/P (MAP) Pulse Ox O2 O2 Flow FiO2 Time Delivery Rate 04/16/19 98.0 62 18 125/86 95 20:00 (99) 04/16/19 08:00 04/14/19 21 19:48 Intake and Output 04/15/19 04/15/19 04/16/19 1414:59 22:59 06:59 IntakeIntake Total 750 ml 902.5 ml OutputOutput Total 402 ml 650 ml BalanceBalance 750 ml 500.5 ml -650 ml Exam GENERAL: Awake, alert, calm, cooperative, VSS, NAD, HEENT: AT, NC, anicteric NECK: Supple, no JVD appreciated CHEST: Equal chest rise bilaterally without dyspnea on observation Lungs diminished, dry cough noted x1 ABD: Soft, ND, NT : FC in place MSK: Generalized weakness, no joint edema EXTREMITIES: Warm, dry, no edema SKIN: No rash, no diaphoresis, see photos == large unstageable sacral ulcer w/fluctuance -- surrounding bilateral buttock edema/cellulitis Neuro: Eyes open & tracking, non-verbal, JACKSON speaks English, Psych: Mood is calm and cooperative Results Result Diagram: 04/16/1952704/16/19527 Results 24hrs Laboratory Tests Test 04/16/19 05:28 White Blood Count 14.0 H Red Blood Count 3.37 L Hemoglobin 10.0 L Hematocrit 31.1 L Mean Corpuscular Volume 92.3 Mean Corpuscular Hemoglobin 29.7 Mean Corpuscular Hemoglobin Concent 32.2 Red Cell Distribution Width 13.9 Platelet Count 377 Mean Platelet Volume 9.9 Immature Granulocytes % 1.200 H Neutrophils % 80.4 H Lymphocytes % 10.0 L Monocytes % 5.1 Eosinophils % 3.0 Basophils % 0.3 Nucleated Red Blood Cells % 0.0 Immature Granulocytes # 0.170 H Neutrophils # 11.3 H Lymphocytes # 1.4 Monocytes # 0.7 Eosinophils # 0.4 Basophils # 0.0 Nucleated Red Blood Cells # 0.0 Sodium Level 143 Potassium Level 4.0 Chloride Level 112 H Carbon Dioxide Level 27 Anion Gap 4 L Blood Urea Nitrogen 30 H Creatinine 1.08 Est Glomerular Filtrat Rate mL/min Glucose Level 104 Calcium Level 7.8 L Medications Medication Current Medications Acetaminophen (Tylenol Tab) 650 mg Q6H PRN PO MILD PAIN(1-3)OR ELEVATED TEMP; Start 04/13/19 at 00:30 Vancomycin HCl (Vanco Iv Per Pharmacy) VANCOMYCIN PER PHARMACY PER PROTOCOL XX ; Start 04/13/19 at 00:30 Meropenem/Sodium Chloride 50 ml @ 100 mls/hr Q8 IVPB Last administered on 04/16/19 15:09; Admin Dose 100 MLS/HR; Start 04/13/19 at 06:00 Enoxaparin Sodium (Lovenox) 30 mg DAILY SC Last administered on 04/16/19 10:11; Admin Dose 30 MG; Start 04/13/19 at 09:00 Morphine Sulfate (morphine) 2 mg Q4H PRN IV SEVERE PAIN LEVEL 7-10 Last administered on 04/15/19 22:08; Admin Dose 2 MG; Start 04/13/19 at 00:30 Acetaminophen (Tylenol Tab) 650 mg Q4H PRN PO FEVER>100F; Start 04/13/19 at 17:30 Albuterol (Proventil 0.083% (Neb)) 1.25 mg Q4H PRN NEB WHEEZING AND SOB; Start 04/13/19 at 17:30 Atorvastatin Calcium (Lipitor) 10 mg QHS PO Last administered on 04/16/19at 21:37; Admin Dose 10 MG; Start 04/13/19 at 21:00 Carbidopa/Levodopa (Sinemet (25/ 100)) 1 tab BID PO Last administered on 04/16/19 21:37; Admin Dose 1 TAB; Start 04/13/19 at 21:00 Cholecalciferol (Vitamin D) 1,000 unit DAILY PO Last administered on 04/16/19 09:03; Admin Dose 1,000 UNIT; Start 04/14/19 at 09:00 Citalopram Hydrobromide (Celexa) 10 mg DAILY PO Last administered on 04/16/19 09:03; Admin Dose 10 MG; Start 04/14/19 at 09:00 Finasteride (Proscar) 5 mg DAILY PO Last administered on 04/16/19 09:03; Admin Dose 5 MG; Start 04/14/19 at 09:00 Hydroxyzine HCl (Atarax) 10 mg Q6H PRN PO ITCHING; Start 04/13/19 at 17:30 Ferrous Sulfate (Ferrous Sulfate (Ec)) 325 mg DAILY PO Last administered on 04/16/19 09:03; Admin Dose 325 MG; Start 04/14/19 at 09:00 Famotidine (Pepcid Iv) 20 mg BID IV Last administered on 04/16/19 21:36; Admin Dose 20 MG; Start 04/13/19 at 21:00 Diltiazem HCl (Cardizem Sr) 60 mg Q8H PO ; Start 04/13/19 at 21:30; Status Hold Calcium Carbonate (Oyster Shell Calcium) 1.25 gm DAILY PO Last administered on 04/16/19 09:03; Admin Dose 1.25 GM; Start 04/14/19 at 09:00 Valproate Sodium 250 mg/Sodium Chloride 52.5 ml @ 55 mls/hr Q8 IVPB Last administered on 04/16/19 15:09; Admin Dose 55 MLS/HR; Start 04/13/19 at 22:00 Diphenhydramine HCl (Benadryl) 25 mg Q8 PRN IV ITCHING Last administered on 04/14/19 01:32; Admin Dose 25 MG; Start 04/14/19 at 01:30 Lorazepam (Ativan) 0.5 mg Q6H PRN IV ANXIETY; Start 04/14/19 at 01:30 Mupirocin (Bactroban) 1 applic BID TOP Last administered on 04/16/19 21:46; Admin Dose 1 APPLIC; Start 04/14/19 at 09:00; Stop 04/20/19 at 21:01 Vancomycin HCl 1.5 gm/Sodium Chloride 250 ml @ 83.333 mls/ hr Q24H IVPB Last administered on 04/15/19 20:46; Admin Dose 83.333 MLS/HR; Start 04/15/19 at 21:00 Sodium Hypochlorite (Dakins Diluted ()) 1 applic DAILY TP Last administered on 04/16/19 09:03; Admin Dose 1 APPLIC; Start 04/16/19 at 09:00 Cefepime HCl 50 ml @ 100 mls/hr Q12 IVPB Last administered on 04/16/19 21:36; Admin Dose 100 MLS/HR; Start 04/16/19 at 21:00 Rifampin (Rifampin) 300 mg Q12 PO Last administered on 04/16/19 21:40; Admin Dose 300 MG; Start 04/16/19 at 21:00 FELI MARCIAL MD Apr 16, 2019 22:34
[2019-04-16] MEDS: VANCOMYCIN HCL 1.5 GM in SOD CHLORIDE 0.9% 250 ML IVPB SCH (22:54)
[2019-04-17 04:00] VITALS: BP 118/58; PULSE 75; RESP 18
[2019-04-17] MEDS: VALPROATE INJ 250 MG in SOD CHLORIDE 0.9% 50 ML IVPB SCH ×3 (05:51→22:28)
[2019-04-17] MEDS: MEROPENEM 1 GM/50ML(PMX) 50 ML IVPB SCH ×2 (05:52→13:04)
[2019-04-17 07:36] VITALS: BP 130/60; PULSE 71; RESP 16
[2019-04-17] MEDS: CALCIUM CARBONATE 1.25 GM TAB PO SCH (09:12)
[2019-04-17] MEDS: CITALOPRAM 20 MG TAB PO SCH (09:12)
[2019-04-17] MEDS: CHOLECALCIFEROL 1,000 UNIT TAB PO SCH (09:12)
[2019-04-17] MEDS: FINASTERIDE 5 MG TAB PO SCH (09:13)
[2019-04-17] MEDS: FERROUS SULFATE (EC) 325 MG TAB PO SCH (09:13)
[2019-04-17] MEDS: CARBIDOPA/LEVODOPA (25/100) TAB PO SCH ×2 (09:13→22:11)
[2019-04-17] MEDS: RIFAMPIN 300 MG CAP PO SCH ×2 (09:13→22:11)
[2019-04-17] MEDS: MUPIROCIN 2% 22 GM OINT TOP SCH ×2 (09:18→21:00)
[2019-04-17] MEDS: CEFEPIME 1GM/50 ML (PMX) 50 ML IVPB SCH ×2 (09:18→22:10)
[2019-04-17] MEDS: FAMOTIDINE 20 MG INJ IV SCH (09:18)
[2019-04-17] MEDS: DAKINS 0.0125%(1/40) 473 ML SOLUTION TP SCH (09:19)
[2019-04-17] MEDS: ENOXAPARIN 30 MG/0.3 ML SYG SC SCH (09:27)
--- NOTE | 2019-04-17 09:52 | PN ---
Date/Time of Note Date/Time of Note DATE: 04/17/19 TIME: 09:48 Assessment/Plan Lines/Catheters IV Catheter Type (from Nrs): PICC Line Gonzales in Place (from Nrs): Yes Assessment/Plan Chief Complaint/Hosp Course 1. 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 CVA history, bedbound, functional quadriplegia -Medical optimization -Offloading -Nutritional optimization 3. CHF history -Cardiac optimization with judicious fluid management 4. Anemia, stable -Monitor 5. Leukocytosis: -As above 6. UTI: -abx per sensitivity -frequent bladder emptying/cath care 7. Bacteremia -Antibiotics per sensitivity Thank you. Patient seen and examined in collaboration with Dr. Pasquale Patel. Subjective 24 Hr Interval Summary Intermittent agitation. WBC uptick. No fevers, labored breathing, congested cough, vomiting, diarrhea, seizure, rash. Nonverbal indicators of pain not present. + Bowel function. Exam/Review of Systems Vital Signs Vitals Vital Signs Date Temp Pulse Resp B/P (MAP) Pulse Ox O2 O2 Flow FiO2 Time Delivery Rate 04/17/19 97.8 71 16 130/60 95 07:36 (83) 04/16/19 08:00 04/14/19 21 19:48 Intake and Output 04/16/19 04/16/19 04/17/19 1515:00 23:00 07:00 IntakeIntake Total 150 ml 952.5 ml 750 ml OutputOutput Total 1300 ml 750 ml 2400 ml BalanceBalance -1150 ml 202.5 ml -1650 ml Exam Free Text/Dictation Constitutional: No oriented Psych: anxiety, confusion Head: normocephalic, atraumatic Eyes: nl conjunctiva, EOMI, PERRL; No icteric ENMT: nl external ears & nose, mucosa pink and moist Neck: supple, non-tender, jvd (Minimal) Respiratory: normal air movement; No congested cough, No labored breathing, No wheezing Cardiovascular: regular rate and rhythm; No edema Gastrointestinal: soft, non-tender; No distended, No rebound or guarding Genitourinary - Male: No nl scrotum (Wound) Musculoskeletal: No nl extremities to inspection, No nl gait and stance, No joint tenderness Extremities: normal pulses; No calf tenderness, No edema Neurological: No nl mental status, No nl speech, No nl strength Skin: rash or lesions (Sacral: Packed, no bleeding); No diaphoresis Lymph: nl lymph nodes Results Result Diagram: 04/17/19 0550 04/17/19 0550 CHARLI CHAVIS NP Apr 17, 2019 09:52
[2019-04-17 11:36] VITALS: BP 119/56; PULSE 64; RESP 16
[2019-04-17 15:13] VITALS: BP 134/60; PULSE 69; RESP 20
--- NOTE | 2019-04-17 15:18 | CONS ---
Assessment/Plan Assessment/Plan Hospital Course (Demo Recall) No acute changes patient looks comfortable afebrile WBC 18.7 neutrophils 87.3 BUN 23 creatinine 0.84 Microbiology: Blood culture on admission grew MRSA, urine culture positive for E. coli, sacral wound culture grew E. coli and MRSA Antimicrobials: Cefepime IV vancomycin Allergies: Penicillin PHYSICAL EXAMINATION: GENERAL: This is a chronically ill-appearing, wasted elderly man who is in no distress. HEENT: Head is atraumatic, normocephalic. Sclerae are anicteric. Buccal mucosa is dry. NECK: Supple. CHEST: Rise symmetrical. Breath sounds diminished to bases. HEART: S1, S2. ABDOMEN: Soft. Bowel tones are present. EXTREMITIES: With trace edema. Assessment: 1. Sepsis with MRSA bacteremia on admission 2 to #2 2. Sacral wound with abscess and cellulitis, status post I&D 04/15/19 3. MRSA nares colonization 4. UTI 5. Dementia Plan: Remains unchanged, on appropriate antibiotics, no osteomyelitis per pathology report, pending repeat blood cultures Consultation Date/Type/Reason Admit Date/Time Apr 12, 2019 at 17:21 Initial Consult Date 04/15/19 Type of Consult id Requesting Provider: ROLANDO SANFORD Date/Time of Note DATE: 04/17/19 TIME: 15:17 Exam/Review of Systems Exam Vitals Vital Signs Date Temp Pulse Resp B/P (MAP) Pulse Ox O2 O2 Flow FiO2 Time Delivery Rate 04/17/19 97.0 69 20 134/60 94 15:13 (84) 04/16/19 08:00 04/14/19 21 19:48 Intake and Output 04/16/19 04/16/19 04/17/19 1515:00 23:00 07:00 IntakeIntake Total 150 ml 952.5 ml 750 ml OutputOutput Total 1300 ml 750 ml 2400 ml BalanceBalance -1150 ml 202.5 ml -1650 ml Results Result Diagram: 04/17/19 0550 04/17/19 0550 Results 24hrs Laboratory Tests Test 04/17/19 05:50 White Blood Count 18.7 #H Red Blood Count 3.65 L Hemoglobin 10.9 L Hematocrit 33.0 L Mean Corpuscular Volume 90.4 Mean Corpuscular Hemoglobin 29.9 Mean Corpuscular Hemoglobin Concent 33.0 Red Cell Distribution Width 13.4 Platelet Count 395 Mean Platelet Volume 9.4 Immature Granulocytes % 1.400 H Neutrophils % 87.3 H Lymphocytes % 4.9 L Monocytes % 3.9 Eosinophils % 2.2 Basophils % 0.3 Nucleated Red Blood Cells % 0.0 Immature Granulocytes # 0.270 H Neutrophils # 16.3 H Lymphocytes # 0.9 Monocytes # 0.7 Eosinophils # 0.4 Basophils # 0.1 Nucleated Red Blood Cells # 0.0 Sodium Level 138 Potassium Level 4.1 Chloride Level 106 Carbon Dioxide Level 26 Anion Gap 6 Blood Urea Nitrogen 23 H Creatinine 0.84 Est Glomerular Filtrat Rate mL/min Glucose Level 95 Calcium Level 8.0 L Medications Medication Current Medications Acetaminophen (Tylenol Tab) 650 mg Q6H PRN PO MILD PAIN(1-3)OR ELEVATED TEMP; Start 04/13/19 at 00:30 Vancomycin HCl (Vanco Iv Per Pharmacy) VANCOMYCIN PER PHARMACY PER PROTOCOL XX ; Start 04/13/19 at 00:30 Meropenem/Sodium Chloride 50 ml @ 100 mls/hr Q8 IVPB Last administered on 04/17/19at 13:04; Admin Dose 100 MLS/HR; Start 04/13/19 at 06:00 Enoxaparin Sodium (Lovenox) 30 mg DAILY SC Last administered on 04/17/19 09:27; Admin Dose 30 MG; Start 04/13/19 at 09:00 Morphine Sulfate (morphine) 2 mg Q4H PRN IV SEVERE PAIN LEVEL 7-10 Last administered on 04/15/19 22:08; Admin Dose 2 MG; Start 04/13/19 at 00:30 Acetaminophen (Tylenol Tab) 650 mg Q4H PRN PO FEVER>100F; Start 04/13/19 at 17:30 Albuterol (Proventil 0.083% (Neb)) 1.25 mg Q4H PRN NEB WHEEZING AND SOB; Start 04/13/19 at 17:30 Atorvastatin Calcium (Lipitor) 10 mg QHS PO Last administered on 04/16/19at 21:37; Admin Dose 10 MG; Start 04/13/19 at 21:00 Carbidopa/Levodopa (Sinemet (25/ 100)) 1 tab BID PO Last administered on 04/17/19 09:13; Admin Dose 1 TAB; Start 04/13/19 at 21:00 Cholecalciferol (Vitamin D) 1,000 unit DAILY PO Last administered on 04/17/19 09:12; Admin Dose 1,000 UNIT; Start 04/14/19 at 09:00 Citalopram Hydrobromide (Celexa) 10 mg DAILY PO Last administered on 04/17/19 09:12; Admin Dose 10 MG; Start 04/14/19 at 09:00 Finasteride (Proscar) 5 mg DAILY PO Last administered on 04/17/19 09:13; Admin Dose 5 MG; Start 04/14/19 at 09:00 Hydroxyzine HCl (Atarax) 10 mg Q6H PRN PO ITCHING; Start 04/13/19 at 17:30 Ferrous Sulfate (Ferrous Sulfate (Ec)) 325 mg DAILY PO Last administered on 04/17/19 09:13; Admin Dose 325 MG; Start 04/14/19 at 09:00 Famotidine (Pepcid Iv) 20 mg BID IV Last administered on 04/17/19 09:18; Admin Dose 20 MG; Start 04/13/19 at 21:00 Diltiazem HCl (Cardizem Sr) 60 mg Q8H PO ; Start 04/13/19 at 21:30; Status Hold Calcium Carbonate (Oyster Shell Calcium) 1.25 gm DAILY PO Last administered on 04/17/19 09:12; Admin Dose 1.25 GM; Start 04/14/19 at 09:00 Valproate Sodium 250 mg/Sodium Chloride 52.5 ml @ 55 mls/hr Q8 IVPB Last administered on 04/17/19 14:12; Admin Dose 55 MLS/HR; Start 04/13/19 at 22:00 Diphenhydramine HCl (Benadryl) 25 mg Q8 PRN IV ITCHING Last administered on 04/14/19 01:32; Admin Dose 25 MG; Start 04/14/19 at 01:30 Lorazepam (Ativan) 0.5 mg Q6H PRN IV ANXIETY; Start 04/14/19 at 01:30 Mupirocin (Bactroban) 1 applic BID TOP Last administered on 04/17/19 09:18; Admin Dose 1 APPLIC; Start 04/14/19 at 09:00; Stop 04/20/19 at 21:01 Vancomycin HCl 1.5 gm/Sodium Chloride 250 ml @ 83.333 mls/ hr Q24H IVPB Last administered on 04/16/19at 22:54; Admin Dose 83.333 MLS/HR; Start 04/15/19 at 21:00 Sodium Hypochlorite (Dakins Diluted ()) 1 applic DAILY TP Last administered on 04/17/19at 09:19; Admin Dose 1 APPLIC; Start 04/16/19 at 09:00 Cefepime HCl 50 ml @ 100 mls/hr Q12 IVPB Last administered on 04/17/19 09:18; Admin Dose 100 MLS/HR; Start 04/16/19 at 21:00 Rifampin (Rifampin) 300 mg Q12 PO Last administered on 04/17/19 09:13; Admin Dose 300 MG; Start 04/16/19 at 21:00 HERMINIO WILLAMS NP Apr 17, 2019 15:18
--- NOTE | 2019-04-17 18:51 | PN ---
Date/Time of Note Date/Time of Note DATE: 04/17/19 TIME: 18:51 Assessment/Plan VTE Prophylaxis Risk score (from Ns)>0 risk: 4 SCD applied (from Ns): Yes Pharmacological prophylaxis: LMWH Lines/Catheters IV [facility] Type (from [facility]): PICC Line Central line still needed: Yes Urinary Cath still in place: Yes Reason Cath still needed: urinary retention Assessment/Plan Hospital Course No acute events overnight, patient continues on supplemental oxygen, tolerates pured diet continue strict aspiration precaution, telemetry monitoring. Assessment/Plan - Sepsis secondary to E. coli UTI and Staphylococcus bacteremia. Continue antibiotics per ID. Dr. Saldivar is following in infection disease consultation. - E. 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 Status post I&D. Dr. Patel is following in general surgery consultation. Continue current wound care. - Dysphagia, s/p swallow eval, continue PO diet. - BPH, continue Flomax and Proscar - History of cerebrovascular accident. Continue aspirin - Dyslipidemia. Continue statin - Parkinsonism. Continue Sinemet. - Dementia with agitation. Continue Depakote. - Depression. Continue Celexa. Further recommendations based on clinical course. Plan of care discussed with Dr. Rivera. Result Diagram: 04/17/19 0550 04/17/19 0550 Results 24hrs Laboratory Tests Test 04/17/19 05:50 White Blood Count 18.7 #H Red Blood Count 3.65 L Hemoglobin 10.9 L Hematocrit 33.0 L Mean Corpuscular Volume 90.4 Mean Corpuscular Hemoglobin 29.9 Mean Corpuscular Hemoglobin Concent 33.0 Red Cell Distribution Width 13.4 Platelet Count 395 Mean Platelet Volume 9.4 Immature Granulocytes % 1.400 H Neutrophils % 87.3 H Lymphocytes % 4.9 L Monocytes % 3.9 Eosinophils % 2.2 Basophils % 0.3 Nucleated Red Blood Cells % 0.0 Immature Granulocytes # 0.270 H Neutrophils # 16.3 H Lymphocytes # 0.9 Monocytes # 0.7 Eosinophils # 0.4 Basophils # 0.1 Nucleated Red Blood Cells # 0.0 Sodium Level 138 Potassium Level 4.1 Chloride Level 106 Carbon Dioxide Level 26 Anion Gap 6 Blood Urea Nitrogen 23 H Creatinine 0.84 Est Glomerular Filtrat Rate mL/min Glucose Level 95 Calcium Level 8.0 L Exam/Review of Systems Exam Vitals Vital Signs Date Temp Pulse Resp B/P (MAP) Pulse Ox O2 O2 Flow FiO2 Time Delivery Rate 04/17/19 97.0 69 20 134/60 94 15:13 (84) 04/16/19 08:00 04/14/19 21 19:48 Intake and Output 04/16/19 04/16/19 04/17/19 1414:59 22:59 06:59 IntakeIntake Total 150 ml 952.5 ml 750 ml OutputOutput Total 1300 ml 750 ml 2400 ml BalanceBalance -1150 ml 202.5 ml -1650 ml Exam Constitutional: alert, frail Neck: supple Respiratory: diminished breath sounds Cardiovascular: regular rate and rhythm Gastrointestinal: soft, non-tender Extremities: normal pulses Neurological: confused Skin: other (Sacral wound ) Results Results 24hrs Laboratory Tests Test 04/17/19 05:50 White Blood Count 18.7 #H Red Blood Count 3.65 L Hemoglobin 10.9 L Hematocrit 33.0 L Mean Corpuscular Volume 90.4 Mean Corpuscular Hemoglobin 29.9 Mean Corpuscular Hemoglobin Concent 33.0 Red Cell Distribution Width 13.4 Platelet Count 395 Mean Platelet Volume 9.4 Immature Granulocytes % 1.400 H Neutrophils % 87.3 H Lymphocytes % 4.9 L Monocytes % 3.9 Eosinophils % 2.2 Basophils % 0.3 Nucleated Red Blood Cells % 0.0 Immature Granulocytes # 0.270 H Neutrophils # 16.3 H Lymphocytes # 0.9 Monocytes # 0.7 Eosinophils # 0.4 Basophils # 0.1 Nucleated Red Blood Cells # 0.0 Sodium Level 138 Potassium Level 4.1 Chloride Level 106 Carbon Dioxide Level 26 Anion Gap 6 Blood Urea Nitrogen 23 H Creatinine 0.84 Est Glomerular Filtrat Rate mL/min Glucose Level 95 Calcium Level 8.0 L Medications Medication Current Medications Acetaminophen (Tylenol Tab) 650 mg Q6H PRN PO MILD PAIN(1-3)OR ELEVATED TEMP; Start 04/13/19 at 00:30 Vancomycin HCl (Vanco Iv Per Pharmacy) VANCOMYCIN PER PHARMACY PER PROTOCOL XX ; Start 04/13/19 at 00:30 Enoxaparin Sodium (Lovenox) 30 mg DAILY SC Last administered on 04/17/19at 09:27; Admin Dose 30 MG; Start 04/13/19 at 09:00 Morphine Sulfate (morphine) 2 mg Q4H PRN IV SEVERE PAIN LEVEL 7-10 Last administered on 04/15/19 22:08; Admin Dose 2 MG; Start 04/13/19 at 00:30 Acetaminophen (Tylenol Tab) 650 mg Q4H PRN PO FEVER>100F; Start 04/13/19 at 17:30 Albuterol (Proventil 0.083% (Neb)) 1.25 mg Q4H PRN NEB WHEEZING AND SOB; Start 04/13/19 at 17:30 Atorvastatin Calcium (Lipitor) 10 mg QHS PO Last administered on 04/16/19 21:37; Admin Dose 10 MG; Start 04/13/19 at 21:00 Carbidopa/Levodopa (Sinemet (25/ )) 1 tab BID PO Last administered on 04/17/19 09:13; Admin Dose 1 TAB; Start 04/13/19 at 21:00 Cholecalciferol (Vitamin D) 1,000 unit DAILY PO Last administered on 04/17/19 09:12; Admin Dose 1,000 UNIT; Start 04/14/19 at 09:00 Citalopram Hydrobromide (Celexa) 10 mg DAILY PO Last administered on 04/17/19 09:12; Admin Dose 10 MG; Start 04/14/19 at 09:00 Finasteride (Proscar) 5 mg DAILY PO Last administered on 04/17/19 09:13; Admin Dose 5 MG; Start 04/14/19 at 09:00 Hydroxyzine HCl (Atarax) 10 mg Q6H PRN PO ITCHING; Start 04/13/19 at 17:30 Ferrous Sulfate (Ferrous Sulfate (Ec)) 325 mg DAILY PO Last administered on 04/17/19 09:13; Admin Dose 325 MG; Start 04/14/19 at 09:00 Diltiazem HCl (Cardizem Sr) 60 mg Q8H PO ; Start 04/13/19 at 21:30; Status Hold Calcium Carbonate (Oyster Shell Calcium) 1.25 gm DAILY PO Last administered on 04/17/19 09:12; Admin Dose 1.25 GM; Start 04/14/19 at 09:00 Valproate Sodium 250 mg/Sodium Chloride 52.5 ml @ 55 mls/hr Q8 IVPB Last administered on 7/10/19at 14:12; Admin Dose 55 MLS/HR; Start 04/13/19 at 22:00 Diphenhydramine HCl (Benadryl) 25 mg Q8 PRN IV ITCHING Last administered on 04/14/19 01:32; Admin Dose 25 MG; Start 04/14/19 at 01:30 Lorazepam (Ativan) 0.5 mg Q6H PRN IV ANXIETY; Start 04/14/19 at 01:30 Mupirocin (Bactroban) 1 applic BID TOP Last administered on 04/17/19 09:18; Admin Dose 1 APPLIC; Start 04/14/19 at 09:00; Stop 04/20/19 at 21:01 Vancomycin HCl 1.5 gm/Sodium Chloride 250 ml @ 83.333 mls/ hr Q24H IVPB Last administered on 04/16/19at 22:54; Admin Dose 83.333 MLS/HR; Start 04/15/19 at 21:00 Sodium Hypochlorite (Dakins Diluted (40)) 1 applic DAILY TP Last administered on 04/17/19 09:19; Admin Dose 1 APPLIC; Start 04/16/19 at 09:00 Cefepime HCl 50 ml @ 100 mls/hr Q12 IVPB Last administered on 04/17/19 09:18; Admin Dose 100 MLS/HR; Start 04/16/19 at 21:00 Rifampin (Rifampin) 300 mg Q12 PO Last administered on 04/17/19 09:13; Admin Dose 300 MG; Start 04/16/19 at 21:00 Miscellaneous Information (*Rx Drug Level Order Reminder*) VANCO TROUGH @ 2,000 ON... 2000 ONCE XX ; Start 04/18/19 at 20:00; Stop 04/18/19 at 20:01 Famotidine (Pepcid) 20 mg BID PO ; Start 04/17/19 at 21:00 ROLANDO SANFORD Apr 17, 2019 18:51
[2019-04-17 19:21] VITALS: BP 117/54; PULSE 72; RESP 20
[2019-04-17] MEDS: VANCOMYCIN HCL 1.5 GM in SOD CHLORIDE 0.9% 250 ML IVPB SCH (22:11)
[2019-04-17] MEDS: FAMOTIDINE 20 MG TAB PO SCH (22:11)
[2019-04-17] MEDS: ATORVASTATIN 10 MG TAB PO SCH (22:11)
--- NOTE | 2019-04-17 22:21 | CONS ---
Assessment/Plan Assessment/Plan Hospital Course (Demo Recall) -ANEMIA COMPLEX MONITOR -LEUKOCYTOSIS REACTIVE MONITOR ON ATB - Sepsis - E. 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 - Dysphagia, swallow eval - BPH, continue Flomax and Proscar - History of cerebrovascular accident. Continue aspirin - Dyslipidemia. Continue statin - Parkinsonism. Continue Sinemet. - Dementia with agitation. Continue Depakote. - Depression. Continue Celexa. Consultation Date/Type/Reason Admit Date/Time Apr 12, 2019 at 17:21 Initial Consult Date Requesting Provider: ROLANDO SANFORD Date/Time of Note DATE: 04/17/19 TIME: 22:21 24 HR Interval Summary Free Text/Dictation NO BLEEDING STABLE Exam/Review of Systems Exam Vitals Vital Signs Date Temp Pulse Resp B/P (MAP) Pulse Ox O2 O2 Flow FiO2 Time Delivery Rate 04/17/19 98.8 72 20 117/54 98 19:21 (75) 04/16/19 08:00 04/14/19 21 19:48 Intake and Output 04/16/19 04/16/19 04/17/19 1515:00 23:00 07:00 IntakeIntake Total 150 ml 952.5 ml 750 ml OutputOutput Total 1300 ml 750 ml 2400 ml BalanceBalance -1150 ml 202.5 ml -1650 ml Exam Constitutional: No oriented, somnolent Psych: calm Head: normocephalic, atraumatic Eyes: nl conjunctiva, EOMI, PERRL; No icteric ENMT: nl external ears & nose, mucosa pink and moist Neck: supple, non-tender, jvd (Minimal) Respiratory: normal air movement; No congested cough, No labored breathing, No wheezing Cardiovascular: regular rate and rhythm; No edema Gastrointestinal: soft, non-tender; No distended, No rebound or guarding Genitourinary - Male: No nl scrotum (Wound-clean) Musculoskeletal: No nl extremities to inspection, No nl gait and stance, No joint tenderness Extremities: normal pulses; No calf tenderness, No edema Neurological: No nl mental status, No nl speech, No nl strength Skin: rash or lesions (Sacral: Clean, no bleeding); No diaphoresis Lymph: nl lymph nodes Results Result Diagram: 04/17/19 0550 04/17/19 0550 Results 24hrs Laboratory Tests Test 04/17/19 05:50 White Blood Count 18.7 #H Red Blood Count 3.65 L Hemoglobin 10.9 L Hematocrit 33.0 L Mean Corpuscular Volume 90.4 Mean Corpuscular Hemoglobin 29.9 Mean Corpuscular Hemoglobin Concent 33.0 Red Cell Distribution Width 13.4 Platelet Count 395 Mean Platelet Volume 9.4 Immature Granulocytes % 1.400 H Neutrophils % 87.3 H Lymphocytes % 4.9 L Monocytes % 3.9 Eosinophils % 2.2 Basophils % 0.3 Nucleated Red Blood Cells % 0.0 Immature Granulocytes # 0.270 H Neutrophils # 16.3 H Lymphocytes # 0.9 Monocytes # 0.7 Eosinophils # 0.4 Basophils # 0.1 Nucleated Red Blood Cells # 0.0 Sodium Level 138 Potassium Level 4.1 Chloride Level 106 Carbon Dioxide Level 26 Anion Gap 6 Blood Urea Nitrogen 23 H Creatinine 0.84 Est Glomerular Filtrat Rate mL/min Glucose Level 95 Calcium Level 8.0 L Medications Medication Current Medications Acetaminophen (Tylenol Tab) 650 mg Q6H PRN PO MILD PAIN(1-3)OR ELEVATED TEMP; Start 04/13/19 at 00:30 Vancomycin HCl (Vanco Iv Per Pharmacy) VANCOMYCIN PER PHARMACY PER PROTOCOL XX ; Start 04/13/19 at 00:30 Enoxaparin Sodium (Lovenox) 30 mg DAILY SC Last administered on 04/17/19at 09:27; Admin Dose 30 MG; Start 04/13/19 at 09:00 Morphine Sulfate (morphine) 2 mg Q4H PRN IV SEVERE PAIN LEVEL 7-10 Last administered on 04/15/19at 22:08; Admin Dose 2 MG; Start 04/13/19 at 00:30 Acetaminophen (Tylenol Tab) 650 mg Q4H PRN PO FEVER>100F; Start 04/13/19 at 17:30 Albuterol (Proventil 0.083% (Neb)) 1.25 mg Q4H PRN NEB WHEEZING AND SOB; Start 04/13/19 at 17:30 Atorvastatin Calcium (Lipitor) 10 mg QHS PO Last administered on 04/16/19at 21:37; Admin Dose 10 MG; Start 04/13/19 at 21:00 Carbidopa/Levodopa (Sinemet (25/ 100)) 1 tab BID PO Last administered on 04/17/19 09:13; Admin Dose 1 TAB; Start 04/13/19 at 21:00 Cholecalciferol (Vitamin D) 1,000 unit DAILY PO Last administered on 04/17/19 09:12; Admin Dose 1,000 UNIT; Start 04/14/19 at 09:00 Citalopram Hydrobromide (Celexa) 10 mg DAILY PO Last administered on 04/17/19 09:12; Admin Dose 10 MG; Start 04/14/19 at 09:00 Finasteride (Proscar) 5 mg DAILY PO Last administered on 04/17/19 09:13; Admin Dose 5 MG; Start 04/14/19 at 09:00 Hydroxyzine HCl (Atarax) 10 mg Q6H PRN PO ITCHING; Start 04/13/19 at 17:30 Ferrous Sulfate (Ferrous Sulfate (Ec)) 325 mg DAILY PO Last administered on 04/17/19 09:13; Admin Dose 325 MG; Start 04/14/19 at 09:00 Diltiazem HCl (Cardizem Sr) 60 mg Q8H PO ; Start 04/13/19 at 21:30; Status Hold Calcium Carbonate (Oyster Shell Calcium) 1.25 gm DAILY PO Last administered on 04/17/19 09:12; Admin Dose 1.25 GM; Start 04/14/19 at 09:00 Valproate Sodium 250 mg/Sodium Chloride 52.5 ml @ 55 mls/hr Q8 IVPB Last administered on 04/17/19 14:12; Admin Dose 55 MLS/HR; Start 04/13/19 at 22:00 Diphenhydramine HCl (Benadryl) 25 mg Q8 PRN IV ITCHING Last administered on 04/14/19 01:32; Admin Dose 25 MG; Start 04/14/19 at 01:30 Lorazepam (Ativan) 0.5 mg Q6H PRN IV ANXIETY; Start 04/14/19 at 01:30 Mupirocin (Bactroban) 1 applic BID TOP Last administered on 04/17/19 09:18; Admin Dose 1 APPLIC; Start 04/14/19 at 09:00; Stop 04/20/19 at 21:01 Vancomycin HCl 1.5 gm/Sodium Chloride 250 ml @ 83.333 mls/ hr Q24H IVPB Last administered on 04/16/19at 22:54; Admin Dose 83.333 MLS/HR; Start 04/15/19 at 21:00 Sodium Hypochlorite (Dakins Diluted ()) 1 applic DAILY TP Last administered on 04/17/19at 09:19; Admin Dose 1 APPLIC; Start 04/16/19 at 09:00 Cefepime HCl 50 ml @ 100 mls/hr Q12 IVPB Last administered on 04/17/19at 09:18; Admin Dose 100 MLS/HR; Start 04/16/19 at 21:00 Rifampin (Rifampin) 300 mg Q12 PO Last administered on 04/17/19at 09:13; Admin Dose 300 MG; Start 04/16/19 at 21:00 Miscellaneous Information (*Rx Drug Level Order Reminder*) VANCO TROUGH @ 2,000 ON... 1999 ONCE XX ; Start 04/18/19 at 20:00; Stop 04/18/19 at 20:01 Famotidine (Pepcid) 20 mg BID PO ; Start 04/17/19 at 21:00 FELI MARCIAL MD Apr 17, 2019 22:21
[2019-04-17] MEDS: DIPHENHYDRAMINE 50 MG INJ IV PRN (22:26)
[2019-04-17] MEDS: LORAZEPAM 2 MG INJ IV PRN (22:26)
[2019-04-18] VITALS: BP 129/60; PULSE 68; RESP 18
[2019-04-18 04:00] VITALS: BP 117/55; PULSE 56; RESP 19
[2019-04-18] MEDS: VALPROATE INJ 250 MG in SOD CHLORIDE 0.9% 50 ML IVPB SCH ×3 (06:45→22:14)
[2019-04-18 07:27] VITALS: BP 119/54; PULSE 58; RESP 18
[2019-04-18] MEDS: FERROUS SULFATE (EC) 325 MG TAB PO SCH (08:06)
[2019-04-18] MEDS: FAMOTIDINE 20 MG TAB PO SCH ×2 (08:06→21:33)
[2019-04-18] MEDS: CALCIUM CARBONATE 1.25 GM TAB PO SCH (08:06)
[2019-04-18] MEDS: CITALOPRAM 20 MG TAB PO SCH (08:06)
[2019-04-18] MEDS: FINASTERIDE 5 MG TAB PO SCH (08:06)
[2019-04-18] MEDS: CHOLECALCIFEROL 1,000 UNIT TAB PO SCH (08:06)
[2019-04-18] MEDS: RIFAMPIN 300 MG CAP PO SCH ×2 (08:07→21:33)
[2019-04-18] MEDS: DAKINS 0.0125%(1/40) 473 ML SOLUTION TP SCH (08:07)
[2019-04-18] MEDS: CEFEPIME 1GM/50 ML (PMX) 50 ML IVPB SCH ×2 (08:07→21:29)
[2019-04-18] MEDS: MUPIROCIN 2% 22 GM OINT TOP SCH ×2 (08:07→21:41)
[2019-04-18] MEDS: LORAZEPAM 2 MG INJ IV PRN ×2 (08:11→21:30)
[2019-04-18] MEDS: ENOXAPARIN 30 MG/0.3 ML SYG SC SCH (08:22)
[2019-04-18] MEDS: CARBIDOPA/LEVODOPA (25/100) TAB PO SCH ×2 (08:22→21:33)
[2019-04-18 11:20] VITALS: BP 124/57; PULSE 66; RESP 18
--- NOTE | 2019-04-18 12:11 | CONS ---
Assessment/Plan Assessment/Plan Hospital Course (Demo Recall) No acute changes overnight, all noted, patient looks comfortable, no fevers Microbiology: Blood culture on admission grew MRSA, urine culture positive for E. coli, sacral wound culture grew E. coli and MRSA Antimicrobials: Cefepime IV vancomycin Allergies: Penicillin PHYSICAL EXAMINATION: GENERAL: This is a chronically ill-appearing, wasted elderly man who is in no distress. HEENT: Head is atraumatic, normocephalic. Sclerae are anicteric. Buccal mucosa is dry. NECK: Supple. CHEST: Rise symmetrical. Breath sounds diminished to bases. HEART: S1, S2. ABDOMEN: Soft. Bowel tones are present. EXTREMITIES: With trace edema. Assessment: 1. Sepsis with MRSA bacteremia on admission 2 to #2 2. Sacral wound with abscess and cellulitis, status post I&D 04/15/19 3. MRSA nares colonization 4. UTI 5. Dementia Plan: Remains unchanged, on appropriate antibiotics, no osteomyelitis per pathology report, repeat blood cultures neg, will keep on current abx for 2 weeks Consultation Date/Type/Reason Admit Date/Time Apr 12, 2019 at 17:21 Initial Consult Date 04/15/19 Type of Consult id Requesting Provider: ROLANDO SANFORD Date/Time of Note DATE: 04/18/19 TIME: 12:10 Exam/Review of Systems Exam Vitals Vital Signs Date Temp Pulse Resp B/P (MAP) Pulse Ox O2 O2 Flow FiO2 Time Delivery Rate 04/18/19 97.9 66 18 124/57 93 Room Air 11:20 (79) 04/18/19 6.0 02:10 04/14/19 21 19:48 Intake and Output 04/17/19 04/17/19 04/18/19 1515:00 23:00 07:00 IntakeIntake Total 500 ml OutputOutput Total 2000 ml BalanceBalance 500 ml -2000 ml Results Result Diagram: 04/18/1931 04/18/1931 Results 24hrs Laboratory Tests Test 04/18/19 05:31 White Blood Count 12.3 #H Red Blood Count 3.61 L Hemoglobin 10.7 L Hematocrit 32.8 L Mean Corpuscular Volume 90.9 Mean Corpuscular Hemoglobin 29.6 Mean Corpuscular Hemoglobin Concent 32.6 Red Cell Distribution Width 13.7 Platelet Count 348 Mean Platelet Volume 9.6 Immature Granulocytes % 1.400 H Neutrophils % 81.3 H Lymphocytes % 9.7 L Monocytes % 4.1 Eosinophils % 3.2 Basophils % 0.3 Nucleated Red Blood Cells % 0.0 Immature Granulocytes # 0.170 H Neutrophils # 10.0 H Lymphocytes # 1.2 Monocytes # 0.5 Eosinophils # 0.4 Basophils # 0.0 Nucleated Red Blood Cells # 0.0 Sodium Level 140 Potassium Level 4.0 Chloride Level 106 Carbon Dioxide Level 29 Anion Gap 5 Blood Urea Nitrogen 21 H Creatinine 0.95 Est Glomerular Filtrat Rate mL/min Glucose Level 89 Calcium Level 8.0 L Medications Medication Current Medications Acetaminophen (Tylenol Tab) 650 mg Q6H PRN PO MILD PAIN(1-3)OR ELEVATED TEMP; Start 04/13/19 at 00:30 Vancomycin HCl (Vanco Iv Per Pharmacy) VANCOMYCIN PER PHARMACY PER PROTOCOL XX ; Start 04/13/19 at 00:30 Enoxaparin Sodium (Lovenox) 30 mg DAILY SC Last administered on 04/18/19at 08:22; Admin Dose 30 MG; Start 04/13/19 at 09:00 Morphine Sulfate (morphine) 2 mg Q4H PRN IV SEVERE PAIN LEVEL 7-10 Last administered on 04/15/19at 22:08; Admin Dose 2 MG; Start 04/13/19 at 00:30 Acetaminophen (Tylenol Tab) 650 mg Q4H PRN PO FEVER>100F; Start 04/13/19 at 17:30 Albuterol (Proventil 0.083% (Neb)) 1.25 mg Q4H PRN NEB WHEEZING AND SOB; Start 04/13/19 at 17:30 Atorvastatin Calcium (Lipitor) 10 mg QHS PO Last administered on 04/17/19at 22:11; Admin Dose 10 MG; Start 04/13/19 at 21:00 Carbidopa/Levodopa (Sinemet (25/ 100)) 1 tab BID PO Last administered on 04/18/19at 08:22; Admin Dose 1 TAB; Start 04/13/19 at 21:00 Cholecalciferol (Vitamin D) 1,000 unit DAILY PO Last administered on 04/18/19at 08:06; Admin Dose 1,000 UNIT; Start 04/14/19 at 09:00 Citalopram Hydrobromide (Celexa) 10 mg DAILY PO Last administered on 04/18/19 08:06; Admin Dose 10 MG; Start 04/14/19 at 09:00 Finasteride (Proscar) 5 mg DAILY PO Last administered on 04/18/19 08:06; Admin Dose 5 MG; Start 04/14/19 at 09:00 Hydroxyzine HCl (Atarax) 10 mg Q6H PRN PO ITCHING; Start 04/13/19 at 17:30 Ferrous Sulfate (Ferrous Sulfate (Ec)) 325 mg DAILY PO Last administered on 04/18/19 08:06; Admin Dose 325 MG; Start 04/14/19 at 09:00 Diltiazem HCl (Cardizem Sr) 60 mg Q8H PO ; Start 04/13/19 at 21:30; Status Hold Calcium Carbonate (Oyster Shell Calcium) 1.25 gm DAILY PO Last administered on 04/18/19 08:06; Admin Dose 1.25 GM; Start 04/14/19 at 09:00 Valproate Sodium 250 mg/Sodium Chloride 52.5 ml @ 55 mls/hr Q8 IVPB Last administered on 04/18/19 06:45; Admin Dose 55 MLS/HR; Start 04/13/19 at 22:00 Diphenhydramine HCl (Benadryl) 25 mg Q8 PRN IV ITCHING Last administered on 22:26; Admin Dose 25 MG; Start 04/14/19 at 01:30 Lorazepam (Ativan) 0.5 mg Q6H PRN IV ANXIETY Last administered on 04/18/19 08:11; Admin Dose 0.5 MG; Start 04/14/19 at 01:30 Mupirocin (Bactroban) 1 applic BID TOP Last administered on 04/18/19 08:07; Admin Dose 1 APPLIC; Start 04/14/19 at 09:00; Stop 04/20/19 at 21:01 Vancomycin HCl 1.5 gm/Sodium Chloride 250 ml @ 83.333 mls/ hr Q24H IVPB Last administered on 04/17/19 22:11; Admin Dose 83.333 MLS/HR; Start 04/15/19 at 21:00 Sodium Hypochlorite (Dakins Diluted (40)) 1 applic DAILY TP Last administered on 7/11/19at 08:07; Admin Dose 1 APPLIC; Start 04/16/19 at 09:00 Cefepime HCl 50 ml @ 100 mls/hr Q12 IVPB Last administered on 04/18/19 08:07; Admin Dose 100 MLS/HR; Start 04/16/19 at 21:00 Rifampin (Rifampin) 300 mg Q12 PO Last administered on 04/18/19at 08:07; Admin Dose 300 MG; Start 04/16/19 at 21:00 Miscellaneous Information (*Rx Drug Level Order Reminder*) VANCO TROUGH @ 2,000 ON... 1999 ONCE XX ; Start 04/18/19 at 20:00; Stop 04/18/19 at 20:01 Famotidine (Pepcid) 20 mg BID PO Last administered on 04/18/19at 08:06; Admin Dose 20 MG; Start 04/17/19 at 21:00 HERMINIO WILLAMS NP Apr 18, 2019 12:11
--- NOTE | 2019-04-18 13:13 | PN ---
Date/Time of Note Date/Time of Note DATE: 04/18/19 TIME: 13:11 Assessment/Plan Lines/Catheters IV Catheter Type (from Nrs): PICC Line Gonzales in Place (from Nrs): Yes Assessment/Plan Chief Complaint/Hosp Course 1. 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 CVA history, bedbound, functional quadriplegia -Medical optimization -Offloading -Nutritional optimization 3. CHF history -Cardiac optimization with judicious fluid management 4. Anemia, stable -Monitor 5. Leukocytosis: Improving -As above 6. UTI: -abx per sensitivity -frequent bladder emptying/cath care 7. Bacteremia -Antibiotics per sensitivity Thank you. Patient seen and examined in collaboration with Dr. Pasquale Patel. Subjective 24 Hr Interval Summary WBC improved. No fevers, labored breathing, congested cough, vomiting, diarrhea, seizure, rash, bleeding from wound. Exam/Review of Systems Vital Signs Vitals Vital Signs Date Temp Pulse Resp B/P (MAP) Pulse Ox O2 O2 Flow FiO2 Time Delivery Rate 04/18/19 97.9 66 18 124/57 93 Room Air 11:20 (79) 04/18/19 6.0 02:10 04/14/19 21 19:48 Intake and Output 04/17/19 04/17/19 04/18/19 1515:00 23:00 07:00 IntakeIntake Total 500 ml OutputOutput Total 2000 ml BalanceBalance 500 ml -2000 ml Exam Free Text/Dictation Constitutional: No oriented Psych: Intermittent anxiety Head: normocephalic, atraumatic Eyes: nl conjunctiva, EOMI, PERRL; No icteric ENMT: nl external ears & nose, mucosa pink and moist Neck: supple, non-tender, jvd (Minimal) Respiratory: normal air movement; No congested cough, No labored breathing, No wheezing Cardiovascular: regular rate and rhythm; No edema Gastrointestinal: soft, non-tender; No distended, No rebound or guarding Genitourinary - Male: No nl scrotum (Wound) Musculoskeletal: No nl extremities to inspection, No nl gait and stance, No joint tenderness Extremities: normal pulses; No calf tenderness, No edema Neurological: No nl mental status, No nl speech, No nl strength Skin: rash or lesions (Sacral: Packed, no bleeding); No diaphoresis Lymph: nl lymph nodes Results Result Diagram: 04/18/19 0531 04/18/19 0531 CHARLI CHAVIS NP Apr 18, 2019 13:13
[2019-04-18 15:10] VITALS: BP 141/65; PULSE 62; RESP 20
--- NOTE | 2019-04-18 17:54 | PN ---
Date/Time of Note Date/Time of Note DATE: 04/18/19 TIME: 17:53 Assessment/Plan VTE Prophylaxis Risk score (from Ns)>0 risk: 11 SCD applied (from Ns): Yes Pharmacological prophylaxis: LMWH Lines/Catheters IV Catheter Type (from Nrs): PICC Line Central line still needed: Yes Urinary Cath still in place: Yes Reason Cath still needed: urinary retention Assessment/Plan Hospital Course Patient continues on supplemental oxygen, tolerates pured diet with strict aspiration precaution. Assessment/Plan - Sepsis secondary to E. coli UTI and Staphylococcus bacteremia. Continue antibiotics per ID. Dr. Saldivar is following in infection disease consultation. - E. 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 Status post I&D. Dr. Patel is following in general surgery consultation. Continue current wound care. - Dysphagia, s/p swallow eval, continue PO diet. - BPH, continue Flomax and Proscar - History of cerebrovascular accident. Continue aspirin - Dyslipidemia. Continue statin - Parkinsonism. Continue Sinemet. - Dementia with agitation. Continue Depakote. - Depression. Continue Celexa. Further recommendations based on clinical course. Plan of care discussed with Dr. Rivera. Result Diagram: 04/18/19 0531 04/18/19 0531 Results 24hrs Laboratory Tests Test 04/18/19 05:31 White Blood Count 12.3 #H Red Blood Count 3.61 L Hemoglobin 10.7 L Hematocrit 32.8 L Mean Corpuscular Volume 90.9 Mean Corpuscular Hemoglobin 29.6 Mean Corpuscular Hemoglobin Concent 32.6 Red Cell Distribution Width 13.7 Platelet Count 348 Mean Platelet Volume 9.6 Immature Granulocytes % 1.400 H Neutrophils % 81.3 H Lymphocytes % 9.7 L Monocytes % 4.1 Eosinophils % 3.2 Basophils % 0.3 Nucleated Red Blood Cells % 0.0 Immature Granulocytes # 0.170 H Neutrophils # 10.0 H Lymphocytes # 1.2 Monocytes # 0.5 Eosinophils # 0.4 Basophils # 0.0 Nucleated Red Blood Cells # 0.0 Sodium Level 140 Potassium Level 4.0 Chloride Level 106 Carbon Dioxide Level 29 Anion Gap 5 Blood Urea Nitrogen 21 H Creatinine 0.95 Est Glomerular Filtrat Rate mL/min Glucose Level 89 Calcium Level 8.0 L Exam/Review of Systems Exam Vitals Vital Signs Date Temp Pulse Resp B/P (MAP) Pulse Ox O2 O2 Flow FiO2 Time Delivery Rate 04/18/19 6.0 17:49 04/18/19 97.8 62 20 141/65 95 Room Air 15:10 (90) 04/14/19 21 19:48 Intake and Output 04/17/19 04/17/19 04/18/19 1414:59 22:59 06:59 IntakeIntake Total 500 ml OutputOutput Total 2000 ml BalanceBalance 500 ml -2000 ml Exam Constitutional: alert, frail Neck: supple Respiratory: diminished breath sounds Cardiovascular: regular rate and rhythm Gastrointestinal: soft, non-tender Extremities: normal pulses Neurological: confused Skin: other (Sacral wound ) Results Results 24hrs Laboratory Tests Test 04/18/19 05:31 White Blood Count 12.3 #H Red Blood Count 3.61 L Hemoglobin 10.7 L Hematocrit 32.8 L Mean Corpuscular Volume 90.9 Mean Corpuscular Hemoglobin 29.6 Mean Corpuscular Hemoglobin Concent 32.6 Red Cell Distribution Width 13.7 Platelet Count 348 Mean Platelet Volume 9.6 Immature Granulocytes % 1.400 H Neutrophils % 81.3 H Lymphocytes % 9.7 L Monocytes % 4.1 Eosinophils % 3.2 Basophils % 0.3 Nucleated Red Blood Cells % 0.0 Immature Granulocytes # 0.170 H Neutrophils # 10.0 H Lymphocytes # 1.2 Monocytes # 0.5 Eosinophils # 0.4 Basophils # 0.0 Nucleated Red Blood Cells # 0.0 Sodium Level 140 Potassium Level 4.0 Chloride Level 106 Carbon Dioxide Level 29 Anion Gap 5 Blood Urea Nitrogen 21 H Creatinine 0.95 Est Glomerular Filtrat Rate mL/min Glucose Level 89 Calcium Level 8.0 L Medications Medication Current Medications Acetaminophen (Tylenol Tab) 650 mg Q6H PRN PO MILD PAIN(1-3)OR ELEVATED TEMP; Start 04/13/19 at 00:30 Vancomycin HCl (Vanco Iv Per Pharmacy) VANCOMYCIN PER PHARMACY PER PROTOCOL XX ; Start 04/13/19 at 00:30 Enoxaparin Sodium (Lovenox) 30 mg DAILY SC Last administered on 04/18/19at 08:22; Admin Dose 30 MG; Start 04/13/19 at 09:00 Morphine Sulfate (morphine) 2 mg Q4H PRN IV SEVERE PAIN LEVEL 7-10 Last administered on 04/15/19at 22:08; Admin Dose 2 MG; Start 04/13/19 at 00:30 Acetaminophen (Tylenol Tab) 650 mg Q4H PRN PO FEVER>100F; Start 04/13/19 at 17:30 Albuterol (Proventil 0.083% (Neb)) 1.25 mg Q4H PRN NEB WHEEZING AND SOB; Start 04/13/19 at 17:30 Atorvastatin Calcium (Lipitor) 10 mg QHS PO Last administered on 04/17/19 22:11; Admin Dose 10 MG; Start 04/13/19 at 21:00 Carbidopa/Levodopa (Sinemet (25/ 100)) 1 tab BID PO Last administered on 04/18/19 08:22; Admin Dose 1 TAB; Start 04/13/19 at 21:00 Cholecalciferol (Vitamin D) 1,000 unit DAILY PO Last administered on 04/18/19 08:06; Admin Dose 1,000 UNIT; Start 04/14/19 at 09:00 Citalopram Hydrobromide (Celexa) 10 mg DAILY PO Last administered on 04/18/19 08:06; Admin Dose 10 MG; Start 04/14/19 at 09:00 Finasteride (Proscar) 5 mg DAILY PO Last administered on 04/18/19 08:06; Admin Dose 5 MG; Start 04/14/19 at 09:00 Hydroxyzine HCl (Atarax) 10 mg Q6H PRN PO ITCHING; Start 04/13/19 at 17:30 Ferrous Sulfate (Ferrous Sulfate (Ec)) 325 mg DAILY PO Last administered on 04/08 08:06; Admin Dose 325 MG; Start 04/14/19 at 09:00 Diltiazem HCl (Cardizem Sr) 60 mg Q8H PO ; Start 04/13/19 at 21:30; Status Hold Calcium Carbonate (Oyster Shell Calcium) 1.25 gm DAILY PO Last administered on 04/18/19 08:06; Admin Dose 1.25 GM; Start 04/14/19 at 09:00 Valproate Sodium 250 mg/Sodium Chloride 52.5 ml @ 55 mls/hr Q8 IVPB Last administered on 04/18/19 13:42; Admin Dose 55 MLS/HR; Start 04/13/19 at 22:00 Diphenhydramine HCl (Benadryl) 25 mg Q8 PRN IV ITCHING Last administered on 04/17/19 22:26; Admin Dose 25 MG; Start 04/14/19 at 01:30 Lorazepam (Ativan) 0.5 mg Q6H PRN IV ANXIETY Last administered on 04/18/19 08:11; Admin Dose 0.5 MG; Start 04/14/19 at 01:30 Mupirocin (Bactroban) 1 applic BID TOP Last administered on 04/18/19 08:07; Admin Dose 1 APPLIC; Start 04/14/19 at 09:00; Stop 04/20/19 at 21:01 Vancomycin HCl 1.5 gm/Sodium Chloride 250 ml @ 83.333 mls/ hr Q24H IVPB Last administered on 04/17/19 22:11; Admin Dose 83.333 MLS/HR; Start 04/15/19 at 21:00 Sodium Hypochlorite (Dakins Diluted (40)) 1 applic DAILY TP Last administered on 04/18/19 08:07; Admin Dose 1 APPLIC; Start 04/16/19 at 09:00 Cefepime HCl 50 ml @ 100 mls/hr Q12 IVPB Last administered on 04/18/19 08:07; Admin Dose 100 MLS/HR; Start 04/16/19 at 21:00 Rifampin (Rifampin) 300 mg Q12 PO Last administered on 04/18/19 08:07; Admin Dose 300 MG; Start 04/16/19 at 21:00 Miscellaneous Information (*Rx Drug Level Order Reminder*) VANCO TROUGH @ 2,000 ON... 2000 ONCE XX ; Start 04/18/19 at 20:00; Stop 04/18/19 at 20:01 Famotidine (Pepcid) 20 mg BID PO Last administered on 04/18/19 08:06; Admin Dose 20 MG; Start 04/17/19 at 21:00 ROLANDO SANFORD Apr 18, 2019 17:54
[2019-04-18 20:49] VITALS: BP 117/74; PULSE 75; RESP 20
[2019-04-18] MEDS: VANCOMYCIN HCL 1.5 GM in SOD CHLORIDE 0.9% 250 ML IVPB SCH (21:29)
[2019-04-18] MEDS: ATORVASTATIN 10 MG TAB PO SCH (21:32)
[2019-04-18] MEDS: DIPHENHYDRAMINE 50 MG INJ IV PRN (22:10)
--- NOTE | 2019-04-18 22:28 | CONS ---
Assessment/Plan Assessment/Plan Hospital Course (Demo Recall) -ANEMIA COMPLEX, MONITOR - LEUKOCYTOSIS REACTIVE, monitor - fever, cough CXR, IV ATB , ID, CULTURES - Sepsis on admission w/fevers, leukocytosis, lactic acidosis Large sacral decub w/abscess and surrounding bilateral edema post surgery - HX urinary tract infection. IV ATB Complicated UTI w/urinary retention due to BPH & neurogenic bladder -Hx of PNA -GERD -Hx of CHAPARRITA - BPH, continue Flomax and Proscar - Dysphagia. swallow evaluation by ST. - History of cerebrovascular accident. Continue aspirin - Dyslipidemia. Continue statin - Parkinsonism. Continue carbidopa - Dementia with agitation. Continue Depakote. - Depression. Continue Celexa. Consultation Date/Type/Reason Admit Date/Time Apr 12, 2019 at 17:21 Initial Consult Date Requesting Provider: ROLANDO SANFORD Date/Time of Note DATE: 04/18/19 TIME: 22:28 Exam/Review of Systems Exam Vitals Vital Signs Date Temp Pulse Resp B/P (MAP) Pulse Ox O2 O2 Flow FiO2 Time Delivery Rate 04/18/19 98.0 75 20 117/74 93 Room Air 20:49 (88) 04/18/19 6.0 17:49 04/14/19 21 19:48 Intake and Output 04/17/19 04/17/19 04/18/19 1515:00 23:00 07:00 IntakeIntake Total 500 ml OutputOutput Total 2000 ml BalanceBalance 500 ml -2000 ml Results Result Diagram: 04/18/19 0531 04/18/19 0531 Results 24hrs Laboratory Tests Test 04/18/19 05:31 04/18/19 19:49 White Blood Count 12.3 #H Red Blood Count 3.61 L Hemoglobin 10.7 L Hematocrit 32.8 L Mean Corpuscular Volume 90.9 Mean Corpuscular Hemoglobin 29.6 Mean Corpuscular Hemoglobin Concent 32.6 Red Cell Distribution Width 13.7 Platelet Count 348 Mean Platelet Volume 9.6 Immature Granulocytes % 1.400 H Neutrophils % 81.3 H Lymphocytes % 9.7 L Monocytes % 4.1 Eosinophils % 3.2 Basophils % 0.3 Nucleated Red Blood Cells % 0.0 Immature Granulocytes # 0.170 H Neutrophils # 10.0 H Lymphocytes # 1.2 Monocytes # 0.5 Eosinophils # 0.4 Basophils # 0.0 Nucleated Red Blood Cells # 0.0 Sodium Level 140 Potassium Level 4.0 Chloride Level 106 Carbon Dioxide Level 29 Anion Gap 5 Blood Urea Nitrogen 21 H Creatinine 0.95 Est Glomerular Filtrat Rate mL/min Glucose Level 89 Calcium Level 8.0 L Vancomycin Level Trough 16.7 Medications Medication Current Medications Acetaminophen (Tylenol Tab) 650 mg Q6H PRN PO MILD PAIN(1-3)OR ELEVATED TEMP; Start 04/13/19 at 00:30 Vancomycin HCl (Vanco Iv Per Pharmacy) VANCOMYCIN PER PHARMACY PER PROTOCOL XX ; Start 04/13/19 at 00:30 Enoxaparin Sodium (Lovenox) 30 mg DAILY SC Last administered on 04/18/19 08:22; Admin Dose 30 MG; Start 04/13/19 at 09:00 Morphine Sulfate (morphine) 2 mg Q4H PRN IV SEVERE PAIN LEVEL 7-10 Last administered on 04/15/19 22:08; Admin Dose 2 MG; Start 04/13/19 at 00:30 Acetaminophen (Tylenol Tab) 650 mg Q4H PRN PO FEVER>100F; Start 04/13/19 at 17:30 Albuterol (Proventil 0.083% (Neb)) 1.25 mg Q4H PRN NEB WHEEZING AND SOB; Start 04/13/19 at 17:30 Atorvastatin Calcium (Lipitor) 10 mg QHS PO Last administered on 04/18/19at 21:32; Admin Dose 10 MG; Start 04/13/19 at 21:00 Carbidopa/Levodopa (Sinemet (25/ 100)) 1 tab BID PO Last administered on 04/18/19 21:33; Admin Dose 1 TAB; Start 04/13/19 at 21:00 Cholecalciferol (Vitamin D) 1,000 unit DAILY PO Last administered on 04/18/19 08:06; Admin Dose 1,000 UNIT; Start 04/14/19 at 09:00 Citalopram Hydrobromide (Celexa) 10 mg DAILY PO Last administered on 04/18/19 08:06; Admin Dose 10 MG; Start 04/14/19 at 09:00 Finasteride (Proscar) 5 mg DAILY PO Last administered on 04/18/19 08:06; Admin Dose 5 MG; Start 04/14/19 at 09:00 Hydroxyzine HCl (Atarax) 10 mg Q6H PRN PO ITCHING; Start 04/13/19 at 17:30 Ferrous Sulfate (Ferrous Sulfate (Ec)) 325 mg DAILY PO Last administered on 04/18/19 08:06; Admin Dose 325 MG; Start 04/14/19 at 09:00 Diltiazem HCl (Cardizem Sr) 60 mg Q8H PO ; Start 04/13/19 at 21:30; Status Hold Calcium Carbonate (Oyster Shell Calcium) 1.25 gm DAILY PO Last administered on 04/18/19 08:06; Admin Dose 1.25 GM; Start 04/14/19 at 09:00 Valproate Sodium 250 mg/Sodium Chloride 52.5 ml @ 55 mls/hr Q8 IVPB Last administered on 04/18/19 22:14; Admin Dose 55 MLS/HR; Start 04/13/19 at 22:00 Diphenhydramine HCl (Benadryl) 25 mg Q8 PRN IV ITCHING Last administered on 04/18/19 22:10; Admin Dose 25 MG; Start 04/14/19 at 01:30 Lorazepam (Ativan) 0.5 mg Q6H PRN IV ANXIETY Last administered on 04/18/19 21:30; Admin Dose 0.5 MG; Start 04/14/19 at 01:30 Mupirocin (Bactroban) 1 applic BID TOP Last administered on 04/18/19 21:41; Admin Dose 1 APPLIC; Start 04/14/19 at 09:00; Stop 04/20/19 at 21:01 Vancomycin HCl 1.5 gm/Sodium Chloride 250 ml @ 83.333 mls/ hr Q24H IVPB Last administered on 04/18/19 21:29; Admin Dose 83.333 MLS/HR; Start 04/15/19 at 21:00 Sodium Hypochlorite (Dakins Diluted ()) 1 applic DAILY TP Last administered on 04/18/19 08:07; Admin Dose 1 APPLIC; Start 04/16/19 at 09:00 Cefepime HCl 50 ml @ 100 mls/hr Q12 IVPB Last administered on 04/18/19 21:29; Admin Dose 100 MLS/HR; Start 04/16/19 at 21:00 Rifampin (Rifampin) 300 mg Q12 PO Last administered on 04/18/19at 21:33; Admin Dose 300 MG; Start 04/16/19 at 21:00 Famotidine (Pepcid) 20 mg BID PO Last administered on 04/18/19at 21:33; Admin Dose 20 MG; Start 04/17/19 at 21:00 FELI MARCIAL MD Apr 18, 2019 22:28
[2019-04-19 00:34] VITALS: BP 129/79; PULSE 84; RESP 20
[2019-04-19 04:22] VITALS: BP 126/59; PULSE 59; RESP 20
[2019-04-19] MEDS: VALPROATE INJ 250 MG in SOD CHLORIDE 0.9% 50 ML IVPB SCH ×3 (06:15→22:25)
[2019-04-19] MEDS: DIPHENHYDRAMINE 50 MG INJ IV PRN ×2 (06:33→21:16)
[2019-04-19 08:16] VITALS: BP 123/60; PULSE 78; RESP 18
[2019-04-19] MEDS: CALCIUM CARBONATE 1.25 GM TAB PO SCH (09:00)
[2019-04-19] MEDS: FINASTERIDE 5 MG TAB PO SCH (10:33)
[2019-04-19] MEDS: FAMOTIDINE 20 MG TAB PO SCH ×2 (10:33→20:51)
[2019-04-19] MEDS: CARBIDOPA/LEVODOPA (25/100) TAB PO SCH ×2 (10:33→20:51)
[2019-04-19] MEDS: RIFAMPIN 300 MG CAP PO SCH ×2 (10:33→20:51)
[2019-04-19] MEDS: CEFEPIME 1GM/50 ML (PMX) 50 ML IVPB SCH ×2 (10:34→20:45)
[2019-04-19] MEDS: CITALOPRAM 20 MG TAB PO SCH (10:34)
[2019-04-19] MEDS: FERROUS SULFATE (EC) 325 MG TAB PO SCH (10:42)
[2019-04-19] MEDS: CHOLECALCIFEROL 1,000 UNIT TAB PO SCH (10:43)
[2019-04-19] MEDS: DAKINS 0.0125%(1/40) 473 ML SOLUTION TP SCH (10:47)
[2019-04-19] MEDS: ENOXAPARIN 30 MG/0.3 ML SYG SC SCH (10:51)
[2019-04-19 11:40] VITALS: BP 124/63; PULSE 79; RESP 18
--- NOTE | 2019-04-19 11:58 | CONS ---
Assessment/Plan Assessment/Plan Hospital Course (Demo Recall) No acute changes overnight, looks comfortable, afebrile Microbiology: Blood culture on admission grew MRSA, urine culture positive for E. coli, sacral wound culture grew E. coli and MRSA Antimicrobials: Cefepime IV vancomycin Allergies: Penicillin PHYSICAL EXAMINATION: GENERAL: This is a chronically ill-appearing, wasted elderly man who is in no distress. HEENT: Head is atraumatic, normocephalic. Sclerae are anicteric. Buccal mucosa is dry. NECK: Supple. CHEST: Rise symmetrical. Breath sounds diminished to bases. HEART: S1, S2. ABDOMEN: Soft. Bowel tones are present. EXTREMITIES: With trace edema. Assessment: 1. Sepsis with MRSA bacteremia on admission 2 to #2 2. Sacral wound with abscess and cellulitis, status post I&D 04/15/19 3. MRSA nares colonization 4. UTI 5. Dementia Plan: Remains unchanged, on appropriate antibiotics, no osteomyelitis per pathology report, repeat blood cultures neg, continue on current abx for 10 more days Consultation Date/Type/Reason Admit Date/Time Apr 12, 2019 at 17:21 Initial Consult Date 04/15/19 Type of Consult id Requesting Provider: ROLANDO SANFORD Date/Time of Note DATE: 04/19/19 TIME: 11:57 Exam/Review of Systems Exam Vitals Vital Signs Date Temp Pulse Resp B/P (MAP) Pulse Ox O2 O2 Flow FiO2 Time Delivery Rate 04/19/19 98.4 79 18 124/63 97 11:40 (83) 04/19/19 Nasal 04:22 Cannula 04/19/19 10.0 01:22 Intake and Output 04/18/19 04/18/19 04/19/19 1515:00 23:00 07:00 IntakeIntake Total 760 ml OutputOutput Total 400 ml 700 ml BalanceBalance -400 ml 60 ml Results Result Diagram: 04/19/19 0453 04/19/19 0453 Results 24hrs Laboratory Tests Test 04/18/19 19:49 04/19/19 04:53 Vancomycin Level Trough 16.7 White Blood Count 12.3 H Red Blood Count 3.51 L Hemoglobin 10.5 L Hematocrit 32.1 L Mean Corpuscular Volume 91.5 Mean Corpuscular Hemoglobin 29.9 Mean Corpuscular Hemoglobin Concent 32.7 Red Cell Distribution Width 13.7 Platelet Count 348 Mean Platelet Volume 9.4 Immature Granulocytes % 1.500 H Neutrophils % 78.8 H Lymphocytes % 10.8 L Monocytes % 4.7 Eosinophils % 3.7 Basophils % 0.5 Nucleated Red Blood Cells % 0.0 Immature Granulocytes # 0.180 H Neutrophils # 9.7 H Lymphocytes # 1.3 Monocytes # 0.6 Eosinophils # 0.5 Basophils # 0.1 Nucleated Red Blood Cells # 0.0 Sodium Level 137 Potassium Level 4.2 Chloride Level 103 Carbon Dioxide Level 29 Anion Gap 5 Blood Urea Nitrogen 21 H Creatinine 0.91 Est Glomerular Filtrat Rate mL/min Glucose Level 84 Calcium Level 8.1 L Medications Medication Current Medications Acetaminophen (Tylenol Tab) 650 mg Q6H PRN PO MILD PAIN(1-3)OR ELEVATED TEMP; Start 04/13/19 at 00:30 Vancomycin HCl (Vanco Iv Per Pharmacy) VANCOMYCIN PER PHARMACY PER PROTOCOL XX ; Start 04/13/19 at 00:30 Enoxaparin Sodium (Lovenox) 30 mg DAILY SC Last administered on 04/19/19at 10:51; Admin Dose 30 MG; Start 04/13/19 at 09:00 Morphine Sulfate (morphine) 2 mg Q4H PRN IV SEVERE PAIN LEVEL 7-10 Last administered on 04/15/19 22:08; Admin Dose 2 MG; Start 04/13/19 at 00:30 Acetaminophen (Tylenol Tab) 650 mg Q4H PRN PO FEVER>100F; Start 04/13/19 at 17:30 Albuterol (Proventil 0.083% (Neb)) 1.25 mg Q4H PRN NEB WHEEZING AND SOB; Start 04/13/19 at 17:30 Atorvastatin Calcium (Lipitor) 10 mg QHS PO Last administered on 04/18/19 21:32; Admin Dose 10 MG; Start 04/13/19 at 21:00 Carbidopa/Levodopa (Sinemet (25/ 100)) 1 tab BID PO Last administered on 04/19/19 10:33; Admin Dose 1 TAB; Start 04/13/19 at 21:00 Cholecalciferol (Vitamin D) 1,000 unit DAILY PO Last administered on 04/19/19 10:43; Admin Dose 1,000 UNIT; Start 04/14/19 at 09:00 Citalopram Hydrobromide (Celexa) 10 mg DAILY PO Last administered on 04/19/19 10:34; Admin Dose 10 MG; Start 04/14/19 at 09:00 Finasteride (Proscar) 5 mg DAILY PO Last administered on 04/19/19 10:33; Admin Dose 5 MG; Start 04/14/19 at 09:00 Hydroxyzine HCl (Atarax) 10 mg Q6H PRN PO ITCHING; Start 04/13/19 at 17:30 Ferrous Sulfate (Ferrous Sulfate (Ec)) 325 mg DAILY PO Last administered on 04/19/19 10:42; Admin Dose 325 MG; Start 04/14/19 at 09:00 Diltiazem HCl (Cardizem Sr) 60 mg Q8H PO ; Start 04/13/19 at 21:30; Status Hold Calcium Carbonate (Oyster Shell Calcium) 1.25 gm DAILY PO Last administered on 04/18/19 08:06; Admin Dose 1.25 GM; Start 04/14/19 at 09:00 Valproate Sodium 250 mg/Sodium Chloride 52.5 ml @ 55 mls/hr Q8 IVPB Last administered on 04/19/19 06:15; Admin Dose 55 MLS/HR; Start 04/13/19 at 22:00 Diphenhydramine HCl (Benadryl) 25 mg Q8 PRN IV ITCHING Last administered on 04/19/19 06:33; Admin Dose 25 MG; Start 04/14/19 at 01:30 Lorazepam (Ativan) 0.5 mg Q6H PRN IV ANXIETY Last administered on 04/18/19 21:30; Admin Dose 0.5 MG; Start 04/14/19 at 01:30 Mupirocin (Bactroban) 1 applic BID TOP Last administered on 04/18/19 21:41; Admin Dose 1 APPLIC; Start 04/14/19 at 09:00; Stop 04/20/19 at 21:01 Vancomycin HCl 1.5 gm/Sodium Chloride 250 ml @ 83.333 mls/ hr Q24H IVPB Last administered on 04/18/19 21:29; Admin Dose 83.333 MLS/HR; Start 04/15/19 at 21:00 Sodium Hypochlorite (Dakins Diluted ()) 1 applic DAILY TP Last administered on 04/19/19 10:47; Admin Dose 1 APPLIC; Start 04/16/19 at 09:00 Cefepime HCl 50 ml @ 100 mls/hr Q12 IVPB Last administered on 04/19/19 10:34; Admin Dose 100 MLS/HR; Start 04/16/19 at 21:00 Rifampin (Rifampin) 300 mg Q12 PO Last administered on 04/19/19 10:33; Admin Dose 300 MG; Start 04/16/19 at 21:00 Famotidine (Pepcid) 20 mg BID PO Last administered on 04/19/19 10:33; Admin Dose 20 MG; Start 04/17/19 at 21:00 HERMINIO WILLAMS NP Apr 19, 2019 11:58
--- NOTE | 2019-04-19 12:27 | PN ---
Date/Time of Note Date/Time of Note DATE: 04/19/19 TIME: 12:24 Assessment/Plan VTE Prophylaxis Risk score (from [place])>0 risk: 7 SCD applied (from [place]): No SCD contraindicated: other Pharmacological prophylaxis: other Pharm contraindication: other Lines/Catheters IV Catheter Type (from [facility]): PICC Line Central line still needed: Yes Urinary Cath still in place: Yes Reason Cath still needed: urinary retention Assessment/Plan Assessment/Plan - Sepsis secondary to E. coli UTI and Staphylococcus bacteremia. Continue antibiotics per ID. Dr. Saldivar is following in infection disease consultation. - E. 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 Status post I&D. Dr. Patel is following in general surgery consultation. Continue current wound care. - Dysphagia, s/p swallow eval, continue PO diet. - BPH, continue Flomax and Proscar - History of cerebrovascular accident. Continue aspirin - Dyslipidemia. Continue statin - Parkinsonism. Continue Sinemet. - Dementia with agitation. Continue Depakote. - Depression. Continue Celexa. Further recommendations based on clinical course. Plan of care discussed with Dr. Rivera. Result Diagram: 04/19/19 0453 04/19/19 0453 Results 24hrs Laboratory Tests Test 04/18/19 19:49 04/19/19 04:53 Vancomycin Level Trough 16.7 White Blood Count 12.3 H Red Blood Count 3.51 L Hemoglobin 10.5 L Hematocrit 32.1 L Mean Corpuscular Volume 91.5 Mean Corpuscular Hemoglobin 29.9 Mean Corpuscular Hemoglobin Concent 32.7 Red Cell Distribution Width 13.7 Platelet Count 348 Mean Platelet Volume 9.4 Immature Granulocytes % 1.500 H Neutrophils % 78.8 H Lymphocytes % 10.8 L Monocytes % 4.7 Eosinophils % 3.7 Basophils % 0.5 Nucleated Red Blood Cells % 0.0 Immature Granulocytes # 0.180 H Neutrophils # 9.7 H Lymphocytes # 1.3 Monocytes # 0.6 Eosinophils # 0.5 Basophils # 0.1 Nucleated Red Blood Cells # 0.0 Sodium Level 137 Potassium Level 4.2 Chloride Level 103 Carbon Dioxide Level 29 Anion Gap 5 Blood Urea Nitrogen 21 H Creatinine 0.91 Est Glomerular Filtrat Rate mL/min Glucose Level 84 Calcium Level 8.1 L Subjective 24 Hr Interval Summary Free Text/Dictation -nad -No acute events overnight - comfortable on supplemental oxygen - feeder- tolerates pured diet -continue strict aspiration precaution - telemetry monitoring. Constitutional: requiring O2 Psychological: nl mood/affect Exam/Review of Systems Exam Vitals Vital Signs Date Temp Pulse Resp B/P (MAP) Pulse Ox O2 O2 Flow FiO2 Time Delivery Rate 04/19/19 98.4 79 18 124/63 97 11:40 (83) 04/19/19 Nasal 04:22 Cannula 04/19/19 10.0 01:22 Intake and Output 04/18/19 04/18/19 04/19/19 1515:00 23:00 07:00 IntakeIntake Total 760 ml OutputOutput Total 400 ml 700 ml BalanceBalance -400 ml 60 ml Constitutional: alert, well developed Psych: nl mood/affect Eyes: nl lids, nl sclera Cardiovascular: nl pulses, other (s1s2) Gastrointestinal: soft, non-tender Musculoskeletal: muscle weakness Extremities: normal pulses Neurological: confused Results Results 24hrs Laboratory Tests Test 04/18/19 19:49 04/19/19 04:53 Vancomycin Level Trough 16.7 White Blood Count 12.3 H Red Blood Count 3.51 L Hemoglobin 10.5 L Hematocrit 32.1 L Mean Corpuscular Volume 91.5 Mean Corpuscular Hemoglobin 29.9 Mean Corpuscular Hemoglobin Concent 32.7 Red Cell Distribution Width 13.7 Platelet Count 348 Mean Platelet Volume 9.4 Immature Granulocytes % 1.500 H Neutrophils % 78.8 H Lymphocytes % 10.8 L Monocytes % 4.7 Eosinophils % 3.7 Basophils % 0.5 Nucleated Red Blood Cells % 0.0 Immature Granulocytes # 0.180 H Neutrophils # 9.7 H Lymphocytes # 1.3 Monocytes # 0.6 Eosinophils # 0.5 Basophils # 0.1 Nucleated Red Blood Cells # 0.0 Sodium Level 137 Potassium Level 4.2 Chloride Level 103 Carbon Dioxide Level 29 Anion Gap 5 Blood Urea Nitrogen 21 H Creatinine 0.91 Est Glomerular Filtrat Rate mL/min Glucose Level 84 Calcium Level 8.1 L Medications Medication Current Medications Acetaminophen (Tylenol Tab) 650 mg Q6H PRN PO MILD PAIN(1-3)OR ELEVATED TEMP; Start 04/13/19 at 00:30 Vancomycin HCl (Vanco Iv Per Pharmacy) VANCOMYCIN PER PHARMACY PER PROTOCOL XX ; Start 04/13/19 at 00:30 Enoxaparin Sodium (Lovenox) 30 mg DAILY SC Last administered on 04/19/19 10:51; Admin Dose 30 MG; Start 04/13/19 at 09:00 Morphine Sulfate (morphine) 2 mg Q4H PRN IV SEVERE PAIN LEVEL 7-10 Last administered on 04/15/19 22:08; Admin Dose 2 MG; Start 04/13/19 at 00:30 Acetaminophen (Tylenol Tab) 650 mg Q4H PRN PO FEVER>100F; Start 04/13/19 at 17:30 Albuterol (Proventil 0.083% (Neb)) 1.25 mg Q4H PRN NEB WHEEZING AND SOB; Start 04/13/19 at 17:30 Atorvastatin Calcium (Lipitor) 10 mg QHS PO Last administered on 04/18/19 21:32; Admin Dose 10 MG; Start 04/13/19 at 21:00 Carbidopa/Levodopa (Sinemet (25/ 100)) 1 tab BID PO Last administered on 04/19/19 10:33; Admin Dose 1 TAB; Start 04/13/19 at 21:00 Cholecalciferol (Vitamin D) 1,000 unit DAILY PO Last administered on 04/19/19 10:43; Admin Dose 1,000 UNIT; Start 04/14/19 at 09:00 Citalopram Hydrobromide (Celexa) 10 mg DAILY PO Last administered on 04/19/19 10:34; Admin Dose 10 MG; Start 04/14/19 at 09:00 Finasteride (Proscar) 5 mg DAILY PO Last administered on 04/19/19 10:33; Admin Dose 5 MG; Start 04/14/19 at 09:00 Hydroxyzine HCl (Atarax) 10 mg Q6H PRN PO ITCHING; Start 04/13/19 at 17:30 Ferrous Sulfate (Ferrous Sulfate (Ec)) 325 mg DAILY PO Last administered on 04/19/19 10:42; Admin Dose 325 MG; Start 04/14/19 at 09:00 Diltiazem HCl (Cardizem Sr) 60 mg Q8H PO ; Start 04/13/19 at 21:30; Status Hold Calcium Carbonate (Oyster Shell Calcium) 1.25 gm DAILY PO Last administered on 04/18/19 08:06; Admin Dose 1.25 GM; Start 04/14/19 at 09:00 Valproate Sodium 250 mg/Sodium Chloride 52.5 ml @ 55 mls/hr Q8 IVPB Last administered on 04/19/19 06:15; Admin Dose 55 MLS/HR; Start 04/13/19 at 22:00 Diphenhydramine HCl (Benadryl) 25 mg Q8 PRN IV ITCHING Last administered on 04/19/19 06:33; Admin Dose 25 MG; Start 04/14/19 at 01:30 Lorazepam (Ativan) 0.5 mg Q6H PRN IV ANXIETY Last administered on 04/18/19 21:30; Admin Dose 0.5 MG; Start 04/14/19 at 01:30 Mupirocin (Bactroban) 1 applic BID TOP Last administered on 04/18/19 21:41; Admin Dose 1 APPLIC; Start 04/14/19 at 09:00; Stop 04/20/19 at 21:01 Vancomycin HCl 1.5 gm/Sodium Chloride 250 ml @ 83.333 mls/ hr Q24H IVPB Last administered on 04/18/19 21:29; Admin Dose 83.333 MLS/HR; Start 04/15/19 at 21:00 Sodium Hypochlorite (Dakins Diluted ()) 1 applic DAILY TP Last administered on 04/19/19 10:47; Admin Dose 1 APPLIC; Start 04/16/19 at 09:00 Cefepime HCl 50 ml @ 100 mls/hr Q12 IVPB Last administered on 04/19/19 10:34; Admin Dose 100 MLS/HR; Start 04/16/19 at 21:00 Rifampin (Rifampin) 300 mg Q12 PO Last administered on 04/19/19 10:33; Admin Dose 300 MG; Start 04/16/19 at 21:00 Famotidine (Pepcid) 20 mg BID PO Last administered on 04/19/19 10:33; Admin Dose 20 MG; Start 04/17/19 at 21:00 ABIMBOLA MCKINNEY Apr 19, 2019 12:27
[2019-04-19] MEDS: MUPIROCIN 2% 22 GM OINT TOP SCH ×2 (14:35→20:52)
[2019-04-19 15:32] VITALS: BP 118/60; PULSE 89; RESP 18
--- NOTE | 2019-04-19 17:40 | PN ---
Date/Time of Note Date/Time of Note DATE: 04/19/19 TIME: 17:33 Assessment/Plan Lines/Catheters IV Catheter Type (from Nrs): PICC Line Gonzales in Place (from Nrs): Yes Assessment/Plan Chief Complaint/Hosp Course 1. 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 CVA history, bedbound, functional quadriplegia -Medical optimization -Offloading -Nutritional optimization 3. CHF history -Cardiac optimization with judicious fluid management 4. Anemia, stable -Monitor 5. Leukocytosis: improved -As above 6. UTI: -abx per sensitivity -frequent bladder emptying/cath care 7. Bacteremia -Antibiotics per sensitivity Thank you. Patient seen and examined in collaboration with Dr. Pasquale Patel. Subjective 24 Hr Interval Summary No acute events. No fevers, labored breathing, congested cough, vomiting, diarrhea, sz, rash, wound bleeding. Exam/Review of Systems Vital Signs Vitals Vital Signs Date Temp Pulse Resp B/P (MAP) Pulse Ox O2 O2 Flow FiO2 Time Delivery Rate 04/19/19 8.0 17:12 04/19/19 98.2 89 18 118/60 98 15:32 (79) 04/19/19 Nasal 04:22 Cannula Intake and Output 04/18/19 04/18/19 04/19/19 1515:00 23:00 07:00 IntakeIntake Total 760 ml OutputOutput Total 400 ml 700 ml BalanceBalance -400 ml 60 ml Exam Free Text/Dictation Constitutional: No oriented, somnolent Psych: calm Head: normocephalic, atraumatic Eyes: nl conjunctiva, EOMI, PERRL; No icteric ENMT: nl external ears & nose, mucosa pink and moist Neck: supple, non-tender, jvd (Minimal) Respiratory: normal air movement; No congested cough, No labored breathing, No wheezing Cardiovascular: regular rate and rhythm; No edema Gastrointestinal: soft, non-tender; No distended, No rebound or guarding Genitourinary - Male: No nl scrotum (Wound) Musculoskeletal: No nl extremities to inspection, No nl gait and stance, No joint tenderness Extremities: normal pulses; No calf tenderness, No edema Neurological: No nl mental status, No nl speech, No nl strength Skin: rash or lesions (Sacral: Packed, no bleeding); No diaphoresis Lymph: nl lymph nodes Results Result Diagram: 04/19/19 0453 04/19/19 0453 CHARLI CHAVIS NP Apr 19, 2019 17:40
[2019-04-19 19:39] VITALS: BP 128/67; PULSE 77; RESP 18
[2019-04-19] MEDS: VANCOMYCIN HCL 1.5 GM in SOD CHLORIDE 0.9% 250 ML IVPB SCH (20:50)
[2019-04-19] MEDS: ATORVASTATIN 10 MG TAB PO SCH (20:51)
--- NOTE | 2019-04-19 22:46 | CONS ---
Assessment/Plan Assessment/Plan Hospital Course (Demo Recall) -ANEMIA COMPLEX, MONITOR - LEUKOCYTOSIS REACTIVE, monitor - fever, cough CXR, IV ATB , ID, CULTURES - Sepsis on admission w/fevers, leukocytosis, lactic acidosis Large sacral decub w/abscess and surrounding bilateral edema post surgery - HX urinary tract infection. IV ATB Complicated UTI w/urinary retention due to BPH & neurogenic bladder -Hx of PNA -GERD -Hx of [place] - BPH, continue Flomax and Proscar - Dysphagia. swallow evaluation by ST. - History of cerebrovascular accident. Continue aspirin - Dyslipidemia. Continue statin - Parkinsonism. Continue carbidopa - Dementia with agitation. Continue Depakote. - Depression. Continue Celexa. Consultation Date/Type/Reason Admit Date/Time Apr 12, 2019 at 17:21 Initial Consult Date Requesting Provider: ROLANDO SANFORD Date/Time of Note DATE: 04/19/19 TIME: 22:46 Exam/Review of Systems Exam Vitals Vital Signs Date Temp Pulse Resp B/P (MAP) Pulse Ox O2 O2 Flow FiO2 Time Delivery Rate 04/19/19 98.0 77 18 128/67 95 Nasal 19:39 (87) Cannula 04/19/19 8.0 17:12 Intake and Output 04/18/19 04/18/19 04/19/19 1515:00 23:00 07:00 IntakeIntake Total 760 ml OutputOutput Total 400 ml 700 ml BalanceBalance -400 ml 60 ml Results Result Diagram: 04/19/19 0453 04/19/19 0453 Results 24hrs Laboratory Tests Test 04/19/19 04:53 White Blood Count 12.3 H Red Blood Count 3.51 L Hemoglobin 10.5 L Hematocrit 32.1 L Mean Corpuscular Volume 91.5 Mean Corpuscular Hemoglobin 29.9 Mean Corpuscular Hemoglobin Concent 32.7 Red Cell Distribution Width 13.7 Platelet Count 348 Mean Platelet Volume 9.4 Immature Granulocytes % 1.500 H Neutrophils % 78.8 H Lymphocytes % 10.8 L Monocytes % 4.7 Eosinophils % 3.7 Basophils % 0.5 Nucleated Red Blood Cells % 0.0 Immature Granulocytes # 0.180 H Neutrophils # 9.7 H Lymphocytes # 1.3 Monocytes # 0.6 Eosinophils # 0.5 Basophils # 0.1 Nucleated Red Blood Cells # 0.0 Sodium Level 137 Potassium Level 4.2 Chloride Level 103 Carbon Dioxide Level 29 Anion Gap 5 Blood Urea Nitrogen 21 H Creatinine 0.91 Est Glomerular Filtrat Rate mL/min Glucose Level 84 Calcium Level 8.1 L Medications Medication Current Medications Acetaminophen (Tylenol Tab) 650 mg Q6H PRN PO MILD PAIN(1-3)OR ELEVATED TEMP; Start 04/13/19 at 00:30 Vancomycin HCl (Vanco Iv Per Pharmacy) VANCOMYCIN PER PHARMACY PER PROTOCOL XX ; Start 04/13/19 at 00:30 Enoxaparin Sodium (Lovenox) 30 mg DAILY SC Last administered on 04/19/19 1 0:51; Admin Dose 30 MG; Start 04/13/19 at 09:00 Morphine Sulfate (morphine) 2 mg Q4H PRN IV SEVERE PAIN LEVEL 7-10 Last administered on 04/15/19 22:08; Admin Dose 2 MG; Start 04/13/19 at 00:30 Acetaminophen (Tylenol Tab) 650 mg Q4H PRN PO FEVER>100F; Start 04/13/19 at 17:30 Albuterol (Proventil 0.083% (Neb)) 1.25 mg Q4H PRN NEB WHEEZING AND SOB; Start 04/13/19 at 17:30 Atorvastatin Calcium (Lipitor) 10 mg QHS PO Last administered on 04/19/19 20:51; Admin Dose 10 MG; Start 04/13/19 at 21:00 Carbidopa/Levodopa (Sinemet (25/ 100)) 1 tab BID PO Last administered on 04/19/19 20:51; Admin Dose 1 TAB; Start 04/13/19 at 21:00 Cholecalciferol (Vitamin D) 1,000 unit DAILY PO Last administered on 04/19/19 10:43; Admin Dose 1,000 UNIT; Start 04/14/19 at 09:00 Citalopram Hydrobromide (Celexa) 10 mg DAILY PO Last administered on 04/19/19 10:34; Admin Dose 10 MG; Start 04/14/19 at 09:00 Finasteride (Proscar) 5 mg DAILY PO Last administered on 04/19/19 10:33; Admin Dose 5 MG; Start 04/14/19 at 09:00 Hydroxyzine HCl (Atarax) 10 mg Q6H PRN PO ITCHING; Start 04/13/19 at 17:30 Ferrous Sulfate (Ferrous Sulfate (Ec)) 325 mg DAILY PO Last administered on 04/19/19 10:42; Admin Dose 325 MG; Start 04/14/19 at 09:00 Diltiazem HCl (Cardizem Sr) 60 mg Q8H PO ; Start 04/13/19 at 21:30; Status Hold Calcium Carbonate (Oyster Shell Calcium) 1.25 gm DAILY PO Last administered on 04/19/19 09:00; Admin Dose 1.25 GM; Start 04/14/19 at 09:00 Valproate Sodium 250 mg/Sodium Chloride 52.5 ml @ 55 mls/hr Q8 IVPB Last administered on 04/19/19 22:25; Admin Dose 55 MLS/HR; Start 04/13/19 at 22:00 Diphenhydramine HCl (Benadryl) 25 mg Q8 PRN IV ITCHING Last administered on 04/19/19 21:16; Admin Dose 25 MG; Start 04/14/19 at 01:30 Lorazepam (Ativan) 0.5 mg Q6H PRN IV ANXIETY Last administered on 04/18/19 2 1:30; Admin Dose 0.5 MG; Start 04/14/19 at 01:30 Mupirocin (Bactroban) 1 applic BID TOP Last administered on 04/19/19 20:52; Admin Dose 1 APPLIC; Start 04/14/19 at 09:00; Stop 04/20/19 at 21:01 Vancomycin HCl 1.5 gm/Sodium Chloride 250 ml @ 83.333 mls/ hr Q24H IVPB Last administered on 04/19/19 20:50; Admin Dose 83.333 MLS/HR; Start 04/15/19 at 21:00 Sodium Hypochlorite (Dakins Diluted (40)) 1 applic DAILY TP Last administered on 04/19/19 10:47; Admin Dose 1 APPLIC; Start 04/16/19 at 09:00 Cefepime HCl 50 ml @ 100 mls/hr Q12 IVPB Last administered on 04/19/19 20:45; Admin Dose 100 MLS/HR; Start 04/16/19 at 21:00 Rifampin (Rifampin) 300 mg Q12 PO Last administered on 04/19/19 20:51; Admin Dose 300 MG; Start 04/16/19 at 21:00 Famotidine (Pepcid) 20 mg BID PO Last administered on 04/19/19at 20:51; Admin Dose 20 MG; Start 04/17/19 at 21:00 FELI MARCIAL MD Apr 19, 2019 22:46
[2019-04-19] MEDS: LORAZEPAM 2 MG INJ IV PRN (22:55)
[2019-04-20] VITALS: BP 122/63; PULSE 84; RESP 18
[2019-04-20 04:00] VITALS: BP 118/67; PULSE 74; RESP 18
[2019-04-20] MEDS: VALPROATE INJ 250 MG in SOD CHLORIDE 0.9% 50 ML IVPB SCH ×3 (05:31→22:53)
[2019-04-20 07:52] VITALS: BP 117/66; PULSE 79; RESP 18
[2019-04-20] MEDS: CARBIDOPA/LEVODOPA (25/100) TAB PO SCH ×2 (08:39→20:56)
[2019-04-20] MEDS: FAMOTIDINE 20 MG TAB PO SCH ×2 (08:39→20:56)
[2019-04-20] MEDS: FINASTERIDE 5 MG TAB PO SCH (08:39)
[2019-04-20] MEDS: RIFAMPIN 300 MG CAP PO SCH ×2 (08:39→20:57)
[2019-04-20] MEDS: CALCIUM CARBONATE 1.25 GM TAB PO SCH (08:39)
[2019-04-20] MEDS: CHOLECALCIFEROL 1,000 UNIT TAB PO SCH (08:40)
[2019-04-20] MEDS: FERROUS SULFATE (EC) 325 MG TAB PO SCH (08:40)
[2019-04-20] MEDS: MUPIROCIN 2% 22 GM OINT TOP SCH ×2 (08:40→20:57)
[2019-04-20] MEDS: CEFEPIME 1GM/50 ML (PMX) 50 ML IVPB SCH ×2 (08:40→20:56)
[2019-04-20] MEDS: CITALOPRAM 20 MG TAB PO SCH (08:40)
[2019-04-20] MEDS: ENOXAPARIN 30 MG/0.3 ML SYG SC SCH (09:08)
[2019-04-20] MEDS: DAKINS 0.0125%(1/40) 473 ML SOLUTION TP SCH (09:09)
--- NOTE | 2019-04-20 10:49 | PN ---
Date/Time of Note Date/Time of Note DATE: 04/20/19 TIME: 10:48 Assessment/Plan VTE Prophylaxis Risk score (from [facility])>0 risk: 3 SCD applied (from [facility]): Yes Pharmacological prophylaxis: LMWH Lines/Catheters IV Catheter Type (from [facility]rs): PICC Line Central line still needed: Yes Urinary Cath still in place: Yes Reason Cath still needed: skin wounds contaminated by urine Assessment/Plan Hospital Course - Sepsis secondary to E. coli UTI and Staphylococcus bacteremia. Continue antibiotics per ID. Dr. Saldivar is following in infection disease consultation. - E. 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 Status post I&D. Dr. Patel is following in general surgery consultation. Continue current wound care. - Dysphagia, s/p swallow eval, continue PO diet. - BPH, continue Flomax and Proscar - History of cerebrovascular accident. Continue aspirin - Dyslipidemia. Continue statin - Parkinsonism. Continue Sinemet. - Dementia with agitation. Continue Depakote. - Depression. Continue Celexa. Result Diagram: 04/20/19 0509 04/20/19 0509 Results 24hrs Laboratory Tests Test 04/20/19 05:09 White Blood Count 10.5 Red Blood Count 3.81 L Hemoglobin 11.3 L Hematocrit 35.0 L Mean Corpuscular Volume 91.9 Mean Corpuscular Hemoglobin 29.7 Mean Corpuscular Hemoglobin Concent 32.3 Red Cell Distribution Width 13.7 Platelet Count 367 Mean Platelet Volume 9.4 Immature Granulocytes % 1.400 H Neutrophils % 73.1 Lymphocytes % 15.3 Monocytes % 6.1 Eosinophils % 3.6 Basophils % 0.5 Nucleated Red Blood Cells % 0.0 Immature Granulocytes # 0.150 H Neutrophils # 7.7 H Lymphocytes # 1.6 Monocytes # 0.6 Eosinophils # 0.4 Basophils # 0.1 Nucleated Red Blood Cells # 0.0 Sodium Level 141 Potassium Level 4.9 Chloride Level 104 Carbon Dioxide Level 30 Anion Gap 7 Blood Urea Nitrogen 22 H Creatinine 1.07 Est Glomerular Filtrat Rate mL/min Glucose Level 86 Calcium Level 8.6 Subjective 24 Hr Interval Summary Free Text/Dictation Patient awake but not communicative Exam/Review of Systems Exam Vitals Vital Signs Date Temp Pulse Resp B/P (MAP) Pulse Ox O2 O2 Flow FiO2 Time Delivery Rate 04/20/19 97.9 79 18 117/66 98 07:52 (83) 04/20/19 3.0 05:41 04/20/19 Nasal 04:00 Cannula Intake and Output 04/19/19 04/19/19 04/20/19 1515:00 23:00 07:00 IntakeIntake Total 50 ml 402 ml OutputOutput Total 500 ml BalanceBalance 50 ml -98 ml Constitutional: well developed Head: normocephalic, atraumatic Neck: supple Respiratory: diminished breath sounds Cardiovascular: regular rate and rhythm Gastrointestinal: soft, non-tender Extremities: normal pulses Results Results 24hrs Laboratory Tests Test 04/20/19 05:09 White Blood Count 10.5 Red Blood Count 3.81 L Hemoglobin 11.3 L Hematocrit 35.0 L Mean Corpuscular Volume 91.9 Mean Corpuscular Hemoglobin 29.7 Mean Corpuscular Hemoglobin Concent 32.3 Red Cell Distribution Width 13.7 Platelet Count 367 Mean Platelet Volume 9.4 Immature Granulocytes % 1.400 H Neutrophils % 73.1 Lymphocytes % 15.3 Monocytes % 6.1 Eosinophils % 3.6 Basophils % 0.5 Nucleated Red Blood Cells % 0.0 Immature Granulocytes # 0.150 H Neutrophils # 7.7 H Lymphocytes # 1.6 Monocytes # 0.6 Eosinophils # 0.4 Basophils # 0.1 Nucleated Red Blood Cells # 0.0 Sodium Level 141 Potassium Level 4.9 Chloride Level 104 Carbon Dioxide Level 30 Anion Gap 7 Blood Urea Nitrogen 22 H Creatinine 1.07 Est Glomerular Filtrat Rate mL/min Glucose Level 86 Calcium Level 8.6 Medications Medication Current Medications Acetaminophen (Tylenol Tab) 650 mg Q6H PRN PO MILD PAIN(1-3)OR ELEVATED TEMP; Start 04/13/19 at 00:30 Vancomycin HCl (Vanco Iv Per Pharmacy) VANCOMYCIN PER PHARMACY PER PROTOCOL XX ; Start 04/13/19 at 00:30 Enoxaparin Sodium (Lovenox) 30 mg DAILY SC Last administered on 04/20/19at 09:08; Admin Dose 30 MG; Start 04/13/19 at 09:00 Morphine Sulfate (morphine) 2 mg Q4H PRN IV SEVERE PAIN LEVEL 7-10 Last administered on 04/15/19at 22:08; Admin Dose 2 MG; Start 04/13/19 at 00:30 Acetaminophen (Tylenol Tab) 650 mg Q4H PRN PO FEVER>100F; Start 04/13/19 at 17:30 Albuterol (Proventil 0.083% (Neb)) 1.25 mg Q4H PRN NEB WHEEZING AND SOB; Start 04/13/19 at 17:30 Atorvastatin Calcium (Lipitor) 10 mg QHS PO Last administered on 04/19/19 20:51; Admin Dose 10 MG; Start 04/13/19 at 21:00 Carbidopa/Levodopa (Sinemet (25/ 100)) 1 tab BID PO Last administered on 04/20/19 08:39; Admin Dose 1 TAB; Start 04/13/19 at 21:00 Cholecalciferol (Vitamin D) 1,000 unit DAILY PO Last administered on 04/20/19 08:40; Admin Dose 1,000 UNIT; Start 04/14/19 at 09:00 Citalopram Hydrobromide (Celexa) 10 mg DAILY PO Last administered on 04/20/19 08:40; Admin Dose 10 MG; Start 04/14/19 at 09:00 Finasteride (Proscar) 5 mg DAILY PO Last administered on 04/20/19 08:39; Admin Dose 5 MG; Start 04/14/19 at 09:00 Hydroxyzine HCl (Atarax) 10 mg Q6H PRN PO ITCHING; Start 04/13/19 at 17:30 Ferrous Sulfate (Ferrous Sulfate (Ec)) 325 mg DAILY PO Last administered on 04/20/19 08:40; Admin Dose 325 MG; Start 04/14/19 at 09:00 Diltiazem HCl (Cardizem Sr) 60 mg Q8H PO ; Start 04/13/19 at 21:30; Status Hold Calcium Carbonate (Oyster Shell Calcium) 1.25 gm DAILY PO Last administered on 04/20/19 08:39; Admin Dose 1.25 GM; Start 04/14/19 at 09:00 Valproate Sodium 250 mg/Sodium Chloride 52.5 ml @ 55 mls/hr Q8 IVPB Last administered on 04/20/19 05:31; Admin Dose 55 MLS/HR; Start 04/13/19 at 22:00 Diphenhydramine HCl (Benadryl) 25 mg Q8 PRN IV ITCHING Last administered on 04/19/19 21:16; Admin Dose 25 MG; Start 04/14/19 at 01:30 Lorazepam (Ativan) 0.5 mg Q6H PRN IV ANXIETY Last administered on 04/19/19 22:55; Admin Dose 0.5 MG; Start 04/14/19 at 01:30 Mupirocin (Bactroban) 1 applic BID TOP Last administered on 04/20/19 08:40; Admin Dose 1 APPLIC; Start 04/14/19 at 09:00; Stop 04/20/19 at 21:01 Vancomycin HCl 1.5 gm/Sodium Chloride 250 ml @ 83.333 mls/ hr Q24H IVPB Last administered on 04/19/19 20:50; Admin Dose 83.333 MLS/HR; Start 04/15/19 at 21:00 Sodium Hypochlorite (Dakins Diluted ()) 1 applic DAILY TP Last administered on 04/20/19 09:09; Admin Dose 1 APPLIC; Start 04/16/19 at 09:00 Cefepime HCl 50 ml @ 100 mls/hr Q12 IVPB Last administered on 04/20/19 08:40; Admin Dose 100 MLS/HR; Start 04/16/19 at 21:00 Rifampin (Rifampin) 300 mg Q12 PO Last administered on 04/20/19 08:39; Admin Dose 300 MG; Start 04/16/19 at 21:00 Famotidine (Pepcid) 20 mg BID PO Last administered on 04/20/19 08:39; Admin Dose 20 MG; Start 04/17/19 at 21:00 ERNST BARAKAT Apr 20, 2019 10:49
[2019-04-20 11:54] VITALS: BP 123/62; PULSE 74; RESP 19
--- NOTE | 2019-04-20 13:22 | PN ---
Date/Time of Note Date/Time of Note DATE: 04/20/19 TIME: 13:22 Assessment/Plan Lines/Catheters IV Catheter Type (from Nrs): PICC Line Gonzales in Place (from Nrsg): Yes Assessment/Plan Chief Complaint/Hosp Course 1. 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 CVA history, bedbound, functional quadriplegia -Medical optimization -Offloading -Nutritional optimization 3. CHF history -Cardiac optimization with judicious fluid management 4. Anemia, stable -Monitor 5. Leukocytosis: improved -As above 6. UTI: -abx per sensitivity -frequent bladder emptying/cath care 7. Bacteremia -Antibiotics per sensitivity Thank you. Patient seen and examined in collaboration with Dr. Pasquale Patel. Subjective 24 Hr Interval Summary Continues to be confused. Calm at present. No fevers, labored breathing, congested cough, vomiting, sz, rash. Exam/Review of Systems Vital Signs Vitals Vital Signs Date Temp Pulse Resp B/P (MAP) Pulse Ox O2 O2 Flow FiO2 Time Delivery Rate 04/21/19 97.7 55 20 123/66 98 Nasal 11:27 (85) Cannula 04/21/19 3.0 05:09 Intake and Output 04/20/19 04/20/19 04/21/19 1515:00 23:00 07:00 IntakeIntake Total 750 ml 1302.5 ml OutputOutput Total 1000 ml BalanceBalance -250 ml 1302.5 ml Exam Free Text/Dictation Constitutional: No oriented, somnolent Psych: calm Head: normocephalic, atraumatic Eyes: nl conjunctiva, EOMI, PERRL; No icteric ENMT: nl external ears & nose, mucosa pink and moist Neck: supple, non-tender, jvd (Minimal) Respiratory: normal air movement; No congested cough, No labored breathing, No wheezing Cardiovascular: regular rate and rhythm; No edema Gastrointestinal: soft, non-tender; No distended, No rebound or guarding Genitourinary - Male: No nl scrotum (Wound) Musculoskeletal: No nl extremities to inspection, No nl gait and stance, No joint tenderness Extremities: normal pulses; No calf tenderness, No edema Neurological: No nl mental status, No nl speech, No nl strength Skin: rash or lesions (Sacral: Packed, no bleeding); No diaphoresis Lymph: nl lymph nodes Results Result Diagram: 04/20/19 0509 04/20/19 0509 CHARLI CHAVIS NP Apr 20, 2019 13:22
--- NOTE | 2019-04-20 15:26 | CONS ---
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 IV ATB Complicated UTI w/urinary retention due to BPH & neurogenic bladder -Hx of PNA -GERD -Hx of CHAPARRITA - BPH, continue Flomax and Proscar - Dysphagia. swallow evaluation by ST. - History of cerebrovascular accident. Continue aspirin - Dyslipidemia. Continue statin - Parkinsonism. Continue carbidopa - Dementia with agitation. Continue Depakote. - Depression. Continue Celexa. Consultation Date/Type/Reason Admit Date/Time Apr 12, 2019 at 17:21 Initial Consult Date Requesting Provider: ROLANDO SANFORD Date/Time of Note DATE: 04/20/19 TIME: 15:25 Exam/Review of Systems Exam Vitals Vital Signs Date Temp Pulse Resp B/P (MAP) Pulse Ox O2 O2 Flow FiO2 Time Delivery Rate 04/20/19 97.3 74 19 123/62 97 11:54 (82) 04/20/19 3.0 05:41 04/20/19 Nasal 04:00 Cannula Intake and Output 04/19/19 04/19/19 04/20/19 1414:59 22:59 06:59 IntakeIntake Total 50 ml 402 ml OutputOutput Total 500 ml BalanceBalance 50 ml -98 ml Results Result Diagram: 04/20/19 0509 04/20/19 0509 Results 24hrs Laboratory Tests Test 04/20/19 05:09 White Blood Count 10.5 Red Blood Count 3.81 L Hemoglobin 11.3 L Hematocrit 35.0 L Mean Corpuscular Volume 91.9 Mean Corpuscular Hemoglobin 29.7 Mean Corpuscular Hemoglobin Concent 32.3 Red Cell Distribution Width 13.7 Platelet Count 367 Mean Platelet Volume 9.4 Immature Granulocytes % 1.400 H Neutrophils % 73.1 Lymphocytes % 15.3 Monocytes % 6.1 Eosinophils % 3.6 Basophils % 0.5 Nucleated Red Blood Cells % 0.0 Immature Granulocytes # 0.150 H Neutrophils # 7.7 H Lymphocytes # 1.6 Monocytes # 0.6 Eosinophils # 0.4 Basophils # 0.1 Nucleated Red Blood Cells # 0.0 Sodium Level 141 Potassium Level 4.9 Chloride Level 104 Carbon Dioxide Level 30 Anion Gap 7 Blood Urea Nitrogen 22 H Creatinine 1.07 Est Glomerular Filtrat Rate mL/min Glucose Level 86 Calcium Level 8.6 Medications Medication Current Medications Acetaminophen (Tylenol Tab) 650 mg Q6H PRN PO MILD PAIN(1-3)OR ELEVATED TEMP; Start 04/13/19 at 00:30 Vancomycin HCl (Vanco Iv Per Pharmacy) VANCOMYCIN PER PHARMACY PER PROTOCOL XX ; Start 04/13/19 at 00:30 Enoxaparin Sodium (Lovenox) 30 mg DAILY SC Last administered on 04/20/19 09:08; Admin Dose 30 MG; Start 04/13/19 at 09:00 Morphine Sulfate (morphine) 2 mg Q4H PRN IV SEVERE PAIN LEVEL 7-10 Last administered on 04/15/19 22:08; Admin Dose 2 MG; Start 04/13/19 at 00:30 Acetaminophen (Tylenol Tab) 650 mg Q4H PRN PO FEVER>100F; Start 04/13/19 at 17:30 Albuterol (Proventil 0.083% (Neb)) 1.25 mg Q4H PRN NEB WHEEZING AND SOB; Start 04/13/19 at 17:30 Atorvastatin Calcium (Lipitor) 10 mg QHS PO Last administered on 04/19/19 20:51; Admin Dose 10 MG; Start 04/13/19 at 21:00 Carbidopa/Levodopa (Sinemet (25/ 100)) 1 tab BID PO Last administered on 04/20/19 08:39; Admin Dose 1 TAB; Start 04/13/19 at 21:00 Cholecalciferol (Vitamin D) 1,000 unit DAILY PO Last administered on 04/20/19 08:40; Admin Dose 1,000 UNIT; Start 04/14/19 at 09:00 Citalopram Hydrobromide (Celexa) 10 mg DAILY PO Last administered on 04/20/19 08:40; Admin Dose 10 MG; Start 04/14/19 at 09:00 Finasteride (Proscar) 5 mg DAILY PO Last administered on 04/20/19 08:39; Admin Dose 5 MG; Start 04/14/19 at 09:00 Hydroxyzine HCl (Atarax) 10 mg Q6H PRN PO ITCHING; Start 04/13/19 at 17:30 Ferrous Sulfate (Ferrous Sulfate (Ec)) 325 mg DAILY PO Last administered on 04/20/19 08:40; Admin Dose 325 MG; Start 04/14/19 at 09:00 Diltiazem HCl (Cardizem Sr) 60 mg Q8H PO ; Start 04/13/19 at 21:30; Status Hold Calcium Carbonate (Oyster Shell Calcium) 1.25 gm DAILY PO Last administered on 04/20/19 08:39; Admin Dose 1.25 GM; Start 04/14/19 at 09:00 Valproate Sodium 250 mg/Sodium Chloride 52.5 ml @ 55 mls/hr Q8 IVPB Last administered on 04/20/19 14:16; Admin Dose 55 MLS/HR; Start 04/13/19 at 22:00 Diphenhydramine HCl (Benadryl) 25 mg Q8 PRN IV ITCHING Last administered on 04/19/19 21:16; Admin Dose 25 MG; Start 04/14/19 at 01:30 Lorazepam (Ativan) 0.5 mg Q6H PRN IV ANXIETY Last administered on 04/19/19 22:55; Admin Dose 0.5 MG; Start 04/14/19 at 01:30 Mupirocin (Bactroban) 1 applic BID TOP Last administered on 04/20/19 08:40; Admin Dose 1 APPLIC; Start 04/14/19 at 09:00; Stop 04/20/19 at 21:01 Vancomycin HCl 1.5 gm/Sodium Chloride 250 ml @ 83.333 mls/ hr Q24H IVPB Last administered on 04/19/19 20:50; Admin Dose 83.333 MLS/HR; Start 04/15/19 at 21:00 Sodium Hypochlorite (Dakins Diluted ()) 1 applic DAILY TP Last administered on 04/20/19 09:09; Admin Dose 1 APPLIC; Start 04/16/19 at 09:00 Cefepime HCl 50 ml @ 100 mls/hr Q12 IVPB Last administered on 04/20/19 08:40; Admin Dose 100 MLS/HR; Start 04/16/19 at 21:00 Rifampin (Rifampin) 300 mg Q12 PO Last administered on 04/20/19at 08:39; Admin Dose 300 MG; Start 04/16/19 at 21:00 Famotidine (Pepcid) 20 mg BID PO Last administered on 04/20/19at 08:39; Admin Dose 20 MG; Start 04/17/19 at 21:00 FELI MARCIAL MD Apr 20, 2019 15:26
--- NOTE | 2019-04-20 17:43 | CONS ---
Consultation Date/Type/Reason Admit Date/Time Apr 12, 2019 at 17:21 Initial Consult Date 04/15/19 Type of Consult SUBJECTIVE: Pt. looks comfortable, afebrile. No acute events over night. VS: stable T: 97.3 LABS: Reviewed. WBC- 10.5 --Improved. Microbiology: Blood culture on admission grew MRSA, urine culture positive for E. coli, sacral wound culture grew E. coli and MRSA no osteomyelitis per pathology report Antimicrobials: Cefepime IV vancomycin Allergies: Penicillin PHYSICAL EXAMINATION: GENERAL: This is a chronically ill-appearing, wasted elderly man who is in no distress. HEENT: Head is atraumatic, normocephalic. Sclerae are anicteric. Buccal mucosa is dry. NECK: Supple. CHEST: Rise symmetrical. Breath sounds diminished to bases. HEART: S1, S2. ABDOMEN: Soft. Bowel tones are present. EXTREMITIES: With trace edema. Assessment: 1. Sepsis with MRSA bacteremia on admission 2 to #2 2. Sacral wound with abscess and cellulitis, status post I&D 04/15/19 3. MRSA nares colonization 4. UTI 5. Dementia Plan: Pt remains unchanged. Continue current antibiotics x9 more days. Repeat blood cultures neg. Requesting Provider: ROLANDO SANFORD Date/Time of Note DATE: 04/20/19 TIME: 17:39 Exam/Review of Systems Exam Vitals Vital Signs Date Temp Pulse Resp B/P (MAP) Pulse Ox O2 O2 Flow FiO2 Time Delivery Rate 04/20/19 3.0 16:23 04/20/19 97.3 74 19 123/62 97 11:54 (82) 04/20/19 Nasal 04:00 Cannula Intake and Output 04/19/19 04/19/19 04/20/19 1515:00 23:00 07:00 IntakeIntake Total 50 ml 402 ml OutputOutput Total 500 ml BalanceBalance 50 ml -98 ml Results Result Diagram: 04/20/19 0509 04/20/19 0509 Results 24hrs Laboratory Tests Test 04/20/19 05:09 White Blood Count 10.5 Red Blood Count 3.81 L Hemoglobin 11.3 L Hematocrit 35.0 L Mean Corpuscular Volume 91.9 Mean Corpuscular Hemoglobin 29.7 Mean Corpuscular Hemoglobin Concent 32.3 Red Cell Distribution Width 13.7 Platelet Count 367 Mean Platelet Volume 9.4 Immature Granulocytes % 1.400 H Neutrophils % 73.1 Lymphocytes % 15.3 Monocytes % 6.1 Eosinophils % 3.6 Basophils % 0.5 Nucleated Red Blood Cells % 0.0 Immature Granulocytes # 0.150 H Neutrophils # 7.7 H Lymphocytes # 1.6 Monocytes # 0.6 Eosinophils # 0.4 Basophils # 0.1 Nucleated Red Blood Cells # 0.0 Sodium Level 141 Potassium Level 4.9 Chloride Level 104 Carbon Dioxide Level 30 Anion Gap 7 Blood Urea Nitrogen 22 H Creatinine 1.07 Est Glomerular Filtrat Rate mL/min Glucose Level 86 Calcium Level 8.6 Medications Medication Current Medications Acetaminophen (Tylenol Tab) 650 mg Q6H PRN PO MILD PAIN(1-3)OR ELEVATED TEMP; Start 04/13/19 at 00:30 Vancomycin HCl (Vanco Iv Per Pharmacy) VANCOMYCIN PER PHARMACY PER PROTOCOL XX ; Start 04/13/19 at 00:30 Enoxaparin Sodium (Lovenox) 30 mg DAILY SC Last administered on 04/20/19at 09:08; Admin Dose 30 MG; Start 04/13/19 at 09:00 Morphine Sulfate (morphine) 2 mg Q4H PRN IV SEVERE PAIN LEVEL 7-10 Last administered on 04/15/19at 22:08; Admin Dose 2 MG; Start 04/13/19 at 00:30 Acetaminophen (Tylenol Tab) 650 mg Q4H PRN PO FEVER>100F; Start 04/13/19 at 17:30 Albuterol (Proventil 0.083% (Neb)) 1.25 mg Q4H PRN NEB WHEEZING AND SOB; Start 04/13/19 at 17:30 Atorvastatin Calcium (Lipitor) 10 mg QHS PO Last administered on 04/19/19at 20:51; Admin Dose 10 MG; Start 04/13/19 at 21:00 Carbidopa/Levodopa (Sinemet (25/ 100)) 1 tab BID PO Last administered on 04/20/19at 08:39; Admin Dose 1 TAB; Start 04/13/19 at 21:00 Cholecalciferol (Vitamin D) 1,000 unit DAILY PO Last administered on 04/20/19at 08:40; Admin Dose 1,000 UNIT; Start 04/14/19 at 09:00 Citalopram Hydrobromide (Celexa) 10 mg DAILY PO Last administered on 04/20/19 08:40; Admin Dose 10 MG; Start 04/14/19 at 09:00 Finasteride (Proscar) 5 mg DAILY PO Last administered on 04/20/19 08:39; Admin Dose 5 MG; Start 04/14/19 at 09:00 Hydroxyzine HCl (Atarax) 10 mg Q6H PRN PO ITCHING; Start 04/13/19 at 17:30 Ferrous Sulfate (Ferrous Sulfate (Ec)) 325 mg DAILY PO Last administered on 04/20/19 08:40; Admin Dose 325 MG; Start 04/14/19 at 09:00 Diltiazem HCl (Cardizem Sr) 60 mg Q8H PO ; Start 04/13/19 at 21:30; Status Hold Calcium Carbonate (Oyster Shell Calcium) 1.25 gm DAILY PO Last administered on 04/20/19 08:39; Admin Dose 1.25 GM; Start 04/14/19 at 09:00 Valproate Sodium 250 mg/Sodium Chloride 52.5 ml @ 55 mls/hr Q8 IVPB Last administered on 04/20/19 14:16; Admin Dose 55 MLS/HR; Start 04/13/19 at 22:00 Diphenhydramine HCl (Benadryl) 25 mg Q8 PRN IV ITCHING Last administered on 04/19/19 21:16; Admin Dose 25 MG; Start 04/14/19 at 01:30 Lorazepam (Ativan) 0.5 mg Q6H PRN IV ANXIETY Last administered on 04/19/19 22:55; Admin Dose 0.5 MG; Start 04/14/19 at 01:30 Mupirocin (Bactroban) 1 applic BID TOP Last administered on 04/20/19 08:40; Admin Dose 1 APPLIC; Start 04/14/19 at 09:00; Stop 04/20/19 at 21:01 Vancomycin HCl 1.5 gm/Sodium Chloride 250 ml @ 83.333 mls/ hr Q24H IVPB Last administered on 04/19/19 20:50; Admin Dose 83.333 MLS/HR; Start 04/15/19 at 21:00 Sodium Hypochlorite (Dakins Diluted ()) 1 applic DAILY TP Last administered on 04/20/19 09:09; Admin Dose 1 APPLIC; Start 04/16/19 at 09:00 Cefepime HCl 50 ml @ 100 mls/hr Q12 IVPB Last administered on 04/20/19 08:40; Admin Dose 100 MLS/HR; Start 04/16/19 at 21:00 Rifampin (Rifampin) 300 mg Q12 PO Last administered on 04/20/19 08:39; Admin Dose 300 MG; Start 04/16/19 at 21:00 Famotidine (Pepcid) 20 mg BID PO Last administered on 04/20/19 08:39; Admin Dose 20 MG; Start 04/17/19 at 21:00 JAMISON PLASCENCIA Apr 20, 2019 17:43
[2019-04-20] MEDS: LORAZEPAM 2 MG INJ IV PRN (19:28)
[2019-04-20 20:50] VITALS: BP 118/56; PULSE 78; RESP 18
[2019-04-20] MEDS: ATORVASTATIN 10 MG TAB PO SCH (20:56)
[2019-04-20] MEDS: VANCOMYCIN HCL 1.5 GM in SOD CHLORIDE 0.9% 250 ML IVPB SCH (21:42)
[2019-04-21] VITALS (11 sets, daily range): BP systolic 118–148; BP diastolic 58–76; PULSE 55–70; RESP 19–20
[2019-04-21] MEDS: VALPROATE INJ 250 MG in SOD CHLORIDE 0.9% 50 ML IVPB SCH ×3 (06:11→21:48)
[2019-04-21] MEDS: CEFEPIME 1GM/50 ML (PMX) 50 ML IVPB SCH ×2 (08:44→21:25)
[2019-04-21] MEDS: CARBIDOPA/LEVODOPA (25/100) TAB PO SCH ×2 (08:45→21:25)
[2019-04-21] MEDS: RIFAMPIN 300 MG CAP PO SCH ×2 (08:45→21:25)
[2019-04-21] MEDS: CITALOPRAM 20 MG TAB PO SCH (08:45)
[2019-04-21] MEDS: FERROUS SULFATE (EC) 325 MG TAB PO SCH (08:45)
[2019-04-21] MEDS: FINASTERIDE 5 MG TAB PO SCH (08:45)
[2019-04-21] MEDS: CHOLECALCIFEROL 1,000 UNIT TAB PO SCH (08:45)
[2019-04-21] MEDS: FAMOTIDINE 20 MG TAB PO SCH ×2 (08:45→21:25)
[2019-04-21] MEDS: CALCIUM CARBONATE 1.25 GM TAB PO SCH (08:45)
[2019-04-21] MEDS: DAKINS 0.0125%(1/40) 473 ML SOLUTION TP SCH (08:46)
[2019-04-21] MEDS: ENOXAPARIN 30 MG/0.3 ML SYG SC SCH (09:02)
--- NOTE | 2019-04-21 10:28 | PN ---
Date/Time of Note Date/Time of Note DATE: 04/21/19 TIME: 10:28 Assessment/Plan VTE Prophylaxis Risk score (from Ns)>0 risk: 8 SCD applied (from Ns): Yes Pharmacological prophylaxis: LMWH Lines/Catheters IV Catheter Type (from Nrsg): PICC Line Central line still needed: Yes Urinary Cath still in place: Yes Reason Cath still needed: skin wounds contaminated by urine Assessment/Plan Hospital Course - Sepsis secondary to E. coli UTI and Staphylococcus bacteremia. Continue antibiotics per ID. Dr. Saldivar is following in infection disease consultation. - E. 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 Status post I&D. Dr. Patel is following in general surgery consultation. Continue current wound care. - Dysphagia, s/p swallow eval, continue PO diet. - BPH, continue Flomax and Proscar - History of cerebrovascular accident. Continue aspirin - Dyslipidemia. Continue statin - Parkinsonism. Continue Sinemet. - Dementia with agitation. Continue Depakote. - Depression. Continue Celexa. Result Diagram: 04/20/19 0509 04/20/19 0509 Subjective 24 Hr Interval Summary Free Text/Dictation Patient was reported combative overnight but currently appears pleasant and answers questions appropriately Exam/Review of Systems Exam Vitals Vital Signs Date Temp Pulse Resp B/P (MAP) Pulse Ox O2 O2 Flow FiO2 Time Delivery Rate 04/21/19 98.6 63 19 131/65 97 Nasal 07:13 (87) Cannula 04/21/19 3.0 05:09 Intake and Output 04/20/19 04/20/19 04/21/19 1515:00 23:00 07:00 IntakeIntake Total 750 ml 1302.5 ml OutputOutput Total 1000 ml BalanceBalance -250 ml 1302.5 ml Constitutional: well developed Head: normocephalic, atraumatic Neck: supple Respiratory: diminished breath sounds Cardiovascular: regular rate and rhythm Gastrointestinal: soft, non-tender Extremities: normal pulses Medications Medication Current Medications Acetaminophen (Tylenol Tab) 650 mg Q6H PRN PO MILD PAIN(1-3)OR ELEVATED TEMP; Start 04/13/19 at 00:30 Vancomycin HCl (Vanco Iv Per Pharmacy) VANCOMYCIN PER PHARMACY PER PROTOCOL XX ; Start 04/13/19 at 00:30 Enoxaparin Sodium (Lovenox) 30 mg DAILY SC Last administered on 04/21/19 09:02; Admin Dose 30 MG; Start 04/13/19 at 09:00 Morphine Sulfate (morphine) 2 mg Q4H PRN IV SEVERE PAIN LEVEL 7-10 Last administered on 04/15/19 22:08; Admin Dose 2 MG; Start 04/13/19 at 00:30 Acetaminophen (Tylenol Tab) 650 mg Q4H PRN PO FEVER>100F; Start 04/13/19 at 17:30 Albuterol (Proventil 0.083% (Neb)) 1.25 mg Q4H PRN NEB WHEEZING AND SOB; Start 04/13/19 at 17:30 Atorvastatin Calcium (Lipitor) 10 mg QHS PO Last administered on 04/20/19 2 0:56; Admin Dose 10 MG; Start 04/13/19 at 21:00 Carbidopa/Levodopa (Sinemet (25/ 100)) 1 tab BID PO Last administered on 04/21/19 08:45; Admin Dose 1 TAB; Start 04/13/19 at 21:00 Cholecalciferol (Vitamin D) 1,000 unit DAILY PO Last administered on 04/21/19 08:45; Admin Dose 1,000 UNIT; Start 04/14/19 at 09:00 Citalopram Hydrobromide (Celexa) 10 mg DAILY PO Last administered on 04/21/19 08:45; Admin Dose 10 MG; Start 04/14/19 at 09:00 Finasteride (Proscar) 5 mg DAILY PO Last administered on 04/21/19 08:45; Admin Dose 5 MG; Start 04/14/19 at 09:00 Hydroxyzine HCl (Atarax) 10 mg Q6H PRN PO ITCHING; Start 04/13/19 at 17:30 Ferrous Sulfate (Ferrous Sulfate (Ec)) 325 mg DAILY PO Last administered on 04/21/19 08:45; Admin Dose 325 MG; Start 04/14/19 at 09:00 Diltiazem HCl (Cardizem Sr) 60 mg Q8H PO ; Start 04/13/19 at 21:30; Status Hold Calcium Carbonate (Oyster Shell Calcium) 1.25 gm DAILY PO Last administered on 04/21/19 08:45; Admin Dose 1.25 GM; Start 04/14/19 at 09:00 Valproate Sodium 250 mg/Sodium Chloride 52.5 ml @ 55 mls/hr Q8 IVPB Last administered on 04/21/19 06:11; Admin Dose 55 MLS/HR; Start 04/13/19 at 22:00 Diphenhydramine HCl (Benadryl) 25 mg Q8 PRN IV ITCHING Last administered on 04/19/19 21:16; Admin Dose 25 MG; Start 04/14/19 at 01:30 Lorazepam (Ativan) 0.5 mg Q6H PRN IV ANXIETY Last administered on 04/20/19 19:28; Admin Dose 0.5 MG; Start 04/14/19 at 01:30 Vancomycin HCl 1.5 gm/Sodium Chloride 250 ml @ 83.333 mls/ hr Q24H IVPB Last administered on 04/20/19 21:42; Admin Dose 83.333 MLS/HR; Start 04/15/19 at 21:00 Sodium Hypochlorite (Dakins Diluted ()) 1 applic DAILY TP Last administered on 04/21/19 08:46; Admin Dose 1 APPLIC; Start 04/16/19 at 09:00 Cefepime HCl 50 ml @ 100 mls/hr Q12 IVPB Last administered on 04/21/19 08:44; Admin Dose 100 MLS/HR; Start 04/16/19 at 21:00 Rifampin (Rifampin) 300 mg Q12 PO Last administered on 04/21/19 08:45; Admin Dose 300 MG; Start 04/16/19 at 21:00 Famotidine (Pepcid) 20 mg BID PO Last administered on 04/21/19 08:45; Admin Dose 20 MG; Start 04/17/19 at 21:00 ERNST BARAKAT Apr 21, 2019 10:28
--- NOTE | 2019-04-21 12:58 | CONS ---
Consultation Date/Type/Reason Admit Date/Time Apr 12, 2019 at 17:21 Initial Consult Date 04/15/19 Type of Consult SUBJECTIVE: Pt. looks comfortable, afebrile. No acute events over night. VS: stable T: 97.7 LABS: Reviewed. Microbiology: Blood culture on admission grew MRSA, urine culture positive for E. coli, sacral wound culture grew E. coli and MRSA no osteomyelitis per pathology report Antimicrobials: Cefepime and IV vancomycin Allergies: Penicillin PHYSICAL EXAMINATION: GENERAL: This is a chronically ill-appearing, wasted elderly man who is in no distress. HEENT: Head is atraumatic, normocephalic. Sclerae are anicteric. Buccal mucosa is dry. NECK: Supple. CHEST: Rise symmetrical. Breath sounds diminished to bases. HEART: S1, S2. ABDOMEN: Soft. Bowel tones are present. EXTREMITIES: With trace edema. Assessment: 1. Sepsis with MRSA bacteremia on admission 2 to #2 2. Sacral wound with abscess and cellulitis, status post I&D 04/15/19 3. MRSA nares colonization 4. UTI 5. Dementia Plan: Pt remains unchanged. Continue current antibiotics x8 more days. Repeat blood cultures neg. Requesting Provider: ROLANDO SANFORD Date/Time of Note DATE: 04/21/19 TIME: 12:57 Exam/Review of Systems Exam Vitals Vital Signs Date Temp Pulse Resp B/P (MAP) Pulse Ox O2 O2 Flow FiO2 Time Delivery Rate 04/21/19 97.7 55 20 123/66 98 Nasal 11:27 (85) Cannula 04/21/19 3.0 05:09 Intake and Output 04/20/19 04/20/19 04/21/19 1515:00 23:00 07:00 IntakeIntake Total 750 ml 1302.5 ml OutputOutput Total 1000 ml BalanceBalance -250 ml 1302.5 ml Results Result Diagram: 04/20/19 0509 04/20/19 0509 Medications Medication Current Medications Acetaminophen (Tylenol Tab) 650 mg Q6H PRN PO MILD PAIN(1-3)OR ELEVATED TEMP; Start 04/13/19 at 00:30 Vancomycin HCl (Vanco Iv Per Pharmacy) VANCOMYCIN PER PHARMACY PER PROTOCOL XX ; Start 04/13/19 at 00:30 Enoxaparin Sodium (Lovenox) 30 mg DAILY SC Last administered on 04/21/19 09:02; Admin Dose 30 MG; Start 04/13/19 at 09:00 Morphine Sulfate (morphine) 2 mg Q4H PRN IV SEVERE PAIN LEVEL 7-10 Last administered on 04/15/19 22:08; Admin Dose 2 MG; Start 04/13/19 at 00:30 Acetaminophen (Tylenol Tab) 650 mg Q4H PRN PO FEVER>100F; Start 04/13/19 at 17:30 Albuterol (Proventil 0.083% (Neb)) 1.25 mg Q4H PRN NEB WHEEZING AND SOB; Start 04/13/19 at 17:30 Atorvastatin Calcium (Lipitor) 10 mg QHS PO Last administered on 04/20/19 20 :56; Admin Dose 10 MG; Start 04/13/19 at 21:00 Carbidopa/Levodopa (Sinemet (25/ 100)) 1 tab BID PO Last administered on 04/21/19 08:45; Admin Dose 1 TAB; Start 04/13/19 at 21:00 Cholecalciferol (Vitamin D) 1,000 unit DAILY PO Last administered on 04/21/19 08:45; Admin Dose 1,000 UNIT; Start 04/14/19 at 09:00 Citalopram Hydrobromide (Celexa) 10 mg DAILY PO Last administered on 04/21/19 08:45; Admin Dose 10 MG; Start 04/14/19 at 09:00 Finasteride (Proscar) 5 mg DAILY PO Last administered on 04/21/19 08:45; Admin Dose 5 MG; Start 04/14/19 at 09:00 Hydroxyzine HCl (Atarax) 10 mg Q6H PRN PO ITCHING; Start 04/13/19 at 17:30 Ferrous Sulfate (Ferrous Sulfate (Ec)) 325 mg DAILY PO Last administered on 04/21/19 08:45; Admin Dose 325 MG; Start 04/14/19 at 09:00 Diltiazem HCl (Cardizem Sr) 60 mg Q8H PO ; Start 04/13/19 at 21:30; Status Hold Calcium Carbonate (Oyster Shell Calcium) 1.25 gm DAILY PO Last administered on 04/21/19 08:45; Admin Dose 1.25 GM; Start 04/14/19 at 09:00 Valproate Sodium 250 mg/Sodium Chloride 52.5 ml @ 55 mls/hr Q8 IVPB Last administered on 04/21/19 06:11; Admin Dose 55 MLS/HR; Start 04/13/19 at 22:00 Diphenhydramine HCl (Benadryl) 25 mg Q8 PRN IV ITCHING Last administered on 04/19/19 21:16; Admin Dose 25 MG; Start 04/14/19 at 01:30 Lorazepam (Ativan) 0.5 mg Q6H PRN IV ANXIETY Last administered on 04/20/19 19:28; Admin Dose 0.5 MG; Start 04/14/19 at 01:30 Vancomycin HCl 1.5 gm/Sodium Chloride 250 ml @ 83.333 mls/ hr Q24H IVPB Last administered on 04/20/19 21:42; Admin Dose 83.333 MLS/HR; Start 04/15/19 at 21:00 Sodium Hypochlorite (Dakins Diluted (40)) 1 applic DAILY TP Last administered on 04/21/19 08:46; Admin Dose 1 APPLIC; Start 04/16/19 at 09:00 Cefepime HCl 50 ml @ 100 mls/hr Q12 IVPB Last administered on 04/21/19 08:44; Admin Dose 100 MLS/HR; Start 04/16/19 at 21:00 Rifampin (Rifampin) 300 mg Q12 PO Last administered on 04/21/19 08:45; Admin Dose 300 MG; Start 04/16/19 at 21:00 Famotidine (Pepcid) 20 mg BID PO Last administered on 04/21/19 08:45; Admin Dose 20 MG; Start 04/17/19 at 21:00 JAMISON PLASCENCIA Apr 21, 2019 12:58
--- NOTE | 2019-04-21 13:24 | PN ---
Date/Time of Note Date/Time of Note DATE: 04/21/19 TIME: 13:21 Assessment/Plan Lines/Catheters IV Catheter Type (from Nrs): PICC Line Morgan in Place (from Nrs): Yes Assessment/Plan Chief Complaint/Hosp Course 1. 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 CVA history, bedbound, functional quadriplegia -Medical optimization -Offloading -Nutritional optimization 3. CHF history -Cardiac optimization with judicious fluid management 4. Anemia, stable -Monitor 5. Leukocytosis: resolved -As above 6. UTI: -abx per sensitivity -frequent bladder emptying/cath care 7. Bacteremia: repeat BC: ngtd -Antibiotics per sensitivity Thank you. Patient seen and examined in collaboration with Dr. Pasquale Patel. Subjective 24 Hr Interval Summary Still with agitation. Bleeding from morgan noted. wbc normalized. No fevers, labored breathing, congested cough, vomiting, diarrhea, sz, rash, wound bleeding or excess drainage. Exam/Review of Systems Vital Signs Vitals Vital Signs Date Temp Pulse Resp B/P (MAP) Pulse Ox O2 O2 Flow FiO2 Time Delivery Rate 04/21/19 97.7 55 20 123/66 98 Nasal 11:27 (85) Cannula 04/21/19 3.0 05:09 Intake and Output 04/20/19 04/20/19 04/21/19 1515:00 23:00 07:00 IntakeIntake Total 750 ml 1302.5 ml OutputOutput Total 1000 ml BalanceBalance -250 ml 1302.5 ml Exam Free Text/Dictation Free Text/Dictation Constitutional: No oriented, somnolent Psych: calm Head: normocephalic, atraumatic Eyes: nl conjunctiva, EOMI, PERRL; No icteric ENMT: nl external ears & nose, mucosa pink and moist Neck: supple, non-tender, jvd (Minimal) Respiratory: normal air movement; No congested cough, No labored breathing, No wheezing Cardiovascular: regular rate and rhythm; No edema Gastrointestinal: soft, non-tender; No distended, No rebound or guarding Genitourinary - Male: No nl scrotum (Wound) Musculoskeletal: No nl extremities to inspection, No nl gait and stance, No joint tenderness Extremities: normal pulses; No calf tenderness, No edema Neurological: No nl mental status, No nl speech, No nl strength Skin: rash or lesions (Sacral: Packed, no bleeding); No diaphoresis Lymph: nl lymph nodes Results Result Diagram: 04/20/19 0509 04/20/19 0509 CHARLI CHAVIS NP Apr 21, 2019 13:24
--- NOTE | 2019-04-21 20:34 | CONS ---
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, subcutaneous, muscle, fascia with abscess and cellulitis status post excisional debridement of sacral wound Consultation Date/Type/Reason Admit Date/Time Apr 12, 2019 at 17:21 Initial Consult Date Requesting Provider: ROLANDO SANFORD Date/Time of Note DATE: 04/21/19 TIME: 20:34 Exam/Review of Systems Exam Vitals Vital Signs Date Temp Pulse Resp B/P (MAP) Pulse Ox O2 O2 Flow FiO2 Time Delivery Rate 04/21/19 97.6 67 20 126/63 97 20:00 (84) 04/21/19 Nasal 2.0 18:07 Cannula Intake and Output 04/20/19 04/20/19 04/21/19 1515:00 23:00 07:00 IntakeIntake Total 750 ml 1302.5 ml OutputOutput Total 1000 ml BalanceBalance -250 ml 1302.5 ml Results Result Diagram: 04/20/19 0509 04/20/19 0509 Medications Medication Current Medications Acetaminophen (Tylenol Tab) 650 mg Q6H PRN PO MILD PAIN(1-3)OR ELEVATED TEMP; Start 04/13/19 at 00:30 Vancomycin HCl (Vanco Iv Per Pharmacy) VANCOMYCIN PER PHARMACY PER PROTOCOL XX ; Start 04/13/19 at 00:30 Enoxaparin Sodium (Lovenox) 30 mg DAILY SC Last administered on 04/21/19at 09:02; Admin Dose 30 MG; Start 04/13/19 at 09:00 Morphine Sulfate (morphine) 2 mg Q4H PRN IV SEVERE PAIN LEVEL 7-10 Last administered on 04/15/19at 22:08; Admin Dose 2 MG; Start 04/13/19 at 00:30 Acetaminophen (Tylenol Tab) 650 mg Q4H PRN PO FEVER>100F; Start 04/13/19 at 17:30 Albuterol (Proventil 0.083% (Neb)) 1.25 mg Q4H PRN NEB WHEEZING AND SOB; Start 04/13/19 at 17:30 Atorvastatin Calcium (Lipitor) 10 mg QHS PO Last administered on 04/20/19at 20:56; Admin Dose 10 MG; Start 04/13/19 at 21:00 Carbidopa/Levodopa (Sinemet (25/ 100)) 1 tab BID PO Last administered on 04/21/19 08:45; Admin Dose 1 TAB; Start 04/13/19 at 21:00 Cholecalciferol (Vitamin D) 1,000 unit DAILY PO Last administered on 04/21/19 08:45; Admin Dose 1,000 UNIT; Start 04/14/19 at 09:00 Citalopram Hydrobromide (Celexa) 10 mg DAILY PO Last administered on 04/21/19 08:45; Admin Dose 10 MG; Start 04/14/19 at 09:00 Finasteride (Proscar) 5 mg DAILY PO Last administered on 04/21/19 08:45; Admin Dose 5 MG; Start 04/14/19 at 09:00 Hydroxyzine HCl (Atarax) 10 mg Q6H PRN PO ITCHING; Start 04/13/19 at 17:30 Ferrous Sulfate (Ferrous Sulfate (Ec)) 325 mg DAILY PO Last administered on 04/21/19 08:45; Admin Dose 325 MG; Start 04/14/19 at 09:00 Diltiazem HCl (Cardizem Sr) 60 mg Q8H PO ; Start 04/13/19 at 21:30; Status Hold Calcium Carbonate (Oyster Shell Calcium) 1.25 gm DAILY PO Last administered on 04/21/19 08:45; Admin Dose 1.25 GM; Start 04/14/19 at 09:00 Valproate Sodium 250 mg/Sodium Chloride 52.5 ml @ 55 mls/hr Q8 IVPB Last administered on 04/21/19 13:28; Admin Dose 55 MLS/HR; Start 04/13/19 at 22:00 Diphenhydramine HCl (Benadryl) 25 mg Q8 PRN IV ITCHING Last administered on 04/19/19 21:16; Admin Dose 25 MG; Start 04/14/19 at 01:30 Lorazepam (Ativan) 0.5 mg Q6H PRN IV ANXIETY Last administered on 04/20/19 19:28; Admin Dose 0.5 MG; Start 04/14/19 at 01:30 Vancomycin HCl 1.5 gm/Sodium Chloride 250 ml @ 83.333 mls/ hr Q24H IVPB Last administered on 04/20/19 21:42; Admin Dose 83.333 MLS/HR; Start 04/15/19 at 21:00 Sodium Hypochlorite (Dakins Diluted ()) 1 applic DAILY TP Last administered on 04/21/19 08:46; Admin Dose 1 APPLIC; Start 04/16/19 at 09:00 Cefepime HCl 50 ml @ 100 mls/hr Q12 IVPB Last administered on 04/21/19 08:44; Admin Dose 100 MLS/HR; Start 04/16/19 at 21:00 Rifampin (Rifampin) 300 mg Q12 PO Last administered on 04/21/19 08:45; Admin Dose 300 MG; Start 04/16/19 at 21:00 Famotidine (Pepcid) 20 mg BID PO Last administered on 04/21/19 08:45; Admin Dose 20 MG; Start 04/17/19 at 21:00 FELI MARCIAL MD Apr 21, 2019 20:34
[2019-04-21] MEDS: ATORVASTATIN 10 MG TAB PO SCH (21:25)
[2019-04-21] MEDS: VANCOMYCIN HCL 1.5 GM in SOD CHLORIDE 0.9% 250 ML IVPB SCH (21:28)
[2019-04-22] VITALS (13 sets, daily range): BP systolic 110–141; BP diastolic 54–72; PULSE 62–76; RESP 18–20
[2019-04-22] MEDS: VALPROATE INJ 250 MG in SOD CHLORIDE 0.9% 50 ML IVPB SCH ×3 (05:31→21:02)
[2019-04-22] MEDS: CALCIUM CARBONATE 1.25 GM TAB PO SCH (08:23)
[2019-04-22] MEDS: FERROUS SULFATE (EC) 325 MG TAB PO SCH (08:23)
[2019-04-22] MEDS: RIFAMPIN 300 MG CAP PO SCH ×2 (08:23→20:35)
[2019-04-22] MEDS: CHOLECALCIFEROL 1,000 UNIT TAB PO SCH (08:23)
[2019-04-22] MEDS: CARBIDOPA/LEVODOPA (25/100) TAB PO SCH ×2 (08:23→20:35)
[2019-04-22] MEDS: FINASTERIDE 5 MG TAB PO SCH (08:23)
[2019-04-22] MEDS: CITALOPRAM 20 MG TAB PO SCH (08:23)
[2019-04-22] MEDS: FAMOTIDINE 20 MG TAB PO SCH ×2 (08:23→20:35)
[2019-04-22] MEDS: DAKINS 0.0125%(1/40) 473 ML SOLUTION TP SCH (08:24)
[2019-04-22] MEDS: CEFEPIME 1GM/50 ML (PMX) 50 ML IVPB SCH ×2 (08:24→20:32)
[2019-04-22] MEDS: ENOXAPARIN 30 MG/0.3 ML SYG SC SCH (08:35)
--- NOTE | 2019-04-22 12:48 | PN ---
Date/Time of Note Date/Time of Note DATE: 04/22/19 TIME: 12:45 Assessment/Plan VTE Prophylaxis Risk score (from Ns)>0 risk: 9 SCD applied (from Ns): Yes Pharmacological prophylaxis: LMWH Lines/Catheters IV [facility] PICC Line Central line still needed: Yes Urinary Cath still in place: Yes Reason Cath still needed: urinary retention Assessment/Plan Hospital Course Patient remains hemodynamically stable, afebrile, confused, pulling on Gonzales catheter in the monitor times currently restrained. Patient continues on cefepi me and vancomycin for staph bacteremia and sacral wound infection. Continue to monitor renal function. Assessment/Plan - Sepsis secondary to E. coli UTI and Staphylococcus bacteremia. Continue antibiotics per ID. Dr. Saldivar is following in infection disease consultation. - E. 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 Status post I&D. Dr. Patel is following in general surgery consultation. Continue current wound care. - Dysphagia, s/p swallow eval, continue PO diet. - BPH, continue Flomax and Proscar - History of cerebrovascular accident. Continue aspirin - Dyslipidemia. Continue statin - Parkinsonism. Continue Sinemet. - Dementia with agitation. Continue Depakote. - Depression. Continue Celexa. Further recommendations based on clinical course. Plan of care discussed with Dr. Rivera. Result Diagram: 04/20/19 0509 04/20/19 0509 Exam/Review of Systems Exam Vitals Vital Signs Date Temp Pulse Resp B/P (MAP) Pulse Ox O2 O2 Flow FiO2 Time Delivery Rate 04/22/19 98.0 65 18 126/58 98 11:45 (80) 04/22/19 Room Air 10:00 04/22/19 2.0 01:03 Intake and Output 04/21/19 04/21/19 04/22/19 1515:00 23:00 07:00 IntakeIntake Total 920 ml 600 ml 705 ml OutputOutput Total 500 ml 550 ml 2400 ml BalanceBalance 420 ml 50 ml -1695 ml Exam Constitutional: alert, frail Neck: supple Respiratory: diminished breath sounds Cardiovascular: regular rate and rhythm Gastrointestinal: soft, non-tender Extremities: normal pulses Neurological: confused Skin: other (Sacral wound) Medications Medication Current Medications Acetaminophen (Tylenol Tab) 650 mg Q6H PRN PO MILD PAIN(1-3)OR ELEVATED TEMP; Start 04/13/19 at 00:30 Vancomycin HCl (Vanco Iv Per Pharmacy) VANCOMYCIN PER PHARMACY PER PROTOCOL XX ; Start 04/13/19 at 00:30 Enoxaparin Sodium (Lovenox) 30 mg DAILY SC Last administered on 04/22/19 08:35; Admin Dose 30 MG; Start 04/13/19 at 09:00 Morphine Sulfate (morphine) 2 mg Q4H PRN IV SEVERE PAIN LEVEL 7-10 Last administered on 04/15/19 22:08; Admin Dose 2 MG; Start 04/13/19 at 00:30 Acetaminophen (Tylenol Tab) 650 mg Q4H PRN PO FEVER>100F; Start 04/13/19 at 17:30 Albuterol (Proventil 0.083% (Neb)) 1.25 mg Q4H PRN NEB WHEEZING AND SOB; Start 04/13/19 at 17:30 Atorvastatin Calcium (Lipitor) 10 mg QHS PO Last administered on 04/21/19at 21:25; Admin Dose 10 MG; Start 04/13/19 at 21:00 Carbidopa/Levodopa (Sinemet (25/ 100)) 1 tab BID PO Last administered on 04/22/19 08:23; Admin Dose 1 TAB; Start 04/13/19 at 21:00 Cholecalciferol (Vitamin D) 1,000 unit DAILY PO Last administered on 04/22/19 08:23; Admin Dose 1,000 UNIT; Start 04/14/19 at 09:00 Citalopram Hydrobromide (Celexa) 10 mg DAILY PO Last administered on 04/22/19 08:23; Admin Dose 10 MG; Start 04/14/19 at 09:00 Finasteride (Proscar) 5 mg DAILY PO Last administered on 04/22/19 08:23; Admin Dose 5 MG; Start 04/14/19 at 09:00 Hydroxyzine HCl (Atarax) 10 mg Q6H PRN PO ITCHING; Start 04/13/19 at 17:30 Ferrous Sulfate (Ferrous Sulfate (Ec)) 325 mg DAILY PO Last administered on 04/22/19 08:23; Admin Dose 325 MG; Start 04/14/19 at 09:00 Diltiazem HCl (Cardizem Sr) 60 mg Q8H PO ; Start 04/13/19 at 21:30; Status Hold Calcium Carbonate (Oyster Shell Calcium) 1.25 gm DAILY PO Last administered on 04/22/19 08:23; Admin Dose 1.25 GM; Start 04/14/19 at 09:00 Valproate Sodium 250 mg/Sodium Chloride 52.5 ml @ 55 mls/hr Q8 IVPB Last administered on 04/22/19 05:31; Admin Dose 55 MLS/HR; Start 04/13/19 at 22:00 Diphenhydramine HCl (Benadryl) 25 mg Q8 PRN IV ITCHING Last administered on 04/19/19 21:16; Admin Dose 25 MG; Start 04/14/19 at 01:30 Lorazepam (Ativan) 0.5 mg Q6H PRN IV ANXIETY Last administered on 04/20/19 19:28; Admin Dose 0.5 MG; Start 04/14/19 at 01:30 Vancomycin HCl 1.5 gm/Sodium Chloride 250 ml @ 83.333 mls/ hr Q24H IVPB Last administered on 04/21/19 21:28; Admin Dose 83.333 MLS/HR; Start 04/15/19 at 21:00 Sodium Hypochlorite (Dakins Diluted (40)) 1 applic DAILY TP Last administered on 04/22/19 08:24; Admin Dose 1 APPLIC; Start 04/16/19 at 09:00 Cefepime HCl 50 ml @ 100 mls/hr Q12 IVPB Last administered on 04/22/19 08:24; Admin Dose 100 MLS/HR; Start 04/16/19 at 21:00 Rifampin (Rifampin) 300 mg Q12 PO Last administered on 04/22/19 08:23; Admin Dose 300 MG; Start 04/16/19 at 21:00 Famotidine (Pepcid) 20 mg BID PO Last administered on 04/22/19 08:23; Admin Dose 20 MG; Start 04/17/19 at 21:00 ROLANDO SANFORD Apr 22, 2019 12:48
--- NOTE | 2019-04-22 15:29 | CONS ---
Assessment/Plan Assessment/Plan Hospital Course (Demo Recall) No acute changes overnight, pt is confused, looks comfortable, afebrile Microbiology: Blood culture on admission grew MRSA, urine culture positive for E. coli, sacral wound culture grew E. coli and MRSA Antimicrobials: Cefepime IV vancomycin Allergies: Penicillin PHYSICAL EXAMINATION: GENERAL: This is a chronically ill-appearing, wasted elderly man who is in no distress. HEENT: Head is atraumatic, normocephalic. Sclerae are anicteric. Buccal mucosa is dry. NECK: Supple. CHEST: Rise symmetrical. Breath sounds diminished to bases. HEART: S1, S2. ABDOMEN: Soft. Bowel tones are present. EXTREMITIES: With trace edema. Assessment: 1. S/p sepsis with MRSA bacteremia on admission 2 to #2 2. Sacral wound with abscess and cellulitis, status post I&D 04/15/19 3. MRSA nares colonization 4. UTI 5. Dementia Plan: Stable, on appropriate antibiotics, no osteomyelitis per pathology report, repeat blood cultures neg, continue on current abx for 8 more days Consultation Date/Type/Reason Admit Date/Time Apr 12, 2019 at 17:21 Initial Consult Date 04/15/19 Type of Consult id Requesting Provider: ROLANDO SANFORD Date/Time of Note DATE: 04/22/19 TIME: 15:28 Exam/Review of Systems Exam Vitals Vital Signs Date Temp Pulse Resp B/P (MAP) Pulse Ox O2 O2 Flow FiO2 Time Delivery Rate 04/22/19 98.0 65 18 126/58 98 11:45 (80) 04/22/19 Room Air 10:00 04/22/19 2.0 01:03 Intake and Output 04/21/19 04/21/19 04/22/19 1515:00 23:00 07:00 IntakeIntake Total 920 ml 600 ml 705 ml OutputOutput Total 500 ml 550 ml 2400 ml BalanceBalance 420 ml 50 ml -1695 ml Results Result Diagram: 04/20/19 0509 04/20/19 0509 Medications Medication Current Medications Acetaminophen (Tylenol Tab) 650 mg Q6H PRN PO MILD PAIN(1-3)OR ELEVATED TEMP; Start 04/13/19 at 00:30 Vancomycin HCl (Vanco Iv Per Pharmacy) VANCOMYCIN PER PHARMACY PER PROTOCOL XX ; Start 04/13/19 at 00:30 Enoxaparin Sodium (Lovenox) 30 mg DAILY SC Last administered on 04/22/19 08:35; Admin Dose 30 MG; Start 04/13/19 at 09:00 Morphine Sulfate (morphine) 2 mg Q4H PRN IV SEVERE PAIN LEVEL 7-10 Last administered on 04/15/19 22:08; Admin Dose 2 MG; Start 04/13/19 at 00:30 Acetaminophen (Tylenol Tab) 650 mg Q4H PRN PO FEVER>100F; Start 04/13/19 at 17:30 Albuterol (Proventil 0.083% (Neb)) 1.25 mg Q4H PRN NEB WHEEZING AND SOB; Start 04/13/19 at 17:30 Atorvastatin Calcium (Lipitor) 10 mg QHS PO Last administered on 04/21/19 21: 25; Admin Dose 10 MG; Start 04/13/19 at 21:00 Carbidopa/Levodopa (Sinemet (25/ 100)) 1 tab BID PO Last administered on 04/22/19 08:23; Admin Dose 1 TAB; Start 04/13/19 at 21:00 Cholecalciferol (Vitamin D) 1,000 unit DAILY PO Last administered on 04/22/19 08:23; Admin Dose 1,000 UNIT; Start 04/14/19 at 09:00 Citalopram Hydrobromide (Celexa) 10 mg DAILY PO Last administered on 04/22/19 08:23; Admin Dose 10 MG; Start 04/14/19 at 09:00 Finasteride (Proscar) 5 mg DAILY PO Last administered on 04/22/19 08:23; Admin Dose 5 MG; Start 04/14/19 at 09:00 Hydroxyzine HCl (Atarax) 10 mg Q6H PRN PO ITCHING; Start 04/13/19 at 17:30 Ferrous Sulfate (Ferrous Sulfate (Ec)) 325 mg DAILY PO Last administered on 04/22/19 08:23; Admin Dose 325 MG; Start 04/14/19 at 09:00 Diltiazem HCl (Cardizem Sr) 60 mg Q8H PO ; Start 04/13/19 at 21:30; Status Hold Calcium Carbonate (Oyster Shell Calcium) 1.25 gm DAILY PO Last administered on 04/22/19 08:23; Admin Dose 1.25 GM; Start 04/14/19 at 09:00 Valproate Sodium 250 mg/Sodium Chloride 52.5 ml @ 55 mls/hr Q8 IVPB Last administered on 04/22/19 14:22; Admin Dose 55 MLS/HR; Start 04/13/19 at 22:00 Diphenhydramine HCl (Benadryl) 25 mg Q8 PRN IV ITCHING Last administered on 04/19/19 21:16; Admin Dose 25 MG; Start 04/14/19 at 01:30 Lorazepam (Ativan) 0.5 mg Q6H PRN IV ANXIETY Last administered on 04/20/19 19:28; Admin Dose 0.5 MG; Start 04/14/19 at 01:30 Vancomycin HCl 1.5 gm/Sodium Chloride 250 ml @ 83.333 mls/ hr Q24H IVPB Last administered on 04/21/19 21:28; Admin Dose 83.333 MLS/HR; Start 04/15/19 at 21:00 Sodium Hypochlorite (Dakins Diluted (40)) 1 applic DAILY TP Last administered on 04/22/19 08:24; Admin Dose 1 APPLIC; Start 04/16/19 at 09:00 Cefepime HCl 50 ml @ 100 mls/hr Q12 IVPB Last administered on 04/22/19 08:24; Admin Dose 100 MLS/HR; Start 04/16/19 at 21:00 Rifampin (Rifampin) 300 mg Q12 PO Last administered on 04/22/19 08:23; Admin Dose 300 MG; Start 04/16/19 at 21:00 Famotidine (Pepcid) 20 mg BID PO Last administered on 04/22/19 08:23; Admin Dose 20 MG; Start 04/17/19 at 21:00 HERMINIO WILLAMS NP Apr 22, 2019 15:29
--- NOTE | 2019-04-22 18:18 | PN ---
Date/Time of Note Date/Time of Note DATE: 04/22/19 TIME: 18:17 Assessment/Plan Lines/Catheters IV Catheter Type (from Nrs): PICC Line Gonzales in Place (from Nrs): Yes Assessment/Plan Chief Complaint/Hosp Course 1. 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 CVA history, bedbound, functional quadriplegia -Medical optimization -Offloading -Nutritional optimization 3. CHF history -Cardiac optimization with judicious fluid management 4. Anemia, stable -Monitor 5. Leukocytosis: resolved -As above 6. UTI: -abx per sensitivity -frequent bladder emptying/cath care 7. Bacteremia: repeat BC: ngtd -Antibiotics per sensitivity Thank you Subjective 24 Hr Interval Summary Some agitation. Leukocytosis resolved. No fevers, labored breathing, congested cough, vomiting, diarrhea, sz, rash, wound bleeding or excess drainage. Exam/Review of Systems Vital Signs Vitals Vital Signs Date Temp Pulse Resp B/P (MAP) Pulse Ox O2 O2 Flow FiO2 Time Delivery Rate 04/22/19 21 17:25 04/22/19 98.0 68 18 124/62 16:27 (82) 04/22/19 Room Air 10:00 04/22/19 2.0 01:03 Intake and Output 04/21/19 04/21/19 04/22/19 1515:00 23:00 07:00 IntakeIntake Total 920 ml 600 ml 705 ml OutputOutput Total 500 ml 550 ml 2400 ml BalanceBalance 420 ml 50 ml -1695 ml Exam Free Text/Dictation Constitutional: No oriented, somnolent Psych: calm Head: normocephalic, atraumatic Eyes: nl conjunctiva, EOMI, PERRL; No icteric ENMT: nl external ears & nose, mucosa pink and moist Neck: supple, non-tender, jvd (Minimal) Respiratory: normal air movement; No congested cough, No labored breathing, No wheezing Cardiovascular: regular rate and rhythm; No edema Gastrointestinal: soft, non-tender; No distended, No rebound or guarding Genitourinary - Male: No nl scrotum (Wound) Musculoskeletal: No nl extremities to inspection, No nl gait and stance, No joint tenderness Extremities: normal pulses; No calf tenderness, No edema Neurological: No nl mental status, No nl speech, No nl strength Skin: rash or lesions (Sacral: Packed, no bleeding); No diaphoresis Lymph: nl lymph nodes Results Result Diagram: 04/20/19 0509 04/20/19 0509 FELIX DE LOS SANTOS MD Apr 22, 2019 18:18
--- NOTE | 2019-04-22 18:28 | CONS ---
Assessment/Plan Assessment/Plan Hospital Course (Demo Recall) -ANEMIA COMPLEX, MONITOR - LEUKOCYTOSIS REACTIVE, monitor - fever, cough CXR, IV ATB , ID, CULTURES - Sepsis on admission w/fevers, leukocytosis, lactic acidosis Large sacral decub w/abscess and surrounding bilateral edema surg eval - HX urinary tract infection. IV ATB Complicated UTI w/urinary retention due to BPH & neurogenic bladder -Hx of PNA -GERD -Hx of CHAPARRITA - BPH, continue Flomax and Proscar - Dysphagia. swallow evaluation by ST. - History of cerebrovascular accident. Continue aspirin - Dyslipidemia. Continue statin - Parkinsonism. Continue carbidopa - Dementia with agitation. Continue Depakote. - Depression. Continue Celexa. Consultation Date/Type/Reason Admit Date/Time Apr 12, 2019 at 17:21 Initial Consult Date Type of Consult hemeonc Requesting Provider: JACOBO EATON MD Date/Time of Note DATE: 04/22/19 TIME: 18:28 Exam/Review of Systems Exam Vitals Vital Signs Date Temp Pulse Resp B/P (MAP) Pulse Ox O2 O2 Flow FiO2 Time Delivery Rate 04/22/19 21 17:25 04/22/19 98.0 68 18 124/62 16:27 (82) 04/22/19 Room Air 10:00 04/22/19 2.0 01:03 Intake and Output 04/21/19 04/21/19 04/22/19 1515:00 23:00 07:00 IntakeIntake Total 920 ml 600 ml 705 ml OutputOutput Total 500 ml 550 ml 2400 ml BalanceBalance 420 ml 50 ml -1695 ml Exam GENERAL: Awake, alert, calm, cooperative, VSS, NAD, HEENT: AT, NC, anicteric NECK: Supple, no JVD appreciated CHEST: Equal chest rise bilaterally without dyspnea on observation Lungs diminished, dry cough noted x1 ABD: Soft, ND, NT : FC in place MSK: Generalized weakness, no joint edema EXTREMITIES: Warm, dry, no edema SKIN: No rash, no diaphoresis, see photos == large unstageable sacral ulcer w/fluctuance -- surrounding bilateral buttock edema/cellulitis Neuro: Eyes open & tracking, non-verbal, [place] speaks [place], Psych: Mood is calm and cooperative Results Result Diagram: 04/20/19 0509 04/20/19 3937 Medications Medication Current Medications Acetaminophen (Tylenol Tab) 650 mg Q6H PRN PO MILD PAIN(1-3)OR ELEVATED TEMP; Start 04/13/19 at 00:30 Vancomycin HCl (Vanco Iv Per Pharmacy) VANCOMYCIN PER PHARMACY PER PROTOCOL XX ; Start 04/13/19 at 00:30 Enoxaparin Sodium (Lovenox) 30 mg DAILY SC Last administered on 04/22/19 08:35; Admin Dose 30 MG; Start 04/13/19 at 09:00 Morphine Sulfate (morphine) 2 mg Q4H PRN IV SEVERE PAIN LEVEL 7-10 Last administered on 04/15/19 22:08; Admin Dose 2 MG; Start 04/13/19 at 00:30 Acetaminophen (Tylenol Tab) 650 mg Q4H PRN PO FEVER>100F; Start 04/13/19 at 17: 30 Albuterol (Proventil 0.083% (Neb)) 1.25 mg Q4H PRN NEB WHEEZING AND SOB; Start 04/13/19 at 17:30 Atorvastatin Calcium (Lipitor) 10 mg QHS PO Last administered on 04/21/19at 21:25; Admin Dose 10 MG; Start 04/13/19 at 21:00 Carbidopa/Levodopa (Sinemet (25/ 100)) 1 tab BID PO Last administered on 08:23; Admin Dose 1 TAB; Start 04/13/19 at 21:00 Cholecalciferol (Vitamin D) 1,000 unit DAILY PO Last administered on 04/22/19 08:23; Admin Dose 1,000 UNIT; Start 04/14/19 at 09:00 Citalopram Hydrobromide (Celexa) 10 mg DAILY PO Last administered on 04/22/19 08:23; Admin Dose 10 MG; Start 04/14/19 at 09:00 Finasteride (Proscar) 5 mg DAILY PO Last administered on 04/22/19 08:23; Admin Dose 5 MG; Start 04/14/19 at 09:00 Hydroxyzine HCl (Atarax) 10 mg Q6H PRN PO ITCHING; Start 04/13/19 at 17:30 Ferrous Sulfate (Ferrous Sulfate (Ec)) 325 mg DAILY PO Last administered on 04/22/19 08:23; Admin Dose 325 MG; Start 04/14/19 at 09:00 Diltiazem HCl (Cardizem Sr) 60 mg Q8H PO ; Start 04/13/19 at 21:30; Status Hold Calcium Carbonate (Oyster Shell Calcium) 1.25 gm DAILY PO Last administered on 04/22/19 08:23; Admin Dose 1.25 GM; Start 04/14/19 at 09:00 Valproate Sodium 250 mg/Sodium Chloride 52.5 ml @ 55 mls/hr Q8 IVPB Last administered on 04/22/19 14:22; Admin Dose 55 MLS/HR; Start 04/13/19 at 22:00 Diphenhydramine HCl (Benadryl) 25 mg Q8 PRN IV ITCHING Last administered on 04/19/19 21:16; Admin Dose 25 MG; Start 04/14/19 at 01:30 Lorazepam (Ativan) 0.5 mg Q6H PRN IV ANXIETY Last administered on 04/20/19 19:28; Admin Dose 0.5 MG; Start 04/14/19 at 01:30 Vancomycin HCl 1.5 gm/Sodium Chloride 250 ml @ 83.333 mls/ hr Q24H IVPB Last administered on 04/21/19 21:28; Admin Dose 83.333 MLS/HR; Start 04/15/19 at 21:00 Sodium Hypochlorite (Dakins Diluted (40)) 1 applic DAILY TP Last administered on 04/22/19 08:24; Admin Dose 1 APPLIC; Start 04/16/19 at 09:00 Cefepime HCl 50 ml @ 100 mls/hr Q12 IVPB Last administered on 04/22/19 08:24; Admin Dose 100 MLS/HR; Start 04/16/19 at 21:00 Rifampin (Rifampin) 300 mg Q12 PO Last administered on 04/22/19 08:23; Admin Dose 300 MG; Start 04/16/19 at 21:00 Famotidine (Pepcid) 20 mg BID PO Last administered on 04/22/19 08:23; Admin Dose 20 MG; Start 04/17/19 at 21:00 Miscellaneous Information (*Rx Drug Level Order Reminder*) VANCO TROUGH @ 2,000 2000 ONCE XX ; Start 04/22/19 at 20:00; Stop 04/22/19 at 20:01 FELI MARCIAL MD Apr 22, 2019 18:28
[2019-04-22] MEDS: ATORVASTATIN 10 MG TAB PO SCH (20:35)
[2019-04-22] MEDS: VANCOMYCIN HCL 1.5 GM in SOD CHLORIDE 0.9% 250 ML IVPB SCH (20:41)
[2019-04-23] VITALS (12 sets, daily range): BP systolic 114–139; BP diastolic 57–82; PULSE 59–76; RESP 18–20
[2019-04-23] MEDS: VALPROATE INJ 250 MG in SOD CHLORIDE 0.9% 50 ML IVPB SCH ×3 (05:09→20:49)
[2019-04-23] MEDS: CEFEPIME 1GM/50 ML (PMX) 50 ML IVPB SCH ×2 (08:41→20:47)
[2019-04-23] MEDS: VANCOMYCIN 1 GM 250 ML IVPB SCH (08:41)
[2019-04-23] MEDS: CHOLECALCIFEROL 1,000 UNIT TAB PO SCH (08:44)
[2019-04-23] MEDS: CITALOPRAM 20 MG TAB PO SCH (08:44)
[2019-04-23] MEDS: FAMOTIDINE 20 MG TAB PO SCH ×2 (08:45→20:49)
[2019-04-23] MEDS: FERROUS SULFATE (EC) 325 MG TAB PO SCH (08:45)
[2019-04-23] MEDS: FINASTERIDE 5 MG TAB PO SCH (08:45)
[2019-04-23] MEDS: CARBIDOPA/LEVODOPA (25/100) TAB PO SCH ×2 (08:45→20:49)
[2019-04-23] MEDS: RIFAMPIN 300 MG CAP PO SCH ×2 (08:45→20:49)
[2019-04-23] MEDS: CALCIUM CARBONATE 1.25 GM TAB PO SCH (08:45)
[2019-04-23] MEDS: DAKINS 0.0125%(1/40) 473 ML SOLUTION TP SCH (08:47)
[2019-04-23] MEDS: ENOXAPARIN 30 MG/0.3 ML SYG SC SCH (08:54)
--- NOTE | 2019-04-23 09:49 | PN ---
Date/Time of Note Date/Time of Note DATE: 04/23/19 TIME: 09:47 Assessment/Plan Lines/Catheters IV Catheter Type (from Nrs): PICC Line Gonzales in Place (from Nrs): Yes Assessment/Plan Chief Complaint/Hosp Course 1. 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 CVA history, bedbound, functional quadriplegia -Medical optimization -Offloading -Nutritional optimization 3. CHF history -Cardiac optimization with judicious fluid management 4. Anemia, stable -Monitor 5. Leukocytosis: resolved -As above 6. UTI: -abx per sensitivity -frequent bladder emptying/cath care 7. Bacteremia: repeat BC: ngtd -Antibiotics per sensitivity Thank you. Patient seen and examined in collaboration with Dr. Pasquale Patel. Subjective 24 Hr Interval Summary Intermittent agitation. No fevers, labored breathing, congested cough, vomiting, diarrhea, seizure, rash, bleeding or excessive drainage from wound. Exam/Review of Systems Vital Signs Vitals Vital Signs Date Temp Pulse Resp B/P (MAP) Pulse Ox O2 O2 Flow FiO2 Time Delivery Rate 04/23/19 98.0 73 18 126/76 98 08:06 (93) 04/23/19 2.0 06:29 04/23/19 Nasal 06:00 Cannula Intake and Output 04/22/19 04/22/19 04/23/19 1515:00 23:00 07:00 IntakeIntake Total 480 ml 175 ml 200 ml OutputOutput Total 700 ml 600 ml 1300 ml BalanceBalance -220 ml -425 ml -1100 ml Exam Free Text/Dictation Constitutional: No oriented, somnolent Psych: calm Head: normocephalic, atraumatic Eyes: nl conjunctiva, EOMI, PERRL; No icteric ENMT: nl external ears & nose, mucosa pink and moist Neck: supple, non-tender, jvd (Minimal) Respiratory: normal air movement; No congested cough, No labored breathing, No wheezing Cardiovascular: regular rate and rhythm; No edema Gastrointestinal: soft, non-tender; No distended, No rebound or guarding Genitourinary - Male: No nl scrotum (Wound) Musculoskeletal: No nl extremities to inspection, No nl gait and stance, No joint tenderness Extremities: normal pulses; No calf tenderness, No edema Neurological: No nl mental status, No nl speech, No nl strength Skin: rash or lesions (Sacral: Clean, no bleeding); No diaphoresis Lymph: nl lymph nodes Results Result Diagram: 04/20/19 0509 04/23/19 0556 CHARLI CHAVIS NP Apr 23, 2019 09:49
[2019-04-23] MEDS: ASCORBIC ACID 500 MG TAB PO SCH (12:12)
[2019-04-23] MEDS: ZINC SULFATE 220 MG CAP PO SCH (12:12)
--- NOTE | 2019-04-23 14:13 | CONS ---
Assessment/Plan Assessment/Plan Hospital Course (Demo Recall) Patient is sleeping looks comfortable no fevers overnight Microbiology: Blood culture on admission grew MRSA, urine culture positive for E. coli, sacral wound culture grew E. coli and MRSA Antimicrobials: Cefepime IV vancomycin Allergies: Penicillin PHYSICAL EXAMINATION: GENERAL: This is a chronically ill-appearing, wasted elderly man who is in no distress. HEENT: Head is atraumatic, normocephalic. Sclerae are anicteric. Buccal mucosa is dry. NECK: Supple. CHEST: Rise symmetrical. Breath sounds diminished to bases. HEART: S1, S2. ABDOMEN: Soft. Bowel tones are present. EXTREMITIES: With trace edema. Assessment: 1. S/p sepsis with MRSA bacteremia on admission 2 to #2 2. Sacral wound with abscess and cellulitis, status post I&D 04/15/19 3. MRSA nares colonization 4. UTI 5. Dementia Plan: Stable, on appropriate antibiotics, no osteomyelitis per pathology report, repeat blood cultures neg, continue on current abx for 7 more days Consultation Date/Type/Reason Admit Date/Time Apr 12, 2019 at 17:21 Initial Consult Date 04/15/19 Type of Consult id Requesting Provider: JACOBO EATON MD Date/Time of Note DATE: 04/23/19 TIME: 14:13 Exam/Review of Systems Exam Vitals Vital Signs Date Temp Pulse Resp B/P (MAP) Pulse Ox O2 O2 Flow FiO2 Time Delivery Rate 04/23/19 97.7 59 18 129/57 100 12:13 (81) 04/23/19 2.0 06:29 04/23/19 Nasal 06:00 Cannula Intake and Output 04/22/19 04/22/19 04/23/19 1515:00 23:00 07:00 IntakeIntake Total 480 ml 175 ml 200 ml OutputOutput Total 700 ml 600 ml 1300 ml BalanceBalance -220 ml -425 ml -1100 ml Results Result Diagram: 04/20/19 0509 04/23/19 0556 Results 24hrs Laboratory Tests Test 04/22/19 19:57 04/23/19 05:56 Vancomycin Level Trough 23.2 *H Blood Urea Nitrogen 19 Creatinine 1.03 Medications Medication Current Medications Acetaminophen (Tylenol Tab) 650 mg Q6H PRN PO MILD PAIN(1-3)OR ELEVATED TEMP; Start 04/13/19 at 00:30 Vancomycin HCl (Vanco Iv Per Pharmacy) VANCOMYCIN PER PHARMACY PER PROTOCOL XX ; Start 04/13/19 at 00:30 Enoxaparin Sodium (Lovenox) 30 mg DAILY SC Last administered on 04/23/19at 08:54; Admin Dose 30 MG; Start 04/13/19 at 09:00 Morphine Sulfate (morphine) 2 mg Q4H PRN IV SEVERE PAIN LEVEL 7-10 Last administered on 04/15/19 22:08; Admin Dose 2 MG; Start 04/13/19 at 00:30 Acetaminophen (Tylenol Tab) 650 mg Q4H PRN PO FEVER>100F; Start 04/13/19 at 17:30 Albuterol (Proventil 0.083% (Neb)) 1.25 mg Q4H PRN NEB WHEEZING AND SOB; Start 04/13/19 at 17:30 Atorvastatin Calcium (Lipitor) 10 mg QHS PO Last administered on 04/22/19at 20:35; Admin Dose 10 MG; Start 04/13/19 at 21:00 Carbidopa/Levodopa (Sinemet (25/ 100)) 1 tab BID PO Last administered on 04/23/19 08:45; Admin Dose 1 TAB; Start 04/13/19 at 21:00 Cholecalciferol (Vitamin D) 1,000 unit DAILY PO Last administered on 04/23/19 08:44; Admin Dose 1,000 UNIT; Start 04/14/19 at 09:00 Citalopram Hydrobromide (Celexa) 10 mg DAILY PO Last administered on 04/23/19 08:44; Admin Dose 10 MG; Start 04/14/19 at 09:00 Finasteride (Proscar) 5 mg DAILY PO Last administered on 04/23/19 08:45; Admin Dose 5 MG; Start 04/14/19 at 09:00 Hydroxyzine HCl (Atarax) 10 mg Q6H PRN PO ITCHING; Start 04/13/19 at 17:30 Ferrous Sulfate (Ferrous Sulfate (Ec)) 325 mg DAILY PO Last administered on 08:45; Admin Dose 325 MG; Start 04/14/19 at 09:00 Diltiazem HCl (Cardizem Sr) 60 mg Q8H PO ; Start 04/13/19 at 21:30; Status Hold Calcium Carbonate (Oyster Shell Calcium) 1.25 gm DAILY PO Last administered on 04/23/19 08:45; Admin Dose 1.25 GM; Start 04/14/19 at 09:00 Valproate Sodium 250 mg/Sodium Chloride 52.5 ml @ 55 mls/hr Q8 IVPB Last administered on 04/23/19 13:36; Admin Dose 55 MLS/HR; Start 04/13/19 at 22:00 Diphenhydramine HCl (Benadryl) 25 mg Q8 PRN IV ITCHING Last administered on 04/19/19 21:16; Admin Dose 25 MG; Start 04/14/19 at 01:30 Lorazepam (Ativan) 0.5 mg Q6H PRN IV ANXIETY Last administered on 04/20/19 19:28; Admin Dose 0.5 MG; Start 04/14/19 at 01:30 Sodium Hypochlorite (Dakins Diluted ()) 1 applic DAILY TP Last administered on 04/23/19 08:47; Admin Dose 1 APPLIC; Start 04/16/19 at 09:00 Cefepime HCl 50 ml @ 100 mls/hr Q12 IVPB Last administered on 04/23/19 08:41; Admin Dose 100 MLS/HR; Start 04/16/19 at 21:00 Rifampin (Rifampin) 300 mg Q12 PO Last administered on 04/23/19 08:45; Admin Dose 300 MG; Start 04/16/19 at 21:00 Famotidine (Pepcid) 20 mg BID PO Last administered on 04/23/19 08:45; Admin Dose 20 MG; Start 04/17/19 at 21:00 Vancomycin HCl 250 ml @ 125 mls/hr Q24H IVPB Last administered on 04/23/19 08:41; Admin Dose 125 MLS/HR; Start 04/23/19 at 09:00 Ascorbic Acid (Vitamin C) 1,000 mg DAILY PO Last administered on 04/23/19 12:12; Admin Dose 1,000 MG; Start 04/23/19 at 12:00 Zinc Sulfate (Zinc Sulfate) 220 mg DAILY PO Last administered on 04/23/19 12:12; Admin Dose 220 MG; Start 04/23/19 at 12:00 HERMINIO WILLAMS NP 16, 2019 14:13
--- NOTE | 2019-04-23 16:30 | CONS ---
Assessment/Plan Assessment/Plan Hospital Course (Demo Recall) -ANEMIA COMPLEX, MONITOR - LEUKOCYTOSIS REACTIVE, monitor - fever, cough CXR, IV ATB , ID, CULTURES - Sepsis on admission w/fevers, leukocytosis, lactic acidosis Large sacral decub w/abscess and surrounding bilateral edema surg eval - HX urinary tract infection. IV ATB Complicated UTI w/urinary retention due to BPH & neurogenic bladder -Hx of PNA -GERD -Hx of CHAPARRITA - BPH, continue Flomax and Proscar - Dysphagia. swallow evaluation by ST. - History of cerebrovascular accident. Continue aspirin - Dyslipidemia. Continue statin - Parkinsonism. Continue carbidopa - Dementia with agitation. Continue Depakote. - Depression. Continue Celexa. Consultation Date/Type/Reason Admit Date/Time Apr 12, 2019 at 17:21 Initial Consult Date Type of Consult hemeonc Requesting Provider: JACOBO EATON MD Date/Time of Note DATE: 04/23/19 TIME: 16:30 Exam/Review of Systems Exam Vitals Vital Signs Date Temp Pulse Resp B/P (MAP) Pulse Ox O2 O2 Flow FiO2 Time Delivery Rate 04/23/19 97.7 59 18 129/57 100 12:13 (81) 04/23/19 2.0 06:29 04/23/19 Nasal 06:00 Cannula Intake and Output 04/22/19 04/22/19 04/23/19 1515:00 23:00 07:00 IntakeIntake Total 480 ml 175 ml 200 ml OutputOutput Total 700 ml 600 ml 1300 ml BalanceBalance -220 ml -425 ml -1100 ml Results Result Diagram: 04/20/19 0509 04/23/19 0556 Results 24hrs Laboratory Tests Test 04/22/19 19:57 04/23/19 05:56 Vancomycin Level Trough 23.2 *H Blood Urea Nitrogen 19 Creatinine 1.03 Medications Medication Current Medications Acetaminophen (Tylenol Tab) 650 mg Q6H PRN PO MILD PAIN(1-3)OR ELEVATED TEMP; Start 04/13/19 at 00:30 Vancomycin HCl (Vanco Iv Per Pharmacy) VANCOMYCIN PER PHARMACY PER PROTOCOL XX ; Start 04/13/19 at 00:30 Enoxaparin Sodium (Lovenox) 30 mg DAILY SC Last administered on 04/23/19at 08:54; Admin Dose 30 MG; Start 04/13/19 at 09:00 Morphine Sulfate (morphine) 2 mg Q4H PRN IV SEVERE PAIN LEVEL 7-10 Last administered on 04/15/19 22:08; Admin Dose 2 MG; Start 04/13/19 at 00:30 Acetaminophen (Tylenol Tab) 650 mg Q4H PRN PO FEVER>100F; Start 04/13/19 at 17:30 Albuterol (Proventil 0.083% (Neb)) 1.25 mg Q4H PRN NEB WHEEZING AND SOB; Start 04/13/19 at 17:30 Atorvastatin Calcium (Lipitor) 10 mg QHS PO Last administered on 04/22/19 20:35; Admin Dose 10 MG; Start 04/13/19 at 21:00 Carbidopa/Levodopa (Sinemet (25/ )) 1 tab BID PO Last administered on 04/23/19 08:45; Admin Dose 1 TAB; Start 04/13/19 at 21:00 Cholecalciferol (Vitamin D) 1,000 unit DAILY PO Last administered on 04/23/19 08:44; Admin Dose 1,000 UNIT; Start 04/14/19 at 09:00 Citalopram Hydrobromide (Celexa) 10 mg DAILY PO Last administered on 04/23/19 08:44; Admin Dose 10 MG; Start 04/14/19 at 09:00 Finasteride (Proscar) 5 mg DAILY PO Last administered on 04/23/19 08:45; Admin Dose 5 MG; Start 04/14/19 at 09:00 Hydroxyzine HCl (Atarax) 10 mg Q6H PRN PO ITCHING; Start 04/13/19 at 17:30 Ferrous Sulfate (Ferrous Sulfate (Ec)) 325 mg DAILY PO Last administered on 04/23/19 08:45; Admin Dose 325 MG; Start 04/14/19 at 09:00 Diltiazem HCl (Cardizem Sr) 60 mg Q8H PO ; Start 04/13/19 at 21:30; Status Hold Calcium Carbonate (Oyster Shell Calcium) 1.25 gm DAILY PO Last administered on 04/23/19 08:45; Admin Dose 1.25 GM; Start 04/14/19 at 09:00 Valproate Sodium 250 mg/Sodium Chloride 52.5 ml @ 55 mls/hr Q8 IVPB Last administered on 04/23/19 13:36; Admin Dose 55 MLS/HR; Start 04/13/19 at 22:00 Diphenhydramine HCl (Benadryl) 25 mg Q8 PRN IV ITCHING Last administered on 04/19/19 21:16; Admin Dose 25 MG; Start 04/14/19 at 01:30 Lorazepam (Ativan) 0.5 mg Q6H PRN IV ANXIETY Last administered on 04/20/19 19:28; Admin Dose 0.5 MG; Start 04/14/19 at 01:30 Sodium Hypochlorite (Dakins Diluted ()) 1 applic DAILY TP Last administered on 04/23/19 08:47; Admin Dose 1 APPLIC; Start 04/16/19 at 09:00 Cefepime HCl 50 ml @ 100 mls/hr Q12 IVPB Last administered on 04/23/19 08:41; Admin Dose 100 MLS/HR; Start 04/16/19 at 21:00 Rifampin (Rifampin) 300 mg Q12 PO Last administered on 04/23/19 08:45; Admin Dose 300 MG; Start 04/16/19 at 21:00 Famotidine (Pepcid) 20 mg BID PO Last administered on 04/23/19 08:45; Admin Dose 20 MG; Start 04/17/19 at 21:00 Vancomycin HCl 250 ml @ 125 mls/hr Q24H IVPB Last administered on 04/23/19 08:41; Admin Dose 125 MLS/HR; Start 04/23/19 at 09:00 Ascorbic Acid (Vitamin C) 1,000 mg DAILY PO Last administered on 04/23/19 12:12; Admin Dose 1,000 MG; Start 04/23/19 at 12:00 Zinc Sulfate (Zinc Sulfate) 220 mg DAILY PO Last administered on 04/23/19 12:12; Admin Dose 220 MG; Start 04/23/19 at 12:00 FELI MARCIAL MD Apr 23, 2019 16:30
--- NOTE | 2019-04-23 19:47 | PN ---
Date/Time of Note Date/Time of Note DATE: 04/23/19 TIME: 19:45 Assessment/Plan VTE Prophylaxis Risk score (from Ns)>0 risk: 9 SCD applied (from Ns): Yes Pharmacological prophylaxis: LMWH Lines/Catheters IV Catheter Type (from Nrs): PICC Line Central line still needed: Yes Urinary Cath still in place: Yes Reason Cath still needed: urinary retention Assessment/Plan Hospital Course Patient tolerates mechanical soft diet, ate most of meals, sinus bradycardia at the rate of 50-60, stable blood pressure. Patient undergoing treatment with cefepime and vancomycin for staph bacteremia and sacral wound infection. Assessment/Plan - Sepsis secondary to E. coli UTI and Staphylococcus bacteremia. Continue antibiotics per ID. Dr. Saldivar is following in infection disease consultation. - E. 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 Status post I&D. Dr. Patel is following in general surgery consultation. Continue current wound care. - Dysphagia, s/p swallow eval, continue PO diet. - BPH, continue Flomax and Proscar - History of cerebrovascular accident. Continue aspirin - Dyslipidemia. Continue statin - Parkinsonism. Continue Sinemet. - Dementia with agitation. Continue Depakote. - Depression. Continue Celexa. Further recommendations based on clinical course. Plan of care discussed with Dr. Rivera. Result Diagram: 04/20/19 0509 04/23/19 0556 Results 24hrs Laboratory Tests Test 04/22/19 19:57 04/23/19 05:56 Vancomycin Level Trough 23.2 *H Blood Urea Nitrogen 19 Creatinine 1.03 Exam/Review of Systems Exam Vitals Vital Signs Date Temp Pulse Resp B/P (MAP) Pulse Ox O2 O2 Flow FiO2 Time Delivery Rate 04/23/19 97.9 64 20 119/74 97 Nasal 18:26 (89) Cannula 04/23/19 2.0 18:04 Intake and Output 04/22/19 04/22/19 04/23/19 1515:00 23:00 07:00 IntakeIntake Total 480 ml 175 ml 200 ml OutputOutput Total 700 ml 600 ml 1300 ml BalanceBalance -220 ml -425 ml -1100 ml Exam Constitutional: alert, frail Neck: supple Respiratory: diminished breath sounds Cardiovascular: regular rate and rhythm Gastrointestinal: soft, non-tender Extremities: normal pulses Neurological: confused Skin: other (Sacral wound) Results Results 24hrs Laboratory Tests Test 04/22/19 19:57 04/23/19 05:56 Vancomycin Level Trough 23.2 *H Blood Urea Nitrogen 19 Creatinine 1.03 Medications Medication Current Medications Acetaminophen (Tylenol Tab) 650 mg Q6H PRN PO MILD PAIN(1-3)OR ELEVATED TEMP; Start 04/13/19 at 00:30 Vancomycin HCl (Vanco Iv Per Pharmacy) VANCOMYCIN PER PHARMACY PER PROTOCOL XX ; Start 04/13/19 at 00:30 Enoxaparin Sodium (Lovenox) 30 mg DAILY SC Last administered on 04/23/19at 08:54; Admin Dose 30 MG; Start 04/13/19 at 09:00 Morphine Sulfate (morphine) 2 mg Q4H PRN IV SEVERE PAIN LEVEL 7-10 Last administered on 04/15/19at 22:08; Admin Dose 2 MG; Start 04/13/19 at 00:30 Acetaminophen (Tylenol Tab) 650 mg Q4H PRN PO FEVER>100F; Start 04/13/19 at 17:30 Albuterol (Proventil 0.083% (Neb)) 1.25 mg Q4H PRN NEB WHEEZING AND SOB; Start 04/13/19 at 17:30 Atorvastatin Calcium (Lipitor) 10 mg QHS PO Last administered on 04/22/19at 20:35; Admin Dose 10 MG; Start 04/13/19 at 21:00 Carbidopa/Levodopa (Sinemet (25/ 100)) 1 tab BID PO Last administered on 04/23/19at 08:45; Admin Dose 1 TAB; Start 04/13/19 at 21:00 Cholecalciferol (Vitamin D) 1,000 unit DAILY PO Last administered on 04/23/19at 08:44; Admin Dose 1,000 UNIT; Start 04/14/19 at 09:00 Citalopram Hydrobromide (Celexa) 10 mg DAILY PO Last administered on 04/23/19at 08:44; Admin Dose 10 MG; Start 04/14/19 at 09:00 Finasteride (Proscar) 5 mg DAILY PO Last administered on 04/23/19at 08:45; Admin Dose 5 MG; Start 04/14/19 at 09:00 Hydroxyzine HCl (Atarax) 10 mg Q6H PRN PO ITCHING; Start 04/13/19 at 17:30 Ferrous Sulfate (Ferrous Sulfate (Ec)) 325 mg DAILY PO Last administered on 04/23/19 08:45; Admin Dose 325 MG; Start 04/14/19 at 09:00 Diltiazem HCl (Cardizem Sr) 60 mg Q8H PO ; Start 04/13/19 at 21:30; Status Hold Calcium Carbonate (Oyster Shell Calcium) 1.25 gm DAILY PO Last administered on 04/23/19 08:45; Admin Dose 1.25 GM; Start 04/14/19 at 09:00 Valproate Sodium 250 mg/Sodium Chloride 52.5 ml @ 55 mls/hr Q8 IVPB Last administered on 04/23/19 13:36; Admin Dose 55 MLS/HR; Start 04/13/19 at 22:00 Diphenhydramine HCl (Benadryl) 25 mg Q8 PRN IV ITCHING Last administered on 04/19/19 21:16; Admin Dose 25 MG; Start 04/14/19 at 01:30 Lorazepam (Ativan) 0.5 mg Q6H PRN IV ANXIETY Last administered on 04/20/19 19:28; Admin Dose 0.5 MG; Start 04/14/19 at 01:30 Sodium Hypochlorite (Dakins Diluted ()) 1 applic DAILY TP Last administered on 04/23/19 08:47; Admin Dose 1 APPLIC; Start 04/16/19 at 09:00 Cefepime HCl 50 ml @ 100 mls/hr Q12 IVPB Last administered on 04/23/19 08:41; Admin Dose 100 MLS/HR; Start 04/16/19 at 21:00 Rifampin (Rifampin) 300 mg Q12 PO Last administered on 04/23/19 08:45; Admin Dose 300 MG; Start 04/16/19 at 21:00 Famotidine (Pepcid) 20 mg BID PO Last administered on 04/23/19 08:45; Admin Dose 20 MG; Start 04/17/19 at 21:00 Vancomycin HCl 250 ml @ 125 mls/hr Q24H IVPB Last administered on 04/23/19 08 :41; Admin Dose 125 MLS/HR; Start 04/23/19 at 09:00 Ascorbic Acid (Vitamin C) 1,000 mg DAILY PO Last administered on 04/23/19at 12:12; Admin Dose 1,000 MG; Start 04/23/19 at 12:00 Zinc Sulfate (Zinc Sulfate) 220 mg DAILY PO Last administered on 04/23/19at 12:12; Admin Dose 220 MG; Start 04/23/19 at 12:00 ROLANDO SANFORD Apr 23, 2019 19:47
[2019-04-23] MEDS: ATORVASTATIN 10 MG TAB PO SCH (20:48)
[2019-04-24] VITALS (12 sets, daily range): BP systolic 112–148; BP diastolic 60–87; PULSE 66–77; RESP 18–20
[2019-04-24] MEDS: VALPROATE INJ 250 MG in SOD CHLORIDE 0.9% 50 ML IVPB SCH ×3 (05:26→21:02)
[2019-04-24] MEDS: ENOXAPARIN 30 MG/0.3 ML SYG SC SCH (09:14)
[2019-04-24] MEDS: CHOLECALCIFEROL 1,000 UNIT TAB PO SCH (09:15)
[2019-04-24] MEDS: CALCIUM CARBONATE 1.25 GM TAB PO SCH (09:15)
[2019-04-24] MEDS: RIFAMPIN 300 MG CAP PO SCH ×2 (09:15→20:55)
[2019-04-24] MEDS: FAMOTIDINE 20 MG TAB PO SCH ×2 (09:15→20:55)
[2019-04-24] MEDS: CITALOPRAM 20 MG TAB PO SCH (09:15)
[2019-04-24] MEDS: CARBIDOPA/LEVODOPA (25/100) TAB PO SCH ×2 (09:15→20:55)
[2019-04-24] MEDS: ZINC SULFATE 220 MG CAP PO SCH (09:15)
[2019-04-24] MEDS: CEFEPIME 1GM/50 ML (PMX) 50 ML IVPB SCH ×2 (09:15→20:53)
[2019-04-24] MEDS: FINASTERIDE 5 MG TAB PO SCH (09:15)
[2019-04-24] MEDS: ASCORBIC ACID 500 MG TAB PO SCH (09:15)
[2019-04-24] MEDS: FERROUS SULFATE (EC) 325 MG TAB PO SCH (09:15)
[2019-04-24] MEDS: VANCOMYCIN 1 GM 250 ML IVPB SCH (09:16)
[2019-04-24] MEDS: DAKINS 0.0125%(1/40) 473 ML SOLUTION TP SCH (09:16)
--- NOTE | 2019-04-24 11:20 | CONS ---
Assessment/Plan Assessment/Plan Hospital Course (Demo Recall) All noted, no acute events over night, no fevers Microbiology: Blood culture on admission grew MRSA, urine culture positive for E. coli, sacral wound culture grew E. coli and MRSA Antimicrobials: Cefepime IV vancomycin Allergies: Penicillin PHYSICAL EXAMINATION: GENERAL: This is a chronically ill-appearing, wasted elderly man who is in no distress. HEENT: Head is atraumatic, normocephalic. Sclerae are anicteric. Buccal mucosa is dry. NECK: Supple. CHEST: Rise symmetrical. Breath sounds diminished to bases. HEART: S1, S2. ABDOMEN: Soft. Bowel tones are present. EXTREMITIES: With trace edema. Assessment: 1. S/p sepsis with MRSA bacteremia on admission 2 to #2 2. Sacral wound with abscess and cellulitis, status post I&D 04/15/19 3. MRSA nares colonization 4. UTI 5. Dementia Plan: Continue on current abx for 6 more days, cxr today Consultation Date/Type/Reason Admit Date/Time Apr 12, 2019 at 17:21 Initial Consult Date 04/15/19 Type of Consult id Requesting Provider: JACOBO EATON MD Date/Time of Note DATE: 04/24/19 TIME: 11:19 Exam/Review of Systems Exam Vitals Vital Signs Date Temp Pulse Resp B/P (MAP) Pulse Ox O2 O2 Flow FiO2 Time Delivery Rate 04/24/19 97.9 67 18 120/69 100 11:12 (86) 04/24/19 Nasal 09:57 Cannula 04/24/19 2.0 02:53 Intake and Output 04/23/19 04/23/19 04/24/19 1515:00 23:00 07:00 IntakeIntake Total 240 ml 402.5 ml OutputOutput Total 350 ml 1100 ml 1250 ml BalanceBalance -110 ml -697.5 ml -1250 ml Results Result Diagram: 04/24/19 0551 04/24/19 0551 Results 24hrs Laboratory Tests Test 04/24/19 05:51 White Blood Count 11.7 H Red Blood Count 3.85 L Hemoglobin 11.5 L Hematocrit 35.5 L Mean Corpuscular Volume 92.2 Mean Corpuscular Hemoglobin 29.9 Mean Corpuscular Hemoglobin Concent 32.4 Red Cell Distribution Width 13.6 Platelet Count 334 Mean Platelet Volume 9.7 Immature Granulocytes % 0.700 H Neutrophils % 74.5 Lymphocytes % 13.7 L Monocytes % 6.7 Eosinophils % 3.7 Basophils % 0.7 Nucleated Red Blood Cells % 0.0 Immature Granulocytes # 0.080 H Neutrophils # 8.7 H Lymphocytes # 1.6 Monocytes # 0.8 Eosinophils # 0.4 Basophils # 0.1 Nucleated Red Blood Cells # 0.0 Sodium Level 140 Potassium Level 4.4 Chloride Level 102 Carbon Dioxide Level 30 Anion Gap 8 Blood Urea Nitrogen 20 Creatinine 1.00 Est Glomerular Filtrat Rate mL/min Glucose Level 93 Calcium Level 8.5 Medications Medication Current Medications Acetaminophen (Tylenol Tab) 650 mg Q6H PRN PO MILD PAIN(1-3)OR ELEVATED TEMP; Start 04/13/19 at 00:30 Vancomycin HCl (Vanco Iv Per Pharmacy) VANCOMYCIN PER PHARMACY PER PROTOCOL XX ; Start 04/13/19 at 00:30 Enoxaparin Sodium (Lovenox) 30 mg DAILY SC Last administered on 04/24/19at 09:14; Admin Dose 30 MG; Start 04/13/19 at 09:00 Morphine Sulfate (morphine) 2 mg Q4H PRN IV SEVERE PAIN LEVEL 7-10 Last administered on 04/15/19at 22:08; Admin Dose 2 MG; Start 04/13/19 at 00:30 Acetaminophen (Tylenol Tab) 650 mg Q4H PRN PO FEVER>100F; Start 04/13/19 at 17:30 Albuterol (Proventil 0.083% (Neb)) 1.25 mg Q4H PRN NEB WHEEZING AND SOB; Start 04/13/19 at 17:30 Atorvastatin Calcium (Lipitor) 10 mg QHS PO Last administered on 04/23/19at 20:48; Admin Dose 10 MG; Start 04/13/19 at 21:00 Carbidopa/Levodopa (Sinemet (25/ 100)) 1 tab BID PO Last administered on 04/24/19at 09:15; Admin Dose 1 TAB; Start 04/13/19 at 21:00 Cholecalciferol (Vitamin D) 1,000 unit DAILY PO Last administered on 04/24/19at 09:15; Admin Dose 1,000 UNIT; Start 04/14/19 at 09:00 Citalopram Hydrobromide (Celexa) 10 mg DAILY PO Last administered on 04/24/19 09:15; Admin Dose 10 MG; Start 04/14/19 at 09:00 Finasteride (Proscar) 5 mg DAILY PO Last administered on 04/24/19 09:15; Admin Dose 5 MG; Start 04/14/19 at 09:00 Hydroxyzine HCl (Atarax) 10 mg Q6H PRN PO ITCHING; Start 04/13/19 at 17:30 Ferrous Sulfate (Ferrous Sulfate (Ec)) 325 mg DAILY PO Last administered on 04/24/19 09:15; Admin Dose 325 MG; Start 04/14/19 at 09:00 Diltiazem HCl (Cardizem Sr) 60 mg Q8H PO ; Start 04/13/19 at 21:30; Status Hold Calcium Carbonate (Oyster Shell Calcium) 1.25 gm DAILY PO Last administered on 04/24/19 09:15; Admin Dose 1.25 GM; Start 04/14/19 at 09:00 Valproate Sodium 250 mg/Sodium Chloride 52.5 ml @ 55 mls/hr Q8 IVPB Last administered on 04/24/19 05:26; Admin Dose 55 MLS/HR; Start 04/13/19 at 22:00 Diphenhydramine HCl (Benadryl) 25 mg Q8 PRN IV ITCHING Last administered on 04/19/19 21:16; Admin Dose 25 MG; Start 04/14/19 at 01:30 Lorazepam (Ativan) 0.5 mg Q6H PRN IV ANXIETY Last administered on 04/20/19 19:28; Admin Dose 0.5 MG; Start 04/14/19 at 01:30 Sodium Hypochlorite (Dakins Diluted (/40)) 1 applic DAILY TP Last administered on 04/24/19 09:16; Admin Dose 1 APPLIC; Start 04/16/19 at 09:00 Cefepime HCl 50 ml @ 100 mls/hr Q12 IVPB Last administered on 04/24/19 09:15; Admin Dose 100 MLS/HR; Start 04/16/19 at 21:00 Rifampin (Rifampin) 300 mg Q12 PO Last administered on 04/24/19 09:15; Admin Dose 300 MG; Start 04/16/19 at 21:00 Famotidine (Pepcid) 20 mg BID PO Last administered on 04/24/19 09:15; Admin Dose 20 MG; Start 04/17/19 at 21:00 Vancomycin HCl 250 ml @ 125 mls/hr Q24H IVPB Last administered on 04/24/19 09:16; Admin Dose 125 MLS/HR; Start 04/23/19 at 09:00 Ascorbic Acid (Vitamin C) 1,000 mg DAILY PO Last administered on 04/24/19 09:15; Admin Dose 1,000 MG; Start 04/23/19 at 12:00 Zinc Sulfate (Zinc Sulfate) 220 mg DAILY PO Last administered on 04/24/19 09:15; Admin Dose 220 MG; Start 04/23/19 at 12:00 HERMINIO WILLAMS NP Apr 24, 2019 11:20
--- NOTE | 2019-04-24 13:27 | PN ---
Date/Time of Note Date/Time of Note DATE: 04/24/19 TIME: 13:23 Assessment/Plan Lines/Catheters IV Catheter Type (from Nrsg): PICC Line Gonzales in Place (from Nrsg): Yes Assessment/Plan Chief Complaint/Hosp Course 1. 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 CVA history, bedbound, functional quadriplegia -Medical optimization -Offloading -Nutritional optimization 3. CHF history -Cardiac optimization with judicious fluid management 4. Anemia, stable -Monitor 5. Leukocytosis: resolved -As above 6. UTI: -abx per sensitivity -frequent bladder emptying/cath care 7. Bacteremia: repeat BC: ngtd -Antibiotics per sensitivity Thank you. Patient seen and examined in collaboration with Dr. Pasquale Patel. Subjective 24 Hr Interval Summary No overnight events. Continues on abx tx. No fevers, labored breathing, congested cough, vomting, diarrhea, sz, rash. Appears comfortable. Nonverbal indicators of pain not present. Exam/Review of Systems Vital Signs Vitals Vital Signs Date Temp Pulse Resp B/P (MAP) Pulse Ox O2 O2 Flow FiO2 Time Delivery Rate 04/24/19 2.0 11:33 04/24/19 97.9 67 18 120/69 100 11:12 (86) 04/24/19 Nasal 09:57 Cannula Intake and Output 04/23/19 04/23/19 04/24/19 1515:00 23:00 07:00 IntakeIntake Total 240 ml 402.5 ml OutputOutput Total 350 ml 1100 ml 1250 ml BalanceBalance -110 ml -697.5 ml -1250 ml Exam Free Text/Dictation Constitutional: No oriented, somnolent Psych: calm Head: normocephalic, atraumatic Eyes: nl conjunctiva, EOMI, PERRL; No icteric ENMT: nl external ears & nose, mucosa pink and moist Neck: supple, non-tender, jvd (Minimal) Respiratory: normal air movement; No congested cough, No labored breathing, No wheezing Cardiovascular: regular rate and rhythm; No edema Gastrointestinal: soft, non-tender; No distended, No rebound or guarding Genitourinary - Male: No nl scrotum (Wound-clean) Musculoskeletal: No nl extremities to inspection, No nl gait and stance, No joint tenderness Extremities: normal pulses; No calf tenderness, No edema Neurological: No nl mental status, No nl speech, No nl strength Skin: rash or lesions (Sacral: Clean, no bleeding); No diaphoresis Lymph: nl lymph nodes Results Result Diagram: 04/24/19 0551 04/24/19 0551 CHARLI CHAVIS NP Apr 24, 2019 13:27
--- NOTE | 2019-04-24 17:01 | PN ---
Date/Time of Note Date/Time of Note DATE: 04/24/19 TIME: 17:01 Assessment/Plan VTE Prophylaxis Risk score (from Ns)>0 risk: 10 SCD applied (from Ns): Yes Pharmacological prophylaxis: LMWH Lines/Catheters IV Catheter Type (from [facility] PICC Line Central line still needed: Yes Urinary Cath still in place: Yes Reason Cath still needed: urinary retention Assessment/Plan Hospital Course No acute events overnight patient remains hemodynamically stable, afebrile confused. Patient undergoing treatment with cefepime and vancomycin for staph bacteremia and sacral wound infection. Assessment/Plan - Sepsis secondary to E. coli UTI and Staphylococcus bacteremia. Continue antibiotics per ID. Dr. Saldivar is following in infection disease consultation. - E. 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 Status post I&D. Dr. Patel is following in general surgery consultation. Continue current wound care. - Dysphagia, s/p swallow eval, continue PO diet. - BPH, continue Flomax and Proscar - History of cerebrovascular accident. Continue aspirin - Dyslipidemia. Continue statin - Parkinsonism. Continue Sinemet. - Dementia with agitation. Continue Depakote. - Depression. Continue Celexa. Further recommendations based on clinical course. Plan of care discussed with Dr. Rivera. Result Diagram: 04/24/19 0551 04/24/19 0551 Results 24hrs Laboratory Tests Test 04/24/19 05:51 White Blood Count 11.7 H Red Blood Count 3.85 L Hemoglobin 11.5 L Hematocrit 35.5 L Mean Corpuscular Volume 92.2 Mean Corpuscular Hemoglobin 29.9 Mean Corpuscular Hemoglobin Concent 32.4 Red Cell Distribution Width 13.6 Platelet Count 334 Mean Platelet Volume 9.7 Immature Granulocytes % 0.700 H Neutrophils % 74.5 Lymphocytes % 13.7 L Monocytes % 6.7 Eosinophils % 3.7 Basophils % 0.7 Nucleated Red Blood Cells % 0.0 Immature Granulocytes # 0.080 H Neutrophils # 8.7 H Lymphocytes # 1.6 Monocytes # 0.8 Eosinophils # 0.4 Basophils # 0.1 Nucleated Red Blood Cells # 0.0 Sodium Level 140 Potassium Level 4.4 Chloride Level 102 Carbon Dioxide Level 30 Anion Gap 8 Blood Urea Nitrogen 20 Creatinine 1.00 Est Glomerular Filtrat Rate mL/min Glucose Level 93 Calcium Level 8.5 Exam/Review of Systems Exam Vitals Vital Signs Date Temp Pulse Resp B/P (MAP) Pulse Ox O2 O2 Flow FiO2 Time Delivery Rate 04/24/19 97.9 66 20 129/63 100 Nasal 15:57 (85) Cannula 04/24/19 2.0 11:33 Intake and Output 04/23/19 04/23/19 04/24/19 1515:00 23:00 07:00 IntakeIntake Total 240 ml 402.5 ml OutputOutput Total 350 ml 1100 ml 1250 ml BalanceBalance -110 ml -697.5 ml -1250 ml Exam Constitutional: alert, frail Neck: supple Respiratory: diminished breath sounds Cardiovascular: regular rate and rhythm Gastrointestinal: soft, non-tender Extremities: normal pulses Neurological: confused Skin: other (Sacral wound) Results Results 24hrs Laboratory Tests Test 04/24/19 05:51 White Blood Count 11.7 H Red Blood Count 3.85 L Hemoglobin 11.5 L Hematocrit 35.5 L Mean Corpuscular Volume 92.2 Mean Corpuscular Hemoglobin 29.9 Mean Corpuscular Hemoglobin Concent 32.4 Red Cell Distribution Width 13.6 Platelet Count 334 Mean Platelet Volume 9.7 Immature Granulocytes % 0.700 H Neutrophils % 74.5 Lymphocytes % 13.7 L Monocytes % 6.7 Eosinophils % 3.7 Basophils % 0.7 Nucleated Red Blood Cells % 0.0 Immature Granulocytes # 0.080 H Neutrophils # 8.7 H Lymphocytes # 1.6 Monocytes # 0.8 Eosinophils # 0.4 Basophils # 0.1 Nucleated Red Blood Cells # 0.0 Sodium Level 140 Potassium Level 4.4 Chloride Level 102 Carbon Dioxide Level 30 Anion Gap 8 Blood Urea Nitrogen 20 Creatinine 1.00 Est Glomerular Filtrat Rate mL/min Glucose Level 93 Calcium Level 8.5 Medications Medication Current Medications Acetaminophen (Tylenol Tab) 650 mg Q6H PRN PO MILD PAIN(1-3)OR ELEVATED TEMP; Start 04/13/19 at 00:30 Vancomycin HCl (Vanco Iv Per Pharmacy) VANCOMYCIN PER PHARMACY PER PROTOCOL XX ; Start 04/13/19 at 00:30 Enoxaparin Sodium (Lovenox) 30 mg DAILY SC Last administered on 04/24/19at 09:14; Admin Dose 30 MG; Start 04/13/19 at 09:00 Morphine Sulfate (morphine) 2 mg Q4H PRN IV SEVERE PAIN LEVEL 7-10 Last administered on 04/15/19 22:08; Admin Dose 2 MG; Start 04/13/19 at 00:30 Acetaminophen (Tylenol Tab) 650 mg Q4H PRN PO FEVER>100F; Start 04/13/19 at 17:30 Albuterol (Proventil 0.083% (Neb)) 1.25 mg Q4H PRN NEB WHEEZING AND SOB; Start 04/13/19 at 17:30 Atorvastatin Calcium (Lipitor) 10 mg QHS PO Last administered on 04/23/19at 20:48; Admin Dose 10 MG; Start 04/13/19 at 21:00 Carbidopa/Levodopa (Sinemet (25/ )) 1 tab BID PO Last administered on 04/24/19 09:15; Admin Dose 1 TAB; Start 04/13/19 at 21:00 Cholecalciferol (Vitamin D) 1,000 unit DAILY PO Last administered on 04/24/19 09:15; Admin Dose 1,000 UNIT; Start 04/14/19 at 09:00 Citalopram Hydrobromide (Celexa) 10 mg DAILY PO Last administered on 04/24/19 09:15; Admin Dose 10 MG; Start 04/14/19 at 09:00 Finasteride (Proscar) 5 mg DAILY PO Last administered on 04/24/19 09:15; Admin Dose 5 MG; Start 04/14/19 at 09:00 Hydroxyzine HCl (Atarax) 10 mg Q6H PRN PO ITCHING; Start 04/13/19 at 17:30 Ferrous Sulfate (Ferrous Sulfate (Ec)) 325 mg DAILY PO Last administered on 04/24/19 09:15; Admin Dose 325 MG; Start 04/14/19 at 09:00 Diltiazem HCl (Cardizem Sr) 60 mg Q8H PO ; Start 04/13/19 at 21:30; Status Hold Calcium Carbonate (Oyster Shell Calcium) 1.25 gm DAILY PO Last administered on 04/24/19 09:15; Admin Dose 1.25 GM; Start 04/14/19 at 09:00 Valproate Sodium 250 mg/Sodium Chloride 52.5 ml @ 55 mls/hr Q8 IVPB Last administered on 04/24/19 14:31; Admin Dose 55 MLS/HR; Start 04/13/19 at 22:00 Diphenhydramine HCl (Benadryl) 25 mg Q8 PRN IV ITCHING Last administered on 04/19/19 21:16; Admin Dose 25 MG; Start 04/14/19 at 01:30 Lorazepam (Ativan) 0.5 mg Q6H PRN IV ANXIETY Last administered on 04/20/19 19:28; Admin Dose 0.5 MG; Start 04/14/19 at 01:30 Sodium Hypochlorite (Dakins Diluted (40)) 1 applic DAILY TP Last administered on 04/24/19 09:16; Admin Dose 1 APPLIC; Start 04/16/19 at 09:00 Cefepime HCl 50 ml @ 100 mls/hr Q12 IVPB Last administered on 04/24/19 09:15; Admin Dose 100 MLS/HR; Start 04/16/19 at 21:00 Rifampin (Rifampin) 300 mg Q12 PO Last administered on 04/24/19 09:15; Admin Dose 300 MG; Start 04/16/19 at 21:00 Famotidine (Pepcid) 20 mg BID PO Last administered on 04/24/19 09:15; Admin Dose 20 MG; Start 04/17/19 at 21:00 Vancomycin HCl 250 ml @ 125 mls/hr Q24H IVPB Last administered on 04/24/19 09:16; Admin Dose 125 MLS/HR; Start 04/23/19 at 09:00 Ascorbic Acid (Vitamin C) 1,000 mg DAILY PO Last administered on 04/24/19 09 :15; Admin Dose 1,000 MG; Start 04/23/19 at 12:00 Zinc Sulfate (Zinc Sulfate) 220 mg DAILY PO Last administered on 04/24/19 09:15; Admin Dose 220 MG; Start 04/23/19 at 12:00 Miscellaneous Information (*Rx Drug Level Order Reminder*) MARYAM PEACOCK AT 0800 0800 ONCE XX ; Start 04/26/19 at 08:00; Stop 04/26/19 at 08:01 ROLANDO SANFORD Apr 24, 2019 17:01
[2019-04-24] MEDS: ATORVASTATIN 10 MG TAB PO SCH (20:55)
--- NOTE | 2019-04-24 22:04 | CONS ---
Assessment/Plan Assessment/Plan Hospital Course (Demo Recall) -ANEMIA COMPLEX, MONITOR - LEUKOCYTOSIS REACTIVE, monitor - fever, cough CXR, IV ATB , ID, CULTURES - Sepsis on admission w/fevers, leukocytosis, lactic acidosis Large sacral decub w/abscess and surrounding bilateral edema post surgery - HX urinary tract infection. IV ATB Complicated UTI w/urinary retention due to BPH & neurogenic bladder -Hx of PNA -GERD -Hx of CHAPARRITA - BPH, continue Flomax and Proscar - Dysphagia. swallow evaluation by ST. - History of cerebrovascular accident. Continue aspirin - Dyslipidemia. Continue statin - Parkinsonism. Continue carbidopa - Dementia with agitation. Continue Depakote. - Depression. Continue Celexa. Consultation Date/Type/Reason Admit Date/Time Apr 12, 2019 at 17:21 Initial Consult Date Type of Consult hemeon Requesting Provider: JACOBO EATON MD Date/Time of Note DATE: 04/24/19 TIME: 22:03 24 HR Interval Summary Free Text/Dictation ALL NOTED ABLE TO EAT Exam/Review of Systems Exam Vitals Vital Signs Date Temp Pulse Resp B/P (MAP) Pulse Ox O2 O2 Flow FiO2 Time Delivery Rate 04/24/19 97.9 18 143/67 95 22:00 (92) 04/24/19 77 19:56 04/24/19 Nasal 3.0 19:15 Cannula Intake and Output 04/23/19 04/23/19 04/24/19 1414:59 22:59 06:59 IntakeIntake Total 240 ml 402.5 ml OutputOutput Total 350 ml 1100 ml 1250 ml BalanceBalance -110 ml -697.5 ml -1250 ml Exam GENERAL: This is a chronically ill-appearing, wasted elderly man who is in no distress. HEENT: Head is atraumatic, normocephalic. Sclerae are anicteric. Buccal mucosa is dry. NECK: Supple. CHEST: Rise symmetrical. Breath sounds diminished to bases. HEART: S1, S2. ABDOMEN: Soft. Bowel tones are present. EXTREMITIES: With trace edema. Results Result Diagram: 04/24/19 0551 04/24/19 0551 Results 24hrs Laboratory Tests Test 04/24/19 05:51 White Blood Count 11.7 H Red Blood Count 3.85 L Hemoglobin 11.5 L Hematocrit 35.5 L Mean Corpuscular Volume 92.2 Mean Corpuscular Hemoglobin 29.9 Mean Corpuscular Hemoglobin Concent 32.4 Red Cell Distribution Width 13.6 Platelet Count 334 Mean Platelet Volume 9.7 Immature Granulocytes % 0.700 H Neutrophils % 74.5 Lymphocytes % 13.7 L Monocytes % 6.7 Eosinophils % 3.7 Basophils % 0.7 Nucleated Red Blood Cells % 0.0 Immature Granulocytes # 0.080 H Neutrophils # 8.7 H Lymphocytes # 1.6 Monocytes # 0.8 Eosinophils # 0.4 Basophils # 0.1 Nucleated Red Blood Cells # 0.0 Sodium Level 140 Potassium Level 4.4 Chloride Level 102 Carbon Dioxide Level 30 Anion Gap 8 Blood Urea Nitrogen 20 Creatinine 1.00 Est Glomerular Filtrat Rate mL/min Glucose Level 93 Calcium Level 8.5 Medications Medication Current Medications Acetaminophen (Tylenol Tab) 650 mg Q6H PRN PO MILD PAIN(1-3)OR ELEVATED TEMP; Start 04/13/19 at 00:30 Vancomycin HCl (Vanco Iv Per Pharmacy) VANCOMYCIN PER PHARMACY PER PROTOCOL XX ; Start 04/13/19 at 00:30 Enoxaparin Sodium (Lovenox) 30 mg DAILY SC Last administered on 04/24/19at 09:14; Admin Dose 30 MG; Start 04/13/19 at 09:00 Morphine Sulfate (morphine) 2 mg Q4H PRN IV SEVERE PAIN LEVEL 7-10 Last administered on 04/15/19at 22:08; Admin Dose 2 MG; Start 04/13/19 at 00:30 Acetaminophen (Tylenol Tab) 650 mg Q4H PRN PO FEVER>100F; Start 04/13/19 at 17:30 Albuterol (Proventil 0.083% (Neb)) 1.25 mg Q4H PRN NEB WHEEZING AND SOB; Start 04/13/19 at 17:30 Atorvastatin Calcium (Lipitor) 10 mg QHS PO Last administered on 04/24/19at 20:55; Admin Dose 10 MG; Start 04/13/19 at 21:00 Carbidopa/Levodopa (Sinemet (25/ 100)) 1 tab BID PO Last administered on 04/24/19 20:55; Admin Dose 1 TAB; Start 04/13/19 at 21:00 Cholecalciferol (Vitamin D) 1,000 unit DAILY PO Last administered on 04/24/19 09:15; Admin Dose 1,000 UNIT; Start 04/14/19 at 09:00 Citalopram Hydrobromide (Celexa) 10 mg DAILY PO Last administered on 04/24/19 09:15; Admin Dose 10 MG; Start 04/14/19 at 09:00 Finasteride (Proscar) 5 mg DAILY PO Last administered on 04/24/19 09:15; Admin Dose 5 MG; Start 04/14/19 at 09:00 Hydroxyzine HCl (Atarax) 10 mg Q6H PRN PO ITCHING; Start 04/13/19 at 17:30 Ferrous Sulfate (Ferrous Sulfate (Ec)) 325 mg DAILY PO Last administered on 04/24/19 09:15; Admin Dose 325 MG; Start 04/14/19 at 09:00 Diltiazem HCl (Cardizem Sr) 60 mg Q8H PO ; Start 04/13/19 at 21:30; Status Hold Calcium Carbonate (Oyster Shell Calcium) 1.25 gm DAILY PO Last administered on 04/24/19 09:15; Admin Dose 1.25 GM; Start 04/14/19 at 09:00 Valproate Sodium 250 mg/Sodium Chloride 52.5 ml @ 55 mls/hr Q8 IVPB Last administered on 04/24/19 21:02; Admin Dose 55 MLS/HR; Start 04/13/19 at 22:00 Diphenhydramine HCl (Benadryl) 25 mg Q8 PRN IV ITCHING Last administered on 04/19/19 21:16; Admin Dose 25 MG; Start 04/14/19 at 01:30 Lorazepam (Ativan) 0.5 mg Q6H PRN IV ANXIETY Last administered on 04/20/19 19:28; Admin Dose 0.5 MG; Start 04/14/19 at 01:30 Sodium Hypochlorite (Dakins Diluted (40)) 1 applic DAILY TP Last administered on 04/24/19 09:16; Admin Dose 1 APPLIC; Start 04/16/19 at 09:00 Cefepime HCl 50 ml @ 100 mls/hr Q12 IVPB Last administered on 04/24/19at 20:53; Admin Dose 100 MLS/HR; Start 04/16/19 at 21:00 Rifampin (Rifampin) 300 mg Q12 PO Last administered on 04/24/19 20:55; Admin Dose 300 MG; Start 04/16/19 at 21:00 Famotidine (Pepcid) 20 mg BID PO Last administered on 04/24/19 20:55; Admin Dose 20 MG; Start 04/17/19 at 21:00 Vancomycin HCl 250 ml @ 125 mls/hr Q24H IVPB Last administered on 04/24/19 09:16; Admin Dose 125 MLS/HR; Start 04/23/19 at 09:00 Ascorbic Acid (Vitamin C) 1,000 mg DAILY PO Last administered on 04/24/19 09:15; Admin Dose 1,000 MG; Start 04/23/19 at 12:00 Zinc Sulfate (Zinc Sulfate) 220 mg DAILY PO Last administered on 04/24/19 09:15; Admin Dose 220 MG; Start 04/23/19 at 12:00 Miscellaneous Information (*Rx Drug Level Order Reminder*) AMAIRANIO TR AT 0800 0800 ONCE XX ; Start 04/26/19 at 08:00; Stop 04/26/19 at 08:01 FELI MARCIAL MD Apr 24, 2019 22:04
[2019-04-25] VITALS (10 sets, daily range): BP systolic 115–153; BP diastolic 57–73; PULSE 60–85; RESP 18–20
[2019-04-25] MEDS: VALPROATE INJ 250 MG in SOD CHLORIDE 0.9% 50 ML IVPB SCH ×3 (05:19→21:32)
[2019-04-25] MEDS: FINASTERIDE 5 MG TAB PO SCH (09:49)
[2019-04-25] MEDS: CARBIDOPA/LEVODOPA (25/100) TAB PO SCH ×2 (09:49→21:33)
[2019-04-25] MEDS: FERROUS SULFATE (EC) 325 MG TAB PO SCH (09:49)
[2019-04-25] MEDS: CITALOPRAM 20 MG TAB PO SCH (09:49)
[2019-04-25] MEDS: CHOLECALCIFEROL 1,000 UNIT TAB PO SCH (09:49)
[2019-04-25] MEDS: CEFEPIME 1GM/50 ML (PMX) 50 ML IVPB SCH ×2 (09:49→21:32)
[2019-04-25] MEDS: FAMOTIDINE 20 MG TAB PO SCH ×2 (09:49→21:33)
[2019-04-25] MEDS: CALCIUM CARBONATE 1.25 GM TAB PO SCH (09:49)
[2019-04-25] MEDS: ZINC SULFATE 220 MG CAP PO SCH (09:49)
[2019-04-25] MEDS: RIFAMPIN 300 MG CAP PO SCH ×2 (09:49→21:33)
[2019-04-25] MEDS: ENOXAPARIN 30 MG/0.3 ML SYG SC SCH (10:03)
[2019-04-25] MEDS: DAKINS 0.0125%(1/40) 473 ML SOLUTION TP SCH (10:07)
[2019-04-25] MEDS: ASCORBIC ACID 500 MG TAB PO SCH (10:07)
[2019-04-25] MEDS: VANCOMYCIN 1 GM 250 ML IVPB SCH (10:32)
--- NOTE | 2019-04-25 10:50 | PN ---
Date/Time of Note Date/Time of Note DATE: 04/25/19 TIME: 10:44 Assessment/Plan Lines/Catheters IV Catheter Type (from Nrs): PICC Line Gonzales in Place (from Nrs): Yes Assessment/Plan Chief Complaint/Hosp Course 1. 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 CVA history, bedbound, functional quadriplegia -Medical optimization -Offloading -Nutritional optimization 3. CHF history -Cardiac optimization with judicious fluid management 4. Anemia, stable -Monitor 5. Leukocytosis: resolved -As above 6. UTI: -abx per sensitivity -frequent bladder emptying/cath care 7. Bacteremia: repeat BC: ngtd -Antibiotics per sensitivity Thank you. Patient seen and examined in collaboration with Dr. Pasquale Patel. Subjective 24 Hr Interval Summary Sleepy. Intermittent confused, continues on restraints. No fevers, labored breathing, congested cough, vomiting, diarrhea, sz. Appears comfortable. Nonverbal indicators of pain not present. Exam/Review of Systems Vital Signs Vitals Vital Signs Date Temp Pulse Resp B/P (MAP) Pulse Ox O2 O2 Flow FiO2 Time Delivery Rate 04/25/19 Nasal 2.0 10:15 Cannula 04/25/19 98.0 73 18 117/57 98 10:09 (77) Intake and Output 04/24/19 04/24/19 04/25/19 1515:00 23:00 07:00 IntakeIntake Total 662.5 ml 882.5 ml 572.5 ml OutputOutput Total 1200 ml 1300 ml 900 ml BalanceBalance -537.5 ml -417.5 ml -327.5 ml Exam Free Text/Dictation Constitutional: No oriented, somnolent Psych: calm Head: normocephalic, atraumatic Eyes: nl conjunctiva, EOMI, PERRL; No icteric ENMT: nl external ears & nose, mucosa pink and moist Neck: supple, non-tender, jvd (Minimal) Respiratory: normal air movement; No congested cough, No labored breathing, No wheezing Cardiovascular: regular rate and rhythm; No edema Gastrointestinal: soft, non-tender; No distended, No rebound or guarding Genitourinary - Male: No nl scrotum (Wound-clean) Musculoskeletal: No nl extremities to inspection, No nl gait and stance, No joint tenderness Extremities: normal pulses; No calf tenderness, No edema Neurological: No nl mental status, No nl speech, No nl strength Skin: rash or lesions (Sacral: Clean, no bleeding); No diaphoresis Lymph: nl lymph nodes Results Result Diagram: 04/25/19 0603 04/25/19 0603 CHARLI CHAVIS NP Apr 25, 2019 10:50
--- NOTE | 2019-04-25 15:32 | CONS ---
Assessment/Plan Assessment/Plan Hospital Course (Demo Recall) All noted, no acute events over night, no fevers Microbiology: Blood culture on admission grew MRSA, urine culture positive for E. coli, sacral wound culture grew E. coli and MRSA Antimicrobials: Cefepime IV vancomycin Allergies: Penicillin PHYSICAL EXAMINATION: GENERAL: This is a chronically ill-appearing, wasted elderly man who is in no distress. HEENT: Head is atraumatic, normocephalic. Sclerae are anicteric. Buccal mucosa is dry. NECK: Supple. CHEST: Rise symmetrical. Breath sounds diminished to bases. HEART: S1, S2. ABDOMEN: Soft. Bowel tones are present. EXTREMITIES: With trace edema. Assessment: 1. S/p sepsis with MRSA bacteremia on admission 2 to #2 2. Sacral wound with abscess and cellulitis, status post I&D 04/15/19 3. MRSA nares colonization 4. UTI 5. Dementia Plan: Remains unchanged, continue on current abx for 5 more days Consultation Date/Type/Reason Admit Date/Time Apr 12, 2019 at 17:21 Initial Consult Date 04/15/19 Type of Consult id Requesting Provider: JACOBO EATON MD Date/Time of Note DATE: 04/25/19 TIME: 15:32 Exam/Review of Systems Exam Vitals Vital Signs Date Temp Pulse Resp B/P (MAP) Pulse Ox O2 O2 Flow FiO2 Time Delivery Rate 04/25/19 98.0 68 18 115/60 97 Nasal 15:05 (78) Cannula 04/25/19 2.0 10:15 Intake and Output 04/24/19 04/24/19 04/25/19 1515:00 23:00 07:00 IntakeIntake Total 662.5 ml 882.5 ml 572.5 ml OutputOutput Total 1200 ml 1300 ml 900 ml BalanceBalance -537.5 ml -417.5 ml -327.5 ml Results Result Diagram: 04/25/19 0603 04/25/19 0603 Results 24hrs Laboratory Tests Test 04/25/19 06:03 White Blood Count 10.3 Red Blood Count 3.75 L Hemoglobin 11.2 L Hematocrit 34.3 L Mean Corpuscular Volume 91.5 Mean Corpuscular Hemoglobin 29.9 Mean Corpuscular Hemoglobin Concent 32.7 Red Cell Distribution Width 13.4 Platelet Count 285 Mean Platelet Volume 9.2 Immature Granulocytes % 0.500 H Neutrophils % 73.3 Lymphocytes % 14.5 L Monocytes % 6.5 Eosinophils % 4.5 Basophils % 0.7 Nucleated Red Blood Cells % 0.0 Immature Granulocytes # 0.050 H Neutrophils # 7.6 H Lymphocytes # 1.5 Monocytes # 0.7 Eosinophils # 0.5 Basophils # 0.1 Nucleated Red Blood Cells # 0.0 Sodium Level 138 Potassium Level 4.3 Chloride Level 101 Carbon Dioxide Level 33 H Anion Gap 4 L Blood Urea Nitrogen 18 Creatinine 0.99 Est Glomerular Filtrat Rate mL/min Glucose Level 106 Calcium Level 8.6 Medications Medication Current Medications Acetaminophen (Tylenol Tab) 650 mg Q6H PRN PO MILD PAIN(1-3)OR ELEVATED TEMP; Start 04/13/19 at 00:30 Vancomycin HCl (Vanco Iv Per Pharmacy) VANCOMYCIN PER PHARMACY PER PROTOCOL XX ; Start 04/13/19 at 00:30 Enoxaparin Sodium (Lovenox) 30 mg DAILY SC Last administered on 04/25/19at 10:03; Admin Dose 30 MG; Start 04/13/19 at 09:00 Morphine Sulfate (morphine) 2 mg Q4H PRN IV SEVERE PAIN LEVEL 7-10 Last administered on 04/15/19at 22:08; Admin Dose 2 MG; Start 04/13/19 at 00:30 Acetaminophen (Tylenol Tab) 650 mg Q4H PRN PO FEVER>100F; Start 04/13/19 at 17:30 Albuterol (Proventil 0.083% (Neb)) 1.25 mg Q4H PRN NEB WHEEZING AND SOB; Start 04/13/19 at 17:30 Atorvastatin Calcium (Lipitor) 10 mg QHS PO Last administered on 04/24/19at 20:55; Admin Dose 10 MG; Start 04/13/19 at 21:00 Carbidopa/Levodopa (Sinemet (25/ 100)) 1 tab BID PO Last administered on 04/25/19at 09:49; Admin Dose 1 TAB; Start 04/13/19 at 21:00 Cholecalciferol (Vitamin D) 1,000 unit DAILY PO Last administered on 04/25/19at 09:49; Admin Dose 1,000 UNIT; Start 04/14/19 at 09:00 Citalopram Hydrobromide (Celexa) 10 mg DAILY PO Last administered on 04/25/19 09:49; Admin Dose 10 MG; Start 04/14/19 at 09:00 Finasteride (Proscar) 5 mg DAILY PO Last administered on 04/25/19 09:49; Admin Dose 5 MG; Start 04/14/19 at 09:00 Hydroxyzine HCl (Atarax) 10 mg Q6H PRN PO ITCHING; Start 04/13/19 at 17:30 Ferrous Sulfate (Ferrous Sulfate (Ec)) 325 mg DAILY PO Last administered on 04/25/19 09:49; Admin Dose 325 MG; Start 04/14/19 at 09:00 Diltiazem HCl (Cardizem Sr) 60 mg Q8H PO ; Start 04/13/19 at 21:30; Status Hold Calcium Carbonate (Oyster Shell Calcium) 1.25 gm DAILY PO Last administered on 04/25/19 09:49; Admin Dose 1.25 GM; Start 04/14/19 at 09:00 Valproate Sodium 250 mg/Sodium Chloride 52.5 ml @ 55 mls/hr Q8 IVPB Last administered on 04/25/19 14:19; Admin Dose 55 MLS/HR; Start 04/13/19 at 22:00 Diphenhydramine HCl (Benadryl) 25 mg Q8 PRN IV ITCHING Last administered on 04/19/19 21:16; Admin Dose 25 MG; Start 04/14/19 at 01:30 Lorazepam (Ativan) 0.5 mg Q6H PRN IV ANXIETY Last administered on 04/20/19 19:28; Admin Dose 0.5 MG; Start 04/14/19 at 01:30 Sodium Hypochlorite (Dakins Diluted ()) 1 applic DAILY TP Last administered on 04/25/19 10:07; Admin Dose 1 APPLIC; Start 04/16/19 at 09:00 Cefepime HCl 50 ml @ 100 mls/hr Q12 IVPB Last administered on 04/25/19 09:49; Admin Dose 100 MLS/HR; Start 04/16/19 at 21:00 Rifampin (Rifampin) 300 mg Q12 PO Last administered on 04/25/19 09:49; Admin Dose 300 MG; Start 04/16/19 at 21:00 Famotidine (Pepcid) 20 mg BID PO Last administered on 04/25/19at 09:49; Admin Dose 20 MG; Start 04/17/19 at 21:00 Vancomycin HCl 250 ml @ 125 mls/hr Q24H IVPB Last administered on 04/25/19at 10:32; Admin Dose 125 MLS/HR; Start 04/23/19 at 09:00 Ascorbic Acid (Vitamin C) 1,000 mg DAILY PO Last administered on 04/25/19at 10:07; Admin Dose 1,000 MG; Start 04/23/19 at 12:00 Zinc Sulfate (Zinc Sulfate) 220 mg DAILY PO Last administered on 04/25/19 09:49; Admin Dose 220 MG; Start 04/23/19 at 12:00 Miscellaneous Information (*Rx Drug Level Order Reminder*) MARYAM TR AT 0800 0800 ONCE XX ; Start 04/26/19 at 08:00; Stop 04/26/19 at 08:01 HERMINIO WILLAMS NP Apr 25, 2019 15:32
--- NOTE | 2019-04-25 18:50 | DS ---
Date/Time of Note Date/Time of Note DATE: 04/25/19 TIME: 18:50 Discharge Summary Admission/Discharge Info Admit Date/Time Apr 12, 2019 at 17:21 Discharge Date/Time Patient Condition: Stable Hx of Present Illness The patient is [id number] man with dementia, CVA, BPH, dysphagia, dyslipidemia, parkinsonism, depression, bedbound state, brought in by EMS from alf for sacral wound infection with possible abscess. Hospital Course - Sepsis secondary to E. coli UTI and Staphylococcus bacteremia. Continue Vanco and Cefepime for [address] Saldivar is following in infection disease consultation. - E. 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 Status post I&D. Dr. Patel is following in general surgery consultation. Continue current wound care. - Dysphagia, s/p swallow eval, continue PO diet. - BPH, continue Flomax and Proscar - History of cerebrovascular accident. Continue aspirin - Dyslipidemia. Continue statin - Parkinsonism. Continue Sinemet. - Dementia with agitation. Continue Depakote. - Depression. Continue Celexa. Plan of care discussed with Dr. Rivera. Home Meds Reported Medications Cephalexin* (Cephalexin*) 500 Mg Capsule, 500 MG PO Q8, #21 CAP START DATE 04/11 END DATE 04/18 START DATE 04/13 END DATE 04/2004/12/19 Ivermectin* (Stromectol*) 3 Mg Tab, 12 MG PO ONCE, TAB START DATE 04/20 AND END DATE 04/2104/12/19 Hydroxyzine Hcl* (Hydroxyzine Hcl*) 10 Mg Tablet, 10 MG PO Q6H PRN for ITCHING, #30 TAB 04/12/19 Finasteride* (Finasteride*) 5 Mg Tablet, 5 MG PO DAILY, TAB 04/12/19 [Ferrous Sulfat] No Conflict Check, 5 MG PO QAM 5MG/20ML LIQUID-QAM 04/12/19 Enoxaparin Sodium* (Enoxaparin Sodium*) 30 Mg/0.3 Ml Syringe, 30 MG SC DAILY, SYR 04/12/19 Diltiazem Hcl* (Cardizem SR*) 60 Mg Capsr, 60 MG PO Q8H, #60 CAP 04/12/19 Divalproex Sodium* (Depakote*) 125 Mg Tablet.dr, 125 MG PO TID, #90 TAB 04/12/19 Cranberry Ext/C/L. Sporogenes (Cranberry Tablet) 1 Each Tablet, 1 EACH PO QAM, T AB 04/12/19 Citalopram Hydrobromide* (Citalopram Hydrobromide*) 10 Mg Tablet, 10 MG PO DAILY, #30 TAB 04/12/19 Cholecalciferol* (Vitamin D3*) 1,000 Unit Tablet, 1000 UNIT PO DAILY, TAB 04/12/19 Carbidopa/Levodopa (Carbidopa-Levodopa 25-100 Tab) 1 Each Tablet, 1 EACH PO BID, TAB 04/12/19 Calcium Carbonate (Calcium Carbonate) 500 Mg Tab.chew, 500 MG PO QAM, TAB.CHEW 04/12/19 Atorvastatin Calcium (Atorvastatin Calcium) 10 Mg Tablet, 10 MG PO QHS, #30 TAB 04/12/19 Albuterol Sulfate* (Albuterol Sulfate* Neb) 0.083%-3 Ml Neb, 1.25 MG NEB Q4H PRN for WHEEZING AND SOB, #30 VIAL 04/12/19 Acetaminophen* (Acetaminophen*) 650 Mg Tablet, 650 MG PO Q4H PRN for FEVER>100F, #30 TAB 04/12/19 Follow-up Plan Discharge to custodial facility with current orders Primary Care Provider Mayda Brennan MD Time spent on discharge: > 30 minutes Pending Labs Laboratory Tests Test 04/25/19 06:03 White Blood Count 10.3 10^3/ul (4.8-10.8) Red Blood Count 3.75 10^6/ul (4.70-6.10) Hemoglobin 11.2 g/dl (14.0-18.0) Hematocrit 34.3 % (42.0-52.0) Mean Corpuscular Volume 91.5 fl (82.0-101.0) Mean Corpuscular Hemoglobin 29.9 pg (29.0-33.0) Mean Corpuscular Hemoglobin Concent 32.7 g/dl (32.0-37.0) Red Cell Distribution Width 13.4 % (11.5-14.5) Platelet Count 285 10^3/UL (140-415) Mean Platelet Volume 9.2 fl (7.4-10.4) Immature Granulocytes % 0.500 % (0.001-0.429) Neutrophils % 73.3 % (39.0-77.0) Lymphocytes % 14.5 % (15.0-51.0) Monocytes % 6.5 % (0.0-11.0) Eosinophils % 4.5 % (0.0-7.0) Basophils % 0.7 % (0.0-2.0) Nucleated Red Blood Cells % 0.0 /100WBC (0.0-0.0) Immature Granulocytes # 0.050 10^3/ul (0.0-0.031) Neutrophils # 7.6 10^3/ul (1.6-7.5) Lymphocytes # 1.5 10^3/ul (0.8-2.9) Monocytes # 0.7 10^3/ul (0.3-0.9) Eosinophils # 0.5 10^3/ul (0.0-0.5) Basophils # 0.1 10^3/ul (0.0-0.1) Nucleated Red Blood Cells # 0.0 10^3/ul (0.0-0.0) Sodium Level 138 mmol/L (135-144) Potassium Level 4.3 mmol/L (3.5-5.1) Chloride Level 101 mmol/L (97-110) Carbon Dioxide Level 33 mmol/L (21-31) Anion Gap 4 (5-13) Blood Urea Nitrogen 18 mg/dl (7-20) Creatinine 0.99 mg/dl (0.61-1.24) Est Glomerular Filtrat Rate mL/min mL/min (>60) Glucose Level 106 mg/dl (70-220) Calcium Level 8.6 mg/dl (8.4-10.2) ROLANDO SANFORD Apr 25, 2019 18:50
[2019-04-25] MEDS: ATORVASTATIN 10 MG TAB PO SCH (21:33)
--- NOTE | 2019-04-25 23:22 | CONS ---
Assessment/Plan Assessment/Plan Hospital Course (Demo Recall) -ANEMIA COMPLEX, MONITOR - LEUKOCYTOSIS REACTIVE, monitor - fever, cough CXR, IV ATB , ID, CULTURES - Sepsis on admission w/fevers, leukocytosis, lactic acidosis Large sacral decub w/abscess and surrounding bilateral edema post surgery - HX urinary tract infection. IV ATB Complicated UTI w/urinary retention due to BPH & neurogenic bladder -Hx of PNA -GERD -Hx of CHAPARRITA - BPH, continue Flomax and Proscar - Dysphagia. swallow evaluation by ST. - History of cerebrovascular accident. Continue aspirin - Dyslipidemia. Continue statin - Parkinsonism. Continue carbidopa - Dementia with agitation. Continue Depakote. - Depression. Continue Celexa. Consultation Date/Type/Reason Admit Date/Time Apr 12, 2019 at 17:21 Initial Consult Date Type of Consult hemeon Requesting Provider: JACOBO EATON MD Date/Time of Note DATE: 04/25/19 TIME: 23:21 24 HR Interval Summary Free Text/Dictation ALL NOTED NAD NO BLEEDING Exam/Review of Systems Exam Vitals Vital Signs Date Temp Pulse Resp B/P (MAP) Pulse Ox O2 O2 Flow FiO2 Time Delivery Rate 04/25/19 97.8 70 20 132/73 95 19:44 (92) 04/25/19 Nasal 2.0 19:15 Cannula Intake and Output 04/24/19 04/24/19 04/25/19 1515:00 23:00 07:00 IntakeIntake Total 662.5 ml 882.5 ml 572.5 ml OutputOutput Total 1200 ml 1300 ml 900 ml BalanceBalance -537.5 ml -417.5 ml -327.5 ml Exam GENERAL: This is a chronically ill-appearing, wasted elderly man who is in no distress. HEENT: Head is atraumatic, normocephalic. Sclerae are anicteric. Buccal mucosa is dry. NECK: Supple. CHEST: Rise symmetrical. Breath sounds diminished to bases. HEART: S1, S2. ABDOMEN: Soft. Bowel tones are present. EXTREMITIES: With trace edema. Results Result Diagram: 04/25/19 0603 04/25/19 0603 Results 24hrs Laboratory Tests Test 04/25/19 06:03 White Blood Count 10.3 Red Blood Count 3.75 L Hemoglobin 11.2 L Hematocrit 34.3 L Mean Corpuscular Volume 91.5 Mean Corpuscular Hemoglobin 29.9 Mean Corpuscular Hemoglobin Concent 32.7 Red Cell Distribution Width 13.4 Platelet Count 285 Mean Platelet Volume 9.2 Immature Granulocytes % 0.500 H Neutrophils % 73.3 Lymphocytes % 14.5 L Monocytes % 6.5 Eosinophils % 4.5 Basophils % 0.7 Nucleated Red Blood Cells % 0.0 Immature Granulocytes # 0.050 H Neutrophils # 7.6 H Lymphocytes # 1.5 Monocytes # 0.7 Eosinophils # 0.5 Basophils # 0.1 Nucleated Red Blood Cells # 0.0 Sodium Level 138 Potassium Level 4.3 Chloride Level 101 Carbon Dioxide Level 33 H Anion Gap 4 L Blood Urea Nitrogen 18 Creatinine 0.99 Est Glomerular Filtrat Rate mL/min Glucose Level 106 Calcium Level 8.6 Medications Medication Current Medications Acetaminophen (Tylenol Tab) 650 mg Q6H PRN PO MILD PAIN(1-3)OR ELEVATED TEMP; Start 04/13/19 at 00:30 Vancomycin HCl (Vanco Iv Per Pharmacy) VANCOMYCIN PER PHARMACY PER PROTOCOL XX ; Start 04/13/19 at 00:30 Enoxaparin Sodium (Lovenox) 30 mg DAILY SC Last administered on 04/25/19at 10:03; Admin Dose 30 MG; Start 04/13/19 at 09:00 Morphine Sulfate (morphine) 2 mg Q4H PRN IV SEVERE PAIN LEVEL 7-10 Last administered on 04/15/19at 22:08; Admin Dose 2 MG; Start 04/13/19 at 00:30 Acetaminophen (Tylenol Tab) 650 mg Q4H PRN PO FEVER>100F; Start 04/13/19 at 17:30 Albuterol (Proventil 0.083% (Neb)) 1.25 mg Q4H PRN NEB WHEEZING AND SOB; Start 04/13/19 at 17:30 Atorvastatin Calcium (Lipitor) 10 mg QHS PO Last administered on 04/25/19 21:33; Admin Dose 10 MG; Start 04/13/19 at 21:00 Carbidopa/Levodopa (Sinemet (25/ 100)) 1 tab BID PO Last administered on 04/25/19 21:33; Admin Dose 1 TAB; Start 04/13/19 at 21:00 Cholecalciferol (Vitamin D) 1,000 unit DAILY PO Last administered on 04/25/19at 09:49; Admin Dose 1,000 UNIT; Start 04/14/19 at 09:00 Citalopram Hydrobromide (Celexa) 10 mg DAILY PO Last administered on 04/25/19 09:49; Admin Dose 10 MG; Start 04/14/19 at 09:00 Finasteride (Proscar) 5 mg DAILY PO Last administered on 04/25/19 09:49; Admin Dose 5 MG; Start 04/14/19 at 09:00 Hydroxyzine HCl (Atarax) 10 mg Q6H PRN PO ITCHING; Start 04/13/19 at 17:30 Ferrous Sulfate (Ferrous Sulfate (Ec)) 325 mg DAILY PO Last administered on 04/25/19 09:49; Admin Dose 325 MG; Start 04/14/19 at 09:00 Diltiazem HCl (Cardizem Sr) 60 mg Q8H PO ; Start 04/13/19 at 21:30; Status Hold Calcium Carbonate (Oyster Shell Calcium) 1.25 gm DAILY PO Last administered on 04/25/19 09:49; Admin Dose 1.25 GM; Start 04/14/19 at 09:00 Valproate Sodium 250 mg/Sodium Chloride 52.5 ml @ 55 mls/hr Q8 IVPB Last administered on 04/25/19 21:32; Admin Dose 55 MLS/HR; Start 04/13/19 at 22:00 Diphenhydramine HCl (Benadryl) 25 mg Q8 PRN IV ITCHING Last administered on 04/19/19 21:16; Admin Dose 25 MG; Start 04/14/19 at 01:30 Lorazepam (Ativan) 0.5 mg Q6H PRN IV ANXIETY Last administered on 04/20/19 19:28; Admin Dose 0.5 MG; Start 04/14/19 at 01:30 Sodium Hypochlorite (Dakins Diluted (40)) 1 applic DAILY TP Last administered on 04/25/19 10:07; Admin Dose 1 APPLIC; Start 04/16/19 at 09:00 Cefepime HCl 50 ml @ 100 mls/hr Q12 IVPB Last administered on 04/25/19 21:32; Admin Dose 100 MLS/HR; Start 04/16/19 at 21:00 Rifampin (Rifampin) 300 mg Q12 PO Last administered on 04/25/19 21:33; Admin Dose 300 MG; Start 04/16/19 at 21:00 Famotidine (Pepcid) 20 mg BID PO Last administered on 04/25/19 21:33; Admin Dose 20 MG; Start 04/17/19 at 21:00 Vancomycin HCl 250 ml @ 125 mls/hr Q24H IVPB Last administered on 04/25/19 10:32; Admin Dose 125 MLS/HR; Start 04/23/19 at 09:00 Ascorbic Acid (Vitamin C) 1,000 mg DAILY PO Last administered on 04/25/19at 10:07; Admin Dose 1,000 MG; Start 04/23/19 at 12:00 Zinc Sulfate (Zinc Sulfate) 220 mg DAILY PO Last administered on 04/25/19 09:49; Admin Dose 220 MG; Start 04/23/19 at 12:00 Miscellaneous Information (*Rx Drug Level Order Reminder*) VANCO TR AT 0800 0800 ONCE XX ; Start 04/26/19 at 08:00; Stop 04/26/19 at 08:01 FELI MARCIAL MD Apr 25, 2019 23:22
[2019-04-26] VITALS: BP 126/62; PULSE 74; RESP 20
[2019-04-26 03:56] VITALS: BP 122/58; PULSE 86; RESP 20
[2019-04-26] MEDS: DIPHENHYDRAMINE 50 MG INJ IV PRN (05:41)
[2019-04-26] MEDS: VALPROATE INJ 250 MG in SOD CHLORIDE 0.9% 50 ML IVPB SCH ×2 (05:41→14:47)
[2019-04-26 07:35] VITALS: BP 122/58; PULSE 67; RESP 18
[2019-04-26] MEDS: CITALOPRAM 20 MG TAB PO SCH (09:22)
[2019-04-26] MEDS: ZINC SULFATE 220 MG CAP PO SCH (09:22)
[2019-04-26] MEDS: FERROUS SULFATE (EC) 325 MG TAB PO SCH (09:22)
[2019-04-26] MEDS: CEFEPIME 1GM/50 ML (PMX) 50 ML IVPB SCH (09:22)
[2019-04-26] MEDS: CHOLECALCIFEROL 1,000 UNIT TAB PO SCH (09:22)
[2019-04-26] MEDS: FINASTERIDE 5 MG TAB PO SCH (09:22)
[2019-04-26] MEDS: FAMOTIDINE 20 MG TAB PO SCH (09:23)
[2019-04-26] MEDS: CARBIDOPA/LEVODOPA (25/100) TAB PO SCH (09:23)
[2019-04-26] MEDS: DAKINS 0.0125%(1/40) 473 ML SOLUTION TP SCH (09:23)
[2019-04-26] MEDS: CALCIUM CARBONATE 1.25 GM TAB PO SCH (09:23)
[2019-04-26] MEDS: RIFAMPIN 300 MG CAP PO SCH (09:23)
[2019-04-26] MEDS: ASCORBIC ACID 500 MG TAB PO SCH (09:23)
[2019-04-26] MEDS: ENOXAPARIN 30 MG/0.3 ML SYG SC SCH (09:33)
[2019-04-26] MEDS: VANCOMYCIN 1 GM 250 ML IVPB SCH (10:13)
--- NOTE | 2019-04-26 10:28 | PN ---
Date/Time of Note Date/Time of Note DATE: 04/26/19 TIME: 10:26 Assessment/Plan Lines/Catheters IV Catheter Type (from Nrsg): PICC Line Gonzales in Place (from Nrsg): Yes Assessment/Plan Chief Complaint/Hosp Course 1. 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 CVA history, bedbound, functional quadriplegia -Medical optimization -Offloading -Nutritional optimization 3. CHF history -Cardiac optimization with judicious fluid management 4. Anemia, stable -Monitor 5. Leukocytosis: resolved -As above 6. UTI: -abx per sensitivity -frequent bladder emptying/cath care 7. Bacteremia: repeat BC: ngtd -Antibiotics per sensitivity Thank you. Patient seen and examined in collaboration with Dr. Pasquale Patel. Subjective 24 Hr Interval Summary appears comfortable. Nonverbal indicators of pain not present. No fevers, labored breathing, congested cough, vomiting, diarrhea, sz, rash, wound drainage/odor. Exam/Review of Systems Vital Signs Vitals Vital Signs Date Temp Pulse Resp B/P (MAP) Pulse Ox O2 O2 Flow FiO2 Time Delivery Rate 04/26/19 98.0 67 18 122/58 95 Room Air 07:35 (79) 04/25/19 2.0 22:00 Intake and Output 04/25/19 04/25/19 04/26/19 1515:00 23:00 07:00 IntakeIntake Total 300 ml 952.5 ml OutputOutput Total 1700 ml 1100 ml BalanceBalance 300 ml -747.5 ml -1100 ml Exam Free Text/Dictation Constitutional: No oriented, somnolent Psych: calm Head: normocephalic, atraumatic Eyes: nl conjunctiva, EOMI, PERRL; No icteric ENMT: nl external ears & nose, mucosa pink and moist Neck: supple, non-tender, jvd (Minimal) Respiratory: normal air movement; No congested cough, No labored breathing, No wheezing Cardiovascular: regular rate and rhythm; No edema Gastrointestinal: soft, non-tender; No distended, No rebound or guarding Genitourinary - Male: No nl scrotum (Wound-clean, min slough) Musculoskeletal: No nl extremities to inspection, No nl gait and stance, No joint tenderness Extremities: normal pulses; No calf tenderness, No edema Neurological: No nl mental status, No nl speech, No nl strength Skin: rash or lesions (Sacral: Clean, no bleeding); No diaphoresis Lymph: nl lymph nodes Results Result Diagram: 04/25/19 0603 04/25/19 0603 CHARLI CHAVIS NP Apr 26, 2019 10:28
--- NOTE | 2019-04-26 11:19 | DS ---
Date/Time of Note Date/Time of Note DATE: 04/26/19 TIME: 11:19 Discharge Summary Admission/Discharge Info Admit Date/Time Apr 12, 2019 at 17:21 Discharge Date/Time Patient Condition: Stable Hospital Course This is an 83-year-old man; a SNF resident with multiple medical conditions, bedbound state. Patient was admitted for sacral abscess . HPI was limited as patient is nonverbal but supplemented by reviewing past medical records, reviewing skilled nursing records, and speaking to EMS. Patient has had no fevers, no vomiting, no complaints of chest pain or shortness of breath. Patient is hemodynamically stable to transfer to SNF. Patient seen in collaboration with Dr Rivera. Home Meds Reported Medications Cephalexin* (Cephalexin*) 500 Mg Capsule, 500 MG PO Q8, #21 CAP START DATE 04/11 END DATE 04/18 START DATE 04/13 END DATE 04/2004/12/19 Ivermectin* (Stromectol*) 3 Mg Tab, 12 MG PO ONCE, TAB START DATE 04/20 AND END DATE 04/2104/12/19 Hydroxyzine Hcl* (Hydroxyzine Hcl*) 10 Mg Tablet, 10 MG PO Q6H PRN for ITCHING, #30 TAB 04/12/19 Finasteride* (Finasteride*) 5 Mg Tablet, 5 MG PO DAILY, TAB 04/12/19 [Ferrous Sulfat] No Conflict Check, 5 MG PO QAM 5MG/20ML LIQUID-QAM 04/12/19 Enoxaparin Sodium* (Enoxaparin Sodium*) 30 Mg/0.3 Ml Syringe, 30 MG SC DAILY, SY R 04/12/19 Diltiazem Hcl* (Cardizem SR*) 60 Mg Capsr, 60 MG PO Q8H, #60 CAP 04/12/19 Divalproex Sodium* (Depakote*) 125 Mg Tablet., 125 MG PO TID, #90 TAB 04/12/19 Cranberry Ext/C/L. Sporogenes (Cranberry Tablet) 1 Each Tablet, 1 EACH PO QAM, TAB 04/12/19 Citalopram Hydrobromide* (Citalopram Hydrobromide*) 10 Mg Tablet, 10 MG PO DAILY, #30 TAB 04/12/19 Cholecalciferol* (Vitamin D3*) 1,000 Unit Tablet, 1000 UNIT PO DAILY, TAB 04/12/19 Carbidopa/Levodopa (Carbidopa-Levodopa 25-100 Tab) 1 Each Tablet, 1 EACH PO BID, TAB 04/12/19 Calcium Carbonate (Calcium Carbonate) 500 Mg Tab.chew, 500 MG PO QAM, TAB.CHEW 04/12/19 Atorvastatin Calcium (Atorvastatin Calcium) 10 Mg Tablet, 10 MG PO QHS, #30 TAB 04/12/19 Albuterol Sulfate* (Albuterol Sulfate* Neb) 0.083%-3 Ml Neb, 1.25 MG NEB Q4H PRN for WHEEZING AND SOB, #30 VIAL 04/12/19 Acetaminophen* (Acetaminophen*) 650 Mg Tablet, 650 MG PO Q4H PRN for FEVER>100F, #30 TAB 04/12/19 Follow-up Plan Discharge to long term facility with current orders Primary Care Provider Mayda Brennan MD Time spent on discharge: < 30 minutes Pending Labs Laboratory Tests Test 04/26/19 08:04 Vancomycin Level Trough 17.0 ug/ml (10.0-20.0) ABIMBOLA MCKINNEY Apr 26, 2019 11:19
[2019-04-26 11:39] VITALS: BP 116/56; PULSE 70; RESP 18
--- NOTE | 2019-04-26 14:31 | CONS ---
Assessment/Plan Assessment/Plan Hospital Course (Demo Recall) no acute events over night, pt looks comfortable, lying in bed, no fevers Microbiology: Blood culture on admission grew MRSA, urine culture positive for E. coli, sacral wound culture grew E. coli and MRSA Antimicrobials: Cefepime IV vancomycin Allergies: Penicillin PHYSICAL EXAMINATION: GENERAL: This is a chronically ill-appearing, wasted elderly man who is in no distress. HEENT: Head is atraumatic, normocephalic. Sclerae are anicteric. Buccal mucosa is dry. NECK: Supple. CHEST: Rise symmetrical. Breath sounds diminished to bases. HEART: S1, S2. ABDOMEN: Soft. Bowel tones are present. EXTREMITIES: With trace edema. Assessment: 1. S/p sepsis with MRSA bacteremia on admission 2 to #2 2. Sacral wound with abscess and cellulitis, status post I&D 04/15/19 3. MRSA nares colonization 4. UTI 5. Dementia Plan: Remains unchanged, continue on current abx for 4 more days Consultation Date/Type/Reason Admit Date/Time Apr 12, 2019 at 17:21 Initial Consult Date 04/15/19 Type of Consult id Requesting Provider: JACOBO EATON MD Date/Time of Note DATE: 04/26/19 TIME: 14:30 Exam/Review of Systems Exam Vitals Vital Signs Date Temp Pulse Resp B/P (MAP) Pulse Ox O2 O2 Flow FiO2 Time Delivery Rate 04/26/19 97.8 70 18 116/56 97 Room Air 11:39 (76) 04/25/19 2.0 22:00 Intake and Output 04/25/19 04/25/19 04/26/19 1515:00 23:00 07:00 IntakeIntake Total 300 ml 952.5 ml OutputOutput Total 1700 ml 1100 ml BalanceBalance 300 ml -747.5 ml -1100 ml Results Result Diagram: 04/25/19 0603 04/25/19 0603 Results 24hrs Laboratory Tests Test 04/26/19 08:04 Vancomycin Level Trough 17.0 Medications Medication Current Medications Acetaminophen (Tylenol Tab) 650 mg Q6H PRN PO MILD PAIN(1-3)OR ELEVATED TEMP; Start 04/13/19 at 00:30 Vancomycin HCl (Vanco Iv Per Pharmacy) VANCOMYCIN PER PHARMACY PER PROTOCOL XX ; Start 04/13/19 at 00:30 Enoxaparin Sodium (Lovenox) 30 mg DAILY SC Last administered on 04/26/19 09:33; Admin Dose 30 MG; Start 04/13/19 at 09:00 Morphine Sulfate (morphine) 2 mg Q4H PRN IV SEVERE PAIN LEVEL 7-10 Last adminis tered on 04/15/19 22:08; Admin Dose 2 MG; Start 04/13/19 at 00:30 Acetaminophen (Tylenol Tab) 650 mg Q4H PRN PO FEVER>100F; Start 04/13/19 at 17:30 Albuterol (Proventil 0.083% (Neb)) 1.25 mg Q4H PRN NEB WHEEZING AND SOB; Start 04/13/19 at 17:30 Atorvastatin Calcium (Lipitor) 10 mg QHS PO Last administered on 04/25/19 21:33; Admin Dose 10 MG; Start 04/13/19 at 21:00 Carbidopa/Levodopa (Sinemet (25/ 100)) 1 tab BID PO Last administered on 04/26/19 09:23; Admin Dose 1 TAB; Start 04/13/19 at 21:00 Cholecalciferol (Vitamin D) 1,000 unit DAILY PO Last administered on 04/26/19 09:22; Admin Dose 1,000 UNIT; Start 04/14/19 at 09:00 Citalopram Hydrobromide (Celexa) 10 mg DAILY PO Last administered on 04/26/19 09:22; Admin Dose 10 MG; Start 04/14/19 at 09:00 Finasteride (Proscar) 5 mg DAILY PO Last administered on 04/26/19 09:22; Admin Dose 5 MG; Start 04/14/19 at 09:00 Hydroxyzine HCl (Atarax) 10 mg Q6H PRN PO ITCHING; Start 04/13/19 at 17:30 Ferrous Sulfate (Ferrous Sulfate (Ec)) 325 mg DAILY PO Last administered on 04/26/19 09:22; Admin Dose 325 MG; Start 04/14/19 at 09:00 Diltiazem HCl (Cardizem Sr) 60 mg Q8H PO ; Start 04/13/19 at 21:30; Status Hold Calcium Carbonate (Oyster Shell Calcium) 1.25 gm DAILY PO Last administered on 04/26/19 09:23; Admin Dose 1.25 GM; Start 04/14/19 at 09:00 Valproate Sodium 250 mg/Sodium Chloride 52.5 ml @ 55 mls/hr Q8 IVPB Last administered on 04/26/19 05:41; Admin Dose 55 MLS/HR; Start 04/13/19 at 22:00 Diphenhydramine HCl (Benadryl) 25 mg Q8 PRN IV ITCHING Last administered on 04/26/19 05:41; Admin Dose 25 MG; Start 04/14/19 at 01:30 Lorazepam (Ativan) 0.5 mg Q6H PRN IV ANXIETY Last administered on 04/20/19 19:28; Admin Dose 0.5 MG; Start 04/14/19 at 01:30 Sodium Hypochlorite (Dakins Diluted ()) 1 applic DAILY TP Last administered on 04/26/19 09:23; Admin Dose 1 APPLIC; Start 04/16/19 at 09:00 Cefepime HCl 50 ml @ 100 mls/hr Q12 IVPB Last administered on 04/26/19 09:22; Admin Dose 100 MLS/HR; Start 04/16/19 at 21:00 Rifampin (Rifampin) 300 mg Q12 PO Last administered on 04/26/19 09:23; Admin Dose 300 MG; Start 04/16/19 at 21:00 Famotidine (Pepcid) 20 mg BID PO Last administered on 04/26/19 09:23; Admin Dose 20 MG; Start 04/17/19 at 21:00 Vancomycin HCl 250 ml @ 125 mls/hr Q24H IVPB Last administered on 04/26/19 10:13; Admin Dose 125 MLS/HR; Start 04/23/19 at 09:00 Ascorbic Acid (Vitamin C) 1,000 mg DAILY PO Last administered on 04/26/19 09:23; Admin Dose 1,000 MG; Start 04/23/19 at 12:00 Zinc Sulfate (Zinc Sulfate) 220 mg DAILY PO Last administered on 04/26/19 09:22; Admin Dose 220 MG; Start 04/23/19 at 12:00 HERMINIO WILLAMS NP Apr 26, 2019 14:31
--- NOTE | 2019-04-26 22:23 | CONS ---
Assessment/Plan Assessment/Plan Hospital Course (Demo Recall) -ANEMIA COMPLEX, MONITOR - LEUKOCYTOSIS REACTIVE, monitor - fever, cough CXR, IV ATB , ID, CULTURES - Sepsis on admission w/fevers, leukocytosis, lactic acidosis Large sacral decub w/abscess and surrounding bilateral edema post surgery - HX urinary tract infection. IV ATB Complicated UTI w/urinary retention due to BPH & neurogenic bladder -Hx of PNA -GERD -Hx of CHAPARRITA - BPH, continue Flomax and Proscar - Dysphagia. swallow evaluation by ST. - History of cerebrovascular accident. Continue aspirin - Dyslipidemia. Continue statin - Parkinsonism. Continue carbidopa - Dementia with agitation. Continue Depakote. - Depression. Continue Celexa. OK TO SNF [facility] Consultation Date/Type/Reason Admit Date/Time Apr 12, 2019 at 17:21 Initial Consult Date Type of Consult hemeonc Requesting Provider: JACOBO EATON MD Date/Time of Note DATE: 04/26/19 TIME: 22:22 24 HR Interval Summary Free Text/Dictation ALL NOTED NAD Exam/Review of Systems Exam Vitals Vital Signs Date Temp Pulse Resp B/P (MAP) Pulse Ox O2 O2 Flow FiO2 Time Delivery Rate 04/26/19 97.8 70 18 116/56 97 Room Air 11:39 (76) 04/25/19 2.0 22:00 Intake and Output 04/25/19 04/25/19 04/26/19 1414:59 22:59 06:59 IntakeIntake Total 300 ml 952.5 ml OutputOutput Total 1700 ml 1100 ml BalanceBalance 300 ml -747.5 ml -1100 ml Exam GENERAL: This is a chronically ill-appearing, wasted elderly man who is in no distress. HEENT: Head is atraumatic, normocephalic. Sclerae are anicteric. Buccal mucosa is dry. NECK: Supple. CHEST: Rise symmetrical. Breath sounds diminished to bases. HEART: S1, S2. ABDOMEN: Soft. Bowel tones are present. EXTREMITIES: With trace edema. Results Result Diagram: 04/25/19 0603 04/25/19 0603 Results 24hrs Laboratory Tests Test 04/26/19 08:04 Vancomycin Level Trough 17.0 FELI MARCIAL MD Apr 26, 2019 22:23
[2019-04-27] MEDS ORDERED: VANCOMYCIN 750 MG (PMX) 250 ML IVPB SCH (10:00)
== END 2019-04-26 16:00 | DRG 853 ==
LOC: E/R 16:10 → 6WM 17:21
PROVIDERS: ADMIT Internal Medicine; ATTEND Internal Medicine
PROC: 0KBP0ZZ Excision of Left Hip Muscle, Open Approach (ICD-10-PCS; 2019-04-15)
PROC: 0KBN0ZZ Excision of Right Hip Muscle, Open Approach (ICD-10-PCS; 2019-04-15)
PROC: 02HV33Z Insertion of Infusion Device into Superior Vena Cava, Percutaneous Approach (ICD-10-PCS; principal; 2019-04-15 17:30)
DX: A41.02 Sepsis due to Methicillin resistant Staphylococcus aureus (principal); L89.154 Pressure ulcer of sacral region, stage 4; R53.2 Functional quadriplegia; L03.312 Cellulitis of back [any part except buttock and flank]; L02.212 Cutaneous abscess of back [any part, except buttock and flank]; N39.0 Urinary tract infection, site not specified; E86.0 Dehydration; N40.1 Benign prostatic hyperplasia with lower urinary tract symptoms; R33.8 Other retention of urine; N31.9 Neuromuscular dysfunction of bladder, unspecified; F03.90 Unspecified dementia, unspecified severity, without behavioral disturbance, psychotic disturbance, mood disturbance, and anxiety; F32.9 Major depressive disorder, single episode, unspecified; D64.9 Anemia, unspecified; G20 Parkinson's disease; B96.20 Unspecified Escherichia coli [E. coli] as the cause of diseases classified elsewhere; Z74.01 Bed confinement status; R13.10 Dysphagia, unspecified; Z22.322 Carrier or suspected carrier of Methicillin resistant Staphylococcus aureus
CPT/HCPCS: 36569; 71045; 76937; 80048; 80053; 80202; 81001; 82565; 83605; 83690; 83880; 84484; 84520; 85025; 85610; 85730; 87070; 87075; 87081; 87086; 87102; 88304; 92526; 92610; 93005; 96374; 96375; J0692; J1200; J1650; J2060; J2185; J2270; J2405; J3370; J7030; J7042; J7050; J7120